=== PATIENT | female | born 1980 | race Caucasian/White ===

== ENCOUNTER 2016-04-11 23:57 | Emergency (ER) | payer OTHER ==
[~2016-04-11] VITALS: Ht 157.5 cm; Wt 85.0 kg
[~2016-04-11 23:57] MED LIST: ASPI325T39 PO; GABA1CAP5 PO; INDO-24 PO; NAPR1TAB9 PO; NRT25 PO; SERT-234 PO
[2016-04-11 23:58] VITALS: TEMP 36.9; Ht 157.5 cm; Wt 85.0 kg
[2016-04-12] MEDS ORDERED: HYDROmorphone INJ 1 MG/ML SYR IM STA (00:09)
[2016-04-12] MEDS ORDERED: PROMETHAZINE HCL INJ 25 MG/ML 1 ML VIAL IM STA (00:09)
[2016-04-12] MEDS ORDERED: KETOROLAC TROMETHAMINE 60 MG/2 ML VIAL IM STA (00:09)
--- NOTE | 2016-04-12 00:35 | EMERGENCY ROOM VISIT NOTE ---
History Report prepared by Junior: Yoshi Olivas Under the Supervision of: Dr. Thomas Resendiz M.D. First contact with patient: 00:04 Chief Complaint: HEADACHE Stated Complaint: MIGRAINE History of Present Illness The patient is a 36 year old female who presents to the Emergency Room with complaints of a worsening headache since this evening. The pain is mostly felt on the right side of her head behind the eye, and is consistent with past migraines. The onset was very sudden. The patient also complains of nausea and four episodes of vomiting. She denies any fevers, neck stiffness, one-sided weakness in the extremities, or rashes. The patient took her regular migraine medications around 2200. She was recently in the ED for GI symptoms, which resolved in two days. Source of History: patient Onset: this evening Position: head Quality: other (migraine) Timing: worsening Associated Symptoms: + nausea, + vomiting, No fevers, No headache, No neck pain, No numbness, No rash, No weakness Review of Systems See HPI for pertinent positives & negatives. A total of 10 systems reviewed and were otherwise negative. Past Medical & Surgical Medical Problems: (1) Closed head injury (2) Diabetes mellitus type 2 (3) Migraine Surgical Problems: (1) S/P appendectomy (2) S/P appendectomy (3) S/P cholecystectomy (4) Status post breast reduction (5) Status post tonsillectomy (6) Status post tubal ligation Family History Heart disease Social History Smoking Status: Current Every Day Smoker Alcohol Use: none Drug Use: none Marital Status: Housing Status: lives with family Occupation Status: disabled Current/Historical Medications Scheduled Aspirin (Aspirin Ec), 325 MG PO BID Gabapentin (Neurontin), 400 MG PO TID Indomethacin (Indocin), 50 MG PO BID Nortriptyline HCl (Nortriptyline HCl), 25 MG PO HS Propranolol HCl (Propranolol HCl ER), 60 MG PO DAILY Sertraline (Zoloft), 100 MG PO DAILY Scheduled PRN Lorazepam (Ativan), 0.5 MG PO DAILY PRN for Anxiety Naproxen (Aleve), 220-440 MG PO UD PRN for Pain Promethazine Hcl (Phenergan), 25 MG PO Q6H PRN for Nausea Allergies Coded Allergies: BEE STING (Verified Allergy, Severe, SHORTNESS OF BREATH, 04/12/16) Shellfish Allergy (Verified Allergy, Severe, SWELLING/RED SKIN, 04/12/16) Ondansetron (Verified Allergy, Intermediate, HIVES - RASH, 04/12/16) Oily Fish (Verified Allergy, Unknown, SEAFOOD, 04/12/16) Morphine (Verified Adverse Reaction, Intermediate, vomiting, 04/12/16) Uncoded Allergies: EXOTIC FRUITS (Allergy, Mild, HIVES RASH SWELLING, 08/18/15) Physical Exam Vital Signs Date Time Temp Pulse Resp B/P Pulse Ox O2 Delivery O2 Flow Rate FiO2 04/12/16 00:57 81 20 115/71 98 04/11/16 23:58 36.9 84 20 104/69 97 Room Air Physical Exam GENERAL: Patient is well appearing and in mild distress. HEAD: No acute trauma, normocephalic atraumatic ENT: Mucous membranes moist, no nasal congestion. EYES: Equal/Reactive Bilaterally, No scleral icterus, Normal ROM NECK: No nuchal rigidity, no meningismus, trachea is midline, full ROM LUNGS: No dyspnea. Clear to auscultation and equal bilaterally. No wheeze, no rhonchi. HEART: Regular rate and rhythm. No murmurs, rubs, gallops appreciated. ABDOMEN: Soft, nontender, bowel sounds positive, no masses appreciated, no peritonitis. BACK: No midline tenderness, no CVA tenderness EXTREMITIES: Normal motion all extremities, no cyanosis, no edema. NEUROLOGIC: Awake, Alert, Oriented, no acute motor or sensory deficits, no focal weakness, cranial nerves grossly intact. SKIN: No rash, no jaundice, no diaphoresis. Medical Decision & Procedures Medications Administered Medications (Trade) Dose Ordered Sig/Heather Route Start Time Stop Time Status Last Admin Dose Admin Hydromorphone HCl (Dilaudid Inj) 1 mg NOW STAT IM 04/12/16 00:09 04/12/16 00:11 DC 04/12/16 00:18 1 MG Ketorolac Tromethamine (Toradol Inj) 60 mg NOW STAT IM 04/12/16 00:09 04/12/16 00:11 DC 04/12/16 00:18 60 MG Promethazine HCl (Phenergan Inj) 25 mg NOW STAT IM 04/12/16 00:09 04/12/16 00:11 DC 04/12/16 00:19 25 MG ED Course 0005: The patient was evaluated in room A4b. A complete history and physical exam was performed. 0009: Phenergan 25 mg IM, Toradol 60 mg IM, Dilaudid 1 mg IM. 0045: Reevaluated the patient. Discussed results and discharge instructions: She verbalized understanding and agreement. The patient is ready for discharge. Medical Decision Differential: Headache, Migraine, Cluster Headache, Seizure, Meningitis, Sinusitis, CO exposure, ICH/SAH, Infectious, Tumor, Sinus Thrombosis, Arterial Dissection, amongst other pathologies entertained. 36 yr old female well known to me and rest of department for frequent visits due to chronic migraines. Arrives stating she is having he typical migraine, this time brought on by watching YouTube videos of knee replacements over the last few days. She does not have meningitis, no evidence of infections, and looks well. She is feeling better and wants to go home. Impression Primary Impression: Headache Scribe Attestation The scribe's documentation has been prepared under my direction and personally reviewed by me in its entirety. I confirm that the note above accurately reflects all work, treatment, procedures, and medical decision making performed by me. Departure Information Dispostion Home / Self-Care Referrals Na Mathis P.A. (PCP) Forms HOME CARE DOCUMENTATION FORM, IMPORTANT VISIT INFORMATION Patient Instructions A Signature Page, ED Headache Migraine, My [facility]
[2016-04-12 00:57] VITALS: BP 115/71; PULSE 81; O2SAT 98
[2016-07-12] MEDS ORDERED: PROP60CA PO (00:46)
[2016-07-12] MEDS ORDERED: PROM25TA9 PO (00:48)
[2016-07-12] MEDS ORDERED: CYCL10TA6 PO (01:08)
[2016-07-12] MEDS ORDERED: NORT10CA2 PO (01:11)
[2016-07-12] MEDS ORDERED: ACET-1256 PO (14:49)
[2016-07-12] MEDS ORDERED: LORA-741 PO (21:34)
[2016-07-19] MEDS ORDERED: NRN600 PO (13:17)
[2016-12-22] MEDS ORDERED: IPRASOL4 INH (14:50)
[2016-12-22] MEDS ORDERED: PRED10TA PO (14:50)
[2016-12-22] MEDS ORDERED: DOXY100C76 PO (14:50)
[2016-12-22] MEDS ORDERED: VAREPAK PO (14:52)
== END 2016-04-12 01:03 | disposition home or self-care (01) ==
LOC: C.EDB 23:58 → C.EDA 04-12 01:03
DX: R51 Headache (principal); E11.9 Type 2 diabetes mellitus without complications; F17.200 Nicotine dependence, unspecified, uncomplicated; Z98.51 Tubal ligation status; Z90.49 Acquired absence of other specified parts of digestive tract; Z98.890 Other specified postprocedural states; Z79.82 Long term (current) use of aspirin; Z79.899 Other long term (current) drug therapy; Z88.5 Allergy status to narcotic agent; Z88.8 Allergy status to other drugs, medicaments and biological substances; Z91.018 Allergy to other foods; Z91.030 Bee allergy status

== ENCOUNTER → 2016-04-18 | Day surgery (SDC) | payer OTHER ==
[2016-04-13 09:18] VITALS: Ht 157.5 cm; Wt 84.1 kg
[~2016-04-18] VITALS: Ht 157.5 cm; Wt 84.1 kg
[~2016-04-18] MED LIST changes: +ACET-1256 PO; +ALBUTEROL HFA INHALER 8.5 GM INH ONE; +ATROPINE SULFATE 0.1 MG/ML 5ML SYR IV PRN; +ATV/1 PO; +AZIT500T26 PO; +BUPIVACAINE/EPINEPHRINE 0.5% MPF 1:200,000 30 ML VIAL ONE; +CEFAZOLIN 2000 MG/60 ML D5W IV SCH; +CYCL10TA6 PO; +DEXAMETHASONE SOD INJ 4 MG/ML VIAL ONE; +DOXY100C76 PO; +EpHEDrine SULFATE INJ 50 MG/ML AMP IV PRN; +EpINEphrine INJ 1MG/ML AMP 1 MG/ML AMP ONE; +FENTANYL CITRATE INJ 50 MCG/1 ML 2 ML VIAL ONE; +GABA-112 PO; +HYDROCODONE/ACETAMOPHEN 5/325MG TAB PO PRN; +IPRA1AER2 INH; +IPRASOL4 INH; +KETOROLAC TROMETHAMINE 30 MG/ML VIAL ONE; +LIDOCAINE HCL 1% 20 ML VIAL ONE; +LIDOCAINE HCL 2% 2 ML VIAL (20MG/ML) ONE; +LORA-741 PO; +MIDAZOLAM HCL 1 MG/ML 2ML VIAL ONE; +MoRPHine SULFATE 4 MG/ML 1 ML CARP\\VIAL IV PRN; +NORT10CA2 PO; +NRN400 PO; +NRN600 PO; +NURSING VERBAL MED ORDER ONE; +PENI-82 PO; +PRED10TA PO; +PRED20TA PO; +PRED50TA PO; +PROM25TA9 PO; +PROP60CA PO; +PROPOFOL IV EMULSION 10 MG/ML 20 ML VIAL IV ONE; +SCOPOLAMINE 1.5 MG TDSY TD ONE; +SODIUM CHLORIDE 0.9% 1000ML 1,000 ML IV SCH; +SPRIN/30 INH; +SYMIN160 INH; +VAREPAK PO; +VNTHFA/IN INH
--- NOTE | 2016-04-18 06:46 | History & Physical Bridge - SC ---
H&P Re-Evaluation Bridge Note: I have examined the patient, reviewed the History & Physical and in the interval since the performance of the History & Physical I have noted the following changes of clinical significance: No changes noted
[2016-04-18] MEDS: LACTATED RINGER'S 1000ML 1,000 ML IV SCH ×2 (06:47→07:02)
--- NOTE | 2016-04-18 07:05 | Discharge Instructions-SurgCtr ---
Discharge Instructions Visit Reason for Visit: Left Knee Arthrofibrosis Discharge Discharge Diagnosis / Problem: Status post left knee arthrscopy lysis of Adhesions, MAN Discharge Goals Goal(s): Decrease discomfort, Improve function, Increase independence Activity Recommendations Activity Limitations: resume your previous activity Exercise/Sports Limitations: gradually increase as tolerated May Resume Sexual Activity: when tolerated Shower/Bathe: may shower/bathe in 3 days Driving or Machine Use: Not while on narcotics Weightbearing Status: Left toe touch (until after PT and return into brace) Anesthesia . Post Anesthesia Instructions: If you have had General Anesthesia or IV Sedation: * Do not drive today. * Resume driving when surgeon permits. * Do not make important decisions or sign legal documents today. * Call surgeon for: 1. Temperature elevations greater than 101 degrees F. 2. Uncontrollable pain. 3. Excessive bleeding. 4. Persistent nausea and vomiting. 5. Medication intolerance (nausea, vomiting or rash). * For nausea and vomiting use only clear liquids such as: tea, soda, bouillon until nausea subsides, then gradually increase diet as tolerated. * If you have any concerns or questions, call your surgeon's office. If physician is unavailable and it is an emergency, call 911 or go to the nearest emergency room. . Instructions / Follow-Up Instructions / Follow-Up PT tomorrow. Dr. Middleton in 10-15 days. Diet Recommendations Home Diet: resume previous diet Pending Studies Studies pending at discharge: no Medical Emergencies . Who to Call and When: Medical Emergencies: If at any time you feel your situation is an emergency, please call 911 immediately. . Non-Emergent Contact Non-Emergency issues call your: Surgeon Call Non-Emergent contact if: temperature is above 101.5, your pain is not controlled, wound has increased drainage, wound has increased redness . . "Provider Documentation" section prepared by Bala Middleton.
--- NOTE | 2016-04-18 08:24 | [facility] Post Operative Brief Note ---
Immediate Operative Summary Operative Date Apr 18, 2016. Pre-Operative Diagnosis Left Knee Arthrofibrosis Post-Operative Diagnosis Same Procedure(s) Performed Left Knee Arthroscopy, Lysis Of Adhesions, Chondroplasty MFC, Manipulation Under Anesthesia Surgeon Dr Middleton Shop Tailor Surgeon(s) Dr Jyoti Trinidad Estimated Blood Loss 4 Findings same Specimens None Drains none Anesthesia general Complication(s) None Disposition Recovery Room / PACU
--- NOTE | 2016-04-18 08:30 | [facility] Operative Report ---
Operative Report Operative Date Apr 18, 2016. Pre-Operative Diagnosis Left Knee Arthrofibrosis Post-Operative Diagnosis Same + [place] [facility] [place](s) Performed 1) Left Knee Arthroscopy, Lysis Of Adhesions. 2) Chondroplasty [facility] [place]. 3) Manipulation Under Anesthesia. Surgeon Dr Middleton General Farm Manager Surgeon(s) Dr Jyoti Trinidad Estimated Blood Loss 4 Findings The left knee was examined under anesthesia. Range of motion was 0-90. Ligamentous examination exhibited: stable Tonya, posterior drawer, varus and valgus stress at 0 & 30 degrees. Range of motion after manipulation under anesthesia at the end of the case, she had 5 of hyperextension and 130 of flexion. ARTHROSCOPIC FINDINGS: There was significant adhesions in the suprapatellar pouch. 1) PATELLOFEMORAL JOINT: The articular cartilage of the Patella and Trochlea were intact. 2) GUTTERS: No loose bodies. There was significant adhesions in both gutters. 3) MEDIAL COMPARTMENT: The articular cartilage of the femur had some type II changes at 20 of flexion and Tibia was intact. The medial meniscus was intact . 4) ACL/PCL: The PCL had a few fibers that were frayed most medially. There was some adhesions within the intercondylar notch. The PCL & ACL were both visualized and probed to be intact. 5) LATERAL COMPARTMENT: The lateral compartment was then entered in a figure-of- four position. The femoral and tibial articular cartilage was normal. The lateral meniscus was normal. Fluids (cc crystalloids) 800 Specimens None Drains n/a Anesthesia LMA Complication(s) None Disposition Recovery Room / PACU (Stable) Implants n/a Indications This is a 36-year-old female who underwent PCL reconstruction 3 months ago and has been unable to fully regain flexion despite physical therapy. I recommended that a left knee arthroscopy be performed with lysis of adhesions, meniscus repair vs debridement, possible chondroplasty versus microfracture, and manipulation under anesthesia. The patient understands the risks of surgery , which include but not limited to: Knee stiffness, bleeding, infection, re- operation, damage to nerves and arteries, continued knee pain, progression of OA , DVT, and a 2-5% risk of becoming worse after surgery. The patient understands all of these instructions and explanations, all of his questions have been satisfactorily addressed and the patient has elected to proceed. Informed consent was signed. Description of Procedure The patient was taken to the Operating Room and placed in the supine position after general anesthetic was administered. My initials and a multidisciplinary time-out were used to identify the left leg as the correct operative limb. Prior to the incision, 2 grams of intravenous Ancef was given. The left knee was then injected with 20cc of a 50:50 mix of 1% Lidocaine plain and 0.5% Bupivacaine with epinephrine in a sterile fashion using the superolateral portal. The left leg was then prepped and draped in a standard sterile fashion. The anterolateral, anteromedial, and superolateral portals were injected with the 50:50 mixture noted above, for a total of 10cc, in the standard fashion. An anterolateral arthroscopic portal was established with an 11-blade. Next, the arthroscope was introduced into the knee. A diagnostic arthroscopy commenced and both the superolateral and anteromedial portals were established under direct visualization using a spinal needle followed by an 11 blade in the standard fashion. The above findings were observed during the diagnostic arthroscopy. The adhesions in the suprapatellar pouch as well as both gutters were debrided as they were encounter with mechanical shaver and [place]. The adhesions within the intercondylar notch were removed to expose the PCL graft and ACL, the few frayed fibers of the PCL graft were removed with mechanical shaver. The articular cartilage damage was debrided back to stable margins as they were encountered with mechanical shaver. The knee was copiously irrigated. The arthroscopic instruments were then removed. A manipulation under anesthesia was performed gently flexing the knee, several bands were palpable as they were released and 130 of flexion was achieved. The knee easily hyperextended by 5 . Tonya testing and posterior drawer testing were her stable following the manipulation under anesthesia. The portals were closed with 3-0 Prolene in a standard fashion. The wound was dressed with Xeroform gauze, sterile gauze, ABDs, sterile Webril, and a foot to thigh Marco Antonio bandage. The patient was then transferred to the Recovery Room in stable condition. The sponge and needle counts were correct. Post-op Instructions: The patient will be toe-touch weightbearing for one day and after physical therapy tomorrow and placement back in her PCL brace, she may be weightbearing as tolerated. The patient may remove the operative dressing on Post-Op Day #1 and apply Band-Aids to the wounds. The patient may shower in 72 hours and is to wear the FRANTZ for 2 weeks on the operative limb. The patient is to use the pain medicine as needed and take the ASA for 2 weeks. The patient was also given a handout for home quad strengthening and seated self-assisted ROM exercises, which they may begin later today. The patient was given a prescription for PT and is scheduled for an appointment tomorrow. The patient is to follow up with me in 10-15 days. I attest to the content of the Intraoperative Record and any orders documented therein. Any exceptions are noted below.
[2016-04-18] MEDS: FENTANYL CITRATE INJ 50 MCG/1 ML 2 ML VIAL IV PRN ×3 (08:52→09:18)
--- NOTE | 2016-04-18 10:16 | Anesthesia Progress Nt - [facility] ---
Anesthesia Post Op Note Date & Time Apr 18, 2016 at 10:15 Vital Signs Pain Intensity: 4 Vital Signs Past 12 Hours Date Time Temp Pulse Resp B/P Pulse Ox O2 Delivery O2 Flow Rate FiO2 04/18/16 09:41 36.3 95 18 141/98 97 Room Air 04/18/16 09:33 108/74 04/18/16 09:31 87 17 04/18/16 09:31 86 17 91 04/18/16 09:30 83 16 93 04/18/16 09:30 36.6 84 16 04/18/16 09:28 114/74 04/18/16 09:25 85 15 95 04/18/16 09:25 86 15 04/18/16 09:24 108/75 04/18/16 09:20 90 16 94 04/18/16 09:20 90 16 04/18/16 09:19 36.6 113 16 108/75 96 Room Air 04/18/16 09:18 109/75 04/18/16 09:15 95 17 94 04/18/16 09:15 94 17 04/18/16 09:14 101 21 04/18/16 09:14 99 21 129/93 91 04/18/16 09:09 90 17 95 04/18/16 09:09 91 17 04/18/16 09:08 98/72 04/18/16 09:04 99 15 118/72 98 04/18/16 09:04 94 15 04/18/16 08:59 120 17 04/18/16 08:59 119 17 99 04/18/16 08:58 131/111 04/18/16 08:54 113 24 95 04/18/16 08:54 116 24 04/18/16 08:53 138/89 04/18/16 08:49 105 25 04/18/16 08:49 105 25 121/84 95 04/18/16 08:44 106 6 97 04/18/16 08:44 106 6 04/18/16 08:43 127/85 04/18/16 08:39 111 21 98 04/18/16 08:39 111 21 04/18/16 08:38 137/84 04/18/16 08:36 36.2 113 24 132/86 98 Mask 04/18/16 08:36 112 29 04/18/16 08:36 113 29 98 04/18/16 06:23 36.8 96 20 112/73 95 Room Air Notes Mental Status: alert / awake / arousable, participated in evaluation Pt Amnestic to Procedure: Yes Nausea / Vomiting: adequately controlled Pain: adequately controlled Airway Patency, RR, SpO2: stable & adequate BP & HR: stable & adequate Hydration State: stable & adequate Anesthetic Complications: no major complications apparent
[2016-04-18 10:35] VITALS: BP 124/85; PULSE 81; O2SAT 98
== END | disposition home or self-care (01) ==
LOC: X.SURG 06:07
PROVIDERS: ATTEND Orthopaedic Surgery Sports Medicine
DX: M24.662 Ankylosis, left knee (principal); E11.9 Type 2 diabetes mellitus without complications; E66.9 Obesity, unspecified; F41.9 Anxiety disorder, unspecified; Z98.51 Tubal ligation status; Z90.49 Acquired absence of other specified parts of digestive tract; Z88.5 Allergy status to narcotic agent; Z91.013 Allergy to seafood; Z90.89 Acquired absence of other organs; Z98.890 Other specified postprocedural states; F17.200 Nicotine dependence, unspecified, uncomplicated; Z68.34 Body mass index [BMI] 34.0-34.9, adult

== ENCOUNTER 2016-04-25 23:16 | Emergency (ER) | payer OTHER ==
[~2016-04-25] VITALS: Ht 157.5 cm; Wt 84.0 kg
[~2016-04-25 23:16] MED LIST changes: -ACET-1256 PO; -ALBUTEROL HFA INHALER 8.5 GM INH ONE; -ATROPINE SULFATE 0.1 MG/ML 5ML SYR IV PRN; -ATV/1 PO; -AZIT500T26 PO; -BUPIVACAINE/EPINEPHRINE 0.5% MPF 1:200,000 30 ML VIAL ONE; -CEFAZOLIN 2000 MG/60 ML D5W IV SCH; -CYCL10TA6 PO; -DEXAMETHASONE SOD INJ 4 MG/ML VIAL ONE; -DOXY100C76 PO; -EpHEDrine SULFATE INJ 50 MG/ML AMP IV PRN; -EpINEphrine INJ 1MG/ML AMP 1 MG/ML AMP ONE; -FENTANYL CITRATE INJ 50 MCG/1 ML 2 ML VIAL ONE; -GABA-112 PO; -HYDROCODONE/ACETAMOPHEN 5/325MG TAB PO PRN; -IPRA1AER2 INH; -IPRASOL4 INH; -KETOROLAC TROMETHAMINE 30 MG/ML VIAL ONE; -LIDOCAINE HCL 1% 20 ML VIAL ONE; -LIDOCAINE HCL 2% 2 ML VIAL (20MG/ML) ONE; -LORA-741 PO; -MIDAZOLAM HCL 1 MG/ML 2ML VIAL ONE; -MoRPHine SULFATE 4 MG/ML 1 ML CARP\\VIAL IV PRN; -NORT10CA2 PO; -NRN400 PO; -NRN600 PO; -NURSING VERBAL MED ORDER ONE; -PENI-82 PO; -PRED10TA PO; -PRED20TA PO; -PRED50TA PO; -PROM25TA9 PO; -PROP60CA PO; -PROPOFOL IV EMULSION 10 MG/ML 20 ML VIAL IV ONE; -SCOPOLAMINE 1.5 MG TDSY TD ONE; -SODIUM CHLORIDE 0.9% 1000ML 1,000 ML IV SCH; -SPRIN/30 INH; -SYMIN160 INH; -VAREPAK PO; -VNTHFA/IN INH
[2016-04-25 23:19] VITALS: TEMP 36.8; Ht 157.5 cm; Wt 84.0 kg
[2016-04-25] MEDS ORDERED: HYDROmorphone INJ 0.5 MG/0.5 ML SYR IV STA (23:45)
[2016-04-25] MEDS ORDERED: PROMETHAZINE HCL INJ 12.5 MG in SODIUM CHLORIDE 0.9% 50ML 50 ML IV STA (23:45)
[2016-04-25] MEDS ORDERED: SODIUM CHLORIDE 0.9% 1000ML 1,000 ML IV STA (23:46)
[2016-04-26 00:13] LABS: BASO % 0.1 %; BASO ABS # 0.01 K/uL (0-0.2); COMPLETE YES; EOS % 7.5 %; HEMATOCRIT 34.1 % (37-47); IG% 0.2 %; LYMPH % 17.2 %; LYMPH ABS # 1.52 K/uL (1.2-3.4); MEAN CELL VOLUME 79.9 fL (80-100); MEAN CORPUSCULAR HGB CONC 32.6 g/dl (32-36); MEAN PLATELET VOLUME 8.1 fL (7.4-10.4); MONO % 7.6 %; NEUT % 67.4 %; PLATELET COUNT 373 K/uL (130-400); RED BLOOD COUNT 4.27 M/uL (4.2-5.4); WHITE BLOOD COUNT 8.82 K/uL (4.8-10.8)
[2016-04-26 00:35] LABS: BUN/CREATININE RATIO 22.1 (10-20); CALCIUM 8.4 mg/dl (8.5-10.1); CREATININE 0.63 mg/dl (0.60-1.20); POTASSIUM 3.8 mmol/L (3.5-5.1)
[2016-04-26 00:38] LABS: ALB/GLOB RATIO 0.8 (0.9-2)
[2016-04-26] MEDS ORDERED: HYDROmorphone INJ 0.5 MG/0.5 ML SYR IV STA (00:50)
--- NOTE | 2016-04-26 01:49 | EMERGENCY ROOM VISIT NOTE ---
History First contact with patient: 23:22 Chief Complaint: HEADACHE Stated Complaint: MIGRAINE History of Present Illness The patient is a 36 year old female who presents to the Emergency Room via private vehicle accompanied by significant other with complaints of "migraine". The patient states that around 0600 today she began with body aches and a generalized stiffness in her shoulder regions up through her neck as well as throat pain and ear pain. She states that she napped on and off throughout the day and then woke up today around 8 PM and the migraine started. She has tried [facility] but vomited this. She states she took her temperature and it was greater than 102F. She is also taking Aleve and tres mike with minimal relief. She states she has a headache behind her right eye which she rates as an 8/10. This is not the worse headache of her life. The neck stiffness is typical with her other symptoms. She does have a slight burning in the throat/ chest region but no true chest pain. There is mild abdominal pain from the vomiting episodes of which she has had 5 total today. She has no dysuria, vaginal discharge. She sees Dr. Glass for her headaches. Review of Systems A complete 10-point Review of Systems was discussed with the patient, with pertinent positives and negatives listed in the History of Present Illness. All remaining Review of Systems questions can be considered negative unless otherwise specified. Past Medical/Surgical History Medical Problems: (1) Closed head injury (2) Diabetes mellitus type 2 (3) Migraine Surgical Problems: (1) S/P appendectomy (2) S/P appendectomy (3) S/P cholecystectomy (4) Status post breast reduction (5) Status post tonsillectomy (6) Status post tubal ligation Family History Heart disease Social History Smoking Status: Current Every Day Smoker Alcohol Use: none Drug Use: none Marital Status: Housing Status: lives with family Occupation Status: disabled Current/Historical Medications Scheduled Aspirin (Aspirin Ec), 325 MG PO BID Gabapentin (Neurontin), 400 MG PO TID Indomethacin (Indocin), 50 MG PO BID Nortriptyline HCl (Nortriptyline HCl), 25 MG PO HS Propranolol HCl (Propranolol HCl ER), 60 MG PO QAM Sertraline (Zoloft), 100 MG PO HS Scheduled PRN Lorazepam (Ativan), 0.5 MG PO DAILY PRN for Anxiety Naproxen (Aleve), 220-440 MG PO UD PRN for Pain Promethazine Hcl (Phenergan), 25 MG PO Q6H PRN for Nausea Allergies Coded Allergies: BEE STING (Verified Allergy, Severe, SHORTNESS OF BREATH, 04/26/16) Shellfish Allergy (Verified Allergy, Severe, SWELLING/RED SKIN, 04/26/16) Ondansetron (Verified Allergy, Intermediate, HIVES - RASH, 04/26/16) Oily Fish (Verified Allergy, Unknown, SEAFOOD, 04/26/16) Morphine (Verified Adverse Reaction, Intermediate, vomiting, 04/26/16) Uncoded Allergies: EXOTIC FRUITS (Allergy, Mild, HIVES RASH SWELLING, 08/18/15) Physical Exam Vital Signs Date Time Temp Pulse Resp B/P Pulse Ox O2 Delivery O2 Flow Rate FiO2 04/26/16 01:56 59 18 102/69 100 04/26/16 01:01 69 18 98/45 97 Room Air 04/25/16 23:19 36.8 100 20 103/70 98 Room Air Physical Exam VITAL SIGNS - Vital signs and nursing notes were reviewed. Patient is afebrile , with a blood pressure 103/70, borderline tachycardic and is saturating well on room air 98%. GENERAL -36-year-old female appearing her stated age who is in no acute distress. The patient is hesitant to open her eyes secondary to light sensitivity. Communicates well with provider and answers questions appropriately. SKIN - Without rashes. HEAD - NC/AT. EYES - PERRL with EOMI bilaterally. Sclera anicteric. Palpebral conjunctiva pink and moist with no injection noted. EARS - No deformities of external structures noted on gross examination bilaterally. NOSE - Midline and without cyanosis. No epistaxis or purulent drainage noted. Septum midline without deviation or septal hematoma noted. MOUTH/OROPHARYNX - Without perioral cyanosis. Buccal mucosa pink and moist and without leukoplakia. Tongue midline with equal elevation of palate bilaterally. No tonsillar hypertrophy, erythema, or exudates noted. Fair dentition noted. NECK - Neck with FROM. Supple to palpation. No lymphadenopathy noted. No nuchal rigidity. Negative Kernig. Negative Brudzinski. LUNGS - Chest wall symmetric without accessory muscle use, intercostals retractions, or central cyanosis. Normal vesicular breath sounds CTA B/L. No wheezes, rales, or rhonchi appreciated. CARDIAC - RRR with S1/S2. No murmur, rubs, or gallops appreciated. ABDOMEN - Abdominal contour without pulsations or visible masses. BS normoactive all four quadrants. No tenderness, palpable masses, hepatosplenomegaly, or ascites noted. EXTREMITIES - No clubbing or peripheral cyanosis. No pretibial edema present. +5 /5 strength noted in UE/LE bilaterally. NEUROLOGIC - Cranial nerves II through XII grossly intact. Sensory intact to light touch throughout. PSYCH - A&Ox3 and cooperates fully with examiner. Pt is very pleasant and interacts well with examiner. Medical Decision & Procedures Laboratory Results 04/25/16 23:56 Red Blood Count 4.27, Mean Corpuscular Volume 79.9, Mean Corpuscular Hemoglobin 26.0, Mean Corpuscular Hemoglobin Concent 32.6, Mean Platelet Volume 8.1, Neutrophils (%) (Auto) 67.4, Lymphocytes (%) (Auto) 17.2, Monocytes (%) (Auto) 7.6, Eosinophils (%) (Auto) 7.5, Basophils (%) (Auto) 0.1, Neutrophils # (Auto) 5.94, Lymphocytes # (Auto) 1.52, Monocytes # (Auto) 0.67, Eosinophils # (Auto) 0.66, Basophils # (Auto) 0.01 04/25/16 23:56 Test 04/25/16 23:56 White Blood Count 8.82 K/uL (4.8-10.8) Red Blood Count 4.27 M/uL (4.2-5.4) Hemoglobin 11.1 g/dL (12.0-16.0) Hematocrit 34.1 % (37-47) Mean Corpuscular Volume 79.9 fL (80-100) Mean Corpuscular Hemoglobin 26.0 pg (25-34) Mean Corpuscular Hemoglobin Concent 32.6 g/dl (32-36) Platelet Count 373 K/uL (130-400) Mean Platelet Volume 8.1 fL (7.4-10.4) Neutrophils (%) (Auto) 67.4 % Lymphocytes (%) (Auto) 17.2 % Monocytes (%) (Auto) 7.6 % Eosinophils (%) (Auto) 7.5 % Basophils (%) (Auto) 0.1 % Neutrophils # (Auto) 5.94 K/uL (1.4-6.5) Lymphocytes # (Auto) 1.52 K/uL (1.2-3.4) Monocytes # (Auto) 0.67 K/uL (0.11-0.59) Eosinophils # (Auto) 0.66 K/uL (0-0.5) Basophils # (Auto) 0.01 K/uL (0-0.2) RDW Standard Deviation 46.4 fL (36.4-46.3) RDW Coefficient of Variation 16.0 % (11.5-14.5) Immature Granulocyte % (Auto) 0.2 % Immature Granulocyte # (Auto) 0.02 K/uL (0.00-0.02) Anion Gap 11.0 mmol/L (3-11) Est Creatinine Clear Calc Drug Dose 124.1 ml/min Estimated GFR () 133.7 Estimated GFR (Non- 115.4 BUN/Creatinine Ratio 22.1 (10-20) Calcium Level 8.4 mg/dl (8.5-10.1) Total Bilirubin 0.1 mg/dl (0.2-1) Aspartate Amino Transf (AST/SGOT) 11 U/L (15-37) Alanine Aminotransferase (ALT/SGPT) 25 U/L (12-78) Alkaline Phosphatase 97 U/L (45-117) Total Protein 7.0 gm/dl (6.4-8.2) Albumin 3.2 gm/dl (3.4-5.0) Globulin 3.8 gm/dl (2.5-4.0) Albumin/Globulin Ratio 0.8 (0.9-2) Influenza Type A Antigen Neg for Influ A (NEG) Influenza Type B Antigen Neg for Influ B (NEG) Medications Administered Medications (Trade) Dose Ordered Sig/Heather Route Start Time Stop Time Status Last Admin Dose Admin Hydromorphone HCl 0.5 mg 0.5 mg NOW STAT IV 04/25/16 23:45 04/25/16 23:47 DC 04/26/16 00:07 0.5 MG Promethazine HCl 12.5 mg/Sodium Chloride 50.5 ml @ 204 mls/hr NOW STAT IV 04/25/16 23:45 04/25/16 23:59 DC 04/26/16 00:10 204 MLS/HR Sodium Chloride (Nss 1000ml) 1,000 ml @ 999 mls/hr Q1H1M STAT IV 04/25/16 23:46 04/26/16 00:46 DC 04/26/16 00:07 999 MLS/HR Hydromorphone HCl (Dilaudid Inj) 0.5 mg NOW STAT IV 04/26/16 00:50 04/26/16 00:51 DC 04/26/16 00:59 0.5 MG Medical Decision Patient was seen and evaluated as above. After obtaining a thorough history and physical examination it was noted the patient does have a treatment plan here in the emergency department for her migraine headaches. She is to receive 2 shots per month. Because she had additional symptoms in addition to her typical migraine that were flulike I did pursue additional studies. IV access was established and a CBC, CMP, flu swab, rapid strep, 0.5 mg of Dilaudid, and 12.5 mg of Phenergan were provided intravenously. These were secondary to subjective and objective examination findings. She was not given Toradol because she had taken NSAIDs already today and I feared the risks and on the way the benefits of providing this. CBC revealed no leukocytosis but slight anemia, CMP reveals slight elevation in chloride but no concerning change with electrolytes. The BUN/creatinine ratio, random glucose, calcium, total bilirubin and AST are both abnormal but only slightly. These were discussed with the patient and she was instructed to follow-up with her family doctor regarding this. Flu was negative. Upon reassessment the patient noted that she was feeling much better other than the headache which was persistent. Another 0.5 mg of Dilaudid was ordered. She was reassessed and noted to be feeling much better. There were no neurologic deficits on exam nor do I feel there is any emergent or surgical nature to her pain at this time. I do not suspect sepsis, meningitis or encephalitis. Patient was discharged home with male friend driving in good condition. She is to follow-up with her family doctor and neurologist from today's visit. In regard to the illness I feel she likely has a viral flulike illness. I do not suspect any emergent or surgical nature to this. In the evaluation and treatment of this patient, the following differential diagnoses were considered: Migraine Headache, Intracranial Hemorrhage, Subdural Hematoma, Subarachnoid Hemorrhage, Cerebral Aneurysm, Temporal/Giant Cell Arteritis, Tension Headache, Meningitis, Encephalitis, or Hydrocephalus. [place] Drug Monitoring Program Search Results: patient reviewed within database, no issues identified Impression Primary Impression: Headache Additional Impressions: Anemia Influenza-like illness Departure Information Dispostion Home / Self-Care Condition GOOD Referrals No Doctor, Assigned (PCP) Patient Instructions My [facility] Additional Instructions You have been treated in the Emergency Department for a Headache. You have received pain medicine in the emergency department which impairs your ability to operate a vehicle. It is illegal for you to drive after receiving these medicines. As we discussed there are slight abnormalities in your basic CBC and CMP. Please follow-up with your family doctor to have these repeated. For pain control, you can use the following iywn-byw-[id number] medicines (if >12 yo): - Regular strength (325mg/tab) Tylenol (acetaminophen) 2 tabs every 4-6 hours as needed. Do not exceed 12 tablets in a 24 hour period. Avoid taking more than 4 grams (4000 mg) of Tylenol per day. This includes any other sources of acetaminophen you may take on a regular basis. - Regular strength (200 mg/tab) Advil (ibuprofen) 1-2 tabs every 4-6 hours as needed. Do not exceed a dose of 3200 mg per day. You should relax in a quiet, dark place for the rest of the day. Avoid any possible triggers including: cigarette smoke, caffeine, nicotine, chocolate, wine, beer, loud noises or music, or bright lights. You should schedule a follow-up appointment in 2-3 days with your Primary Care Provider or established Neurologist for further evaluation and treatment of your Headache. Return to the Emergency Department if your current symptoms worsen despite treatment course outlined above, or if you develop any of the following symptoms : intractable pain despite aforementioned treatment course, visual disturbances , loss of vision, unilateral weakness or facial drooping, slurring of speech, loss of coordination, or loss of consciousness. Please rest and drink plenty of clear fluids. Please return to the emergency department with any new/concerning symptoms. Problem Qualifiers Primary Impression: Headache Headache type: unspecified Headache chronicity pattern: acute headache Intractability: not intractable Qualified Codes: R51 - Headache Additional Impressions: Anemia Anemia type: unspecified type Qualified Codes: D64.9 - Anemia, unspecified
[2016-04-26 01:56] VITALS: BP 102/69; PULSE 59; O2SAT 100
--- NOTE | 2016-04-26 01:59 | EMERGENCY ROOM VISIT NOTE ---
ED Visit Note First contact with patient: 23:22 I have personally seen and evaluated the patient with the PA. I agree with the diagnosis and management decisions and have been personally involved in the case. Please see Augustin Arora PA-C's notes for further details of the history, physical and visit.
[2016-07-12] MEDS ORDERED: PROP60CA PO (00:46)
[2016-07-12] MEDS ORDERED: PROM25TA9 PO (00:48)
[2016-07-12] MEDS ORDERED: CYCL10TA6 PO (01:08)
[2016-07-12] MEDS ORDERED: NORT10CA2 PO (01:11)
[2016-07-12] MEDS ORDERED: ACET-1256 PO (14:49)
[2016-07-12] MEDS ORDERED: LORA-741 PO (21:34)
[2016-07-19] MEDS ORDERED: NRN600 PO (13:17)
[2016-12-22] MEDS ORDERED: PRED10TA PO (14:50)
[2016-12-22] MEDS ORDERED: IPRASOL4 INH (14:50)
[2016-12-22] MEDS ORDERED: DOXY100C76 PO (14:50)
[2016-12-22] MEDS ORDERED: VAREPAK PO (14:52)
== END 2016-04-26 01:58 | disposition home or self-care (01) ==
LOC: C.EDB 23:17
DX: G43.909 Migraine, unspecified, not intractable, without status migrainosus (principal); D64.9 Anemia, unspecified; E11.9 Type 2 diabetes mellitus without complications; Z98.51 Tubal ligation status; F17.210 Nicotine dependence, cigarettes, uncomplicated; Z79.82 Long term (current) use of aspirin; Z79.899 Other long term (current) drug therapy

== ENCOUNTER 2016-05-17 13:24 | Emergency (ER) | payer OTHER ==
[~2016-05-17] VITALS: Ht 157.5 cm; Wt 86.0 kg
[2016-05-17 13:28] VITALS: TEMP 36.9; Ht 157.5 cm; Wt 86.0 kg
[2016-05-17] MEDS ORDERED: HYDROmorphone INJ 1 MG/ML SYR IM STA (16:30)
[2016-05-17] MEDS ORDERED: PROMETHAZINE HCL INJ 25 MG/ML 1 ML VIAL IM STA (16:30)
[2016-05-17] MEDS ORDERED: KETOROLAC TROMETHAMINE 60 MG/2 ML VIAL IM STA (16:30)
--- NOTE | 2016-05-17 16:41 | EMERGENCY ROOM VISIT NOTE ---
ED Visit Note First contact with patient: 16:16 I have seen and examined this patient with Mica Bar and generally agree with the treatment plan as discussed. Problem List Medical Problems: (1) Closed head injury Status: Chronic (2) Diabetes mellitus type 2 Status: Chronic (3) Migraine Status: Chronic Surgical Problems: (1) S/P appendectomy Status: Resolved (2) S/P appendectomy Status: Chronic (3) S/P cholecystectomy Status: Chronic (4) Status post tonsillectomy Status: Chronic (5) Status post tubal ligation Status: Chronic Current/Historical Medications Scheduled Aspirin (Aspirin Ec), 325 MG PO BID Gabapentin (Neurontin), 400 MG PO TID Indomethacin (Indocin), 50 MG PO BID Nortriptyline HCl (Nortriptyline HCl), 25 MG PO HS Propranolol HCl (Propranolol HCl ER), 60 MG PO QAM Sertraline (Zoloft), 100 MG PO HS Scheduled PRN Lorazepam (Ativan), 0.5 MG PO DAILY PRN for Anxiety Naproxen (Aleve), 220-440 MG PO UD PRN for Pain Promethazine Hcl (Phenergan), 25 MG PO Q6H PRN for Nausea Allergies Coded Allergies: BEE STING (Verified Allergy, Severe, SHORTNESS OF BREATH, 04/26/16) Shellfish Allergy (Verified Allergy, Severe, SWELLING/RED SKIN, 04/26/16) Ondansetron (Verified Allergy, Intermediate, HIVES - RASH, 04/26/16) Oily Fish (Verified Allergy, Unknown, SEAFOOD, 04/26/16) Morphine (Verified Adverse Reaction, Intermediate, vomiting, 04/26/16) Uncoded Allergies: EXOTIC FRUITS (Allergy, Mild, HIVES RASH SWELLING, 08/18/15) Vital Signs Date Time Temp Pulse Resp B/P Pulse Ox O2 Delivery O2 Flow Rate FiO2 05/17/16 13:28 36.9 83 20 107/70 97 Departure Information Referrals Na Mathis P.A. (PCP) Patient Instructions My [facility]
[2016-05-17 16:45] VITALS: BP 92/53; PULSE 86; O2SAT 95
--- NOTE | 2016-05-17 16:56 | EMERGENCY ROOM VISIT NOTE ---
ED Visit Note First contact with patient: 16:16 CHIEF COMPLAINT: Migraine headache HISTORY OF PRESENT ILLNESS: This 36-year-old female patient presented to the emergency department ambulatory with a gradual onset of a severe generalized headache that started last night. The patient states the migraine is similar to their typical migraines. There has been associated photophobia, phonophobia, nausea and vomiting. The patient denies fever or chills recently, and there is no weakness or numbness of the extremities. There is no difficulty with speech or vision. No trauma to the head and no neck pain. The pain is severe, constant , and it is slowly increasing in severity. The patient rates the pain as throbbing and and 9/10. The patient has taken no medications at home. This is not the worst headache of the life and is similar to previous migraines. Previous imaging studies of the brain have been normal. Additionally, the patient reports that she has had 4-5 episodes of diarrhea today. She also reports low back pain which is chronic for her. REVIEW OF SYSTEMS: A review of systems was performed with positives and pertinent negatives listed in the history of present illness. All other systems were reviewed and are negative. ALLERGIES: See EMR MEDICATIONS: See med list PMH: Migraine headaches, chronic low back pain SOCIAL HISTORY: The patient lives locally with family. PHYSICAL EXAM: Vital Signs: Reviewed Nurse's notes, vital signs stable. GENERAL : This is a 36-year-old female, who appears in pain, but non toxic in appearance and in no acute distress. MENTAL STATUS: Alert, oriented, and coherent. HEENT: Normocephalic. PERRLA. EOMI. Nares patent without nuchal rigidity. Tympanic membranes pearly sanchez without erythema or effusion bilaterally. Mucous membranes moist. NECK: Supple, no nuchal rigidity, nontender, no lymphadenopathy. HEART: Regular rhythm and normal rate without murmurs, ectopy, gallops, or rubs. LUNGS: Clear to auscultation bilaterally without wheezes, rales or rhonchi. No dullness to percussion. No accessory muscle use. No retractions. SKIN: Normal. NEUROLOGICAL: Pupils are round, equal and react to light. The optic fundi are normal and the discs are flat. The patient moves all extremities well and the gait is normal. EMERGENCY DEPARTMENT COURSE: I examined the patient. The patient is on a 2 narcotic injection per month treatment plan for their migraines. The patient does also report low back pain, which is chronic for her and will not require additional workup today. She has also had diarrhea in addition to her usual vomiting. She has no abdominal pain or tenderness. The patient was informed that she likely has a viral GI bug. She was offered further workup for this and IV hydration, but declined and preferred to just receive her typical migraine medications. The patient was given 1 mg Dilaudid IM, 60 mg Toradol IM , and 25 mg Phenergan IM per their usual protocol. The differential diagnosis includes acute intracranial bleed, meningitis, encephalitis, mass or mass effect , sinusitis, infection, tumor, headache, temporal arteritis and carbon monoxide exposure, and migraine. The patient was independently evaluated by Dr. Miller , ED attending physician, who agreed with my assessment and treatment plan. The patient was discharged home in stable condition with her significant other driving. DIAGNOSIS: Migraine headache Problem List Medical Problems: (1) Closed head injury Status: Chronic (2) Diabetes mellitus type 2 Status: Chronic (3) Migraine Status: Chronic Surgical Problems: (1) S/P appendectomy Status: Resolved (2) S/P appendectomy Status: Chronic (3) S/P cholecystectomy Status: Chronic (4) Status post tonsillectomy Status: Chronic (5) Status post tubal ligation Status: Chronic Current/Historical Medications Scheduled Aspirin (Aspirin Ec), 325 MG PO BID Gabapentin (Neurontin), 400 MG PO TID Indomethacin (Indocin), 50 MG PO BID Nortriptyline HCl (Nortriptyline HCl), 25 MG PO HS Propranolol HCl (Propranolol HCl ER), 60 MG PO QAM Sertraline (Zoloft), 100 MG PO HS Scheduled PRN Lorazepam (Ativan), 0.5 MG PO DAILY PRN for Anxiety Naproxen (Aleve), 220-440 MG PO UD PRN for Pain Promethazine Hcl (Phenergan), 25 MG PO Q6H PRN for Nausea Allergies Coded Allergies: BEE STING (Verified Allergy, Severe, SHORTNESS OF BREATH, 04/26/16) Shellfish Allergy (Verified Allergy, Severe, SWELLING/RED SKIN, 04/26/16) Ondansetron (Verified Allergy, Intermediate, HIVES - RASH, 04/26/16) Oily Fish (Verified Allergy, Unknown, SEAFOOD, 04/26/16) Morphine (Verified Adverse Reaction, Intermediate, vomiting, 04/26/16) Uncoded Allergies: EXOTIC FRUITS (Allergy, Mild, HIVES RASH SWELLING, 08/18/15) Vital Signs Date Time Temp Pulse Resp B/P Pulse Ox O2 Delivery O2 Flow Rate FiO2 05/17/16 16:45 86 16 92/53 95 Room Air 05/17/16 13:28 36.9 83 20 107/70 97 Medications Administered Medications (Trade) Dose Ordered Sig/Heather Route Start Time Stop Time Status Last Admin Dose Admin Hydromorphone HCl (Dilaudid Inj) 1 mg NOW STAT IM 05/17/16 16:30 05/17/16 16:32 DC 05/17/16 16:42 1 MG Ketorolac Tromethamine (Toradol Inj) 60 mg NOW STAT IM 05/17/16 16:30 05/17/16 16:32 DC 05/17/16 16:42 60 MG Promethazine HCl (Phenergan Inj) 25 mg NOW STAT IM 05/17/16 16:30 05/17/16 16:32 DC 05/17/16 16:42 25 MG Departure Information Impression Primary Impression: Migraine Dispostion Home / Self-Care Condition GOOD Referrals Na Mathis P.A. (PCP) Patient Instructions My [facility] Additional Instructions You have been treated in the Emergency Department for a Headache. You have received pain medicine in the emergency department which impairs your ability to operate a vehicle. It is illegal for you to drive after receiving these medicines. For pain control, you can use the following exin-wts-tpsgkam medicines (if >12 yo): - Regular strength (325mg/tab) Tylenol (acetaminophen) 2 tabs every 4-6 hours as needed. Do not exceed 12 tablets in a 24 hour period. Avoid taking more than 4 grams (4000 mg) of Tylenol per day. This includes any other sources of acetaminophen you may take on a regular basis. - Regular strength (200 mg/tab) Advil (ibuprofen) 1-2 tabs every 4-6 hours as needed. Do not exceed a dose of 3200 mg per day. You should relax in a quiet, dark place for the rest of the day. Avoid any possible triggers including: cigarette smoke, caffeine, nicotine, chocolate, wine, beer, loud noises or music, or bright lights. You should schedule a follow-up appointment in 2-3 days with your Primary Care Provider or established Neurologist for further evaluation and treatment of your Headache. Return to the Emergency Department if your current symptoms worsen despite treatment course outlined above, or if you develop any of the following symptoms : intractable pain despite aforementioned treatment course, visual disturbances , loss of vision, unilateral weakness or facial drooping, slurring of speech, loss of coordination, or loss of consciousness. Problem Qualifiers Primary Impression: Migraine Migraine type: unspecified Status migrainosus presence: without status migrainosus Intractability: not intractable Qualified Codes: G43.909 - Migraine, unspecified, not intractable, without status migrainosus
[2016-07-12] MEDS ORDERED: PROP60CA PO (00:46)
[2016-07-12] MEDS ORDERED: PROM25TA9 PO (00:48)
[2016-07-12] MEDS ORDERED: CYCL10TA6 PO (01:08)
[2016-07-12] MEDS ORDERED: NORT10CA2 PO (01:11)
[2016-07-12] MEDS ORDERED: ACET-1256 PO (14:49)
[2016-07-12] MEDS ORDERED: LORA-741 PO (21:34)
[2016-07-19] MEDS ORDERED: NRN600 PO (13:17)
[2016-12-22] MEDS ORDERED: PRED10TA PO (14:50)
[2016-12-22] MEDS ORDERED: IPRASOL4 INH (14:50)
[2016-12-22] MEDS ORDERED: DOXY100C76 PO (14:50)
[2016-12-22] MEDS ORDERED: VAREPAK PO (14:52)
== END 2016-05-17 17:08 | disposition home or self-care (01) ==
LOC: C.EDB 13:31 → C.EDD 17:08
DX: G43.909 Migraine, unspecified, not intractable, without status migrainosus (principal); E11.9 Type 2 diabetes mellitus without complications; Z79.899 Other long term (current) drug therapy; Z79.82 Long term (current) use of aspirin

== ENCOUNTER 2016-06-01 01:36 | Emergency (ER) | payer OTHER ==
[~2016-06-01] VITALS: Ht 157.5 cm; Wt 85.0 kg
[2016-06-01 01:46] VITALS: TEMP 37.1; Ht 157.5 cm; Wt 85.0 kg
[2016-06-01] MEDS ORDERED: PROMETHAZINE HCL INJ 25 MG/ML 1 ML VIAL IM STA (01:51)
[2016-06-01] MEDS ORDERED: HYDROmorphone INJ 2 MG/ML SYR/VIAL IM STA (01:51)
[2016-06-01] MEDS ORDERED: KETOROLAC TROMETHAMINE 60 MG/2 ML VIAL IM STA (01:51)
[2016-06-01] MEDS ORDERED: HYDROmorphone INJ 1 MG/ML SYR ONE (01:59)
[2016-06-01 02:19] VITALS: BP 94/62; PULSE 73; O2SAT 98
--- NOTE | 2016-06-01 03:38 | EMERGENCY ROOM VISIT NOTE ---
History First contact with patient: 01:46 Chief Complaint: HEADACHE Stated Complaint: MIGRAINE History of Present Illness The patient is a 36 year old female who presents to the Emergency Room with complaints of gradual onset of a severe generalized headache that started last night. The patient states the migraine is similar to their typical migraines. There has been associated photophobia, phonophobia, nausea and vomiting. The patient denies fever or chills recently, and there is no weakness or numbness of the extremities. There is no difficulty with speech or vision. No trauma to the head and no neck pain. The pain is severe, constant, and it is slowly increasing in severity. The patient rates the pain as throbbing and and 9/10. The patient has taken Tylenol medications at home. This is not the worst headache of the life and is similar to previous migraines. Previous imaging studies of the brain have been normal. Patient follows at Dr. Glass. Past Medical/Surgical History Medical Problems: (1) Closed head injury (2) Diabetes mellitus type 2 (3) Migraine Surgical Problems: (1) S/P appendectomy (2) S/P appendectomy (3) S/P cholecystectomy (4) Status post breast reduction (5) Status post tonsillectomy (6) Status post tubal ligation Family History Heart disease Social History Smoking Status: Current Every Day Smoker Alcohol Use: none Drug Use: none Marital Status: Housing Status: lives with family Occupation Status: disabled Current/Historical Medications Scheduled Aspirin (Aspirin Ec), 325 MG PO BID Gabapentin (Neurontin), 400 MG PO TID Indomethacin (Indocin), 50 MG PO BID Nortriptyline HCl (Nortriptyline HCl), 25 MG PO HS Propranolol HCl (Propranolol HCl ER), 60 MG PO QAM Sertraline (Zoloft), 100 MG PO HS Scheduled PRN Lorazepam (Ativan), 0.5 MG PO DAILY PRN for Anxiety Naproxen (Aleve), 220-440 MG PO UD PRN for Pain Promethazine Hcl (Phenergan), 25 MG PO Q6H PRN for Nausea Allergies Coded Allergies: BEE STING (Verified Allergy, Severe, SHORTNESS OF BREATH, 06/01/16) Shellfish Allergy (Verified Allergy, Severe, SWELLING/RED SKIN, 06/01/16) Ondansetron (Verified Allergy, Intermediate, HIVES - RASH, 06/01/16) Oily Fish (Verified Allergy, Unknown, SEAFOOD, 06/01/16) Morphine (Verified Adverse Reaction, Intermediate, vomiting, 06/01/16) Uncoded Allergies: EXOTIC FRUITS (Allergy, Mild, HIVES RASH SWELLING, 08/18/15) Physical Exam Vital Signs Date Time Temp Pulse Resp B/P Pulse Ox O2 Delivery O2 Flow Rate FiO2 06/01/16 02:19 73 20 94/62 98 06/01/16 01:46 37.1 92 18 99/68 98 Room Air Pain Rating (0-10): 7.0 Physical Exam VITALS: Vitals are noted on the nurse's note and reviewed by myself. Vital signs stable. GENERAL: Pleasant female, in no acute distress, nondiaphoretic, well-developed well-nourished. SKIN: The skin was without rashes, erythema, edema, or bruising. There is no tenting of the skin. Capillary reflex less than 2 seconds. HEAD: Normocephalic atraumatic. EARS: External auditory canals clear, tympanic membranes pearly sanchez without erythema or effusion bilaterally. EYES: Pupils equal round and reactive to light and accommodation. Conjunctivae without injection, sclerae without icterus. Extraocular movements intact. NOSE: Patent, turbinates without inflammation or discharge. No sinus tenderness. MOUTH: Mucous membranes moist. Pharynx without erythema or exudate. Uvula midline. Airway patent. Tongue does not deviate. NECK: Supple without nuchal rigidity. No lymphadenopathy. No thyromegaly. Cervical spine is nontender. No JVD. HEART: Regular rate and rhythm without murmurs gallops or rubs. LUNGS: Clear to auscultation bilaterally without wheezes, rales or rhonchi. No dullness to percussion. No retractions or accessory muscle use. ABDOMEN: Positive bowel sounds x 4. Normal tympanic percussion. Soft, nontender, without masses or organomegaly. Mendes sign negative. No guarding or rebound tenderness. MUSCULOSKELETAL: No muscle atrophy, erythema, or edema noted. NEURO: Patient was alert and oriented to person place and time. Normal sensation to light and sharp touch. No focal neurological deficits. Cranial nerves II-12 grossly intact. No pronator drift. Cerebellar exam intact Medical Decision & Procedures Medications Administered Medications (Trade) Dose Ordered Sig/Heather Route Start Time Stop Time Status Last Admin Dose Admin Ketorolac Tromethamine (Toradol Inj) 60 mg NOW STAT IM 06/01/16 01:51 06/01/16 01:53 DC 06/01/16 02:04 60 MG Promethazine HCl (Phenergan Inj) 25 mg NOW STAT IM 06/01/16 01:51 06/01/16 01:53 DC 06/01/16 02:05 25 MG Hydromorphone HCl (Dilaudid Inj) 1 mg STK-MED ONCE .ROUTE 06/01/16 01:59 06/01/16 02:01 DC 06/01/16 02:05 1 MG ED Course Prior records/ancillary studies reviewed. Additional history obtained from family. Triage Nursing notes reviewed. The patient's history was concerning for headache. Differential diagnosis: Etiologies such as migraine headache, meningitis, sinusitis, CO exposure, ICH, SAH, infection, tumor, headache, sinus thrombosis, arterial dissection, as well as others were entertained. Physical examination findings: As above. Non-focal. ER treatment provided: Dilaudid, Toradol and Phenergan per her standard protocol On reassessment the patient felt better. Diagnostics interpreted by me: Deferred This appears to be consistent with migraine. Patient is well-known to this ER for frequent migraine visits. Symptoms are similar. Patient was neurovascularly and neurologically intact. She was well-appearing. No signs of meningitis. She is advised to follow-up with her neurologist in a few days or here in the ER sooner for severe pain, headache, fevers, confusion, worsening signs or symptoms or as needed. By the evaluation outlined above emergent etiologies such as meningitis, sinusitis, CO exposure, ICH, SAH, infection, temporal arteritis, tumor, sinus thrombosis, arterial dissection, as well as others were deemed relatively unlikely. The pt informed about the findings as listed above. All questions were answered and pleased with the treatment. Return instructions were outlined and the patient was discharged in stable condition. Referral: The patient was referred back to their primary care physician and/or neurologist for follow-up in 2 to 3 days for a recheck of the current condition. Medical Decision As above Impression Primary Impression: Migraine Departure Information Dispostion Home / Self-Care Condition GOOD Referrals Na Mathis,P.A. (PCP) Forms HOME CARE DOCUMENTATION FORM, IMPORTANT VISIT INFORMATION Patient Instructions My [facility] Additional Instructions DO NOT drive, drink alcohol, operate machinery, or perform dangerous activities today. You were given medications in the ER that can affect your ability to safely function or operate a vehicle. Rest today in a quiet, peaceful, dark environment and get a full 8-10 hrs of sleep tonight. Avoid loud noises, smoke/smoking, alcohol, bright lights, stress, or physical exertion today to minimize the chance the headache may return. Continue current medications. Ibuprofen(Motrin, Advil) may be used for fever or pain. Use 600mg every six hours as needed. Take with food. Avoid using more than 2400mg in a 24 hour period. Do not use 2400mg per day for more than three consecutive days without physician direction. Prolonged inappropriate use can lead to stomach upset or ulcers. (AND/OR) Acetaminophen(Tylenol) may be used for fever or pain. Use 1000mg every six hours as needed. Avoid using more than 3000mg in a 24 hour period. Return to the ER for passing out, worsening headache, vision problems, neck stiffness/pain, fevers, vomiting, worsening of your condition, or as needed. Follow up with your primary physician and/or a neurologist in 2-3 days for a recheck of your current condition. Problem Qualifiers Primary Impression: Migraine Migraine type: without aura Status migrainosus presence: without status migrainosus Intractability: not intractable Qualified Codes: G43.009 - Migraine without aura, not intractable, without status migrainosus
[2016-07-12] MEDS ORDERED: PROP60CA PO (00:46)
[2016-07-12] MEDS ORDERED: PROM25TA9 PO (00:48)
[2016-07-12] MEDS ORDERED: CYCL10TA6 PO (01:08)
[2016-07-12] MEDS ORDERED: NORT10CA2 PO (01:11)
[2016-07-12] MEDS ORDERED: ACET-1256 PO (14:49)
[2016-07-12] MEDS ORDERED: LORA-741 PO (21:34)
[2016-07-19] MEDS ORDERED: NRN600 PO (13:17)
[2016-12-22] MEDS ORDERED: IPRASOL4 INH (14:50)
[2016-12-22] MEDS ORDERED: DOXY100C76 PO (14:50)
[2016-12-22] MEDS ORDERED: PRED10TA PO (14:50)
[2016-12-22] MEDS ORDERED: VAREPAK PO (14:52)
== END 2016-06-01 02:21 | disposition home or self-care (01) ==
LOC: C.EDB 01:37
DX: G43.009 Migraine without aura, not intractable, without status migrainosus (principal); E11.9 Type 2 diabetes mellitus without complications; F17.200 Nicotine dependence, unspecified, uncomplicated; Z98.51 Tubal ligation status; Z90.49 Acquired absence of other specified parts of digestive tract; Z90.89 Acquired absence of other organs; Z98.890 Other specified postprocedural states; Z79.82 Long term (current) use of aspirin

== ENCOUNTER 2016-06-20 23:22 | Emergency (ER) | payer OTHER ==
[~2016-06-20] VITALS: Ht 157.5 cm; Wt 85.0 kg
[2016-06-20 23:26] VITALS: TEMP 37; Ht 157.5 cm; Wt 85.0 kg
[2016-06-20] MEDS ORDERED: HYDROmorphone INJ 1 MG/ML SYR IM STA (23:41)
[2016-06-20] MEDS ORDERED: PROMETHAZINE HCL INJ 25 MG/ML 1 ML VIAL IM STA (23:41)
[2016-06-20] MEDS ORDERED: KETOROLAC TROMETHAMINE 60 MG/2 ML VIAL IM STA (23:41)
[2016-06-21] MEDS ORDERED: ACETAMINOPHEN 500 MG TAB PO ONE (00:11)
[2016-06-21] MEDS ORDERED: NURSING VERBAL MED ORDER ONE (00:15)
[2016-06-21 00:21] VITALS: BP 116/77; PULSE 82; O2SAT 99
--- NOTE | 2016-06-21 02:03 | EMERGENCY ROOM VISIT NOTE ---
ED Visit Note First contact with patient: 23:35 CHIEF COMPLAINT: Migraine headache HISTORY OF PRESENT ILLNESS: This 36 year old female patient presented to the emergency department with a gradual onset of a severe generalized headache that started 3 days ago. The patient states the migraine is similar to their typical migraines. There has been associated photophobia, phonophobia, nausea and vomiting. The patient denies fever or chills recently, and there is no weakness or numbness of the extremities. There is no difficulty with speech or vision. No trauma to the head and no neck pain. The pain is severe, constant, and it is slowly increasing in severity. The patient rates the pain as dull and 9/10. The patient has taken her normal medication without relief. This is not the worst headache of the life and is similar to previous migraines. Previous imaging studies of the brain have been normal. REVIEW OF SYSTEMS: A review of systems was performed with positives and pertinent negatives listed in the history of present illness. All other systems were reviewed and are negative. ALLERGIES: See EMR MEDICATIONS: See EMR PMH: History of chronic migraines SOCIAL HISTORY: Lives with family PHYSICAL EXAM: Vital Signs: Reviewed Nurse's notes, vital signs stable. GENERAL: White female, who appears in pain, but non toxic in appearance and in no acute distress. MENTAL STATUS: Alert, oriented, and coherent. HEENT: Normocephalic. PERRLA. EOMI. Nares patent without nuchal rigidity. Tympanic membranes pearly sanchez without erythema or effusion bilaterally. Mucous membranes moist. NECK: Supple, no nuchal rigidity, nontender, no lymphadenopathy. HEART: Regular rhythm and normal rate without murmurs, ectopy, gallops, or rubs. LUNGS: Clear to auscultation bilaterally without wheezes, rales or rhonchi. No dullness to percussion. No accessory muscle use. No retractions. SKIN: Normal. NEUROLOGICAL: Pupils are round, equal and react to light. The optic fundi are normal and the discs are flat. The patient moves all extremities well and the gait is normal. EMERGENCY DEPARTMENT COURSE: I examined the patient. The patient is on a 2 narcotic injection per month treatment plan for their migraines. Today is her first visit of the month for treatment under her treatment plan. The patient was given 1 mg IM Dilaudid, 60 mg IM Toradol, 25 mg IM Phenergan per their usual protocol. The patient did have significant improvement of her pain after this, but still requested additional medication. She was given 1 g oral Tylenol. The differential diagnosis includes acute intracranial bleed, meningitis, encephalitis, mass or mass effect, sinusitis, infection, tumor, headache, temporal arteritis and carbon monoxide exposure, and migraine. The patient was discharged home in stable condition with a male revenue collector driving. Problem List Medical Problems: (1) Closed head injury Status: Chronic (2) Diabetes mellitus type 2 Status: Chronic (3) Migraine Status: Chronic Surgical Problems: (1) S/P appendectomy Status: Resolved (2) S/P appendectomy Status: Chronic (3) S/P cholecystectomy Status: Chronic (4) Status post tonsillectomy Status: Chronic (5) Status post tubal ligation Status: Chronic Current/Historical Medications Scheduled Aspirin (Aspirin Ec), 325 MG PO BID Gabapentin (Neurontin), 400 MG PO TID Indomethacin (Indocin), 50 MG PO BID Nortriptyline HCl (Nortriptyline HCl), 25 MG PO HS Propranolol HCl (Propranolol HCl ER), 60 MG PO QAM Sertraline (Zoloft), 100 MG PO HS Scheduled PRN Lorazepam (Ativan), 0.5 MG PO DAILY PRN for Anxiety Naproxen (Aleve), 220-440 MG PO UD PRN for Pain Promethazine Hcl (Phenergan), 25 MG PO Q6H PRN for Nausea Allergies Coded Allergies: BEE STING (Verified Allergy, Severe, SHORTNESS OF BREATH, 06/20/16) Shellfish Allergy (Verified Allergy, Severe, SWELLING/RED SKIN, 06/20/16) Ondansetron (Verified Allergy, Intermediate, HIVES - RASH, 06/20/16) Oily Fish (Verified Allergy, Unknown, SEAFOOD, 06/20/16) Morphine (Verified Adverse Reaction, Intermediate, vomiting, 06/20/16) Uncoded Allergies: EXOTIC FRUITS (Allergy, Mild, HIVES RASH SWELLING, 08/18/15) Vital Signs Date Time Temp Pulse Resp B/P Pulse Ox O2 Delivery O2 Flow Rate FiO2 06/21/16 00:21 82 18 116/77 99 06/20/16 23:26 37.0 87 18 101/67 97 Room Air Medications Administered Medications (Trade) Dose Ordered Sig/Heather Route Start Time Stop Time Status Last Admin Dose Admin Hydromorphone HCl (Dilaudid Inj) 1 mg NOW STAT IM 06/20/16 23:41 06/20/16 23:42 DC 06/20/16 23:52 1 MG Promethazine HCl (Phenergan Inj) 25 mg NOW STAT IM 06/20/16 23:41 06/20/16 23:42 DC 06/20/16 23:41 25 MG Ketorolac Tromethamine (Toradol Inj) 60 mg NOW STAT IM 06/20/16 23:41 06/20/16 23:42 DC 06/20/16 23:51 60 MG Acetaminophen (Tylenol Tab) 1,000 mg STK-MED ONCE PO 06/21/16 00:11 06/21/16 00:15 DC 06/21/16 00:16 1,000 MG Departure Information Impression Primary Impression: Headache Dispostion Home / Self-Care Condition GOOD Referrals No Doctor, Assigned Forms HOME CARE DOCUMENTATION FORM, IMPORTANT VISIT INFORMATION Patient Instructions My [facility] Additional Instructions You were seen and evaluated today on an emergency basis only. This is not a substitute for, or an effort to provide, complete comprehensive medical care. It is not possible to recognize and treat all injuries or illnesses in a single emergency department visit. For this reason it is recommended that you followup with your primary care physician or neurologist this week for ongoing care and evaluation. DO NOT drive, drink alcohol, operate machinery, or perform dangerous activities today. You were given medications in the ER that can affect your ability to safely function or operate a vehicle. Rest today in a quiet, peaceful, dark environment and get a full 8-10 hrs of sleep tonight. Avoid loud noises, smoke/smoking, alcohol, bright lights, stress, or physical exertion today to minimize the chance the headache may return. Continue current medications. Ibuprofen(Motrin, Advil) may be used for fever or pain. Use 600mg every six hours as needed. Take with food. Avoid using more than 2400mg in a 24 hour period. Do not use 2400mg per day for more than three consecutive days without physician direction. Prolonged inappropriate use can lead to stomach upset or ulcers. (AND/OR) Acetaminophen(Tylenol) may be used for fever or pain. Use 1000mg every six hours as needed. Avoid using more than 4000mg in a 24 hour period. Return to the ER for passing out, worsening headache, vision problems, neck stiffness/pain, fevers, vomiting, worsening of your condition, or as needed.
[2016-07-12] MEDS ORDERED: PROP60CA PO (00:46)
[2016-07-12] MEDS ORDERED: PROM25TA9 PO (00:48)
[2016-07-12] MEDS ORDERED: CYCL10TA6 PO (01:08)
[2016-07-12] MEDS ORDERED: NORT10CA2 PO (01:11)
[2016-07-12] MEDS ORDERED: ACET-1256 PO (14:49)
[2016-07-12] MEDS ORDERED: LORA-741 PO (21:34)
[2016-07-19] MEDS ORDERED: NRN600 PO (13:17)
[2016-12-22] MEDS ORDERED: DOXY100C76 PO (14:50)
[2016-12-22] MEDS ORDERED: PRED10TA PO (14:50)
[2016-12-22] MEDS ORDERED: IPRASOL4 INH (14:50)
[2016-12-22] MEDS ORDERED: VAREPAK PO (14:52)
== END 2016-06-21 00:22 | disposition home or self-care (01) ==
LOC: C.EDB 23:22 → C.EDA 06-21 00:22
DX: R51 Headache (principal); E11.9 Type 2 diabetes mellitus without complications; G43.909 Migraine, unspecified, not intractable, without status migrainosus; Z79.899 Other long term (current) drug therapy; Z79.82 Long term (current) use of aspirin

== ENCOUNTER 2016-06-27 00:23 | Emergency (ER) | payer OTHER ==
[~2016-06-27] VITALS: Ht 157.5 cm; Wt 84.1 kg
[2016-06-27 00:33] VITALS: TEMP 36.9; Ht 157.5 cm; Wt 84.1 kg
[2016-06-27] MEDS ORDERED: PROMETHAZINE HCL INJ 25 MG/ML 1 ML VIAL IM STA (00:50)
[2016-06-27] MEDS ORDERED: HYDROmorphone INJ 2 MG/ML SYR/VIAL IM STA (00:50)
[2016-06-27] MEDS ORDERED: HYDROmorphone INJ 1 MG/ML SYR ONE (00:50)
[2016-06-27] MEDS ORDERED: KETOROLAC TROMETHAMINE 60 MG/2 ML VIAL IM STA (00:50)
[2016-06-27] MEDS ORDERED: PRED10TA PO (01:10)
[2016-06-27 01:23] VITALS: BP 93/63; PULSE 80; O2SAT 98
--- NOTE | 2016-06-27 05:01 | EMERGENCY ROOM VISIT NOTE ---
History First contact with patient: 00:38 Chief Complaint: HEADACHE Stated Complaint: BACK PAIN AND MIGRAINE History of Present Illness The patient is a 36 year old female who presents to the Emergency Room with complaints of migraine and back pain. She describes the headache as throbbing, ranging in severity 8 out of 10 throughout the temporal region similar to prior. Patient has a long-standing history of migraines and symptoms feel similar. Patient tried her normal medications with no relief of symptoms. Headache was slow in onset. Patient denies fever, chills, chest pain, dyspnea, neck stiffness, cold symptoms, loss of bowel or bladder control, saddle anesthesia, drug use, leg weakness, abdominal pain, numbness, tingling, weakness or any other medical complaints. Past Medical/Surgical History Medical Problems: (1) Closed head injury (2) Diabetes mellitus type 2 (3) Migraine Surgical Problems: (1) S/P appendectomy (2) S/P appendectomy (3) S/P cholecystectomy (4) Status post breast reduction (5) Status post tonsillectomy (6) Status post tubal ligation Family History Heart disease Social History Smoking Status: Current Every Day Smoker Alcohol Use: none Drug Use: none Marital Status: Housing Status: lives with family Occupation Status: disabled Current/Historical Medications Scheduled Aspirin (Aspirin Ec), 325 MG PO BID Cyclobenzaprine Hcl (Flexeril), 10 MG PO DIRECTED Gabapentin (Neurontin), 400 MG PO TID Indomethacin (Indocin), 50 MG PO BID Nortriptyline (Pamelor), 20 MG PO HS Prednisone Tab (Prednisone), 10 MG PO DIRECTED Propranolol HCl (Propranolol HCl ER), 60 MG PO QAM Sertraline (Zoloft), 100 MG PO HS Scheduled PRN Lorazepam (Ativan), 0.5 MG PO DAILY PRN for Anxiety Naproxen (Aleve), 220-440 MG PO UD PRN for Pain Promethazine Hcl (Phenergan), 25 MG PO Q6H PRN for Nausea Allergies Coded Allergies: BEE STING (Verified Allergy, Severe, SHORTNESS OF BREATH, 06/27/16) Shellfish Allergy (Verified Allergy, Severe, SWELLING/RED SKIN, 06/27/16) Ondansetron (Verified Allergy, Intermediate, HIVES - RASH, 06/27/16) Oily Fish (Verified Allergy, Unknown, SEAFOOD, 06/27/16) Morphine (Verified Adverse Reaction, Intermediate, vomiting, 06/27/16) Uncoded Allergies: EXOTIC FRUITS (Allergy, Mild, HIVES RASH SWELLING, 08/18/15) Physical Exam Vital Signs Date Time Temp Pulse Resp B/P Pulse Ox O2 Delivery O2 Flow Rate FiO2 06/27/16 01:23 80 16 93/63 98 Room Air 06/27/16 00:33 36.9 93 18 100/65 97 Room Air Pain Rating (0-10): 5.0 Physical Exam VITALS: Vitals are noted on the nurse's note and reviewed by myself. Vital signs stable GENERAL: Pleasant female, in no acute distress, nondiaphoretic, well-developed well-nourished. SKIN: The skin was without rashes, erythema, edema, or bruising. There is no tenting of the skin. Capillary reflex less than 2 seconds. HEAD: Normocephalic atraumatic. EARS: External auditory canals clear, tympanic membranes pearly sanchez without erythema or effusion bilaterally. EYES: Pupils equal round and reactive to light and accommodation. Conjunctivae without injection, sclerae without icterus. Extraocular movements intact. NOSE: Patent, turbinates without inflammation or discharge. No sinus tenderness. MOUTH: Mucous membranes moist. Pharynx without erythema or exudate. Uvula midline. Airway patent. Tongue does not deviate. NECK: Supple without nuchal rigidity. No lymphadenopathy. No thyromegaly. Cervical spine is nontender. No JVD. HEART: Regular rate and rhythm without murmurs gallops or rubs. LUNGS: Clear to auscultation bilaterally without wheezes, rales or rhonchi. No dullness to percussion. No retractions or accessory muscle use. ABDOMEN: Positive bowel sounds x 4. Normal tympanic percussion. Soft, nontender, without masses or organomegaly. Mendes sign negative. No guarding or rebound tenderness. MUSCULOSKELETAL: No muscle atrophy, erythema, or edema noted. Patient can ambulate without difficulties. No lumbar or thoracic tenderness on exam. Negative straight leg raise NEURO: Patient was alert and oriented to person place and time. Normal sensation to light and sharp touch. No focal neurological deficits. Cranial nerves II through XII grossly intact. No prior drift. Cerebellar exam intact Medical Decision & Procedures Medications Administered Medications (Trade) Dose Ordered Sig/Heather Route Start Time Stop Time Status Last Admin Dose Admin Ketorolac Tromethamine (Toradol Inj) 60 mg NOW STAT IM 06/27/16 00:50 06/27/16 00:51 DC 06/27/16 00:58 60 MG Promethazine HCl (Phenergan Inj) 25 mg NOW STAT IM 06/27/16 00:50 06/27/16 00:51 DC 06/27/16 00:59 25 MG Hydromorphone HCl (Dilaudid Inj) 1 mg STK-MED ONCE .ROUTE 06/27/16 00:50 06/27/16 00:54 DC 06/27/16 00:59 1 MG ED Course Prior records/ancillary studies reviewed. Additional history obtained from family Triage Nursing notes reviewed. The patient's history was concerning for headache. Differential diagnosis: Etiologies such as migraine headache, meningitis, sinusitis, CO exposure, ICH, SAH, infection, tumor, headache, sinus thrombosis, arterial dissection, as well as others were entertained. Physical examination findings: As above. Non-focal. ER treatment provided: Dilaudid, Toradol and Phenergan per her standard protocol On reassessment the patient felt better. Diagnostics interpreted by me: Deferred This appears to be consistent with migraine with her chronic back pain that she follows with Dr. Reed for. Patient is well-known to this ER for frequent migraine visits. Patient has a history of migraines and symptoms feel similar. Patient was neurovascularly and neurologically intact. No deficits on exam. She is advised to follow-up family care in a few days or here in the ER sooner for headache, fevers, chest pain, numbness, tingling, worsening signs or symptoms or as needed. By the evaluation outlined above emergent etiologies such as meningitis, sinusitis, CO exposure, ICH, SAH, infection, temporal arteritis, tumor, sinus thrombosis, arterial dissection, as well as others were deemed relatively unlikely. The pt informed about the findings as listed above. All questions were answered and \ pleased with the treatment. Return instructions were outlined and the patient was discharged in stable condition. Referral: The patient was referred back to their primary care physician and spine DrJohn for follow-up in 2 to 3 days for a recheck of the current condition. Medical Decision As above Impression Primary Impression: Migraine Departure Information Dispostion Home / Self-Care Condition GOOD Referrals Na Mathis P.A. (PCP) Forms HOME CARE DOCUMENTATION FORM, IMPORTANT VISIT INFORMATION Patient Instructions Headaches Migraine and Tension, My [facility] Additional Instructions DO NOT drive, drink alcohol, operate machinery, or perform dangerous activities today. You were given medications in the ER that can affect your ability to safely function or operate a vehicle. Rest today in a quiet, peaceful, dark environment and get a full 8-10 hrs of sleep tonight. Avoid loud noises, smoke/smoking, alcohol, bright lights, stress, or physical exertion today to minimize the chance the headache may return. Continue current medications. Ibuprofen(Motrin, Advil) may be used for fever or pain. Use 600mg every six hours as needed. Take with food. Avoid using more than 2400mg in a 24 hour period. Do not use 2400mg per day for more than three consecutive days without physician direction. Prolonged inappropriate use can lead to stomach upset or ulcers. (AND/OR) Acetaminophen(Tylenol) may be used for fever or pain. Use 1000mg every six hours as needed. Avoid using more than 3000mg in a 24 hour period. Return to the ER for passing out, worsening headache, vision problems, neck stiffness/pain, fevers, vomiting, worsening of your condition, or as needed. Follow up with your primary physician and/or a neurologist in 2-3 days for a recheck of your current condition. Problem Qualifiers Primary Impression: Migraine Migraine type: without aura Status migrainosus presence: without status migrainosus Intractability: not intractable Qualified Codes: G43.009 - Migraine without aura, not intractable, without status migrainosus
[2016-07-12] MEDS ORDERED: PROP60CA PO (00:46)
[2016-07-12] MEDS ORDERED: PROM25TA9 PO (00:48)
[2016-07-12] MEDS ORDERED: CYCL10TA6 PO (01:08)
[2016-07-12] MEDS ORDERED: NORT10CA2 PO (01:11)
[2016-07-12] MEDS ORDERED: ACET-1256 PO (14:49)
[2016-07-12] MEDS ORDERED: LORA-741 PO (21:34)
[2016-07-19] MEDS ORDERED: NRN600 PO (13:17)
[2016-12-22] MEDS ORDERED: DOXY100C76 PO (14:50)
[2016-12-22] MEDS ORDERED: IPRASOL4 INH (14:50)
[2016-12-22] MEDS ORDERED: PRED10TA PO (14:50)
[2016-12-22] MEDS ORDERED: VAREPAK PO (14:52)
== END 2016-06-27 01:35 | disposition home or self-care (01) ==
LOC: C.EDB 00:24
DX: G43.909 Migraine, unspecified, not intractable, without status migrainosus (principal); E11.9 Type 2 diabetes mellitus without complications; Z90.49 Acquired absence of other specified parts of digestive tract; Z98.890 Other specified postprocedural states; Z98.51 Tubal ligation status; F17.200 Nicotine dependence, unspecified, uncomplicated; Z79.82 Long term (current) use of aspirin; Z79.899 Other long term (current) drug therapy; Z82.49 Family history of ischemic heart disease and other diseases of the circulatory system; Z88.5 Allergy status to narcotic agent; Z88.8 Allergy status to other drugs, medicaments and biological substances; Z91.018 Allergy to other foods; Z91.030 Bee allergy status

== ENCOUNTER 2016-06-30 13:27 | Emergency (ER) | payer OTHER ==
[~2016-06-30] VITALS: Ht 157.5 cm; Wt 85.0 kg
[~2016-06-30 13:27] MED LIST changes: -NRT25 PO; +PRED10TA PO
[2016-06-30 13:35] VITALS: TEMP 37.2; Ht 157.5 cm; Wt 85.0 kg
[2016-06-30] MEDS ORDERED: DEXAMETHASONE SOD INJ 4 MG/ML VIAL IM ONE (14:15)
[2016-06-30] MEDS ORDERED: GABA-112 PO (14:48)
--- NOTE | 2016-06-30 15:29 | DIAGNOSTIC IMAGING REPORT ---
MRI LUMBAR SPINE W/O CONTRAST CLINICAL HISTORY: Low back pain and urinary incontinence TECHNIQUE: Sagittal and axial T1, T2 and STIR images were obtained. COMPARISON STUDY: 12/18/2014 OBSERVATIONS: The vertebral bodies and posterior elements appear intact. There is no abnormal bony signal present to suggest a marrow replacement process. L1-2: No disc protrusions or extrusions. No evidence of spinal canal or neural foraminal compromise. L2-3: No disc protrusions or extrusions. No evidence of spinal canal or neural foraminal compromise. L3-4: No disc protrusions or extrusions. No evidence of spinal canal or neural foraminal compromise. L4-5: No disc protrusions or extrusions. No evidence of spinal canal or neural foraminal compromise. L5-S1: There is disc desiccation. There is a tiny right posterior lateral disc protrusion. There is no significant spinal or foraminal stenosis. The conus medullaris and cauda equina appear normal. IMPRESSION: Tiny right posterior lateral disc protrusion at the L5-S1 level, similar to the prior 2014 study. The remaining disc levels are within normal limits. Electronically signed by: Jah Montes M.D. 06/30/2016 3:28 PM Dictated Date/Time: 06/30/2016 3:24 PM
[2016-06-30 15:53] VITALS: BP 78/46; PULSE 93; O2SAT 94
--- NOTE | 2016-06-30 16:18 | EMERGENCY ROOM VISIT NOTE ---
ED Visit Note First contact with patient: 14:02 CHIEF COMPLAINT: Low back pain HISTORY OF PRESENT ILLNESS: This 36-year-old female patient presents to the emergency department ambulatory complaining of pain in the low back which began approximately one week ago. The patient does state that she has chronic back pain. She reports that one week ago, she leaned forward and had a sudden increase in pain. The pain has become progressively worse over the past one week. The patient notes the pain as sharp and an 8/10. She reports the pain does radiate into her right leg, just past the knee. The patient has taken her usual medications without relief of the pain. She does note that she had one episode of urinary incontinence. There has been no leg numbness or weakness, and no change in sensation. No nausea or vomiting or abdominal pain. No chest pain or shortness of breath. No dysuria or increased urinary frequency. The patient states that she saw her pain management provider, who changed a few of her medications and scheduled her for an epidural injection next month. REVIEW OF SYSTEMS: A review of systems was performed with positives and pertinent negatives listed in the history of present illness. All other systems were reviewed and are negative. ALLERGIES: See EMR MEDICATIONS: See med list PMH: Chronic back pain SOCIAL HISTORY: The patient lives locally with family. PHYSICAL EXAM: VITALS: Vitals are noted on the nurse's note and reviewed by myself. Vital signs stable. GENERAL: This is a 36-year-old female, in no acute distress, nondiaphoretic, well-developed well-nourished. SKIN: The skin was without rashes, erythema, edema, or bruising. Capillary refill less than 2 seconds. NECK: Supple without nuchal rigidity. No cervical spine tenderness. No paraspinous muscle tenderness. HEART: Regular rate and rhythm without murmurs gallops or rubs. LUNGS: Clear to auscultation bilaterally without wheezes, rales or rhonchi. ABDOMEN: Positive bowel sounds x 4. Normal tympanic percussion. Soft, nontender, without masses or organomegaly. Mendes sign negative. MUSCULOSKELETAL: No muscle atrophy, erythema, or edema noted of the back. There is no tenderness over the lumbar spinous processes. There is tenderness over the paraspinous muscles bilaterally. There is no tenderness over the thoracic spine or paraspinous muscles. There are no muscle spasms present. The patient is slow to move around with maximum tenderness with flexion. Positive straight leg raise test. NEURO: Patient was alert and oriented to person place and time. Normal sensation to light and sharp touch. Deep tendon reflexes 2+ in the lower extremities. Dorsalis pedis pulse 2+ bilaterally. Strength 5/5 and equal in the bilateral lower extremities. EMERGENCY DEPARTMENT COURSE: The patient was evaluated as above. As she did report an episode of urinary incontinence, I chose to perform an MRI. MRI was read by radiology with only minimal disc bulging. The patient was treated with 10 mg Decadron IM. She did report that she recently finished a course of steroids and I do not feel that she would benefit from further steroids. The patient is on a no narcotic treatment plan. She was instructed to follow-up with her primary care provider and pain management provider for further evaluation of her back pain. She should return here for any worsening of her current condition or new/concerning symptoms. The patient was independently evaluated by Dr. Garcia, ED attending physician, who agreed with my assessment and treatment plan. She verbalized understanding of my assessment and treatment plan and was discharged home in good condition. DIAGNOSIS: Acute exacerbation of chronic low back pain Problem List Medical Problems: (1) Closed head injury Status: Chronic (2) Diabetes mellitus type 2 Status: Chronic (3) Migraine Status: Chronic Surgical Problems: (1) S/P appendectomy Status: Resolved (2) S/P appendectomy Status: Chronic (3) S/P cholecystectomy Status: Chronic (4) Status post tonsillectomy Status: Chronic (5) Status post tubal ligation Status: Chronic Current/Historical Medications Scheduled Cyclobenzaprine Hcl (Flexeril), 10 MG PO DIRECTED Gabapentin (Neurontin), 500 MG PO TID Nortriptyline (Pamelor), 20 MG PO HS Propranolol HCl (Propranolol HCl ER), 60 MG PO QAM Scheduled PRN Acetaminophen (Tylenol), 1,500 MG PO Q4H PRN for Pain Lorazepam (Ativan), 0.5 MG PO DAILY PRN for Anxiety Promethazine Hcl (Phenergan), 25 MG PO Q6H PRN for Nausea Allergies Coded Allergies: BEE STING (Verified Allergy, Severe, SHORTNESS OF BREATH, 06/30/16) Shellfish Allergy (Verified Allergy, Severe, SWELLING/RED SKIN, 06/30/16) Ondansetron (Verified Allergy, Intermediate, HIVES - RASH, 06/30/16) Oily Fish (Verified Allergy, Unknown, SEAFOOD, 06/30/16) Morphine (Verified Adverse Reaction, Intermediate, vomiting, 06/30/16) Uncoded Allergies: EXOTIC FRUITS (Allergy, Mild, HIVES RASH SWELLING, 08/18/15) Vital Signs Date Time Temp Pulse Resp B/P Pulse Ox O2 Delivery O2 Flow Rate FiO2 06/30/16 15:53 93 20 78/46 94 Room Air 06/30/16 13:35 37.2 128 18 106/78 98 Room Air Medications Administered Medications (Trade) Dose Ordered Sig/Heather Route Start Time Stop Time Status Last Admin Dose Admin Dexamethasone Sodium Phosphate (Decadron Inj) 10 mg NOW ONCE IM 06/30/16 14:15 06/30/16 14:16 DC 06/30/16 14:23 10 MG Departure Information Impression Primary Impression: Acute exacerbation of chronic low back pain Dispostion Home / Self-Care Condition GOOD Referrals Na Mathis,P.A. (PCP) Patient Instructions My [facility] Additional Instructions You have been treated in the Emergency Department for Back Pain. For pain control, you can use the following [id number] medicines (if >12 yo): - Regular strength (325mg/tab) Tylenol (acetaminophen) 2 tabs every 4-6 hours as needed. Do not exceed 12 tablets in a 24 hour period. Avoid taking more than 4 grams (4000 mg) of Tylenol per day. This includes any other sources of acetaminophen you may take on a regular basis. - Regular strength (200 mg/tab) Advil (ibuprofen) 1-2 tabs every 4-6 hours as needed. Do not exceed a dose of 3200 mg per day. If this is an acute injury, ice can be applied to the area of pain for the first 3 days to help decrease pain and inflammation. After the first 3 days, a heating pad can be used over the area for continued soothing relief. You should schedule a follow-up appointment in 2-3 days with your Primary Care Provider for further evaluation and treatment of your back pain. Call Dr. Reed tomorrow to schedule follow-up. Return to the Emergency Department if your current symptoms worsen despite treatment course outlined above, or if you develop any of the following symptoms : intractable pain despite aforementioned treatment course, increasing loss of control of your bowel or bladder, numbness or tingling in your groin, or development of a fever.
[2016-07-12] MEDS ORDERED: PROP60CA PO (00:46)
[2016-07-12] MEDS ORDERED: PROM25TA9 PO (00:48)
[2016-07-12] MEDS ORDERED: CYCL10TA6 PO (01:08)
[2016-07-12] MEDS ORDERED: NORT10CA2 PO (01:11)
[2016-07-12] MEDS ORDERED: ACET-1256 PO (14:49)
[2016-07-12] MEDS ORDERED: LORA-741 PO (21:34)
[2016-07-19] MEDS ORDERED: NRN600 PO (13:17)
[2016-12-22] MEDS ORDERED: IPRASOL4 INH (14:50)
[2016-12-22] MEDS ORDERED: PRED10TA PO (14:50)
[2016-12-22] MEDS ORDERED: DOXY100C76 PO (14:50)
[2016-12-22] MEDS ORDERED: VAREPAK PO (14:52)
== END 2016-06-30 16:28 | disposition home or self-care (01) ==
LOC: C.EDB 13:29 → C.EDD 16:28
DX: M54.5 Low back pain (principal); G89.29 Other chronic pain; E11.9 Type 2 diabetes mellitus without complications; Z87.820 Personal history of traumatic brain injury; Z90.49 Acquired absence of other specified parts of digestive tract; Z98.51 Tubal ligation status; Z98.890 Other specified postprocedural states; Z79.899 Other long term (current) drug therapy; Z88.5 Allergy status to narcotic agent; Z88.8 Allergy status to other drugs, medicaments and biological substances; Z91.018 Allergy to other foods; Z91.030 Bee allergy status

== ENCOUNTER 2016-07-12 21:40 | Emergency (ER) | payer OTHER ==
[~2016-07-12] VITALS: Ht 157.5 cm; Wt 82.0 kg
[~2016-07-12 21:40] MED LIST changes: +ACET-1256 PO; -ASPI325T39 PO; +CYCL10TA6 PO; +GABA-112 PO; -GABA1CAP5 PO; -INDO-24 PO; +LORA-741 PO; -NAPR1TAB9 PO; +NORT10CA2 PO; -PRED10TA PO; +PROM25TA9 PO; +PROP60CA PO; -SERT-234 PO
[2016-07-12 21:54] VITALS: TEMP 37; Ht 157.5 cm; Wt 82.0 kg
[2016-07-12] MEDS ORDERED: KETOROLAC TROMETHAMINE 60 MG/2 ML VIAL IM STA (22:38)
[2016-07-12] MEDS ORDERED: HYDROmorphone INJ 1 MG/ML SYR IM STA (22:38)
[2016-07-12] MEDS ORDERED: PROMETHAZINE HCL INJ 25 MG/ML 1 ML VIAL IM STA (22:38)
[2016-07-12] MEDS ORDERED: NRN400 PO (22:54)
--- NOTE | 2016-07-12 23:01 | EMERGENCY ROOM VISIT NOTE ---
ED Visit Note First contact with patient: 22:10 CHIEF COMPLAINT: Migraine headache, dental pain HISTORY OF PRESENT ILLNESS: This 36-year-old female patient presented to the emergency department ambulatory with a gradual onset of a severe generalized headache that started yesterday. The patient states the migraine is similar to their typical migraines. There has been associated photophobia, phonophobia, nausea and vomiting. The patient denies fever or chills recently, and there is no weakness or numbness of the extremities. There is no difficulty with speech or vision. No trauma to the head and no neck pain. The pain is severe, constant , and it is slowly increasing in severity. The patient rates the pain as sharp and 8/10. The patient has taken her typical medications without relief. This is not the worst headache of the life and is similar to previous migraines. Previous imaging studies of the brain have been normal. The patient also reports that she has had pain in her left upper molar for the past 3-4 days. She believes it may be coming from her wisdom tooth. She denies any fevers, facial swelling or discharge. REVIEW OF SYSTEMS: A review of systems was performed with positives and pertinent negatives listed in the history of present illness. All other systems were reviewed and are negative. ALLERGIES: See EMR MEDICATIONS: See med list PMH: Migraine headaches SOCIAL HISTORY: The patient lives locally with family. PHYSICAL EXAM: Vital Signs: Reviewed Nurse's notes, vital signs stable. GENERAL : This is a 36-year-old female, who appears in pain, but non toxic in appearance and in no acute distress. MENTAL STATUS: Alert, oriented, and coherent. HEENT: Normocephalic. PERRLA. EOMI. Nares patent. Tympanic membranes pearly sanchez without erythema or effusion bilaterally. Mucous membranes moist. No significant facial swelling. No swelling of the gums. Oropharynx is clear. NECK: Supple, no nuchal rigidity, nontender, no lymphadenopathy. HEART: Regular rhythm and normal rate without murmurs, ectopy, gallops, or rubs. LUNGS: Clear to auscultation bilaterally without wheezes, rales or rhonchi. No dullness to percussion. No accessory muscle use. No retractions. SKIN: Normal. NEUROLOGICAL: Pupils are round, equal and react to light. The optic fundi are normal and the discs are flat. The patient moves all extremities well and the gait is normal. EMERGENCY DEPARTMENT COURSE: I examined the patient. The patient is on a 2 narcotic injection per month treatment plan for their migraines. The patient was given 1 mg Dilaudid, 60 mg Toradol and 25 mg Phenergan per their usual protocol. The differential diagnosis includes acute intracranial bleed, meningitis, encephalitis, mass or mass effect, sinusitis, infection, tumor, headache, temporal arteritis and carbon monoxide exposure, and migraine. The patient will be placed on penicillin for her dental pain. She was instructed to follow-up with her dentist for further evaluation. The patient was discharged home in stable condition with a friend driving. DIAGNOSIS: Migraine headache DISCHARGE INSTRUCTIONS & TREATMENT: No driving or alcohol. Rest at home in a quiet dark place. Continue medications as prescribed. Follow up with family doctor if symptoms persist. Problem List Medical Problems: (1) Closed head injury Status: Chronic (2) Diabetes mellitus type 2 Status: Chronic (3) Migraine Status: Chronic Surgical Problems: (1) S/P appendectomy Status: Resolved (2) S/P appendectomy Status: Chronic (3) S/P cholecystectomy Status: Chronic (4) Status post tonsillectomy Status: Chronic (5) Status post tubal ligation Status: Chronic Current/Historical Medications Scheduled Cyclobenzaprine Hcl (Flexeril), 10 MG PO DIRECTED Gabapentin (Gabapentin), 400 MG PO TID Nortriptyline (Pamelor), 20 MG PO HS Penicillin V Potassium (Veetids), 500 MG PO QID Propranolol HCl (Propranolol HCl ER), 60 MG PO QAM Scheduled PRN Acetaminophen (Tylenol), 1,500 MG PO Q4H PRN for Pain Lorazepam (Ativan), 0.5 MG PO DAILY PRN for Anxiety Promethazine Hcl (Phenergan), 25 MG PO Q6H PRN for Nausea Allergies Coded Allergies: BEE STING (Verified Allergy, Severe, SHORTNESS OF BREATH, 06/30/16) Shellfish Allergy (Verified Allergy, Severe, SWELLING/RED SKIN, 06/30/16) Ondansetron (Verified Allergy, Intermediate, HIVES - RASH, 06/30/16) Oily Fish (Verified Allergy, Unknown, SEAFOOD, 06/30/16) Morphine (Verified Adverse Reaction, Intermediate, vomiting, 06/30/16) Uncoded Allergies: EXOTIC FRUITS (Allergy, Mild, HIVES RASH SWELLING, 08/18/15) Vital Signs Date Time Temp Pulse Resp B/P Pulse Ox O2 Delivery O2 Flow Rate FiO2 07/12/16 23:25 70 16 101/53 97 07/12/16 21:54 37.0 90 18 111/75 97 Room Air Medications Administered Medications (Trade) Dose Ordered Sig/Heather Route Start Time Stop Time Status Last Admin Dose Admin Hydromorphone HCl (Dilaudid Inj) 1 mg NOW STAT IM 07/12/16 22:38 07/12/16 22:39 DC 07/12/16 22:47 1 MG Promethazine HCl (Phenergan Inj) 25 mg NOW STAT IM 07/12/16 22:38 07/12/16 22:39 DC 07/12/16 22:47 25 MG Ketorolac Tromethamine (Toradol Inj) 60 mg NOW STAT IM 07/12/16 22:38 07/12/16 22:39 DC 07/12/16 22:47 60 MG Penicillin V Potassium (Pen-Vk 250MG Home Pack) 1 homepack UD ONCE PO 07/12/16 23:30 07/12/16 23:31 07/12/16 23:25 1 HOMEPACK Departure Information Impression Primary Impression: Migraine Dispostion Home / Self-Care Condition GOOD Prescriptions Penicillin V Potassium (Veetids) 500 Mg Tab 500 MG PO QID, #40 TAB Prov: Mica Bar PA-C 07/12/16 Referrals Na Mathis P.A. (PCP) Patient Instructions My [facility] Additional Instructions You have been treated in the Emergency Department for a Headache. You have received pain medicine in the emergency department which impairs your ability to operate a vehicle. It is illegal for you to drive after receiving these medicines. Follow up with Dr. Cornelius [phone] [address], [address] Follow-up with your regular provider for further evaluation of your headaches. Resume your home medications. Return to the Emergency Department if your current symptoms worsen despite treatment course outlined above, or if you develop any of the following symptoms : intractable pain despite aforementioned treatment course, visual disturbances , loss of vision, unilateral weakness or facial drooping, slurring of speech, loss of coordination, or loss of consciousness. Problem Qualifiers Primary Impression: Migraine Migraine type: unspecified Status migrainosus presence: without status migrainosus Intractability: not intractable Qualified Codes: G43.909 - Migraine, unspecified, not intractable, without status migrainosus
[2016-07-12] MEDS ORDERED: PENI-82 PO (23:20)
[2016-07-12 23:25] VITALS: BP 101/53; PULSE 70; O2SAT 97
[2016-07-12] MEDS ORDERED: PENICILLIN HOME PACK 250MG (4)BTL PO ONE (23:30)
[2016-07-19] MEDS ORDERED: NRN600 PO (13:17)
[2016-12-22] MEDS ORDERED: IPRASOL4 INH (14:50)
[2016-12-22] MEDS ORDERED: DOXY100C76 PO (14:50)
[2016-12-22] MEDS ORDERED: PRED10TA PO (14:50)
[2016-12-22] MEDS ORDERED: VAREPAK PO (14:52)
== END 2016-07-12 23:26 | disposition home or self-care (01) ==
LOC: C.EDB 21:42 → C.EDC 23:26
DX: G43.909 Migraine, unspecified, not intractable, without status migrainosus (principal); E11.9 Type 2 diabetes mellitus without complications; Z98.51 Tubal ligation status; Z90.49 Acquired absence of other specified parts of digestive tract; Z90.89 Acquired absence of other organs

== ENCOUNTER → 2016-07-20 | Day surgery (SDC) | payer OTHER ==
[2016-07-19 14:15] VITALS: Ht 157.5 cm; Wt 84.1 kg
[~2016-07-20] VITALS: Ht 157.5 cm; Wt 84.1 kg
[~2016-07-20] MED LIST changes: +ATV/1 PO; +AZIT500T26 PO; +CYCL5TAB PO; +DOXY100C76 PO; -GABA-112 PO; +IOPAMIDOL INJ 61% 15 ML VIAL ONE; +IPRA1AER2 INH; +IPRASOL4 INH; +LIDOCAINE HCL 1% MPF 5 ML VIAL ONE; +NRN600 PO; +OXYC20TA32 PO; +PRED10TA PO; +PRED20TA PO; +PRED50TA PO; +SODIUM CHLORIDE 0.9% INJ 10 ML VIAL ONE; +SPRIN/30 INH; +SYMIN160 INH; +VAREPAK PO; +VNTHFA/IN INH
[2016-07-20 14:58] VITALS: TEMP 36.8
--- NOTE | 2016-07-20 15:02 | Discharge Instructions ---
Discharge Instructions Date of Service Jul 20, 2016. Visit Reason for Visit: Lumbar Radiculopathy Discharge Discharge Diagnosis / Problem: Right leg pain Discharge Goals Goal(s): Decrease discomfort, Improve function Activity Recommendations Activity Limitations: resume your previous activity Anesthesia . Post Anesthesia Instructions: If you have had General Anesthesia or IV Sedation: * Do not drive today. * Resume driving when surgeon permits. * Do not make important decisions or sign legal documents today. * Call surgeon for: 1. Temperature elevations greater than 101 degrees F. 2. Uncontrollable pain. 3. Excessive bleeding. 4. Persistent nausea and vomiting. 5. Medication intolerance (nausea, vomiting or rash). * For nausea and vomiting use only clear liquids such as: tea, soda, bouillon until nausea subsides, then gradually increase diet as tolerated. * If you have any concerns or questions, call your surgeon's office. If physician is unavailable and it is an emergency, call 911 or go to the nearest emergency room. . Diet Recommendations Recommended Home Diet: resume previous diet Procedures Procedures Performed: Lumbar Epidural Steroid Injection Pending Studies Studies pending at discharge: no Medical Emergencies . Who to Call and When: Medical Emergencies: If at any time you feel your situation is an emergency, please call 911 immediately. . Non-Emergent Contact Non-Emergency issues call your: Specialist . . "Provider Documentation" section prepared by Shad Reed.
[2016-07-20 15:07] VITALS: BP 117/82; PULSE 84; O2SAT 97
--- NOTE | 2016-07-20 18:55 | OPERATIVE REPORT ---
DATE OF OPERATION: 07/20/2016 PREOPERATIVE DIAGNOSIS: L5-S1 disc protrusion with right lower extremity radiculopathy. POSTOPERATIVE DIAGNOSIS: Same. PROCEDURE: Right paramedian L5-S1 interlaminar epidural steroid injection under fluoroscopic guidance. INDICATIONS: The patient is a 36-year-old white female who presents today with intractable low back and right leg pain that originated after she had bent down to do something under the bed and felt a pop in her back. The pain has been excruciating at times and she has visited the ER on occasions. MRI reveals disc desiccation and annular bulge and tear on the right foraminal side at L5-SI. She presents today for an epidural steroid injection to provide her with relief. PHYSICAL EXAMINATION: Pleasant female who has limitations with sitting. She is presenting with intact sensations and intact dorsiflexor strength 5/5 bilaterally. CONSENT: Verbal and written consent was obtained from the patient. Risks and benefits were reviewed. Risks include but are not limited to abscess, allergic reaction, dural puncture. The patient wishes to proceed. DESCRIPTION OF PROCEDURE: The patient was taken back to the special procedures room of [facility]. She was maintained in a prone position. Backside was cleansed with Betadine x3 and a dry sterile dressing was applied. Fluoroscope was used to identify the L5-S1 interlaminar space. Overlying skin on the right side was anesthetized with 4 mL of lidocaine 1% with a 25 gauge 1.5-inch needle. A 22-gauge 3-1/2 inch Tuohy needle was then directed down towards the interlaminar space. It was advanced under fluoroscopic guidance with loss of resistance of just over 8 cm. Isovue-300 contrast 1 mL was injected in which demonstrated epidural uptake pattern. This was confirmed with both AP and lateral views. She then underwent injection after negative aspiration of 40 mg of Depo-Medrol and 4 mL of preservative-free sodium chloride. Injection was well tolerated. DISPOSITION: 1. The patient is taken out into the discharge recovery area where she will be discharged home once discharge criteria have been met. 2. Follow up in the [facility] Medicine office in 2-4 weeks. I attest to the content of the Intraoperative Record and any orders documented therein. Any exceptio ns are noted below.
== END | disposition home or self-care (01) ==
LOC: X.SURG 13:54
PROVIDERS: ATTEND Physical Medicine & Rehabilitation
DX: M51.26 Other intervertebral disc displacement, lumbar region (principal)

== ENCOUNTER 2016-08-02 23:30 | Emergency (ER) | payer OTHER ==
[~2016-08-02 23:30] MED LIST changes: -ATV/1 PO; -AZIT500T26 PO; -CYCL5TAB PO; -DOXY100C76 PO; -IOPAMIDOL INJ 61% 15 ML VIAL ONE; -IPRA1AER2 INH; -IPRASOL4 INH; -LIDOCAINE HCL 1% MPF 5 ML VIAL ONE; -OXYC20TA32 PO; -PRED10TA PO; -PRED20TA PO; -PRED50TA PO; -SODIUM CHLORIDE 0.9% INJ 10 ML VIAL ONE; -SPRIN/30 INH; -SYMIN160 INH; -VAREPAK PO; -VNTHFA/IN INH
[2016-08-02 23:36] VITALS: TEMP 37.2; Ht 160 cm
[2016-08-03] MEDS ORDERED: PROMETHAZINE HCL INJ 25 MG/ML 1 ML VIAL IM STA (00:12)
[2016-08-03] MEDS ORDERED: HYDROmorphone INJ 1 MG/ML SYR IM STA (00:12)
[2016-08-03] MEDS ORDERED: KETOROLAC TROMETHAMINE 60 MG/2 ML VIAL IM STA (00:12)
[2016-08-03 00:55] LABS: URINE APPEARANCE CLEAR (CLEAR); URINE BILIRUBIN NEG (NEG); URINE COLOR YELLOW; URINE EPITHELIAL CELL AUTO >30 /lpf (0-5); URINE NITRITE NEG (NEG); URINE SPECIFIC GRAVITY 1.012 (1.000-1.030); UROBILINOGEN NEG (NEG); ZZUR CULT IF INDIC CLEAN CATCH YES
[2016-08-03 00:56] LABS: MANUAL MICROSCOPIC REQUIRED? NO; REVIEW REQ? NO
[2016-08-03 01:12] VITALS: BP 127/76; PULSE 76; O2SAT 98
--- NOTE | 2016-08-04 04:33 | EMERGENCY ROOM VISIT NOTE ---
History First contact with patient: 23:58 Chief Complaint: HEADACHE Stated Complaint: MIGRAINE History of Present Illness The patient is a 36 year old female who presents to the Emergency Room with complaints of a migraine headache that began earlier today. The patient has a history of chronic migraines. She is well-known to this facility and is on a 2 narcotic treatment plan for her headaches. This is her second visit of the month. The patient states that she has had this long-standing right flank pain and believes that she may have a urinary tract infection or kidney stone. She has these symptoms for several weeks and they do not appear to be significantly improving or worsening. She has not had fever or chills. This is not the worst headache of her life and feels like her normal migraines. She did take Tylenol at home without relief. The patient rates her discomfort a 7/10. Review of Systems More than 10 systems were reviewed and otherwise negative with the exception of history of present illness. Past Medical/Surgical History Medical Problems: (1) Closed head injury (2) Diabetes mellitus type 2 (3) Migraine Surgical Problems: (1) S/P appendectomy (2) S/P appendectomy (3) S/P cholecystectomy (4) Status post breast reduction (5) Status post tonsillectomy (6) Status post tubal ligation Family History Heart disease Social History Smoking Status: Current Every Day Smoker Alcohol Use: none Drug Use: none Marital Status: Housing Status: lives with family Occupation Status: disabled Current/Historical Medications Scheduled Cyclobenzaprine Hcl (Flexeril), 10 MG PO DIRECTED Gabapentin (Gabapentin), 600 MG PO TID Nortriptyline (Pamelor), 20 MG PO HS Propranolol HCl (Propranolol HCl ER), 60 MG PO QAM Scheduled PRN Acetaminophen (Tylenol), 1,500 MG PO Q4H PRN for Pain Lorazepam (Ativan), 0.5 MG PO DAILY PRN for Anxiety Promethazine Hcl (Phenergan), 25 MG PO Q6H PRN for Nausea Allergies Coded Allergies: BEE STING (Verified Allergy, Severe, SHORTNESS OF BREATH, 08/02/16) Shellfish Allergy (Verified Allergy, Severe, SWELLING/RED SKIN, 08/02/16) Ondansetron (Verified Allergy, Intermediate, HIVES - RASH, 08/02/16) Oily Fish (Verified Allergy, Unknown, SEAFOOD, 08/02/16) Morphine (Verified Adverse Reaction, Intermediate, vomiting, 08/02/16) Uncoded Allergies: EXOTIC FRUITS (Allergy, Mild, HIVES RASH SWELLING, 08/18/15) Physical Exam Vital Signs Date Time Temp Pulse Resp B/P Pulse Ox O2 Delivery O2 Flow Rate FiO2 08/03/16 01:12 76 16 127/76 98 08/02/16 23:36 37.2 98 18 111/76 95 Room Air Pain Rating (0-10): 4.0 Physical Exam VITALS: Vitals are noted on the nurse's note and reviewed by myself. Vital signs stable. GENERAL: Well-developed, well-nourished, white female, who is in no acute distress and resting comfortably. Patient is cooperative with the examination. HEAD: Normocephalic atraumatic. EARS: External ear normal. External auditory canals clear, tympanic membranes pearly sanchez without erythema or effusion bilaterally. EYES: Pupils equal round and reactive to light and accommodation. Conjunctivae without injection, sclerae without icterus. Extraocular movements intact. NOSE: Patent, turbinates without inflammation or discharge. MOUTH: Mucous membranes moist. Tonsils are not enlarged. Pharynx without erythema, blood, or exudate. Uvula midline. Airway patent. NECK: Supple without nuchal rigidity. No lymphadenopathy. No thyromegaly. Cervical spine is nontender. HEART: Regular rate and rhythm without murmurs gallops or rubs. LUNGS: Clear to auscultation bilaterally without wheezes, rales or rhonchi. No retractions or accessory muscle use. ABDOMEN: Positive normal bowel sounds x 4. Soft, nontender, without masses or organomegaly. No guarding or rebound tenderness. MUSCULOSKELETAL: No muscle atrophy, erythema, or edema noted. Full range of motion without joint tenderness in all extremities. No tenderness to palpation. Normal gait. Strength 5/5 throughout. NEURO: Patient was alert and oriented to person place and time. CN II through XII grossly intact. Deep tendon reflexes 2+ throughout. No focal neurological deficits SKIN: The skin was without rashes, erythema, edema, or bruising. Capillary reflex less than 2 seconds. Medical Decision & Procedures Laboratory Results Test 08/03/16 00:35 Urine Color YELLOW Urine Appearance CLEAR (CLEAR) Urine pH 6.0 (4.5-7.5) Urine Specific [place] 1.012 (1.000-1.030) Urine Protein NEG (NEG) Urine Glucose (UA) NEG (NEG) Urine Ketones NEG (NEG) Urine Occult Blood NEG (NEG) Urine Nitrite NEG (NEG) Urine Bilirubin NEG (NEG) Urine Urobilinogen NEG (NEG) Urine Leukocyte Esterase TRACE (NEG) Urine WBC (Auto) 5-10 /hpf (0-5) Urine RBC (Auto) 0-4 /hpf (0-4) Urine Hyaline Casts (Auto) 1-5 /lpf (0-5) Urine Epithelial Cells (Auto) >30 /lpf (0-5) Urine Bacteria (Auto) 1+ (NEG) Medications Administered Medications (Trade) Dose Ordered Sig/Heather Route Start Time Stop Time Status Last Admin Dose Admin Hydromorphone HCl (Dilaudid Inj) 1 mg NOW STAT IM 08/03/16 00:12 08/03/16 00:15 DC 08/03/16 00:20 1 MG Promethazine HCl (Phenergan Inj) 25 mg NOW STAT IM 08/03/16 00:12 08/03/16 00:15 DC 08/03/16 00:19 25 MG Ketorolac Tromethamine (Toradol Inj) 60 mg NOW STAT IM 08/03/16 00:12 08/03/16 00:15 DC 08/03/16 00:20 60 MG ED Course Physical exam and history were performed. Nursing notes and EMR were reviewed. Patient appears to have a migraine headache and concern for a UTI or possible kidney stone. The patient was medicated with 1 mg IM Dilaudid, 60 mg IM Toradol , and 25 mg IM Phenergan per her treatment plan. I did collect a urine sample which was contaminated. Her urine does not show gross infection or significant symptoms of stone. She does have a urologist for a past history of stones, and she will be referred back to their care for further management. The patient was otherwise invited to the ER with any new, worsening, or concerning symptoms. The chart was completed utilizing [employer] Voice Recognition Software. Grammatical errors, random word insertions, pronoun errors, and incomplete sentences are an occasional consequence of this system due to software limitations, ambient noise, and hardware issues. Any formal questions or concerns about the content, text, or information contained within the body of this dictation should be directly addressed to the provider for clarification. . Medical Decision The differential diagnosis includes, but is not limited to: acute intracranial bleed, meningitis, encephalitis, mass or mass effect, sinusitis, infection, tumor, headache, temporal arteritis and carbon monoxide exposure, and migraine. Impression Primary Impression: Headache Departure Information Dispostion Home / Self-Care Condition GOOD Referrals Na Mathis P.A. (PCP) Forms HOME CARE DOCUMENTATION FORM, IMPORTANT VISIT INFORMATION Patient Instructions My [facility] Additional Instructions You were seen and evaluated today on an emergency basis only. This is not a substitute for, or an effort to provide, complete comprehensive medical care. It is not possible to recognize and treat all injuries or illnesses in a single emergency department visit. For this reason it is recommended that you followup with your primary care physician or neurologist this week for ongoing care and evaluation. DO NOT drive, drink alcohol, operate machinery, or perform dangerous activities today. You were given medications in the ER that can affect your ability to safely function or operate a vehicle. Rest today in a quiet, peaceful, dark environment and get a full 8-10 hrs of sleep tonight. Avoid loud noises, smoke/smoking, alcohol, bright lights, stress, or physical exertion today to minimize the chance the headache may return. Continue current medications. Ibuprofen(Motrin, Advil) may be used for fever or pain. Use 600mg every six hours as needed. Take with food. Avoid using more than 2400mg in a 24 hour period. Do not use 2400mg per day for more than three consecutive days without physician direction. Prolonged inappropriate use can lead to stomach upset or ulcers. (AND/OR) Acetaminophen(Tylenol) may be used for fever or pain. Use 1000mg every six hours as needed. Avoid using more than 4000mg in a 24 hour period. Return to the ER for passing out, worsening headache, vision problems, neck stiffness/pain, fevers, vomiting, worsening of your condition, or as needed.
[2016-12-22] MEDS ORDERED: IPRASOL4 INH (14:50)
[2016-12-22] MEDS ORDERED: PRED10TA PO (14:50)
[2016-12-22] MEDS ORDERED: DOXY100C76 PO (14:50)
[2016-12-22] MEDS ORDERED: VAREPAK PO (14:52)
== END 2016-08-03 01:13 | disposition home or self-care (01) ==
LOC: C.EDB 23:31
DX: R51 Headache (principal); E11.9 Type 2 diabetes mellitus without complications; Z82.49 Family history of ischemic heart disease and other diseases of the circulatory system; F17.210 Nicotine dependence, cigarettes, uncomplicated; Z79.899 Other long term (current) drug therapy

== ENCOUNTER 2016-08-30 12:48 | Emergency (ER) | payer OTHER ==
[~2016-08-30] VITALS: Ht 157.5 cm; Wt 86.0 kg
[2016-08-30 12:50] VITALS: TEMP 36.8; Ht 157.5 cm; Wt 86.0 kg
[2016-08-30] MEDS ORDERED: KETOROLAC TROMETHAMINE 60 MG/2 ML VIAL IM STA (13:07)
[2016-08-30] MEDS ORDERED: HYDROmorphone INJ 1 MG/ML SYR IM STA (13:07)
[2016-08-30] MEDS ORDERED: PROMETHAZINE HCL INJ 25 MG/ML 1 ML VIAL IM STA (13:07)
--- NOTE | 2016-08-30 13:40 | EMERGENCY ROOM VISIT NOTE ---
ED Visit Note First contact with patient: 12:54 CHIEF COMPLAINT: Migraine headache HISTORY OF PRESENT ILLNESS: This 36-year-old female patient presented to the emergency department ambulatory with a gradual onset of a severe generalized headache that started early this morning. The patient states the migraine is similar to their typical migraines. There has been associated photophobia, phonophobia, nausea and vomiting. The patient denies fever or chills recently, and there is no weakness or numbness of the extremities. There is no difficulty with speech or vision. No trauma to the head and no neck pain. The pain is severe, constant, and it is slowly increasing in severity. The patient rates the pain as throbbing and 8/10. The patient tried to take Phenergan but could not due to vomiting. This is not the worst headache of the life and is similar to previous migraines. Previous imaging studies of the brain have been normal. The patient states that she was previously seen Dr. Glass, but was dismissed from his practice due to missing appointments. She has an appointment scheduled with her primary care provider to discuss referral to a new primary care provider. REVIEW OF SYSTEMS: A review of systems was performed with positives and pertinent negatives listed in the history of present illness. All other systems were reviewed and are negative. ALLERGIES: See EMR MEDICATIONS: See med list, reviewed with patient PMH: Migraine headaches SOCIAL HISTORY: The patient lives locally with family. She is a smoker. PHYSICAL EXAM: Vital Signs: Reviewed Nurse's notes, vital signs stable. GENERAL : This is a 36-year-old female, who appears in pain, but non toxic in appearance and in no acute distress. MENTAL STATUS: Alert, oriented, and coherent. HEENT: Normocephalic. PERRLA. EOMI. Nares patent without nuchal rigidity. Tympanic membranes pearly sanchez without erythema or effusion bilaterally. Mucous membranes moist. NECK: Supple, no nuchal rigidity, nontender, no lymphadenopathy. HEART: Regular rhythm and normal rate without murmurs, ectopy, gallops, or rubs. LUNGS: Clear to auscultation bilaterally without wheezes, rales or rhonchi. No dullness to percussion. No accessory muscle use. No retractions. SKIN: Normal. NEUROLOGICAL: Pupils are round, equal and react to light. The optic fundi are normal and the discs are flat. The patient moves all extremities well and the gait is normal. EMERGENCY DEPARTMENT COURSE: I examined the patient. There is nothing to suggest subarachnoid hemorrhage or other life-threatening cause of the patient' s headache. The patient is on a 2 narcotic injection per month treatment plan for their migraines. The patient was given 1 mg Dilaudid IM, 25 mg Phenergan IM and 60 mg Toradol IM per their usual protocol. The differential diagnosis includes acute intracranial bleed, meningitis, encephalitis, mass or mass effect , sinusitis, infection, tumor, headache, temporal arteritis and carbon monoxide exposure, and migraine. The patient was discharged home in stable condition with her significant other driving. DIAGNOSIS: Migraine headache Problem List Medical Problems: (1) Closed head injury Status: Chronic (2) Diabetes mellitus type 2 Status: Chronic (3) Migraine Status: Chronic Surgical Problems: (1) S/P appendectomy Status: Resolved (2) S/P appendectomy Status: Chronic (3) S/P cholecystectomy Status: Chronic (4) Status post tonsillectomy Status: Chronic (5) Status post tubal ligation Status: Chronic Current/Historical Medications Scheduled Cyclobenzaprine Hcl (Flexeril), 10 MG PO DIRECTED Gabapentin (Gabapentin), 600 MG PO TID Nortriptyline (Pamelor), 20 MG PO HS Propranolol HCl (Propranolol HCl ER), 60 MG PO QAM Scheduled PRN Acetaminophen (Tylenol), 1,500 MG PO Q4H PRN for Pain Lorazepam (Ativan), 0.5 MG PO DAILY PRN for Anxiety Promethazine Hcl (Phenergan), 25 MG PO Q6H PRN for Nausea Allergies Coded Allergies: BEE STING (Verified Allergy, Severe, SHORTNESS OF BREATH, 08/30/16) Shellfish Allergy (Verified Allergy, Severe, SWELLING/RED SKIN, 08/30/16) Ondansetron (Verified Allergy, Intermediate, HIVES - RASH, 08/30/16) Oily Fish (Verified Allergy, Unknown, SEAFOOD, 08/30/16) Morphine (Verified Adverse Reaction, Intermediate, vomiting, 08/30/16) Uncoded Allergies: EXOTIC FRUITS (Allergy, Mild, HIVES RASH SWELLING, 08/18/15) Vital Signs Date Time Temp Pulse Resp B/P Pulse Ox O2 Delivery O2 Flow Rate FiO2 08/30/16 13:47 74 16 100/72 99 08/30/16 12:50 36.8 86 18 98/68 94 Room Air Medications Administered Medications (Trade) Dose Ordered Sig/Heather Route Start Time Stop Time Status Last Admin Dose Admin Hydromorphone HCl (Dilaudid Inj) 1 mg NOW STAT IM 08/30/16 13:07 08/30/16 13:08 DC 08/30/16 13:25 1 MG Ketorolac Tromethamine (Toradol Inj) 60 mg NOW STAT IM 08/30/16 13:07 08/30/16 13:08 DC 08/30/16 13:24 60 MG Promethazine HCl (Phenergan Inj) 25 mg NOW STAT IM 08/30/16 13:07 08/30/16 13:08 DC 08/30/16 13:25 25 MG Departure Information Impression Primary Impression: Headache Referrals Na Mathis P.A. (PCP) Patient Instructions My [facility] Additional Instructions You have been treated in the Emergency Department for a Headache. You have received pain medicine in the emergency department which impairs your ability to operate a vehicle. It is illegal for you to drive after receiving these medicines. For pain control, you can use the following [id number] medicines (if >12 yo): - Regular strength (325mg/tab) Tylenol (acetaminophen) 2 tabs every 4-6 hours as needed. Do not exceed 12 tablets in a 24 hour period. Avoid taking more than 4 grams (4000 mg) of Tylenol per day. This includes any other sources of acetaminophen you may take on a regular basis. - Regular strength (200 mg/tab) Advil (ibuprofen) 1-2 tabs every 4-6 hours as needed. Do not exceed a dose of 3200 mg per day. You should relax in a quiet, dark place for the rest of the day. Avoid any possible triggers including: cigarette smoke, caffeine, nicotine, chocolate, wine, beer, loud noises or music, or bright lights. You should schedule a follow-up appointment in 2-3 days with your Primary Care Provider or established Neurologist for further evaluation and treatment of your Headache. Return to the Emergency Department if your current symptoms worsen despite treatment course outlined above, or if you develop any of the following symptoms : intractable pain despite aforementioned treatment course, visual disturbances , loss of vision, unilateral weakness or facial drooping, slurring of speech, loss of coordination, or loss of consciousness.
[2016-08-30 13:47] VITALS: BP 100/72; PULSE 74; O2SAT 99
[2016-12-22] MEDS ORDERED: PRED10TA PO (14:50)
[2016-12-22] MEDS ORDERED: DOXY100C76 PO (14:50)
[2016-12-22] MEDS ORDERED: IPRASOL4 INH (14:50)
[2016-12-22] MEDS ORDERED: VAREPAK PO (14:52)
== END 2016-08-30 13:48 | disposition home or self-care (01) ==
LOC: C.EDB 12:50 → C.EDD 13:48
DX: R51 Headache (principal); E11.9 Type 2 diabetes mellitus without complications; F17.200 Nicotine dependence, unspecified, uncomplicated; Z98.51 Tubal ligation status; Z90.49 Acquired absence of other specified parts of digestive tract; Z98.890 Other specified postprocedural states; Z87.820 Personal history of traumatic brain injury; Z79.899 Other long term (current) drug therapy; Z88.5 Allergy status to narcotic agent; Z88.8 Allergy status to other drugs, medicaments and biological substances; Z91.018 Allergy to other foods; Z91.030 Bee allergy status

== ENCOUNTER 2016-09-18 03:01 | Emergency (ER) | payer OTHER ==
[~2016-09-18] VITALS: Ht 157.5 cm; Wt 87.4 kg
[~2016-09-18 03:01] MED LIST changes: -CYCL10TA6 PO
[2016-09-18 03:05] VITALS: TEMP 36.8; Ht 157.5 cm; Wt 87.4 kg
[2016-09-18] MEDS ORDERED: ALBUT/IPRATROP 3MG/0.5MG NEB 3 ML VIAL INH STA (03:17)
--- NOTE | 2016-09-18 03:21 | EMERGENCY ROOM VISIT NOTE ---
History Report prepared by Junior: Ray Coreas Under the Supervision of: Dr. Yusef Giraldo D.O. First contact with patient: 03:11 Chief Complaint: RESPIRATORY PROBLEMS Stated Complaint: COUGH,SOB,CHEST BURNING SINCE MONDAY AM Nursing Triage Summary: c/o head cold, cough, SOB, fever. symptoms started on monday. History of Present Illness The patient is a 36 year old female who presents to the Emergency Room with complaints of respiratory problems that began two days ago. Her symptoms started with a head cold, but they progressed into worse respiratory issues. She is having trouble breathing and feels like there is a weight on her chest. She is coughing up abnormally colored sputum, however she states that there is no blood. Her symptoms worsen when she lies down. She also notes a fever. She denies any other abnormal symptoms. She does currently smoke. Source of History: patient Onset: two days ago Position: other (Respiratory System) Symptom Intensity: moderate Quality: other (Shortness of breath) Timing: worsening Modifying Factors (Worsening): rest Associated Symptoms: + fevers, + cough, + chest pain (pressure) Note: She denies any other abnormal symptoms. Review of Systems See HPI for pertinent positives and negatives. A total of ten systems were reviewed and were otherwise negative. Past Medical & Surgical Medical Problems: (1) Closed head injury (2) Diabetes mellitus type 2 (3) Migraine Surgical Problems: (1) S/P appendectomy (2) S/P appendectomy (3) S/P cholecystectomy (4) Status post breast reduction (5) Status post tonsillectomy (6) Status post tubal ligation Family History Heart disease Social History Smoking Status: Current Every Day Smoker Alcohol Use: none Drug Use: none Marital Status: Housing Status: lives with family Occupation Status: disabled Current/Historical Medications Scheduled Gabapentin (Gabapentin), 600 MG PO TID Nortriptyline (Pamelor), 20 MG PO HS Propranolol HCl (Propranolol HCl ER), 60 MG PO QAM Scheduled PRN Acetaminophen (Tylenol), 1,500 MG PO Q4H PRN for Pain Lorazepam (Ativan), 0.5 MG PO DAILY PRN for Anxiety Promethazine Hcl (Phenergan), 25 MG PO Q6H PRN for Nausea Allergies Coded Allergies: BEE STING (Verified Allergy, Severe, SHORTNESS OF BREATH, 09/18/16) Shellfish Allergy (Verified Allergy, Severe, SWELLING/RED SKIN, 09/18/16) Ondansetron (Verified Allergy, Intermediate, HIVES - RASH, 09/18/16) Oily Fish (Verified Allergy, Unknown, SEAFOOD, 09/18/16) Morphine (Verified Adverse Reaction, Intermediate, vomiting, 09/18/16) Uncoded Allergies: EXOTIC FRUITS (Allergy, Mild, HIVES RASH SWELLING, 08/18/15) Physical Exam Vital Signs Date Time Temp Pulse Resp B/P (MAP) Pulse Ox O2 Delivery O2 Flow Rate FiO2 09/18/16 03:41 101 20 122/94 95 Room Air 09/18/16 03:12 95 Room Air 09/18/16 03:05 36.8 107 20 117/78 95 Room Air Physical Exam GENERAL: Awake, alert, well-appearing, in no distress HENT: Normocephalic, atraumatic. Oropharynx unremarkable. EYES: Normal conjunctiva. Sclera non-icteric. NECK: Supple. No nuchal rigidity. FROM. No JVD. RESPIRATORY: Rhonchi and wheezing diffusely. CARDIAC: Regular rate, normal rhythm. Extremities warm and well perfused. Pulses equal. ABDOMEN: Soft, non-distended. No tenderness to palpation. No rebound or guarding. No masses. RECTAL: Deferred. MUSCULOSKELETAL: Chest examination reveals no tenderness. The back is symmetrical on inspection without obvious abnormality. There is no CVA tenderness to palpation. No joint edema. LOWER EXTREMITIES: Calves are equal size bilaterally and non-tender. No edema. No discoloration. NEURO: Normal sensorium. No sensory or motor deficits noted. SKIN: No rash or jaundice noted. Medical Decision & Procedures ER Provider Diagnostic Interpretation: X ray results as stated below per my interpretation and radiologist interpretation. Other radiology results as stated below per my review and radiologist interpretation CHEST X-RAY 1 VIEW: Negative for infiltrate. Per me. Medications Administered Medications (Trade) Dose Ordered Sig/Heather Route Start Time Stop Time Status Last Admin Dose Admin Albuterol/ Ipratropium (Duoneb) 3 ml NOW STAT INH 09/18/16 03:17 09/18/16 03:19 DC 09/18/16 03:25 3 ML ED Course 0311: The patient was evaluated in room B9. A complete history and physical exam was performed. 0317: Ordered DuoNeb 3 ml INH 0423: I reevaluated the patient. Discussed results and discharge instructions: She verbalized understanding and agreement. The patient is ready for discharge. Medical Decision Differential diagnoses include but are not limited to; bronchitis, pneumonia, asthma, and upper respiratory tract infection. Medication Reconciliation: I attest that I have personally reviewed the patient' s current medication list. Blood pressure screening: Patient was found to have normal blood pressure on screening and does not require follow-up. Patient resting in no distress on repeat examination patient's chest x-ray is negative for bronchitis Impression Primary Impression: Bronchitis Scribe Attestation The scribe's documentation has been prepared under my direction and personally reviewed by me in its entirety. I confirm that the note above accurately reflects all work, treatment, procedures, and medical decision making performed by me. Departure Information Dispostion Home / Self-Care Prescriptions Azithromycin (Zithromax) 500 Mg Tab 500 MG PO DAILY, #6 TAB Prov: Yusef Giraldo, DO 09/18/16 Referrals Na Mathis P.AJohn (PCP) Forms HOME CARE DOCUMENTATION FORM, IMPORTANT VISIT INFORMATION, WORK / SCHOOL INSTRUCTIONS Patient Instructions Bronchitis Acute, My [facility]
[2016-09-18 03:41] VITALS: O2SAT 95
[2016-09-18] MEDS ORDERED: AZIT500T26 PO (04:35)
[2016-09-18] MEDS ORDERED: KETOROLAC TROMETHAMINE 60 MG/2 ML VIAL IM STA (04:38)
[2016-09-18 04:46] VITALS: BP 107/70; PULSE 93
[2016-09-18] MEDS ORDERED: ALBUT/IPRATROP 3MG/0.5MG NEB 3 ML VIAL INH SCH (08:00)
--- NOTE | 2016-09-18 08:07 | DIAGNOSTIC IMAGING REPORT ---
CHEST ONE VIEW PORTABLE CLINICAL HISTORY: sob PERSISTENT COUGH COMPARISON STUDY: 12/22/2014 FINDINGS: The cardiac and mediastinal contours are normal. There is no evidence of focal pulmonary consolidation. There is no evidence of failure. No pleural effusions are visualized.[ There is a 9 mm left apical pulmonary nodule, a finding which appears to have been present on prior studies. This is likely postinflammatory. IMPRESSION: 9 mm left apical nodule, likely postinflammatory. No evidence of acute parenchymal consolidation Electronically signed by: Jah Montes M.D. 09/18/2016 8:05 AM Dictated Date/Time: 09/18/2016 8:03 AM
[2016-12-22] MEDS ORDERED: DOXY100C76 PO (14:50)
[2016-12-22] MEDS ORDERED: PRED10TA PO (14:50)
[2016-12-22] MEDS ORDERED: IPRASOL4 INH (14:50)
[2016-12-22] MEDS ORDERED: VAREPAK PO (14:52)
== END 2016-09-18 04:57 | disposition home or self-care (01) ==
LOC: C.EDB 03:02
DX: J40 Bronchitis, not specified as acute or chronic (principal); E11.9 Type 2 diabetes mellitus without complications; G43.909 Migraine, unspecified, not intractable, without status migrainosus; F17.210 Nicotine dependence, cigarettes, uncomplicated; Z79.899 Other long term (current) drug therapy

== ENCOUNTER 2016-09-21 04:01 | Emergency (ER) | payer OTHER ==
[~2016-09-21] VITALS: Ht 157.5 cm; Wt 87.0 kg
[~2016-09-21 04:01] MED LIST changes: +AZIT500T26 PO
[2016-09-21 04:04] VITALS: TEMP 36.8; Ht 157.5 cm; Wt 87.0 kg
[2016-09-21] MEDS ORDERED: ALBUT/IPRATROP 3MG/0.5MG NEB 3 ML VIAL INH STA (04:23)
[2016-09-21] MEDS ORDERED: DEXAMETHASONE SOD INJ 10 MG/ML VIAL IM ONE (04:30)
--- NOTE | 2016-09-21 04:46 | EMERGENCY ROOM VISIT NOTE ---
History Report prepared by Junior: Charleen Acosta Under the Supervision of: Dr. Maria Ines Monique D.O. First contact with patient: 04:14 Chief Complaint: RESPIRATORY PROBLEMS Stated Complaint: WORSENING BRONCHITIS-WHEEZING,CHEST PAIN,COUGHING Nursing Triage Summary: c/o a cough. seen in ed monday for the same unable to see her pcp for a "home nebulizer." History of Present Illness The patient is a 36 year old female who presents to the Emergency Room with complaints of worsening shortness of breath starting 5 days ago. She reports coughing and wheezing. She has worsening symptoms with lying down flat. She was evaluated in the Emergency Room 3 days ago and had relief with the treatment she had received. She was prescribed Z-pack on discharge without relief. She used her 's inhaler without relief. She has been taking Sandy-Tropic without relief. The patient has a history of bronchitis occurring about a year ago. She denies any history of asthma. The patient denies nausea, vomiting, abdominal pain, or any other complaints. Source of History: patient Onset: 5 days ago Position: other (global) Quality: other (shortness of breath) Timing: worsening Modifying Factors (Worsening): other (lying down flat) Modifying Factors (Relieving): other (Z-Pack, inhaler, Sandy-Tropic without relief) Associated Symptoms: + cough, No nausea, No vomiting, No abdominal pain Review of Systems See HPI for pertinent positives & negatives. A total of 10 systems reviewed and were otherwise negative. Past Medical & Surgical Medical Problems: (1) Closed head injury (2) Diabetes mellitus type 2 (3) Migraine Surgical Problems: (1) S/P appendectomy (2) S/P appendectomy (3) S/P cholecystectomy (4) Status post breast reduction (5) Status post tonsillectomy (6) Status post tubal ligation Family History Heart disease Social History Smoking Status: Current Every Day Smoker Alcohol Use: none Drug Use: none Marital Status: Housing Status: lives with family Occupation Status: disabled Current/Historical Medications Scheduled Azithromycin (Zithromax), 500 MG PO DAILY Gabapentin (Gabapentin), 600 MG PO TID Ipratropium-Albuterol (Combivent Respimat), 1 PUFFS INH QID Nortriptyline (Pamelor), 20 MG PO HS Prednisone (Prednisone), 50 MG PO DAILY Propranolol HCl (Propranolol HCl ER), 60 MG PO QAM Scheduled PRN Acetaminophen (Tylenol), 1,500 MG PO Q4H PRN for Pain Lorazepam (Ativan), 0.5 MG PO DAILY PRN for Anxiety Promethazine Hcl (Phenergan), 25 MG PO Q6H PRN for Nausea Allergies Coded Allergies: BEE STING (Verified Allergy, Severe, SHORTNESS OF BREATH, 09/21/16) Shellfish Allergy (Verified Allergy, Severe, SWELLING/RED SKIN, 09/21/16) Ondansetron (Verified Allergy, Intermediate, HIVES - RASH, 09/21/16) Oily Fish (Verified Allergy, Unknown, SEAFOOD, 09/21/16) Morphine (Verified Adverse Reaction, Intermediate, vomiting, 09/21/16) Uncoded Allergies: EXOTIC FRUITS (Allergy, Mild, HIVES RASH SWELLING, 08/18/15) Physical Exam Vital Signs Date Time Temp Pulse Resp B/P (MAP) Pulse Ox O2 Delivery O2 Flow Rate FiO2 09/21/16 05:12 112 22 105/73 94 09/21/16 04:04 36.8 115 24 119/82 93 Room Air Physical Exam HEENT: Head - normocephalic and atraumatic Pupils are equal, round, and reactive to light. Extraocular eye muscles are intact, and sclera are anicteric. Nose - moist nasal mucosa without discharge. Mouth - moist buccal mucosa. Oropharynx is nonerythematous and there is no tonsillar exudate or edema noted. Neck: Supple; no JVD, nuchal rigidity, cervical lymphadenopathy. Heart: Regular rate and rhythm. There is a normal S1 and S2 with no murmurs, clicks, or gallops appreciated. Lungs: Inspiratory and expiratory wheezing in all lung ramirez. Abdomen: Soft, completely nontender, nondistended, with good bowel sounds. There are no palpable pulsatile masses or hepatosplenomegaly. There is no guarding, rigidity, or rebound noted. Extremities: No evidence of cyanosis, clubbing, or edema. There are easily palpable peripheral pulses. Skin: warm and dry with good turgor and no rashes. Medical Decision & Procedures Medications Administered Medications (Trade) Dose Ordered Sig/Heather Route Start Time Stop Time Status Last Admin Dose Admin Dexamethasone Sodium Phosphate (Decadron Inj) 10 mg NOW ONCE IM 09/21/16 04:30 09/21/16 04:31 DC 09/21/16 04:28 10 MG Albuterol/ Ipratropium (Duoneb) 3 ml NOW STAT INH 09/21/16 04:23 09/21/16 04:25 DC 09/21/16 04:28 3 ML Hydrocodone Bit/ Homatropine Methylb (Hycodan Syrup) 10 ml NOW STAT PO 09/21/16 04:59 09/21/16 05:00 DC 09/21/16 05:07 10 ML Procedure DuoNeb 3 ml INH, Decadron Inj 10 mg IM, Hycodan Syrup 10 ml PO ED Course 0414: Past medical records reviewed. The patient was evaluated in room A10. A complete history and physical exam was performed. Vital signs were stable. 0423: DuoNeb 3 ml INH 0430: Decadron Inj 10 mg IM 0458: Upon reevaluation, the patient is feeling slightly better but she is still coughing. I discussed findings and results with her. She verbalized agreement of the treatment plan. She will be discharged home. 0459: Hycodan Syrup 10 ml PO Medical Decision The patient presents to the Emergency Room with complaints of shortness of breath. Differential diagnosis includes but is not limited to bronchitis, pneumonia, reactive airway disease. I attest that I have personally reviewed the patient's current medication list. Blood Pressure Screening: Patient was found to have a slightly elevated blood pressure due to circumstances. I do not believe that the patient requires hypertension monitoring. Patient has a history of recurrent bronchitis with some wheezing at times. The patient has been taking Zithromax for the past 3 days for bronchitis. She was instructed to follow-up with her PCP to obtain a nebulizer machine and albuterol. The patient was unable to secure a follow-up appointment. She became concerned tonight as her breathing became tight and she was wheezing again. The patient was given IM Decadron and a DuoNeb treatment with moderate relief of her symptoms. however, she did continue to cough and was given Hycodan cough syrup. I have asked the patient to keep her follow-up appointment with her PCP.. Impression Primary Impression: Bronchitis Additional Impression: Reactive airway disease Scribe Attestation The scribe's documentation has been prepared under my direction and personally reviewed by me in its entirety. I confirm that the note above accurately reflects all work, treatment, procedures, and medical decision making performed by me. Departure Information Dispostion Home / Self-Care Prescriptions Ipratropium-Albuterol (COMBIVENT RESPIMAT) 1 Aer Aer 1 PUFFS INH QID, #1 INH Prov: Maria Ines Monique D.O. 09/21/16 Prednisone (PREDNISONE) 50 Mg Tab 50 MG PO DAILY, #4 TAB Prov: Maria Ines Monique D.O. 09/21/16 Referrals Na Mathis P.A. (PCP) Forms HOME CARE DOCUMENTATION FORM, IMPORTANT VISIT INFORMATION, WORK / SCHOOL INSTRUCTIONS Patient Instructions Bronchitis Acute, ED Wheezing, My [facility] Additional Instructions Finish course of zithromax Rest. Take prednisone daily for next 4 days Use combivent inhaler - 1 puff every 6 hours for next 2-3 days Follow up with PCP if symptoms persist Problem Qualifiers
[2016-09-21] MEDS ORDERED: HYDROCODONE/HOMATROPINE SYRUP 5MG/1.5MG 5ML UDP PO STA (04:59)
[2016-09-21] MEDS ORDERED: PRED50TA PO (05:02)
[2016-09-21] MEDS ORDERED: IPRA1AER2 INH (05:02)
[2016-09-21 05:12] VITALS: BP 105/73; PULSE 112; O2SAT 94
[2016-12-22] MEDS ORDERED: PRED10TA PO (14:50)
[2016-12-22] MEDS ORDERED: IPRASOL4 INH (14:50)
[2016-12-22] MEDS ORDERED: DOXY100C76 PO (14:50)
[2016-12-22] MEDS ORDERED: VAREPAK PO (14:52)
== END 2016-09-21 05:14 | disposition home or self-care (01) ==
LOC: C.EDB 04:02 → C.EDA 05:14
DX: J45.909 Unspecified asthma, uncomplicated (principal); E11.9 Type 2 diabetes mellitus without complications; F17.200 Nicotine dependence, unspecified, uncomplicated; Z90.49 Acquired absence of other specified parts of digestive tract; Z98.51 Tubal ligation status; Z90.89 Acquired absence of other organs; Z98.890 Other specified postprocedural states; Z79.52 Long term (current) use of systemic steroids

== ENCOUNTER 2016-09-26 02:30 | Emergency (ER) | payer OTHER ==
[~2016-09-26] VITALS: Ht 157.5 cm; Wt 87.0 kg
[~2016-09-26 02:30] MED LIST changes: +IPRA1AER2 INH; +PRED50TA PO
[2016-09-26 02:35] VITALS: TEMP 36.7; Ht 157.5 cm; Wt 87.0 kg
[2016-09-26] MEDS ORDERED: KETOROLAC TROMETHAMINE 60 MG/2 ML VIAL IM STA (02:48)
[2016-09-26] MEDS ORDERED: PROMETHAZINE HCL INJ 25 MG/ML 1 ML VIAL IM STA (02:48)
[2016-09-26] MEDS ORDERED: ALBUT/IPRATROP 3MG/0.5MG NEB 3 ML VIAL INH STA (02:48)
[2016-09-26] MEDS ORDERED: HYDROmorphone INJ 1 MG/ML SYR IM STA (02:48)
--- NOTE | 2016-09-26 03:03 | EMERGENCY ROOM VISIT NOTE ---
History Report prepared by Junior: Jameson Odonnell Under the Supervision of: Dr. Thomas Resendiz M.D. First contact with patient: 02:41 Chief Complaint: HEADACHE Stated Complaint: MIGRAINE,CAN'T BREATHE History of Present Illness The patient is a 36 year old female who presents to the Emergency Room with complaints of a constant headache located on the right side and behind her eye for the past few days. The patient states that she is currently being treated for coughing and bronchitis. The patient states that she is short of breath when she bends over, and she denies any fevers. She states that she has been taking a Z-pack, breathing treatments, steroids, and Combivent. The patient states that she has been having a productive cough which is better than last week. She states that she is going to see her doctor tomorrow. Source of History: patient Onset: a few days ago Position: head Quality: ache Timing: constant Associated Symptoms: + cough, + SOB, No fevers Review of Systems See HPI for pertinent positives & negatives. A total of 10 systems reviewed and were otherwise negative. Past Medical & Surgical Medical Problems: (1) Closed head injury (2) Diabetes mellitus type 2 (3) Migraine Surgical Problems: (1) S/P appendectomy (2) S/P appendectomy (3) S/P cholecystectomy (4) Status post breast reduction (5) Status post tonsillectomy (6) Status post tubal ligation Family History Heart disease Social History Smoking Status: Current Every Day Smoker Alcohol Use: none Drug Use: none Marital Status: Housing Status: lives with family Occupation Status: disabled Current/Historical Medications Scheduled Gabapentin (Gabapentin), 600 MG PO TID Ipratropium-Albuterol (Combivent Respimat), 1 PUFFS INH QID Nortriptyline (Pamelor), 20 MG PO HS Propranolol HCl (Propranolol HCl ER), 60 MG PO QAM Scheduled PRN Acetaminophen (Tylenol), 1,500 MG PO Q4H PRN for Pain Lorazepam (Ativan), 0.5 MG PO DAILY PRN for Anxiety Promethazine Hcl (Phenergan), 25 MG PO Q6H PRN for Nausea Allergies Coded Allergies: BEE STING (Verified Allergy, Severe, SHORTNESS OF BREATH, 09/26/16) Shellfish Allergy (Verified Allergy, Severe, SWELLING/RED SKIN, 09/26/16) Ondansetron (Verified Allergy, Intermediate, HIVES - RASH, 09/26/16) Oily Fish (Verified Allergy, Unknown, SEAFOOD, 09/26/16) Morphine (Verified Adverse Reaction, Intermediate, vomiting, 09/26/16) Uncoded Allergies: EXOTIC FRUITS (Allergy, Mild, HIVES RASH SWELLING, 08/18/15) Physical Exam Vital Signs Date Time Temp Pulse Resp B/P (MAP) Pulse Ox O2 Delivery O2 Flow Rate FiO2 09/26/16 04:12 81 20 92/73 95 09/26/16 03:27 94 Room Air 09/26/16 03:26 99 20 112/83 94 Room Air 09/26/16 02:35 36.7 96 19 103/68 92 Room Air Physical Exam GENERAL: Patient is well appearing and in mild distress. Smells heavily of tobacco smoke. HEAD: No acute trauma, normocephalic atraumatic ENT: Mucous membranes moist, no nasal congestion. EYES: Equal/Reactive Bilaterally, No scleral icterus, Normal ROM NECK: No nuchal rigidity, no meningismus, trachea is midline, full ROM LUNGS: Diffuse mild wheezing in bilateral lungs with periodic cough. No dyspnea. HEART: Regular rate and rhythm. No murmurs, rubs, gallops appreciated. ABDOMEN: Soft, nontender, bowel sounds positive, no masses appreciated, no peritonitis. BACK: No midline tenderness, no CVA tenderness EXTREMITIES: Normal motion all extremities, no cyanosis, no edema. NEUROLOGIC: Awake, Alert, Oriented, no acute motor or sensory deficits, no focal weakness, cranial nerves grossly intact. SKIN: No rash, no jaundice, no diaphoresis. Medical Decision & Procedures ER Provider Diagnostic Interpretation: X ray results are stated below per my interpretation: Chest: 1 view: No infiltrate, no effusion, normal cardiac border. Nodule in left upper chest similar to previous. Medications Administered Medications (Trade) Dose Ordered Sig/Heather Route Start Time Stop Time Status Last Admin Dose Admin Hydromorphone HCl (Dilaudid Inj) 1 mg NOW STAT IM 09/26/16 02:48 09/26/16 02:50 DC 09/26/16 02:55 1 MG Promethazine HCl (Phenergan Inj) 25 mg NOW STAT IM 09/26/16 02:48 09/26/16 02:50 DC 09/26/16 02:55 25 MG Ketorolac Tromethamine (Toradol Inj) 60 mg NOW STAT IM 09/26/16 02:48 09/26/16 02:50 DC 09/26/16 02:56 60 MG Albuterol/ Ipratropium (Duoneb) 6 ml NOW STAT INH 09/26/16 02:48 09/26/16 02:50 DC 09/26/16 02:54 6 ML Acetaminophen (Tylenol Tab) 1,000 mg NOW STAT PO 09/26/16 04:02 09/26/16 04:03 DC 09/26/16 04:09 1,000 MG ED Course 0243: The patient was evaluated in room A3. A complete history and physical exam was performed. 0248: DuoNeb 2ml INH, Toradol Inj 60mg IM, Phenergan Inj 25mg IM, Dilaudid Inj 1mg IM 0401: Reevaluated the patient, and she is feeling much better at 98% oxygenation. She will follow up with her doctor today, and she is requesting Tylenol for mild continual eye pain which is chronic. 0402: Tylenol Tab 1000mg PO Medical Decision Differential: Headache, Migraine, Cluster Headache, Seizure, Meningitis, Sinusitis, CO exposure, ICH/SAH, Infectious, Tumor, Sinus Thrombosis, Arterial Dissection, amongst other pathologies entertained. 36 yr old female arrives with her typical migraine. Notes persistent cough as well. Initial O2 in triage 92% though on my evaluations all in upper 90s on RA. Did have some mild diffuse wheezing and given duoneb with some improvement. CXR clear. Given typical cocktail of medications followed by some tylenol for mild persistent right posterior eye pain (this is typical pain for her). She will follow up with her PCP to discuss having further pulm work- up. She is stable, looks well and in no distress. She does not have evidence of pulmonary embolism, nor dissection. She is aware RTED if worsening or other concerns. Impression Primary Impression: Headache Additional Impression: Cough, persistent Scribe Attestation The scribe's documentation has been prepared under my direction and personally reviewed by me in its entirety. I confirm that the note above accurately reflects all work, treatment, procedures, and medical decision making performed by me. Departure Information Dispostion Home / Self-Care Referrals Na Mathis P.A. (PCP) Forms HOME CARE DOCUMENTATION FORM, IMPORTANT VISIT INFORMATION Patient Instructions My [facility] Additional Instructions It is very important you follow up with your primary care provider later today. Return if worsening shortness of breath, fevers, passing out, chest pain or other concerns. Rest and avoid exertion over the next day. Keep well hydrated. If headache worsens or seems different than your typical migraine return for further evaluation. We are always here to help. You have received a narcotic pain medication in the ER today. These medications may cause drowsiness and should not be used with other sedative medications. Do not drive, drink alcohol, perform dangerous activities, nor make important decisions after taking these medications. group home use or inappropriate use may lead to addiction. Problem Qualifiers
[2016-09-26 03:27] VITALS: O2SAT 94
[2016-09-26] MEDS ORDERED: ACETAMINOPHEN 500 MG TAB PO STA (04:02)
[2016-09-26 04:12] VITALS: BP 92/73; PULSE 81; O2SAT 95
--- NOTE | 2016-09-26 06:31 | DIAGNOSTIC IMAGING REPORT ---
CHEST ONE VIEW PORTABLE CLINICAL HISTORY: persistent bronchitis dyspnea COMPARISON STUDY: 09/18/2016 FINDINGS: Unchanging nodular density left upper lung. No focal infiltrate. Diaphragms are smooth. IMPRESSION: No acute process. Unchanging nodular density left upper lung. Electronically signed by: Issac Whitely M.D. 09/26/2016 6:30 AM Dictated Date/Time: 09/26/2016 6:29 AM
[2016-12-22] MEDS ORDERED: IPRASOL4 INH (14:50)
[2016-12-22] MEDS ORDERED: DOXY100C76 PO (14:50)
[2016-12-22] MEDS ORDERED: PRED10TA PO (14:50)
[2016-12-22] MEDS ORDERED: VAREPAK PO (14:52)
== END 2016-09-26 04:12 | disposition home or self-care (01) ==
LOC: C.EDB 02:31 → C.EDA 04:12
DX: R51 Headache (principal); R05 Cough; E11.9 Type 2 diabetes mellitus without complications; F17.200 Nicotine dependence, unspecified, uncomplicated; Z98.51 Tubal ligation status

== ENCOUNTER 2016-10-26 12:23 | Emergency (ER) | payer OTHER ==
[~2016-10-26] VITALS: Ht 157.5 cm; Wt 86.0 kg
[~2016-10-26 12:23] MED LIST changes: -AZIT500T26 PO; -PRED50TA PO
[2016-10-26 12:26] VITALS: Ht 157.5 cm; Wt 86.0 kg
[2016-10-26] MEDS ORDERED: SPRIN/30 INH (12:41)
[2016-10-26] MEDS ORDERED: HYDROmorphone INJ 1 MG/ML SYR IV STA (12:46)
[2016-10-26] MEDS ORDERED: PROMETHAZINE HCL INJ 25 MG in SODIUM CHLORIDE 0.9% 50ML 50 ML IV STA (12:46)
[2016-10-26] MEDS ORDERED: KETOROLAC TROMETHAMINE 30 MG/ML VIAL IV STA (12:46)
[2016-10-26] MEDS ORDERED: SODIUM CHLORIDE 0.9% 1000ML 1,000 ML IV STA (12:46)
[2016-10-26 13:51] VITALS: BP 76/52; PULSE 70; TEMP 36.9; O2SAT 90
--- NOTE | 2016-10-27 16:33 | EMERGENCY ROOM VISIT NOTE ---
ED Visit Note First contact with patient: 12:30 CHIEF COMPLAINT: Migraine headache. HISTORY OF PRESENT ILLNESS: Ms. Woodward is a 36 year-old white female who ambulates into the ED accompanied by her complaining of a migraine headache. She reports a gradual onset of a severe migraine headache that started approximately 48 hours ago. The pain is constant and it is slowly increasing in severity. She reports this is not the worst migraine of her life but is similar to previous migraines. Currently she describes the headache as a throbbing sensation/pain behind both right eye and a "stabbing" discomfort to the eye "with a hot poker". She rates the pain a 8/10. Her pain is nonradiating. Bright lights and loud noises increases her discomfort. She has not identified any alleviating factors related to the pain. She reports she is taken her Inderal, gabapentin, nortriptyline and Phenergan without relief of her discomfort; she does reports she's been having significant nausea/vomiting and feels like she has vomited most of these medications. There has been her similar dizziness, light sensitivity, sound sensitivity and nausea/vomiting. Additionally she reports she's been having some cramping in her legs and she feels this is related to the multiple episodes of vomiting; she questions whether she is mildly dehydrated. She denies fever, sweats, skin eruptions, skin color changes, lightheadedness, recent head trauma, sinus infection, sore throat, dental trauma/work, difficulty speaking, difficulty swallowing, visual changes, hearing changes, weakness/numbness of the extremities, chest pain, abdominal pain. REVIEW OF SYSTEMS: As noted above in History of Present Illness. All body systems were reviewed with this patient and found to be negative unless noted above otherwise. PAST MEDICAL HISTORY: Diabetes, gallbladder disease, multiple facial surgery status post trauma. CURRENT MEDICATIONS: Medications Dose Route/Sig Max Daily Dose Days Date Category Spiriva Handihaler (Tiotropium Dum[place]) 30 Puff/540 Mcg Aerp 1 Cap INH DAILY 10/26/16 Reported Gabapentin 600 Mg Tab 600 Mg PO TID 07/19/16 Reported Pamelor (Nortriptyline HCl) 10 Mg Cap 20 Mg PO HS 06/27/16 Reported Ativan (Lorazepam) 0.5 Mg Tab 0.5 Mg PO DAILY PRN 12/11/15 Reported Propranolol HCl ER (Propranolol HCl) 60 Mg Capcr 60 Mg PO QAM 10/20/15 Reported Phenergan (Promethazine HCl) 25 Mg Tab 25 Mg PO Q6H PRN 04/30/15 Reported ALLERGIES TO MEDICATION: Morphine, Zofran. SOCIAL HISTORY: Patient is not employed; she lives with her and feels safe in her home environment; she admits to tobacco use but does not specify an amount; she denies alcohol use. PHYSICAL EXAM: Vital Signs: Date Time Temp Pulse Resp B/P (MAP) Pulse Ox O2 Delivery O2 Flow Rate FiO2 10/26/16 13:51 36.9 70 20 76/52 90 10/26/16 13:27 61 106/60 94 10/26/16 12:26 36.9 85 20 93/64 96 GENERAL: 36 year-old white female in moderate distress due to pain, afebrile and hemodynamically stable. Found lying in a darkened room with a pillow over her head. NEUROLOGIC: Awake, alert and oriented to person place and time. Answering questions appropriately and following commands. Cranial nerves II-XII grossly intact. No focal neurologic deficits noted. SKIN: Warm, dry and pink. No rashes, lesions or soft tissue trauma noted. HEENT: Normocephalic, atraumatic. Pupils equal, round and reactive. Extraocular movements intact and there is no nystagmus. Sclera anicteric. Ears , nose and oropharynx clear. Patient is photophobic precluding funduscopic exam. NECK: Soft and supple. No tenderness through the central cervical region or cervical musculature. Full range of motion of the cervical spine. No lymphadenopathy, jugular venous distention, or bruits noted. THORAX: Lungs clear to auscultation and equal bilaterally with no wheezing, crackles, rhonchi or stridor and equal chest wall movements. HEART: Regular rate and rhythm with no murmurs, rubs or gallops. ABDOMEN: Soft and nontender with bowel sounds present in all quadrants; no rigidity, rebound tenderness, organomegaly or guarding. MUSCULOSKELETAL: Full range of motion of all joints without any significant discomfort and the gait is normal. ED COURSE: Patient is assessed with history and physical examination. Patient's medication list was reviewed. Patient was was hydrated with normal saline and she received a total of 1 mg of Dilaudid IV for pain, 30 mg of Toradol IV and 25 mg of Phenergan IV for nausea/ vomiting. Patient was educated about her condition and instructed on her treatment plan; she verbalized understanding and agreement with this plan. CLINICAL IMPRESSION: Acute migraine headache. DECISION MAKIN-year-old female who presents for evaluation of headache. She is afebrile, well appearing, and hemodynamically stable. She has no signs of a sinus, dental , or ear infection and no evidence of meningismus. She is neurologically intact. I do not suspect a headache to be secondary to a subarachnoid hemorrhage, meningitis, encephalitis, or intracranial mass lesion. DISPOSITION: Patient was discharged to home in stable condition accompanied by her ; prior to departure she was reassessed and subjectively reported she was feeling much better and rated her discomfort 4/10. DISCHARGE INSTRUCTIONS: Rest at home, in a quiet darkened room and allow the medication to work for the pain. Continue to follow up current treatment plan prescribed by your physician for your migraine headaches. See your own doctor in follow-up this week for continued care and treatment. Return to the emergency department as needed for worsening/uncontrolled pain, fevers, abnormal neurological symptoms, in accordance with her pain management plan, or any new/concerning symptoms.
[2016-12-22] MEDS ORDERED: PRED10TA PO (14:50)
[2016-12-22] MEDS ORDERED: IPRASOL4 INH (14:50)
[2016-12-22] MEDS ORDERED: DOXY100C76 PO (14:50)
[2016-12-22] MEDS ORDERED: VAREPAK PO (14:52)
== END 2016-10-26 13:52 | disposition home or self-care (01) ==
LOC: C.EDB 12:24 → C.EDD 13:52
DX: G43.909 Migraine, unspecified, not intractable, without status migrainosus (principal); Z83.3 Family history of diabetes mellitus; Z79.899 Other long term (current) drug therapy; Z72.0 Tobacco use

== ENCOUNTER 2016-11-07 22:46 | Emergency (ER) | payer OTHER ==
[~2016-11-07] VITALS: Ht 157.5 cm; Wt 86.5 kg
[~2016-11-07 22:46] MED LIST changes: -ACET-1256 PO; -IPRA1AER2 INH; +SPRIN/30 INH
[2016-11-07 22:50] VITALS: TEMP 36.9; Ht 157.5 cm; Wt 86.5 kg
[2016-11-07] MEDS ORDERED: ATV/1 PO (23:15)
[2016-11-07] MEDS ORDERED: SYMIN160 INH (23:15)
[2016-11-07] MEDS ORDERED: HYDROmorphone INJ 1 MG/ML SYR IM STA (23:17)
[2016-11-07] MEDS ORDERED: ALBUT/IPRATROP 3MG/0.5MG NEB 3 ML VIAL INH STA (23:17)
[2016-11-07] MEDS ORDERED: KETOROLAC TROMETHAMINE 60 MG/2 ML VIAL IM STA (23:17)
[2016-11-07] MEDS ORDERED: PROMETHAZINE HCL INJ 25 MG/ML 1 ML VIAL IM STA (23:17)
[2016-11-07] MEDS ORDERED: DEXAMETHASONE SOD INJ 10 MG/ML VIAL IM STA (23:20)
--- NOTE | 2016-11-07 23:29 | EMERGENCY ROOM VISIT NOTE ---
History Report prepared by Junior: Colleen Walton Under the Supervision of: Dr. Jolene Garcia M.D. First contact with patient: 22:56 Chief Complaint: SHORTNESS OF BREATH Stated Complaint: SOB - COUGH/GURGLING - LOW BACK AND R LEG PAIN Nursing Triage Summary: Cough for over a month, now short of breath. 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 Also having lower back pain, is to have surgery for herniated disk. Also had a fall today and hit head due to weakness in legs. History of Present Illness The patient is a 36 year old female who presents to the Emergency Room with complaints of constant shortness of breath beginning 3 days ago. The patient states that she has been having shortness of breath, coughing, and gurgling since September. She reports that her symptoms resolved throughout this month and recently returned 3 days ago. She notes that she has an appointment with pulmonology in 2 days to be tested for asthma and COPD. The patient notes that she is also having a flare up of her back pain and had an episode of nerve pain and leg numbness today that is not unusual but made her fall and hit her head on her kitchen counter. She complains of worsening back and leg pain. The patient states that she was not able to get a hold of her doctors today. She reports that she last took Aleve for her pain 10 hours ago. Source of History: patient Onset: 3 hours ago Position: other (global ) Quality: other (SOB) Timing: constant Associated Symptoms: + cough Note: The patient complains of gurgling. Review of Systems See HPI for pertinent positives & negatives. A total of 10 systems reviewed and were otherwise negative. Past Medical & Surgical Medical Problems: (1) Closed head injury (2) Diabetes mellitus type 2 (3) Migraine Surgical Problems: (1) S/P appendectomy (2) S/P appendectomy (3) S/P cholecystectomy (4) Status post breast reduction (5) Status post tonsillectomy (6) Status post tubal ligation Family History Heart disease Social History Smoking Status: Current Every Day Smoker Alcohol Use: none Drug Use: none Marital Status: Housing Status: lives with family Occupation Status: disabled Current/Historical Medications Scheduled Budesonide/Formoterol Fumarate (Symbicort 160/4.5 Inhaler), 2 PUFFS INH BID Gabapentin (Gabapentin), 600 MG PO TID Nortriptyline (Pamelor), 20 MG PO HS Prednisone (Prednisone), 40 MG PO DAILY Propranolol HCl (Propranolol HCl ER), 60 MG PO QAM Scheduled PRN Lorazepam (Ativan), 1 MG PO DAILY PRN for Anxiety/Agitation Promethazine Hcl (Phenergan), 25 MG PO Q6H PRN for Nausea Allergies Coded Allergies: BEE STING (Verified Allergy, Severe, SHORTNESS OF BREATH, 11/07/16) Shellfish Allergy (Verified Allergy, Severe, SWELLING/RED SKIN, 11/07/16) Ondansetron (Verified Allergy, Intermediate, HIVES - RASH, 11/07/16) Oily Fish (Verified Allergy, Unknown, SEAFOOD, 11/07/16) Morphine (Verified Adverse Reaction, Intermediate, vomiting, 11/07/16) Uncoded Allergies: EXOTIC FRUITS (Allergy, Mild, HIVES RASH SWELLING, 08/18/15) Physical Exam Vital Signs Date Time Temp Pulse Resp B/P (MAP) Pulse Ox O2 Delivery O2 Flow Rate FiO2 11/08/16 00:02 95 19 101/72 96 11/07/16 23:09 90 11/07/16 22:50 36.9 106 20 113/72 96 Room Air Physical Exam Vital signs reviewed. General: Well-appearing female, in no significant distress. HEENT: No scleral icterus, PERRLA, neck supple. Atraumatic. Cardiovascular: Regular rate and rhythm, no extra sounds. Pulmonary: Wheezing, dry cough, normal work of breathing. Abdomen: Soft, nontender, nondistended, positive bowel sounds. Musculoskeletal: Atraumatic, no peripheral edema. Lumbar paraspinous muscle tenderness. Neurologic: Patient awake alert and oriented x 3 Skin: Warm, dry, no rash Medical Decision & Procedures ER Provider Diagnostic Interpretation: X-ray results as stated below per interpretation by me: Chest X-Ray: Poor inspiratory effort, no consolidation, no failure. Medications Administered Medications (Trade) Dose Ordered Sig/Heather Route Start Time Stop Time Status Last Admin Dose Admin Albuterol/ Ipratropium (Duoneb) 3 ml NOW STAT INH 11/07/16 23:17 11/07/16 23:19 DC 11/07/16 23:31 3 ML Hydromorphone HCl (Dilaudid Inj) 1 mg NOW STAT IM 11/07/16 23:17 11/07/16 23:19 DC 11/07/16 23:41 1 MG Promethazine HCl (Phenergan Inj) 25 mg NOW STAT IM 11/07/16 23:17 11/07/16 23:19 DC 11/07/16 23:41 25 MG Dexamethasone Sodium Phosphate (Decadron Inj) 10 mg NOW STAT IM 11/07/16 23:20 11/07/16 23:21 DC 11/07/16 23:41 10 MG ED Course 2256: Past medical records reviewed. The patient was evaluated in room B3. A complete history and physical examination was performed. 2317: Phenergan Inj 25mg IM, Toradol Ing 60mg IM, Dilaudid Inj 1mg IM, Duoneb 3ml INH. 2320: Decadron Inj 10mg IM. 2354: I reevaluated and updated the patient. 9: Upon reevaluation, the patient appeared to have improvement of her symptoms. I discussed findings with the patient. She verbalized agreement of the treatment plan. The patient was discharged home. Medical Decision Differential diagnosis: Musculoskeletal pain, disc herniation, radiculopathy, pneumonia, congestive heart failure, pulmonary embolus This patient was evaluated and appeared to be in no significant distress. Lung sounds are coarse bilaterally. Patient was given a DuoNeb treatment, IM Dilaudid, IM Phenergan and IM Solu-Medrol. Patient was feeling much improved. Chest x-ray was obtained and is negative for acute finding to my interpretation. There is no focal lung consolidation or failure. The patient was advised of the findings. She was encouraged to continue her inhalers and was given a prescription for prednisone 4 day course. She will follow-up with her physician this week and return to the ER for worsening of symptoms or any medical concerns. Medication Reconcilliation Current Medication List: was personally reviewed by me Blood Pressure Screening Patient's blood pressure: Normal blood pressure Blood pressure disposition: Did not require urgent referral Impression Primary Impression: Asthma exacerbation Additional Impression: Chronic low back pain Scribe Attestation The scribe's documentation has been prepared under my direction and personally reviewed by me in its entirety. I confirm that the note above accurately reflects all work, treatment, procedures, and medical decision making performed by me. Departure Information Dispostion Home / Self-Care Prescriptions Prednisone (Prednisone) 20 Mg Tab 40 MG PO DAILY, #8 TAB Prov: Jolene Garcia M.D. 11/07/16 Referrals Monserrat Murray M.D. (PCP) Forms HOME CARE DOCUMENTATION FORM, IMPORTANT VISIT INFORMATION Patient Instructions My [facility] Additional Instructions Diagnosis: Asthma exacerbation, low back pain Continue your medications as prescribed. Prednisone 40 mg daily for 4 more days. Start tomorrow. Continue your inhalers as previously prescribed. Follow-up with your physician this week for reevaluation. Return to the ER for worsening of symptoms or any medical concerns. Problem Qualifiers
[2016-11-07] MEDS ORDERED: PRED20TA PO (23:53)
[2016-11-08 00:02] VITALS: BP 101/72; PULSE 95; O2SAT 96
--- NOTE | 2016-11-08 05:44 | DIAGNOSTIC IMAGING REPORT ---
CHEST ONE VIEW PORTABLE CLINICAL HISTORY: cough, SOB dyspnea COMPARISON STUDY: 09/26/2016 FINDINGS: The bones soft tissues and hemidiaphragms are normal. The cardiomediastinal silhouette is normal. The lungs are clear. The pulmonary vasculature is normal. IMPRESSION: Negative chest. Unchanging nodular density left upper lung The above report was generated using voice recognition software. It may contain grammatical, syntax or spelling errors. Electronically signed by: Issac Whitley M.D. 11/08/2016 5:43 AM Dictated Date/Time: 11/08/2016 5:42 AM
[2016-12-22] MEDS ORDERED: IPRASOL4 INH (14:50)
[2016-12-22] MEDS ORDERED: DOXY100C76 PO (14:50)
[2016-12-22] MEDS ORDERED: PRED10TA PO (14:50)
[2016-12-22] MEDS ORDERED: VAREPAK PO (14:52)
== END 2016-11-08 00:03 | disposition home or self-care (01) ==
LOC: C.EDB 22:48
DX: J45.901 Unspecified asthma with (acute) exacerbation (principal); M54.5 Low back pain; G89.29 Other chronic pain; E11.9 Type 2 diabetes mellitus without complications; G43.909 Migraine, unspecified, not intractable, without status migrainosus; Z82.49 Family history of ischemic heart disease and other diseases of the circulatory system; F17.210 Nicotine dependence, cigarettes, uncomplicated; Z79.899 Other long term (current) drug therapy

== ENCOUNTER → 2016-11-15 | Outpatient (CLI) | payer OTHER ==
[~2016-11-15] MED LIST changes: +ATV/1 PO; +DOXY100C76 PO; +IPRASOL4 INH; -LORA-741 PO; +PRED10TA PO; +PRED20TA PO; -SPRIN/30 INH; +SYMIN160 INH; +VAREPAK PO; +VNTHFA/IN INH
[2016-11-15 17:55] LABS: BASO % 0.1 %; BASO ABS # 0.01 K/uL (0-0.2); COMPLETE YES; EOS % 5.8 %; HEMATOCRIT 38.2 % (37-47); IG% 0.3 %; LYMPH % 20.5 %; LYMPH ABS # 2.06 K/uL (1.2-3.4); MEAN CELL VOLUME 81.6 fL (80-100); MEAN CORPUSCULAR HEMOGLOBIN 25.2 pg (25-34); MEAN CORPUSCULAR HGB CONC 30.9 g/dl (32-36); MEAN PLATELET VOLUME 8.7 fL (7.4-10.4); MONO % 5.1 %; NEUT % 68.2 %; PLATELET COUNT 450 K/uL (130-400); RED BLOOD COUNT 4.68 M/uL (4.2-5.4); WHITE BLOOD COUNT 10.05 K/uL (4.8-10.8)
[2016-11-15 18:17] LABS: ALT/SGPT 23 U/L (12-78); BLOOD UREA NITROGEN 20 mg/dl (7-18); BUN/CREATININE RATIO 21.1 (10-20); CALCIUM 9.3 mg/dl (8.5-10.1); CARBON DIOXIDE 23 mmol/L (21-32); CHLORIDE 107 mmol/L (98-107); CREATININE 0.93 mg/dl (0.60-1.20); GLUCOSE 146 mg/dl (70-99); POTASSIUM 3.5 mmol/L (3.5-5.1); SODIUM 139 mmol/L (136-145)
[2016-11-15 18:29] LABS: ALB/GLOB RATIO 0.9 (0.9-2); ALKALINE PHOSPHATASE 91 U/L (45-117); AST/SGOT 11 U/L (15-37); RHEUMATOID FACTOR < 10.0 U/mL (0-15)
[2016-11-15 19:17] LABS: LYME DISEASE AB IGM NEG (NEG)
[2016-11-15 19:20] LABS: LYME DISEASE AB IGG NEG (NEG)
[2016-11-16 07:46] LABS: ESTIMATED AVERAGE GLUCOSE 126 mg/dl; HA1C FLAG Normal (Normal)
--- NOTE | 2016-11-22 08:21 | CODING QUERY MEDICAL NECESSITY ---
CQSUPPORTING DIAGNOSIS NEEDED A supporting diagnosis is required for the test/procedure performed on this patient in order for us to be reimbursed by the patient's insurance. Please provide a supporting diagnosis for the following test/procedure listed below next to the test name along with your signature. *If there is no additional diagnosis for this patient that would support the following test/procedure please document that below next to the test/procedure. Test(s)/Procedure(s) that require a supporting diagnosis: MATEO 11/15/16 VITAMIN D TEST Provider Signature: Date: Thank you Gail Kimball Health Information Management Once completed, please kindly fax back to [phone] For questions please call [phone]
== END | disposition home or self-care (01) ==
LOC: C.LABBFT 12:21
PROVIDERS: ATTEND Internal Medicine
DX: F41.9 Anxiety disorder, unspecified (principal); G43.909 Migraine, unspecified, not intractable, without status migrainosus; E11.9 Type 2 diabetes mellitus without complications; N92.0 Excessive and frequent menstruation with regular cycle; M25.50 Pain in unspecified joint; E55.9 Vitamin D deficiency, unspecified

== ENCOUNTER → 2016-11-17 | Outpatient (CLI) | payer OTHER | END | disposition home or self-care (01) | LOC: C.PAPS 08:04 | PROVIDERS: ATTEND Physician Assistant | DX: Z12.4 Encounter for screening for malignant neoplasm of cervix (principal) ==

== ENCOUNTER 2016-11-21 00:44 | Emergency (ER) | payer OTHER ==
[~2016-11-21] VITALS: Ht 157.5 cm; Wt 85.9 kg
[~2016-11-21 00:44] MED LIST changes: -DOXY100C76 PO; -IPRASOL4 INH; -PRED10TA PO; -VAREPAK PO; -VNTHFA/IN INH
[2016-11-21 00:47] VITALS: TEMP 36.7; Ht 157.5 cm; Wt 85.9 kg
[2016-11-21] MEDS ORDERED: METOCLOPRAMIDE HCL INJ 5 MG/ML 2 ML VIAL IV STA (00:57)
[2016-11-21] MEDS ORDERED: SODIUM CHLORIDE 0.9% 1000ML 1,000 ML IV STA (00:57)
[2016-11-21] MEDS ORDERED: DiphenhydrAMINE HCL 50 MG/ML VIAL IV STA (00:57)
--- NOTE | 2016-11-21 01:12 | EMERGENCY ROOM VISIT NOTE ---
History Report prepared by Junior: Marimar Johnson Under the Supervision of: Dr. Edu Gomez M.D. First contact with patient: 00:51 Chief Complaint: HEADACHE Stated Complaint: MIGRAINE History of Present Illness The patient is a 36 year old female who presents to the Emergency Room with complaints of an episode of a migraine starting 3 hours ago. The patient notes that the migraine came on suddenly and feels similar to her previous migraines. She state that the only difference is that this migraine feels like one of her top 3 worst migraines ever. She states her normal migraines are a 7-8/10 in severity, but today is a 9/10 in severity. The patient states that they are doing medicine adjustments for her migraines currently. She reports that her speaking and light make it worse. She complains of nausea, vomiting, dizziness, shakiness, cough, and shortness of breath. She states that she has vomited 3-4 times since it started. She notes that she is being treated for her cough and shortness of breath by her PCP and a central supply worker. The patient notes that they are looking to treat her migraines with Botox. The patient denies fever, diarrhea, and urinary symptoms. Source of History: patient Onset: 3 hours ago Position: head Symptom Intensity: 9/10 Timing: other (episode) Modifying Factors (Worsening): other (speaking and light) Associated Symptoms: + cough, + SOB, + nausea, + vomiting, No fevers, No diarrhea, No urinary symptoms Note: The patient complains of dizziness and shakiness. Review of Systems See HPI for pertinent positives and negatives. A total of ten systems were reviewed and were otherwise negative. Past Medical & Surgical Medical Problems: (1) Closed head injury (2) Diabetes mellitus type 2 (3) Migraine Surgical Problems: (1) S/P appendectomy (2) S/P appendectomy (3) S/P cholecystectomy (4) Status post breast reduction (5) Status post tonsillectomy (6) Status post tubal ligation Family History Heart disease Social History Smoking Status: Current Every Day Smoker Alcohol Use: none Drug Use: none Marital Status: Housing Status: lives with family Occupation Status: disabled Current/Historical Medications Scheduled Budesonide/Formoterol Fumarate (Symbicort 160/4.5 Inhaler), 2 PUFFS INH BID Gabapentin (Gabapentin), 600 MG PO TID Nortriptyline (Pamelor), 10 MG PO HS Propranolol HCl (Propranolol HCl ER), 60 MG PO QAM Scheduled PRN Albuterol Hfa (Ventolin Hfa), 2 PUFFS INH Q6H PRN for SOB/Wheezing Lorazepam (Ativan), 1 MG PO DAILY PRN for Anxiety/Agitation Promethazine Hcl (Phenergan), 25 MG PO Q6H PRN for Nausea Allergies Coded Allergies: BEE STING (Verified Allergy, Severe, SHORTNESS OF BREATH, 11/21/16) Shellfish Allergy (Verified Allergy, Severe, SWELLING/RED SKIN, 11/21/16) Ondansetron (Verified Allergy, Intermediate, HIVES - RASH, 11/21/16) Oily Fish (Verified Allergy, Unknown, SEAFOOD, 11/21/16) Morphine (Verified Adverse Reaction, Intermediate, vomiting, 11/21/16) Uncoded Allergies: EXOTIC FRUITS (Allergy, Mild, HIVES RASH SWELLING, 08/18/15) Physical Exam Vital Signs Date Time Temp Pulse Resp B/P (MAP) Pulse Ox O2 Delivery O2 Flow Rate FiO2 11/21/16 03:10 110/71 11/21/16 03:03 82 18 91/66 95 Room Air 11/21/16 00:47 36.7 94 20 99/66 96 Room Air Physical Exam GENERAL: Awake, alert, uncomfortable-appearing, in no distress HENT: Normocephalic, atraumatic. Dry mucus membranes. EYES: Normal conjunctiva. Sclera non-icteric. NECK: Supple. No nuchal rigidity. FROM. No JVD. RESPIRATORY: Clear to auscultation. CARDIAC: Regular rate, normal rhythm. Extremities warm and well perfused. Pulses equal. ABDOMEN: Soft, non-distended. No tenderness to palpation. No rebound or guarding. No masses. RECTAL: Deferred. MUSCULOSKELETAL: Chest examination reveals no tenderness. The back is symmetrical on inspection without obvious abnormality. There is no CVA tenderness to palpation. No joint edema. LOWER EXTREMITIES: Calves are equal size bilaterally and non-tender. No edema. No discoloration. NEURO: Normal sensorium. No sensory or motor deficits noted. SKIN: No rash or jaundice noted. Medical Decision & Procedures Medications Administered Medications (Trade) Dose Ordered Sig/Heather Route Start Time Stop Time Status Last Admin Dose Admin Sodium Chloride 1,000 ml @ 999 mls/hr Q1H1M STAT IV 11/21/16 00:57 11/21/16 01:57 DC 11/21/16 01:23 999 MLS/HR Metoclopramide HCl (Reglan Inj) 10 mg NOW STAT IV 11/21/16 00:57 11/21/16 01:00 DC 11/21/16 01:21 10 MG Diphenhydramine HCl (Benadryl Inj) 25 mg NOW STAT IV 11/21/16 00:57 11/21/16 01:00 DC 11/21/16 01:21 25 MG Ketorolac Tromethamine (Toradol Inj) 30 mg NOW STAT IV 11/21/16 02:08 11/21/16 02:09 DC 11/21/16 02:23 30 MG ED Course 0055: The patient was evaluated in room C7. A complete history and physical exam was performed. 0057: Ordered Benadryl Inj 25 mg IV, Reglan Inj 10 mg IV, NSS 1000 ml @ 999 mls/ hr IV. 0208: Ordered Toradol Inj 30 mg IV. 0301: I reevaluated the patient. Discussed results and discharge instructions: She verbalized understanding and agreement. The patient is ready for discharge. Medical Decision I reviewed the patient's past medical history, medications, and the nursing notes as described above. Differential diagnoses include migraine, tension headache, meningitis. Patient is a 36-year-old woman with a past medical history of chronic migraines who presents emergency Department with acute onset migraine History of present illness. On arrival the patient appears uncomfortable with photophobia. Afebrile with stable vital signs. The patient has a supple neck with full range of motion making meningitis unlikely in this afebrile patient. While patient initially described his headache to be among the 3 worst she's ever had on re-evaluation she later then adds that she has had many headaches of this severity and so she refused the CT scan. Considering the patient acknowledges that she's had similar headaches in the past with negative head imaging I do not feel that CT is indicated. Patient given migraine cocktail with IV fluids and Reglan and Benadryl and Toradol with significant improvement. Of note, patient is s/p tubal ligation and denies changes of . Patient feels okay to go home and follow up with her primary care doctor. Findings and plan for follow-up d/w patient. Patient agreeable and d/c'd per discharge instructions. Medication Reconcilliation Current Medication List: was personally reviewed by me Blood Pressure Screening Patient's blood pressure: Low blood pressure Tyler to be situational. Impression Primary Impression: Migraine Scribe Attestation The scribe's documentation has been prepared under my direction and personally reviewed by me in its entirety. I confirm that the note above accurately reflects all work, treatment, procedures, and medical decision making performed by me. Departure Information Dispostion Home / Self-Care Referrals Monserrat Murray M.D. (PCP) Forms HOME CARE DOCUMENTATION FORM, IMPORTANT VISIT INFORMATION Patient Instructions ED Headache Migraine, My [facility] Additional Instructions Please follow up with your primary care physician in the next 1-3 days. Your exam did not show signs of an emergent condition at this time. Continue your medications as prescribed. Return to the emergency department for worsening symptoms as described in the accompanying instructions.
[2016-11-21] MEDS ORDERED: VNTHFA/IN INH (01:31)
[2016-11-21] MEDS ORDERED: KETOROLAC TROMETHAMINE 30 MG/ML VIAL IV STA (02:08)
[2016-11-21 03:03] VITALS: PULSE 82; O2SAT 95
[2016-11-21 03:10] VITALS: BP 110/71
[2016-12-22] MEDS ORDERED: DOXY100C76 PO (14:50)
[2016-12-22] MEDS ORDERED: IPRASOL4 INH (14:50)
[2016-12-22] MEDS ORDERED: PRED10TA PO (14:50)
[2016-12-22] MEDS ORDERED: VAREPAK PO (14:52)
== END 2016-11-21 03:11 | disposition home or self-care (01) ==
LOC: C.EDB 00:45 → C.EDC 03:11
DX: G43.909 Migraine, unspecified, not intractable, without status migrainosus (principal); R05 Cough; R06.02 Shortness of breath; E11.9 Type 2 diabetes mellitus without complications; Z79.899 Other long term (current) drug therapy; Z87.828 Personal history of other (healed) physical injury and trauma; Z82.49 Family history of ischemic heart disease and other diseases of the circulatory system; F17.200 Nicotine dependence, unspecified, uncomplicated

== ENCOUNTER 2016-12-06 16:28 | Emergency (ER) | payer OTHER ==
[~2016-12-06] VITALS: Ht 157.5 cm; Wt 85.0 kg
[~2016-12-06 16:28] MED LIST changes: -DOXY100C76 PO; -IPRASOL4 INH; -PRED10TA PO; -VAREPAK PO
[2016-12-06 16:36] VITALS: TEMP 36.9; Ht 157.5 cm; Wt 85.0 kg
[2016-12-06] MEDS ORDERED: METHYLPREDNISOLONE 125 MG VIAL IV STA (17:13)
[2016-12-06] MEDS ORDERED: MAGNESIUM SULFATE 1GM / D5W 1 GM in PREMIXED IN D5W 100 ML IV STA (17:13)
[2016-12-06] MEDS ORDERED: DiphenhydrAMINE HCL 50 MG/ML VIAL IV STA (17:13)
[2016-12-06] MEDS ORDERED: KETOROLAC TROMETHAMINE 30 MG/ML VIAL IV STA (17:13)
[2016-12-06] MEDS ORDERED: ALBUT/IPRATROP 3MG/0.5MG NEB 3 ML VIAL INH ONE (17:15)
--- NOTE | 2016-12-06 17:26 | EMERGENCY ROOM VISIT NOTE ---
History Report prepared by Junior: Scout Suarez Under the Supervision of: Dr. Lex Miller M.D. First contact with patient: 17:06 Chief Complaint: HEADACHE Stated Complaint: MIGRAINE History of Present Illness The patient is a 36 year old female who presents to the Emergency Room with complaints of intermittent difficulty swallowing beginning this morning. The patient states that her WBC is still elevated from a URI that she is recovering from. She reports that she finished her 10 days of Augmentin two nights ago, and she still has a non-productive cough. The patient notes that she was seen by a actuarial intern and was told that she failed her breathing test. She states that she had a chest CT this morning that was negative for blood clots and pneumonia. The patient reports that her throat feels like there is a golf ball stuck in it, and her tongue is swelling. She notes that she is on Proventil and uses it once a day. The patient states that she also has a migraine, but it feels like her typical migraine. She reports that she has a history of smoking, but she is on Chantix and is trying to quit. The patient notes that she is able to touch her neck to her chest, and she denies neck pain. She states that she is supposed to have spinal surgery, and she finished steroids 1.5 weeks ago for pain in her back. The patient reports that she has a history of a tonsillectomy. Source of History: patient Onset: this moring Position: throat Quality: other (trouble swallowing) Timing: intermittent Associated Symptoms: + headache, No neck pain Note: Associated symptoms: tongue and throat edema Review of Systems See HPI for pertinent positives & negatives. A total of 10 systems reviewed and were otherwise negative. Past Medical & Surgical Medical Problems: (1) Closed head injury (2) Diabetes mellitus type 2 (3) Migraine Surgical Problems: (1) S/P appendectomy (2) S/P appendectomy (3) S/P cholecystectomy (4) Status post breast reduction (5) Status post tonsillectomy (6) Status post tubal ligation Family History Heart disease Social History Smoking Status: Current Every Day Smoker Alcohol Use: none Drug Use: none Marital Status: Housing Status: lives with family Occupation Status: disabled Current/Historical Medications Scheduled Gabapentin (Gabapentin), 600 MG PO TID Nortriptyline (Pamelor), 10 MG PO HS Propranolol HCl (Propranolol HCl ER), 60 MG PO QAM Scheduled PRN Albuterol Hfa (Ventolin Hfa), 2 PUFFS INH Q6H PRN for SOB/Wheezing Lorazepam (Ativan), 1 MG PO DAILY PRN for Anxiety/Agitation Promethazine Hcl (Phenergan), 25 MG PO Q6H PRN for Nausea Allergies Coded Allergies: BEE STING (Verified Allergy, Severe, SHORTNESS OF BREATH, 12/06/16) Shellfish Allergy (Verified Allergy, Severe, SWELLING/RED SKIN, 12/06/16) Ondansetron (Verified Allergy, Intermediate, HIVES - RASH, 12/06/16) Oily Fish (Verified Allergy, Unknown, SEAFOOD, 12/06/16) Morphine (Verified Adverse Reaction, Intermediate, vomiting, 12/06/16) Uncoded Allergies: EXOTIC FRUITS (Allergy, Mild, HIVES RASH SWELLING, 08/18/15) Physical Exam Vital Signs Date Time Temp Pulse Resp B/P (MAP) Pulse Ox O2 Delivery O2 Flow Rate FiO2 12/06/16 21:33 86 22 78/58 98 12/06/16 18:22 84 12/06/16 18:05 81 16 95 Room Air 12/06/16 17:48 73 18 109/67 96 Room Air 12/06/16 17:46 97 Room Air 12/06/16 17:46 97 Room Air 12/06/16 16:36 36.9 89 16 82/58 97 Room Air Physical Exam GENERAL: Patient is a healthy-appearing well-nourished 36 year old female HEAD: Normocephalic atraumatic EYES: Ocular movements intact pupils equal and react to light OROPHARYNX mucous membranes are moist no exudates present no erythema or edema present NECK: Supple no nuchal rigidity CHEST: Good equal expansion LUNGS: Wheezing bilaterally CARDIAC: Normal S1 and S2 ABDOMEN: Soft nontender no guarding BACK: No CVA tenderness EXTREMITIES: No pain upon palpation normal muscle strength in all groups no clubbing cyanosis or edema NEURO: Patient is following commands and answering questions appropriately. Alert and oriented x3 Cranial Nerves 2-12 grossly intact Medical Decision & Procedures ER Provider Diagnostic Interpretation: X-ray results as stated below per interpretation by me and the radiologist: CHEST ONE VIEW PORTABLE CLINICAL HISTORY: Shortness of breath COMPARISON STUDY: 11/07/2016 FINDINGS: The cardiac and mediastinal contours are normal. There is no evidence of focal pulmonary consolidation. There is no evidence of failure. No pleural effusions are visualized.[ Slightly prominent basilar markings are likely on a hypoventilatory basis. There is a stable subcentimeter left upper lung zone nodule. IMPRESSION: No active disease in the chest. Electronically signed by: Jah Montes M.D. 12/06/2016 5:54 PM Dictated Date/Time: 12/06/2016 5:53 PM Laboratory Results 12/06/16 18:15 Red Blood Count 4.44, Mean Corpuscular Volume 78.8, Mean Corpuscular Hemoglobin 25.7, Mean Corpuscular Hemoglobin Concent 32.6, Mean Platelet Volume 8.0, Neutrophils (%) (Auto) 69.2, Lymphocytes (%) (Auto) 20.3, Monocytes (%) (Auto) 6.3, Eosinophils (%) (Auto) 3.7, Basophils (%) (Auto) 0.2, Neutrophils # (Auto) 7.04, Lymphocytes # (Auto) 2.07, Monocytes # (Auto) 0.64, Eosinophils # (Auto) 0.38, Basophils # (Auto) 0.02 12/06/16 18:15 Test 12/06/16 18:15 White Blood Count 10.18 K/uL (4.8-10.8) Red Blood Count 4.44 M/uL (4.2-5.4) Hemoglobin 11.4 g/dL (12.0-16.0) Hematocrit 35.0 % (37-47) Mean Corpuscular Volume 78.8 fL (80-100) Mean Corpuscular Hemoglobin 25.7 pg (25-34) Mean Corpuscular Hemoglobin Concent 32.6 g/dl (32-36) Platelet Count 407 K/uL (130-400) Mean Platelet Volume 8.0 fL (7.4-10.4) Neutrophils (%) (Auto) 69.2 % Lymphocytes (%) (Auto) 20.3 % Monocytes (%) (Auto) 6.3 % Eosinophils (%) (Auto) 3.7 % Basophils (%) (Auto) 0.2 % Neutrophils # (Auto) 7.04 K/uL (1.4-6.5) Lymphocytes # (Auto) 2.07 K/uL (1.2-3.4) Monocytes # (Auto) 0.64 K/uL (0.11-0.59) Eosinophils # (Auto) 0.38 K/uL (0-0.5) Basophils # (Auto) 0.02 K/uL (0-0.2) RDW Standard Deviation 46.2 fL (36.4-46.3) RDW Coefficient of Variation 16.0 % (11.5-14.5) Immature Granulocyte % (Auto) 0.3 % Immature Granulocyte # (Auto) 0.03 K/uL (0.00-0.02) Anion Gap 6.0 mmol/L (3-11) Est Creatinine Clear Calc Drug Dose 133.3 ml/min Estimated GFR () 136.7 Estimated GFR (Non- 117.9 BUN/Creatinine Ratio 25.7 (10-20) Calcium Level 8.6 mg/dl (8.5-10.1) Total Bilirubin 0.2 mg/dl (0.2-1) Aspartate Amino Transf (AST/SGOT) 10 U/L (15-37) Alanine Aminotransferase (ALT/SGPT) 17 U/L (12-78) Alkaline Phosphatase 82 U/L (45-117) Total Protein 7.0 gm/dl (6.4-8.2) Albumin 3.1 gm/dl (3.4-5.0) Globulin 3.9 gm/dl (2.5-4.0) Albumin/Globulin Ratio 0.8 (0.9-2) Labs reviewed by ED physician. Medications Administered Medications (Trade) Dose Ordered Sig/Heather Route Start Time Stop Time Status Last Admin Dose Admin Albuterol/ Ipratropium (Duoneb) 12 ml ONE ONCE INH 12/06/16 17:15 12/06/16 17:16 DC 12/06/16 18:05 12 ML Methylprednisolone Sodium Succinate (Solu-Medrol IV) 125 mg NOW STAT IV 12/06/16 17:13 12/06/16 17:16 DC 12/06/16 17:47 125 MG Ketorolac Tromethamine (Toradol Inj) 30 mg NOW STAT IV 12/06/16 17:13 12/06/16 17:16 DC 12/06/16 17:48 30 MG Diphenhydramine HCl (Benadryl Inj) 50 mg NOW STAT IV 12/06/16 17:13 12/06/16 17:16 DC 12/06/16 17:47 50 MG Magnesium Sulfate 1 gm/Prmx 100 ml @ 100 mls/hr NOW STAT IV 12/06/16 17:13 12/06/16 18:12 DC 12/06/16 17:47 100 MLS/HR Dexamethasone Sodium Phosphate (Decadron Inj) 10 mg NOW ONCE IV 12/06/16 19:45 12/06/16 19:47 DC 12/06/16 19:54 10 MG Valproate Sodium 500 mg/Dextrose 55 ml @ 55 mls/hr NOW STAT IV 12/06/16 19:36 12/06/16 20:35 DC 12/06/16 19:54 55 MLS/HR Sodium Chloride 1,000 ml @ 999 mls/hr Q1H1M STAT IV 12/06/16 19:36 12/06/16 20:36 DC 12/06/16 19:54 999 MLS/HR Sumatriptan Succinate (Imitrex Sq Inj) 6 mg NOW STAT SQ 12/06/16 20:33 12/06/16 20:35 DC 12/06/16 20:58 6 MG Prochlorperazine Edisylate (Compazine Inj) 10 mg NOW STAT IV 12/06/16 20:33 12/06/16 20:35 DC 12/06/16 20:59 10 MG Albuterol (Ventolin Hfa Inhaler) 2 puffs NOW STAT INH 12/06/16 20:36 12/06/16 20:37 DC 12/06/16 20:58 2 PUFFS ECG Indication: SOB/dyspnea Rate (beats per minute): 82 Rhythm: normal sinus Findings: no acute ischemic change, prolonged QT, no ectopy ED Course 1710: Past medical records reviewed. The patient was evaluated in room C06. A complete history and physical examination was performed. 1713: Ordered Magnesium Sulfate 1 gm/Prmx 100ml @ 100mls/hr IV, Benadryl Inj 50mg IV, Toradol Inj 30mg IV, Solu-Medrol 125mg IV 1715: Ordered Duoneb 12ml INH 1936: Ordered Sodium Chloride 1000 ml @ 999 mls/hr IV, Valproate Sodium 500mg/ Dextrose 55ml @ 55mls/hr IV 1945: Ordered Decadron Inj 10mg IV 2032: Ordered Compazine Inj 10mg IV, Imitrex Sq Inj 6mg SQ 2035: Ordered Albuterol 2 puffs INH 2036: Upon reexamination the patient is feeling better. I discussed results and treatment plan with the patient. She verbalizes agreement and understanding. The patient is ready for discharge. Medical Decision Differential diagnosis: Etiologies such as migraine headache, meningitis, sinusitis, CO exposure, ICH, SAH, infection, tumor, headache, sinus thrombosis, arterial dissection, as well as others were entertained. This is a 36-year-old female that presents emergency department with multiple complaints. The patient is extremely wheezy on examination. He was given an hour-long breathing treatment. She was also given the migraine protocol medications which includes Toradol, Compazine, Benadryl and magnesium. The patient was then given Decadron as well as valproate sodium. Repeat examination revealed much improvement patient's symptoms however the patient is not requesting an additional dose of medicine. For this reason she was given sumatriptan. Her x-ray does not show any evidence of pneumonia. I believe that the patient can be safely discharged home for follow-up with her primary care physician. Patient was in agreement with the treatment plan. Medication Reconcilliation Current Medication List: was personally reviewed by me Blood Pressure Screening Patient's blood pressure: Normal blood pressure Blood pressure disposition: Did not require urgent referral Impression Primary Impression: Headache Additional Impression: Bronchitis Scribe Attestation The scribe's documentation has been prepared under my direction and personally reviewed by me in its entirety. I confirm that the note above accurately reflects all work, treatment, procedures, and medical decision making performed by me. Departure Information Dispostion Home / Self-Care Referrals Monserrat Murray M.D. (PCP) Forms HOME CARE DOCUMENTATION FORM, IMPORTANT VISIT INFORMATION, School Instructions, Work Instructions Patient Instructions Bronchitis Acute, ED Headache Migraine, My [facility] Additional Instructions Use inhaler twice every 6 hours You have been examined and treated today on an emergency basis only. This is not a substitute for, or an effort to provide, complete comprehensive medical care. It is impossible to recognize and treat all injuries or illnesses in a single emergency department visit. It is therefore important that you follow up closely with Dr Murray. Call as soon as possible for an appointment. Thank you for your time and consideration. I look forward to speaking with you again soon. Please don't hesitate to call us if you have any questions. Problem Qualifiers Primary Impression: Headache Headache type: unspecified Headache chronicity pattern: unspecified pattern Intractability: not intractable Qualified Codes: R51 - Headache
[2016-12-06 17:46] VITALS: O2SAT 97
--- NOTE | 2016-12-06 17:55 | DIAGNOSTIC IMAGING REPORT ---
CHEST ONE VIEW PORTABLE CLINICAL HISTORY: Shortness of breath COMPARISON STUDY: 11/07/2016 FINDINGS: The cardiac and mediastinal contours are normal. There is no evidence of focal pulmonary consolidation. There is no evidence of failure. No pleural effusions are visualized.[ Slightly prominent basilar markings are likely on a hypoventilatory basis. There is a stable subcentimeter left upper lung zone nodule. IMPRESSION: No active disease in the chest. Electronically signed by: Jah Montes M.D. 12/06/2016 5:54 PM Dictated Date/Time: 12/06/2016 5:53 PM
[2016-12-06 18:05] VITALS: PULSE 81; O2SAT 95
[2016-12-06 18:32] LABS: BASO % 0.2 %; BASO ABS # 0.02 K/uL (0-0.2); COMPLETE YES; EOS % 3.7 %; IG% 0.3 %; LYMPH % 20.3 %; LYMPH ABS # 2.07 K/uL (1.2-3.4); MEAN CELL VOLUME 78.8 fL (80-100); MEAN CORPUSCULAR HEMOGLOBIN 25.7 pg (25-34); MEAN CORPUSCULAR HGB CONC 32.6 g/dl (32-36); MONO % 6.3 %; NEUT % 69.2 %; PLATELET COUNT 407 K/uL (130-400); RED BLOOD COUNT 4.44 M/uL (4.2-5.4); WHITE BLOOD COUNT 10.18 K/uL (4.8-10.8)
[2016-12-06 18:49] LABS: BUN/CREATININE RATIO 25.7 (10-20); CALCIUM 8.6 mg/dl (8.5-10.1); CREATININE 0.59 mg/dl (0.60-1.20); POTASSIUM 3.5 mmol/L (3.5-5.1)
[2016-12-06 18:51] LABS: ALB/GLOB RATIO 0.8 (0.9-2)
[2016-12-06] MEDS ORDERED: VALPROATE SOD IV 500 MG in DEXTROSE 5% 50ML 50 ML IV STA (19:36)
[2016-12-06] MEDS ORDERED: SODIUM CHLORIDE 0.9% 1000ML 1,000 ML IV STA (19:36)
[2016-12-06] MEDS ORDERED: DEXAMETHASONE SOD INJ 10 MG/ML VIAL IV ONE (19:45)
[2016-12-06] MEDS ORDERED: SUMATRIPTAN SUCCINATE 6 MG/0.5 ML VIAL SQ STA (20:33)
[2016-12-06] MEDS ORDERED: PROCHLORPERAZINE 5 MG/ML 2 ML VIAL IV STA (20:33)
[2016-12-06] MEDS ORDERED: ALBUTEROL HFA 8 GM INHALER INH STA (20:36)
[2016-12-06 21:33] VITALS: BP 78/58; PULSE 86; O2SAT 98
[2016-12-22] MEDS ORDERED: IPRASOL4 INH (14:50)
[2016-12-22] MEDS ORDERED: PRED10TA PO (14:50)
[2016-12-22] MEDS ORDERED: DOXY100C76 PO (14:50)
[2016-12-22] MEDS ORDERED: VAREPAK PO (14:52)
== END 2016-12-06 21:35 | disposition home or self-care (01) ==
LOC: C.EDB 16:29 → C.EDC 21:35
DX: R51 Headache (principal); J40 Bronchitis, not specified as acute or chronic; E11.9 Type 2 diabetes mellitus without complications; F17.200 Nicotine dependence, unspecified, uncomplicated; Z98.51 Tubal ligation status; Z90.49 Acquired absence of other specified parts of digestive tract; Z90.89 Acquired absence of other organs; Z98.890 Other specified postprocedural states; J42 Unspecified chronic bronchitis; J98.4 Other disorders of lung; R91.8 Other nonspecific abnormal finding of lung field; R59.0 Localized enlarged lymph nodes

== ENCOUNTER → 2016-12-06 | Outpatient (CLI) | payer OTHER ==
[~2016-12-06] MED LIST changes: +DOXY100C76 PO; +IPRASOL4 INH; +PRED10TA PO; -PRED20TA PO; +VAREPAK PO; +VNTHFA/IN INH
--- NOTE | 2016-12-06 11:35 | DIAGNOSTIC IMAGING REPORT ---
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 Follow-up study. TECHNIQUE: Multiaxial CT images of the chest were performed without contrast. A dose lowering technique was utilized adhering to the principles of ALARA. COMPARISON: Chest radiograph 11/07/2016, CTA of the chest 04/28/2016. FINDINGS: No dominant thyroid nodule identified. Mild nonspecific bilateral axillary adenopathy is seen with nodes measuring up to 10 x 11 mm on the left. Calcified left hilar lymph nodes suggest prior granulomatous disease. Heart is normal in size without large pericardial effusion. Thoracic aorta appears normal in caliber and course. Calcified granulomas with mild adjacent scarring noted within the left upper lobe. There is minimal mosaic attenuation within the mid and lower lung zones suggesting air trapping. Linear pleural-based opacities in a subsegmental distribution within the lung bases, left greater than right suggest atelectasis. Noncalcified 5 mm pulmonary nodule of the left upper lobe adjacent to the calcified granulomas seen abutting the pleural margin compatible with perifissural lymph node, nicely seen on the sagittal images. There is no pneumothorax, pleural effusion or lobar airspace consolidation. No bronchiectasis or honeycombing to suggest interstitial lung disease. Central airways are patent with minimal mucosal secretions of the trachea and mainstem bronchi. There is no significant bronchial wall thickening. Prior cholecystectomy. Left-sided nephrolithiasis redemonstrated with stones measuring up to 3 mm. Microcalcifications are noted within the upper and lower medial quadrant of the left breast. Appear intact. IMPRESSION: 1. Mosaic attenuation within the mid and lower lung zones bilaterally suggests air trapping without lobar airspace consolidation or evidence of interstitial lung disease. No significant bronchial wall thickening or bronchiectasis. 2. Evidence of prior granulomatous disease with calcified granulomas noted within the left upper lobe. 3. Microcalcifications of the upper and lower medial quadrants of the left breast should be correlated with mammography. 4. Nonspecific mild bilateral axillary adenopathy. Electronically signed by: Bentley Mendez M.D. 12/06/2016 11:34 AM Dictated Date/Time: 12/06/2016 11:27 AM
== END | disposition home or self-care (01) ==
LOC: C.CTS 11:09
PROVIDERS: ATTEND Internal Medicine
DX: J42 Unspecified chronic bronchitis (principal); J98.4 Other disorders of lung; R91.8 Other nonspecific abnormal finding of lung field; R59.0 Localized enlarged lymph nodes

== ENCOUNTER 2016-12-13 12:08 | Emergency (ER) | payer OTHER ==
[~2016-12-13] VITALS: Ht 157.5 cm; Wt 87.0 kg
[~2016-12-13 12:08] MED LIST changes: -SYMIN160 INH
[2016-12-13 12:26] VITALS: TEMP 36.8; Ht 157.5 cm; Wt 87.0 kg
[2016-12-13 13:56] VITALS: O2SAT 95
[2016-12-13] MEDS ORDERED: ALBUT/IPRATROP 3MG/0.5MG NEB 3 ML VIAL INH ONE (14:15)
[2016-12-13] MEDS ORDERED: DEXAMETHASONE SOD INJ 10 MG/ML VIAL IM ONE (14:15)
--- NOTE | 2016-12-13 14:34 | DIAGNOSTIC IMAGING REPORT ---
CHEST 2 VIEWS ROUTINE CLINICAL HISTORY: Cough. COMPARISON STUDY: Chest radiograph and chest CT December 06, 2016. FINDINGS: A calcified left upper lobe nodule is incidentally noted. Lung volumes are normal. No pneumothorax or pleural effusion is present. There is no evidence of pulmonary edema. Cardiomediastinal silhouette is normal. There are cholecystectomy clips. IMPRESSION: No acute cardiopulmonary findings. Electronically signed by: Anand uMrray M.D. 12/13/2016 2:33 PM Dictated Date/Time: 12/13/2016 2:32 PM
[2016-12-13 15:01] VITALS: BP 97/65
[2016-12-13 15:08] VITALS: PULSE 77; O2SAT 91
--- NOTE | 2016-12-13 16:01 | EMERGENCY ROOM VISIT NOTE ---
History First contact with patient: 14:01 Chief Complaint: SHORTNESS OF BREATH Stated Complaint: RT SIDE HEARING LOSS W/EARACHE/RIBEIRO, SOB, COUGH Nursing Triage Summary: pt to the ED with c/o sent over from PMD with cough and SOB and right ear pain and hearing loss nonproductive cough History of Present Illness The patient is a 36 year old female who presents to the Emergency Room with complaints of persistent cough as well as right ear pain worsening over the past 3-4 days. The patient is in the process of being evaluated for possible reactive airway disease versus COPD. She did have a CAT scan performed less than a week ago without acute findings. She has evidently undergone pulmonary function testing and has her first appointment with pulmonology in about one week. The patient states the ear pain is new and worsening in severity. She called her primary care physician office today who referred her to the ER. The patient evidently was prescribed a nebulizer, however insurance would not cover the cost of her medication for this. The patient has not had fever or chills. No distinct chest pain or fever. She completed antibiotics last week. She rates her current discomfort a 7/10. Her symptoms appear to improve or worsen with exertion. She does not have recent travel history. She does not identify aggravating or alleviating factors. Review of Systems More than 10 systems were reviewed and otherwise negative with the exception of history of present illness. Past Medical/Surgical History Medical Problems: (1) Closed head injury (2) Diabetes mellitus type 2 (3) Migraine Surgical Problems: (1) S/P appendectomy (2) S/P appendectomy (3) S/P cholecystectomy (4) Status post breast reduction (5) Status post tonsillectomy (6) Status post tubal ligation Family History Heart disease Social History Smoking Status: Current Every Day Smoker Alcohol Use: none Drug Use: none Marital Status: Housing Status: lives with family Occupation Status: disabled Current/Historical Medications Scheduled Gabapentin (Gabapentin), 600 MG PO TID Nortriptyline (Pamelor), 10 MG PO HS Propranolol HCl (Propranolol HCl ER), 60 MG PO QAM Scheduled PRN Albuterol Hfa (Ventolin Hfa), 2 PUFFS INH Q6H PRN for SOB/Wheezing Lorazepam (Ativan), 1 MG PO DAILY PRN for Anxiety/Agitation Promethazine Hcl (Phenergan), 25 MG PO Q6H PRN for Nausea Physical Exam Vital Signs Date Time Temp Pulse Resp B/P (MAP) Pulse Ox O2 Delivery O2 Flow Rate FiO2 12/13/16 15:08 77 27 91 12/13/16 15:01 97/65 12/13/16 14:53 82 28 91 12/13/16 14:38 66 17 99 12/13/16 14:31 86/60 12/13/16 14:08 80 33 96 12/13/16 14:01 92/66 12/13/16 13:58 96/71 12/13/16 13:57 78 12/13/16 13:57 73 18 98/63 94 Room Air 12/13/16 13:56 95 Room Air 12/13/16 13:55 98/63 12/13/16 12:26 36.8 91 18 103/75 98 Physical Exam VITALS: Vitals are noted on the nurse's note and reviewed by myself. Vital signs stable. GENERAL: Well-developed, well-nourished, white female, who is in no acute distress and resting comfortably. Patient is cooperative with the examination. EARS: External ear normal. External auditory canals clear, tympanic membranes pearly sanchez without erythema or effusion bilaterally. EYES: Pupils equal round and reactive to light and accommodation. Conjunctivae without injection, sclerae without icterus. Extraocular movements intact. NOSE: Patent, turbinates without inflammation or discharge. MOUTH: Mucous membranes moist. Tonsils are not enlarged. Pharynx without erythema, blood, or exudate. Uvula midline. Airway patent. NECK: Supple without nuchal rigidity. No lymphadenopathy. No thyromegaly. Cervical spine is nontender. HEART: Regular rate and rhythm without murmurs gallops or rubs. LUNGS: Coarse breath sounds throughout without distinct wheezing, rhonchi, or rales. Medical Decision & Procedures ER Provider Diagnostic Interpretation: CHEST 2 VIEWS ROUTINE CLINICAL HISTORY: Cough. COMPARISON STUDY: Chest radiograph and chest CT December 06, 2016. FINDINGS: A calcified left upper lobe nodule is incidentally noted. Lung volumes are normal. No pneumothorax or pleural effusion is present. There is no evidence of pulmonary edema. Cardiomediastinal silhouette is normal. There are cholecystectomy clips. IMPRESSION: No acute cardiopulmonary findings. Medications Administered Medications (Trade) Dose Ordered Sig/Heather Route Start Time Stop Time Status Last Admin Dose Admin Dexamethasone Sodium Phosphate (Decadron Inj) 10 mg NOW ONCE IM 12/13/16 14:15 12/13/16 14:16 DC 12/13/16 14:27 10 MG Albuterol/ Ipratropium (Duoneb) 3 ml NOW ONCE INH 12/13/16 14:15 12/13/16 14:16 DC 12/13/16 14:26 3 ML ED Course Physical exam and history were performed. Nursing notes, EMR, and Medication List were personally reviewed. Patient appears to have persistent nonproductive cough as well as right ear pain over the past several days. She is undergoing pulmonology evaluation and currently is without medication at home. On examination her ears appear without significant findings, however she does have coarse sounds throughout the lung ramirez. She does not appear toxic, and she is well-known to myself from previous visits to the emergency department. The patient was given 10 mg IM Decadron and a DuoNeb treatment. X-ray was performed. The patient was reevaluated multiple times with course of her stay. She felt much better after the DuoNeb treatment and he Decadron. The x-ray does not show acute findings. The patient feels well for discharge home, this appears reasonable. She evidently does have a Ventolin inhaler which she may continue. We discussed the pros and cons of steroids, and elected to defer steroids as she has had multiple doses over the past few months. The patient was certainly invited back to the ER with any new, worsening, or concerning symptoms. She rated her discomfort a 2/10 at the time of departure. The chart was completed utilizing [employer] Speech Voice Recognition Software. Grammatical errors, random word insertions, pronoun errors, and incomplete sentences are an occasional consequence of this system due to software limitations, ambient noise, and hardware issues. Any formal questions or concerns about the content, text, or information contained within the body of this dictation should be directly addressed to the provider for clarification. . Medical Decision Differential diagnosis: Etiologies such as infections, reactive airway disease, pneumonia, pneumothorax , COPD, CHF, cardiac ischemia, pulmonary embolism, musculoskeletal, gastrointestinal, as well as others were entertained. Medication Reconcilliation Current Medication List: was personally reviewed by me Blood Pressure Screening Patient's blood pressure: Normal blood pressure Impression Primary Impression: Cough, persistent Additional Impression: Ear pain, right Departure Information Referrals Monserrat Murray M.D. (PCP) Patient Instructions My [facility] Problem Qualifiers
[2016-12-22] MEDS ORDERED: DOXY100C76 PO (14:50)
[2016-12-22] MEDS ORDERED: PRED10TA PO (14:50)
[2016-12-22] MEDS ORDERED: IPRASOL4 INH (14:50)
[2016-12-22] MEDS ORDERED: VAREPAK PO (14:52)
== END 2016-12-13 15:18 | disposition home or self-care (01) ==
LOC: C.EDB 12:10 → C.EDC 15:18
DX: R05 Cough (principal); H92.01 Otalgia, right ear; E11.9 Type 2 diabetes mellitus without complications; Z90.49 Acquired absence of other specified parts of digestive tract; Z98.51 Tubal ligation status; F17.210 Nicotine dependence, cigarettes, uncomplicated; Z79.899 Other long term (current) drug therapy

== ENCOUNTER → 2016-12-15 | Outpatient (CLI) | payer OTHER ==
[~2016-12-15] MED LIST changes: +DOXY100C76 PO; +IPRASOL4 INH; +PRED10TA PO; +VAREPAK PO
--- NOTE | 2016-12-15 15:39 | MAMMOGRAPHY REPORT ---
BILATERAL DIGITAL DIAGNOSTIC MAMMOGRAM TOMOSYNTHESIS WITH CAD AND TARGETED RIGHT ULTRASOUND: 12/15/2016 CLINICAL HISTORY: 36-year-old woman with a history of bilateral reduction mammoplasty recent noted to have incidental left breast calcifications on a chest CT. Family history of breast cancer = aunt, alfie toledo. TECHNIQUE: Bilateral breast tomosynthesis in addition to standard 2D mammography was performed. Spot magnification left CC and ML views were also obtained. Current study was also evaluated with a Comp uter Aided Detection (CAD) system. COMPARISON: No prior exams were available for comparison. BREAST COMPOSITION: There are scattered areas of fibroglandular density in both breasts. FINDINGS: There are benign rim, coarse and reticular calcifications in both breasts, compatible with dystrophic calcifications likely secondary to prior reduction mammoplasty. These correlate with the calcifications identified on CT in retrospect a few lucent centers are seen within the calcifications on that exam. There is also a lobulated low density 11 x 8mm mass in the lateral anterior right lianna ast, only seen on the CC view, for which further characterization with ultrasound was performed. No suspicious spiculated or irregular mass, focal area of architectural distortion or suspicious calcifi cations are identified. Targeted ultrasound was performed in the lateral right breast. In the 7:00 axis, 8 cm from the nippl e, there is a predominantly anechoic parallel lobulated mass with multiple thin internal nonvascular septations, measuring 9.1 x 2.5 x 5.1 mm. In the 9:00 right breast, 2 cm from the nipple, there is a nother parallel mixed anechoic and hypoechoic cystic-appearing mass measuring 8.3 x 2.5 x 10.3 mm. T his may possibly correlate with the mammographic mass. Both of these masses most likely represent co mplicated cysts, but given that they do not meet the sonographic criteria for simple cyst, a short in terval follow-up is recommended to document stability in 6 months. IMPRESSION: ACR-BI-RADS CATEGORY 3: PROBABLY BENIGN, TARGETED ULTRASOUND ACR-BI-RADS CATEGORY 3: PRO BABLY BENIGN 1. The breast calcifications seen on recent chest CT correlate with benign calcifications mammograph ically, compatible with dystrophic calcifications and/or fat necrosis, from previous reduction mammop lasty. 2. Incidentally identified a lobulated 11 mm mass in the lateral right breast mammographically may c orrelate with possible complicated cysts identified in the right lateral breast on ultrasound. Altho ugh these masses most likely represent complicated cysts, a short interval follow-up right diagnostic mammogram and repeat targeted ultrasound in the 7:00 and 9:00 axes is recommended to ensure stabilit y in 6 months. These results and recommendations were discussed with the patient at the time of the exam. Approximately 10% of breast cancers are not detected with mammography. A negative mammographic report should not delay biopsy if a clinically suggestive mass is present. Renae Davis M.D. ay/:12/15/2016 13:17:23 Health Safety Coordinator: Xuan JIANG(Juanjo)([place]), [facility] [address] letter sent: Follow Up Recommended 3 BI-RADS Code: ACR-BI-RADS Category 3: Probably Benign Ultrasound BI-RADS: ACR-BI-RADS Category 3: Pr obably Benign
== END | disposition home or self-care (01) ==
LOC: C.MAMM 12:25
PROVIDERS: ATTEND Internal Medicine
DX: R92.1 Mammographic calcification found on diagnostic imaging of breast (principal); N63 Unspecified lump in breast

== ENCOUNTER 2016-12-28 01:03 | Emergency (ER) | payer OTHER ==
[~2016-12-28] VITALS: Ht 157.5 cm; Wt 84.0 kg
[2016-12-28 01:09] VITALS: TEMP 36.7; Ht 157.5 cm; Wt 84.0 kg
[2016-12-28] MEDS ORDERED: DiphenhydrAMINE HCL 50 MG/ML VIAL IM STA (01:19)
[2016-12-28] MEDS ORDERED: PROMETHAZINE HCL INJ 25 MG/ML 1 ML VIAL IM STA (01:19)
[2016-12-28] MEDS ORDERED: KETOROLAC TROMETHAMINE 60 MG/2 ML VIAL IM STA (01:19)
--- NOTE | 2016-12-28 01:23 | EMERGENCY ROOM VISIT NOTE ---
History First contact with patient: :12 Chief Complaint: HEADACHE Stated Complaint: MIGRAINE History of Present Illness The patient is a 36 year old female who presents to the Emergency Room with complaints of a typical migraine. It started earlier today. It is on the right side. It is somewhat of prior migraines. It is associated sound and light Sensitivity. She Has Not Had Any recent illness or trauma. There is some associated nausea. She states that her doctors going to attempt Botox in the future. Her headache is on the right side. Review of Systems As above otherwise negative for 10 systems Past Medical/Surgical History Medical Problems: (1) Closed head injury (2) Diabetes mellitus type 2 (3) Migraine Surgical Problems: (1) S/P appendectomy (2) S/P appendectomy (3) S/P cholecystectomy (4) Status post breast reduction (5) Status post tonsillectomy (6) Status post tubal ligation Family History Heart disease Social History Smoking Status: Current Every Day Smoker Alcohol Use: none Drug Use: none Marital Status: Housing Status: lives with family Occupation Status: disabled Current/Historical Medications Scheduled Doxycycline Monohydrate (Monodox), 100 MG PO Q12 Gabapentin (Gabapentin), 600 MG PO TID Nortriptyline (Pamelor), 10 MG PO HS Prednisone (Prednisone), 0 PO UD Propranolol HCl (Propranolol HCl ER), 60 MG PO QAM Varenicline Tartrate (Chantix), 1 DOSE PO UD Scheduled PRN Albuterol Hfa (Ventolin Hfa), 2 PUFFS INH Q6H PRN for SOB/Wheezing Ipratropium-Albuterol (Duoneb), 1 TREATMENT INH Q4H PRN for Shortness of Breath Lorazepam (Ativan), 1 MG PO DAILY PRN for Anxiety/Agitation Promethazine Hcl (Phenergan), 25 MG PO Q6H PRN for Nausea Physical Exam Vital Signs Date Time Temp Pulse Resp B/P (MAP) Pulse Ox O2 Delivery O2 Flow Rate FiO2 12/28/16 01:09 36.7 97 20 95/70 96 Room Air Physical Exam CONSTITUTIONAL/VITAL SIGNS: Reviewed / noted above. GENERAL: Non-toxic in appearance. INTEGUMENTARY: Warm, dry, and [place]. HEAD: Normocephalic. EYES: without scleral icterus or trauma. ENT/OROPHARYNX: clear and moist. LYMPHADENOPATHY/NECK: Is supple without lymphadenopathy or meningismus. RESPIRATORY: Lungs clear and equal. CARDIOVASCULAR: Regular rate and rhythm. GI/ABDOMEN: Soft and nontender. No organomegaly or pulsatile mass. No rebound or guarding. Normal bowel sounds. EXTREMITIES: Warm and well perfused. BACK: No CVA tenderness. NEUROLOGICAL: Intact without focal deficits. PSYCHIATRIC: normal affect. MUSCULOSKELETAL: Normally developed with good muscle tone. TRIAGE NURSING DOCUMENTATION REVIEWED. Medical Decision & Procedures ED Course The patient was treated with IM Toradol, IM Phenergan and IM Benadryl. Medical Decision Patient presents with a typical migraine. Treated with IM Toradol, Phenergan and Benadryl. She is felt to be stable for discharge. Impression Primary Impression: Migraine Additional Impression: Headache Departure Information Referrals Monserrat Murray M.D. (PCP) Patient Instructions My [facility] Additional Instructions Follow-up with your doctor for further care and evaluation in 1-2 days. Return to the emergency department for worsening or new symptoms or any concerns. You have been examined and treated today on an emergency basis only. This is not a substitute for, or an effort to provide, complete comprehensive medical care. It is impossible to recognize and treat all injuries or illnesses in a single emergency department visit. It is therefore important that you follow up closely with your doctor. Call as soon as possible for an appointment. Problem Qualifiers
[2016-12-28 01:56] VITALS: BP 104/72; PULSE 81; O2SAT 97
== END 2016-12-28 02:00 | disposition home or self-care (01) ==
LOC: C.EDB 01:04
DX: G43.909 Migraine, unspecified, not intractable, without status migrainosus (principal); E11.9 Type 2 diabetes mellitus without complications; F17.200 Nicotine dependence, unspecified, uncomplicated; Z98.51 Tubal ligation status; Z90.49 Acquired absence of other specified parts of digestive tract; Z98.890 Other specified postprocedural states; Z79.899 Other long term (current) drug therapy; Z82.49 Family history of ischemic heart disease and other diseases of the circulatory system

== ENCOUNTER → 2017-01-04 | Day surgery (SDC) | payer OTHER ==
[2016-12-22 14:52] VITALS: Ht 157.5 cm; Wt 84.1 kg
[~2017-01-04] VITALS: Ht 157.5 cm; Wt 84.1 kg
[~2017-01-04] MED LIST changes: +IOPAMIDOL INJ 61% 15 ML VIAL ONE; +LIDOCAINE HCL 1% MPF 5 ML VIAL ONE; +SODIUM CHLORIDE 0.9% INJ 10 ML VIAL ONE
--- NOTE | 2017-01-04 14:38 | Discharge Instructions ---
Discharge Instructions Date of Service Jan 04, 2017. Visit Reason for Visit: Lumbar Radiculopathy Discharge Discharge Diagnosis / Problem: Right leg pain Discharge Goals Goal(s): Decrease discomfort, Improve function Activity Recommendations Activity Limitations: resume your previous activity Anesthesia . Post Anesthesia Instructions: If you have had General Anesthesia or IV Sedation: * Do not drive today. * Resume driving when surgeon permits. * Do not make important decisions or sign legal documents today. * Call surgeon for: 1. Temperature elevations greater than 101 degrees F. 2. Uncontrollable pain. 3. Excessive bleeding. 4. Persistent nausea and vomiting. 5. Medication intolerance (nausea, vomiting or rash). * For nausea and vomiting use only clear liquids such as: tea, soda, bouillon until nausea subsides, then gradually increase diet as tolerated. * If you have any concerns or questions, call your surgeon's office. If physician is unavailable and it is an emergency, call 911 or go to the nearest emergency room. . Diet Recommendations Recommended Home Diet: resume previous diet Procedures Procedures Performed: Lumbar Epidural Steroid Injection Pending Studies Studies pending at discharge: no Medical Emergencies . Who to Call and When: Medical Emergencies: If at any time you feel your situation is an emergency, please call 911 immediately. . Non-Emergent Contact Non-Emergency issues call your: Specialist . . "Provider Documentation" section prepared by Shad Reed. .
[2017-01-04 14:47] VITALS: BP 113/76; PULSE 72; TEMP 36.6; O2SAT 97
--- NOTE | 2017-01-04 15:21 | OPERATIVE REPORT ---
DATE OF OPERATION: 01/04/2017 PREOPERATIVE DIAGNOSIS: Lumbar intervertebral disc disease L5-S1 with a right S1 radiculopathy. POSTOPERATIVE DIAGNOSIS: Same. PROCEDURE: Right paramedian L5-S1 intralaminar epidural steroid injection under fluoroscopic guidance. INDICATIONS: The patient is a 36-year-old white female with a 4-year history of low back pain with radicular complaints. She has responded favorably to 2 epidural steroid injections in the past, although the relief duration was limited upwards of a week to 2 weeks. She is potentially scheduled to have surgery on this side, but her and her surgeon wanted to try 1 last epidural before proceeding with surgery. She presents today for this injection. PHYSICAL EXAMINATION: Pleasant female seated comfortably. She has some tenderness to palpation in the right sciatic notch. She has no focal weakness. She has pain with both flexion and extension of the waist and she is neurovascularly intact distally in the L5-S1 dermatomes. CONSENT: Verbal and written consent was obtained from the patient. Risks and benefits were reviewed. Risks include but are not limited to epidural abscess, epidural hematoma, allergic reaction, dural puncture. The patient wishes to proceed. PROCEDURE: The patient was taken back to the special procedures room of the [facility]. She was maintained in a prone position. Backside was cleansed with Betadine x3 and a dry sterile dressing was applied. Fluoroscope was used to identify the L5-S1 intralaminar space. Overlying skin on the right side was anesthetized with 4 mL of lidocaine 1% with a 25 gauge 1.5-inch needle. A 22-gauge 3-1/2 inch Tuohy needle was then directed down towards the intralaminar space. It was advanced under lateral fluoroscopic guidance and loss of resistance was noted at a depth of just under 9 cm. Isovue 300 contrast 0.5 mL was injected in which demonstrated epidural uptake pattern which was confirmed with in lateral view. She then underwent injection after negative aspiration of 40 mg of Depo-Medrol and 4 mL of preservative free sodium chloride. Injection reproduced a familiar transient radicular sensation down the right leg. DISPOSITION: 1. The patient is taken out into the discharge recovery area where she will be discharged home once discharge criteria have been met. 2. Follow up in the [facility] office in 2-4 weeks. I attest to the content of the Intraoperative Record and any orders documented therein. Any exception s are noted below.
== END | disposition home or self-care (01) ==
LOC: X.SURG 13:33
PROVIDERS: ATTEND Physical Medicine & Rehabilitation
DX: M54.16 Radiculopathy, lumbar region (principal); M54.5 Low back pain; G89.29 Other chronic pain; Z98.51 Tubal ligation status; Z90.49 Acquired absence of other specified parts of digestive tract; Z90.89 Acquired absence of other organs; Z87.442 Personal history of urinary calculi; Z87.81 Personal history of (healed) traumatic fracture; E11.9 Type 2 diabetes mellitus without complications; E66.9 Obesity, unspecified; Z80.41 Family history of malignant neoplasm of ovary; F17.200 Nicotine dependence, unspecified, uncomplicated

== ENCOUNTER → 2017-01-19 | Outpatient (CLI) | payer OTHER ==
[~2017-01-19] MED LIST changes: -IOPAMIDOL INJ 61% 15 ML VIAL ONE; -LIDOCAINE HCL 1% MPF 5 ML VIAL ONE; -SODIUM CHLORIDE 0.9% INJ 10 ML VIAL ONE
--- NOTE | 2017-01-19 12:25 | DIAGNOSTIC IMAGING REPORT ---
FLUOROSCOPIC SNIFF TEST CLINICAL HISTORY: Restrictive lung disease. Dyspnea. COMPARISON STUDY: Chest x-ray dated 12/13/[address] dated 12/06/2016. Fluoroscopy time: 0.3 minutes. FINDINGS: Diaphragmatic excursion is viewed under real-time using fluoroscopy in performing a sniff test. Diaphragmatic excursion is normal and symmetric. The diaphragms move in synchrony. There is no evidence of diaphragmatic paralysis. IMPRESSION: Normal sniff test. Electronically signed by: Umair Marte M.D. 01/19/2017 12:24 PM Dictated Date/Time: 01/19/2017 12:23 PM
[2017-01-19 12:31] LABS: BASO % 0.1 %; BASO ABS # 0.01 K/uL (0-0.2); COMPLETE YES; EOS % 4.9 %; HEMATOCRIT 37.8 % (37-47); IG% 0.1 %; LYMPH % 18.2 %; LYMPH ABS # 1.46 K/uL (1.2-3.4); MEAN CELL VOLUME 78.6 fL (80-100); MEAN CORPUSCULAR HEMOGLOBIN 24.7 pg (25-34); MEAN CORPUSCULAR HGB CONC 31.5 g/dl (32-36); MEAN PLATELET VOLUME 8.4 fL (7.4-10.4); MONO % 8.2 %; NEUT % 68.5 %; PLATELET COUNT 386 K/uL (130-400); RED BLOOD COUNT 4.81 M/uL (4.2-5.4); WHITE BLOOD COUNT 8.02 K/uL (4.8-10.8)
[2017-01-19 12:42] LABS: INR 0.9 (0.9-1.1); PARTIAL THROMBOPLASTIN RATIO 1.1; PROTHROMBIN TIME (PATIENT) 9.9 SECONDS (9.0-12.0)
[2017-01-19 12:58] LABS: BLOOD UREA NITROGEN 11 mg/dl (7-18); BUN/CREATININE RATIO 17.1 (10-20); CALCIUM 9.3 mg/dl (8.5-10.1); CARBON DIOXIDE 25 mmol/L (21-32); CHLORIDE 105 mmol/L (98-107); CREATININE 0.62 mg/dl (0.60-1.20); GLUCOSE 93 mg/dl (70-99); POTASSIUM 3.8 mmol/L (3.5-5.1); SODIUM 137 mmol/L (136-145)
[2017-01-19 13:01] LABS: ALB/GLOB RATIO 0.9 (0.9-2); ALKALINE PHOSPHATASE 80 U/L (45-117); ALT/SGPT 16 U/L (12-78); AST/SGOT 12 U/L (15-37)
== END | disposition home or self-care (01) ==
LOC: C.RAD 11:54
PROVIDERS: ATTEND Physician Assistant
DX: R06.02 Shortness of breath (principal); J98.4 Other disorders of lung

== ENCOUNTER → 2017-01-27 | Day surgery (SDC) | payer OTHER ==
[2017-01-27] VITALS (13 sets, daily range): BP systolic 87–125; BP diastolic 56–99; PULSE 71–105; TEMP 36.6–37; O2SAT 93–100; Ht 157.5 cm; Wt 85.8 kg
[~2017-01-27] VITALS: Ht 157.5 cm; Wt 85.8 kg
[~2017-01-27] MED LIST changes: +FENTANYL CITRATE INJ 50 MCG/1 ML 2 ML VIAL IV ONE; +IPRATROPIUM BROMIDE NEB SOLN 0.02% 2.5 ML VIAL INH ONE; +LEVALBUTEROL 1.25MG/3ML NEB INH ONE; +LIDOCAINE 4% W/AFRIN NASAL SOLN 4ML ONE; +LIDOCAINE HCL 2% LOCAL 50ML VIAL INFIL ONE; +MIDAZOLAM HCL 5 MG/ML 1 ML VIAL IV ONE; +NURSING VERBAL MED ORDER ONE
--- NOTE | 2017-01-27 08:18 | Procedure Note ---
Pre-Mod Sedation Assessment General Date of Moderate Sedation: Jan 27, 2017. Pre-Sedation Airway Assessment Hx of Sleep Apnea: No Smoking Status: Current Every Day Smoker Mallampati Classification: Class II ASA Classification: Class II Procedure Planning Contraindications-for Mod Sed: None Yes Notes The planned sedation has been discussed with the patient and consent obtained. I have identified the patient, determined the appropriateness of sedation and have assessed the patient immediately prior to the procedure. All medicine(s) and interventions are by my order.
--- NOTE | 2017-01-27 11:39 | OPERATIVE REPORT ---
DATE OF OPERATION: 01/27/2017 DATE OF PROCEDURE: 01/27/2017 at 0900. PROCEDURE: Fiberoptic bronchoscopy with bronchoalveolar lavage. SURGEON: Dr. Littlejohn. INDICATIONS: Chronic cough/dyspnea and stable pulmonary nodulosis. ANESTHESIA PREOPERATIVELY: None. ANESTHESIA DURING PROCEDURE: 8 mg IV Versed, 100 mcg IV fentanyl, 20 mL 2% Xylocaine spray above and below the cords, 4% viscous Xylocaine intranasally. PROCEDURE: Fiberoptic bronchoscope was inserted into the right naris with minimal difficulty and passed to the level of the true vocal cords. The cords appeared to approximate normally with phonation without evidence for lesions or paralysis. The area was anesthetized with 2% Xylocaine spray and the scope was then introduced in the trachea and right and left tracheobronchial tree. The trachea showed thick mucus adherent to the left lateral wall that was lavaged until clear. The scope was advanced to the ivis, which appeared sharp. Left main stem bronchus was found to be free of endobronchial lesions. Left upper lobe, the apical-posterior and anterior segments, lingular subdivision with the superior and inferior segments and all basilar segments left lower lobe were found to be free of endobronchial lesions down to the subsegmental bronchi. Small amount of mucopurulent secretion was lavaged from left lower lobe until clear. Mucus pitting with bronchial crypts and clefts were seen throughout the left tracheobronchial tree. The scope was withdrawn to the ivis and entered the right mainstem bronchus. What was apparent was during a forced expiration and following paroxysms of coughing there was evidence for EDAC with tracheomalacia involving the right main stem bronchus with approximately 80% collapse of the right mainstem bronchus with these paroxysms of coughing. The scope was entered into the right mainstem bronchus. The right upper lobe, the apical posterior, anterior segments, bronchus intermedius, right middle lobe and the medial and lateral segments and all basilar segments right lower lobe were found to be free of endobronchial lesions with the same degree of mucous pitting throughout the right tracheobronchial tree and global inflammatory mucosal change most notably situated at the takeoff of the right lower lobe bronchus. This area was lavaged with normosol and a moderate amount of mucopurulent secretion lavaged until clear. No brushings or biopsies were deemed necessary. Fluoroscopy was not utilized. The procedure was terminated. The patient was given a nebulizer treatment with Xopenex 1.25 mg and transferred to the medical treatment unit hemodynamically stable with no further signs of respiratory compromise. Will await microbiological and cytologic examination of the bronchial washings. I attest to the content of the Intraoperative Record and any orders documented therein. Any exception s are noted below.
--- NOTE | 2017-01-27 12:01 | Discharge Instructions ---
Discharge Instructions Date of Service Jan 27, 2017. Admission Reason for Admission: Chronic Bronchitis Discharge Discharge Diagnosis / Problem: Chronic Mucopurulent Bronchitis Discharge Goals Goal(s): Learn about illness, Diagnostic testing, Therapeutic intervention Activity Recommendations Activity Limitations: resume your previous activity Lifting Limitations: none Exercise/Sports Limitations: none May Resume Sexual Activity: when tolerated Shower/Bathe: no limitations Driving or Machine Use: resume 1 day after discharge None . Current Hospital Diet Patient's current hospital diet: Discharge Diet Recommended Diet: Regular Diet Fluid Restriction: None Pending Studies Studies pending at discharge: no Laboratory Results Hemoglobin A1c Test 11/15/16 12:29 Range/Units Estimated Average Glucose 126 mg/dl Hemoglobin A1c 6.0 H 4.5-5.6 % Medical Emergencies . Who to Call and When: Medical Emergencies: If at any time you feel your situation is an emergency, please call 911 immediately. . Non-Emergent Contact Non-Emergency issues call your: Engineering Intern Call Non-Emergent contact if: temperature is above 101 ACTIVITY RECOMMENDATIONS: * Rest today, resume normal activity tomorrow. * Do not drive today. SPECIAL CARE INSTRUCTIONS: * Call your physician if you experience any chest or shoulder pain, fever, coughing, spitting up blood (more than 2 teaspoons) or excessive shortness of breath. * Remove dressing from IV site (where needle was placed into the vein) after 2 hours. Apply a warm, moist compress to site if irritation occurs. Call physician if site becomes red or painful to touch. FOLLOW UP VISIT: * Keep any scheduled doctor appointments. . . "Provider Documentation" section prepared by Alex Littlejohn. . VTE Core Measure Inpt VTE Proph given/why not?: Treatment not indicated
[2017-01-31 14:16] LABS: HERPES SIMPLEX CULT SOURCE RESPIRATORY-R&L BRON; HERPES SIMPLEX VIRUS CULT NOT ISOLATED (NOT ISOLATED)
== END | disposition home or self-care (01) ==
LOC: C.ACU 07:26
PROVIDERS: ATTEND Internal Medicine Critical Care Medicine
DX: R05 Cough (principal); R06.02 Shortness of breath; R91.1 Solitary pulmonary nodule; F17.200 Nicotine dependence, unspecified, uncomplicated; J98.4 Other disorders of lung; J42 Unspecified chronic bronchitis; E11.9 Type 2 diabetes mellitus without complications; F32.9 Major depressive disorder, single episode, unspecified; F41.9 Anxiety disorder, unspecified; Z79.899 Other long term (current) drug therapy; Z90.89 Acquired absence of other organs; Z90.49 Acquired absence of other specified parts of digestive tract; Z98.51 Tubal ligation status; Z98.890 Other specified postprocedural states; Z88.5 Allergy status to narcotic agent; Z81.8 Family history of other mental and behavioral disorders; Z83.3 Family history of diabetes mellitus; Z82.41 Family history of sudden cardiac death; Z82.49 Family history of ischemic heart disease and other diseases of the circulatory system; Z82.0 Family history of epilepsy and other diseases of the nervous system; Z80.3 Family history of malignant neoplasm of breast; Z80.49 Family history of malignant neoplasm of other genital organs; Z80.41 Family history of malignant neoplasm of ovary

== ENCOUNTER 2017-02-02 00:38 | Emergency (ER) | payer OTHER ==
[~2017-02-02 00:38] MED LIST changes: -DOXY100C76 PO; -FENTANYL CITRATE INJ 50 MCG/1 ML 2 ML VIAL IV ONE; -IPRASOL4 INH; -IPRATROPIUM BROMIDE NEB SOLN 0.02% 2.5 ML VIAL INH ONE; -LEVALBUTEROL 1.25MG/3ML NEB INH ONE; -LIDOCAINE 4% W/AFRIN NASAL SOLN 4ML ONE; -LIDOCAINE HCL 2% LOCAL 50ML VIAL INFIL ONE; -MIDAZOLAM HCL 5 MG/ML 1 ML VIAL IV ONE; -NURSING VERBAL MED ORDER ONE; -PRED10TA PO
[2017-02-02 00:40] VITALS: BP 103/69; PULSE 83; TEMP 36.9; O2SAT 96; Ht 157.5 cm
[2017-02-02] MEDS ORDERED: KETOROLAC TROMETHAMINE 60 MG/2 ML VIAL IM STA (00:50)
[2017-02-02] MEDS ORDERED: PROMETHAZINE HCL INJ 25 MG/ML 1 ML VIAL IM STA (00:50)
[2017-02-02] MEDS ORDERED: DiphenhydrAMINE HCL 50 MG/ML VIAL IM STA (00:50)
--- NOTE | 2017-02-02 02:00 | EMERGENCY ROOM VISIT NOTE ---
History First contact with patient: 00:46 Chief Complaint: HEADACHE Stated Complaint: MIGRAINE History of Present Illness The patient is a 36 year old female who presents to the Emergency Room with complaints of migraine for the past day described as throbbing, ranging in severity 7 out of 10 throughout the temporal region similar to prior. Patient follows with Dr. Serra. Patient denies sudden onset headache, chest pain, dyspnea, numbness, tingling, vision problems, cold symptoms, neck stiffness, fever, chills or any other medical complaints. Patient is well-known to this ER for frequent migraine visits. Review of Systems See HPI for pertinent positives & negatives. A total of 10 systems reviewed and were otherwise negative. Past Medical/Surgical History Medical Problems: (1) Closed head injury (2) Diabetes mellitus type 2 (3) Migraine Surgical Problems: (1) S/P appendectomy (2) S/P appendectomy (3) S/P cholecystectomy (4) Status post breast reduction (5) Status post tonsillectomy (6) Status post tubal ligation Family History Heart disease Social History Smoking Status: Current Every Day Smoker Alcohol Use: none Drug Use: none Marital Status: Housing Status: lives with family Occupation Status: disabled Current/Historical Medications Scheduled Gabapentin (Gabapentin), 600 MG PO TID Nortriptyline (Pamelor), 10 MG PO HS Propranolol HCl (Propranolol HCl ER), 60 MG PO QAM Varenicline Tartrate (Chantix), 1 DOSE PO UD Scheduled PRN Albuterol Hfa (Ventolin Hfa), 2 PUFFS INH Q6H PRN for SOB/Wheezing Lorazepam (Ativan), 1 MG PO DAILY PRN for Anxiety/Agitation Promethazine Hcl (Phenergan), 25 MG PO Q6H PRN for Nausea Physical Exam Vital Signs Date Time Temp Pulse Resp B/P (MAP) Pulse Ox O2 Delivery O2 Flow Rate FiO2 02/02/17 00:40 36.9 83 18 103/69 96 Room Air Physical Exam VITALS: Vitals are noted on the nurse's note and reviewed by myself. Vital signs stable. GENERAL: Pleasant female, in no acute distress, nondiaphoretic, well-developed well-nourished. SKIN: The skin was without rashes, erythema, edema, or bruising. There is no tenting of the skin. Capillary reflex less than 2 seconds. HEAD: Normocephalic atraumatic. EARS: External auditory canals clear, tympanic membranes pearly sanchez without erythema or effusion bilaterally. EYES: Pupils equal round and reactive to light and accommodation. Conjunctivae without injection, sclerae without icterus. Extraocular movements intact. NOSE: Patent, turbinates without inflammation or discharge. No sinus tenderness. MOUTH: Mucous membranes moist. Pharynx without erythema or exudate. Uvula midline. Airway patent. Tongue does not deviate. NECK: Supple without nuchal rigidity. No lymphadenopathy. No thyromegaly. Cervical spine is nontender. No JVD. HEART: Regular rate and rhythm without murmurs gallops or rubs. LUNGS: Clear to auscultation bilaterally without wheezes, rales or rhonchi. No dullness to percussion. No retractions or accessory muscle use. ABDOMEN: Positive bowel sounds x 4. Normal tympanic percussion. Soft, nontender, without masses or organomegaly. Mendes sign negative. No guarding or rebound tenderness. MUSCULOSKELETAL: No muscle atrophy, erythema, or edema noted. NEURO: Patient was alert and oriented to person place and time. Normal sensation to light and sharp touch. No focal neurological deficits. Medical Decision & Procedures Medications Administered Medications (Trade) Dose Ordered Sig/Heather Route Start Time Stop Time Status Last Admin Dose Admin Ketorolac Tromethamine (Toradol Inj) 60 mg NOW STAT IM 02/02/17 00:50 02/02/17 00:52 DC 02/02/17 01:02 60 MG Diphenhydramine HCl (Benadryl Inj) 25 mg NOW STAT IM 02/02/17 00:50 02/02/17 00:52 DC 02/02/17 01:01 25 MG Promethazine HCl (Phenergan Inj) 50 mg NOW STAT IM 02/02/17 00:50 02/02/17 00:52 DC 02/02/17 01:02 50 MG ED Course Prior records/ancillary studies reviewed. Additional history obtained from family. Triage Nursing notes reviewed. The patient's history was concerning for headache. Differential diagnosis: Etiologies such as migraine headache, meningitis, sinusitis, CO exposure, ICH, SAH, infection, tumor, headache, sinus thrombosis, arterial dissection, as well as others were entertained. Physical examination findings: As above. Non-focal. ER treatment provided: Toradol, Benadryl, Phenergan On reassessment the patient felt better. Diagnostics interpreted by me: Deferred This appears to be consistent with migraine. Patient was neurovascularly and neurologically intact. She has a long-standing history of migraines and symptoms of similar. She is advised follow-up as scheduled with her Neurologist or here in the ER sooner for headache, fevers, neck stiffness, worsening signs or symptoms or as needed. Patient had no signs of meningitis. She is well-appearing. By the evaluation outlined above emergent etiologies such as meningitis, sinusitis, CO exposure, ICH, SAH, infection, temporal arteritis, tumor, sinus thrombosis, arterial dissection, as well as others were deemed relatively unlikely. The pt informed about the findings as listed above. All questions were answered and pleased with the treatment. Return instructions were outlined and the patient was discharged in stable condition. Referral: The patient was referred back to their primary care physician for follow-up in 2 to 3 days for a recheck of the current condition. Medical Decision As above Medication Reconcilliation Current Medication List: was personally reviewed by me Blood Pressure Screening Patient's blood pressure: Normal blood pressure Impression Primary Impression: Migraine Departure Information Dispostion Home / Self-Care Condition GOOD Referrals Monserrat Murray M.D. (PCP) Forms HOME CARE DOCUMENTATION FORM, IMPORTANT VISIT INFORMATION Patient Instructions My [facility] Additional Instructions DO NOT drive, drink alcohol, operate machinery, or perform dangerous activities today. You were given medications in the ER that can affect your ability to safely function or operate a vehicle. Rest today in a quiet, peaceful, dark environment and get a full 8-10 hrs of sleep tonight. Avoid loud noises, smoke/smoking, alcohol, bright lights, stress, or physical exertion today to minimize the chance the headache may return. Continue current medications. Ibuprofen(Motrin, Advil) may be used for fever or pain. Use 600mg every six hours as needed. Take with food. Avoid using more than 2400mg in a 24 hour period. Do not use 2400mg per day for more than three consecutive days without physician direction. Prolonged inappropriate use can lead to stomach upset or ulcers. (AND/OR) Acetaminophen(Tylenol) may be used for fever or pain. Use 1000mg every six hours as needed. Avoid using more than 3000mg in a 24 hour period. Return to the ER for passing out, worsening headache, vision problems, neck stiffness/pain, fevers, vomiting, worsening of your condition, or as needed. Follow up with your primary physician and/or a neurologist in 2-3 days for a recheck of your current condition. Problem Qualifiers Primary Impression: Migraine Migraine type: unspecified Status migrainosus presence: without status migrainosus Intractability: not intractable Qualified Codes: G43.909 - Migraine, unspecified, not intractable, without status migrainosus
== END 2017-02-02 01:12 | disposition home or self-care (01) ==
LOC: C.EDB 00:39 → C.EDA 01:12
DX: G43.909 Migraine, unspecified, not intractable, without status migrainosus (principal); E11.9 Type 2 diabetes mellitus without complications; F17.210 Nicotine dependence, cigarettes, uncomplicated

== ENCOUNTER 2017-03-01 00:46 | Emergency (ER) | payer OTHER ==
[~2017-03-01] VITALS: Ht 157.5 cm; Wt 84.0 kg
[2017-03-01 00:50] VITALS: TEMP 37; Ht 157.5 cm; Wt 84.0 kg
[2017-03-01] MEDS ORDERED: PROMETHAZINE HCL INJ 25 MG/ML 1 ML VIAL IM STA (00:58)
[2017-03-01] MEDS ORDERED: ACETAMINOPHEN 500 MG TAB PO STA (00:58)
[2017-03-01] MEDS ORDERED: DiphenhydrAMINE HCL 50 MG/ML VIAL IM STA (00:58)
[2017-03-01 01:23] VITALS: BP 98/67; PULSE 78; O2SAT 98
--- NOTE | 2017-03-01 03:16 | EMERGENCY ROOM VISIT NOTE ---
History First contact with patient: 00:52 Chief Complaint: HEADACHE Stated Complaint: MIGRAINE History of Present Illness The patient is a 36 year old female who presents to the Emergency Room with complaints of migraine for the past day described as throbbing, ranging in severity 7 out of 10 throughout the temporal region similar to prior. Patient follows with Dr. Serra. Patient denies sudden onset headache, chest pain, dyspnea, numbness, tingling, vision problems, cold symptoms, neck stiffness, fever, chills or any other medical complaints. Patient is well-known to this ER for frequent migraine visits. Patient states she's been under more stress lately as she is a upcoming surgery next week. She cannot take antiplatelet medication. Review of Systems See HPI for pertinent positives & negatives. A total of 10 systems reviewed and were otherwise negative. Past Medical/Surgical History Medical Problems: (1) Closed head injury (2) Diabetes mellitus type 2 (3) Migraine Surgical Problems: (1) S/P appendectomy (2) S/P appendectomy (3) S/P cholecystectomy (4) Status post breast reduction (5) Status post tonsillectomy (6) Status post tubal ligation Family History Heart disease Social History Smoking Status: Former Smoker Alcohol Use: none Drug Use: none Marital Status: Housing Status: lives with family Occupation Status: disabled Current/Historical Medications Scheduled Gabapentin (Gabapentin), 600 MG PO TID Nortriptyline (Pamelor), 10 MG PO HS Propranolol HCl (Propranolol HCl ER), 60 MG PO QAM Varenicline Tartrate (Chantix), 1 DOSE PO UD Scheduled PRN Albuterol Hfa (Ventolin Hfa), 2 PUFFS INH Q6H PRN for SOB/Wheezing Lorazepam (Ativan), 1 MG PO DAILY PRN for Anxiety/Agitation Promethazine Hcl (Phenergan), 25 MG PO Q6H PRN for Nausea Physical Exam Vital Signs Date Time Temp Pulse Resp B/P (MAP) Pulse Ox O2 Delivery O2 Flow Rate FiO2 03/01/17 01:23 78 20 98/67 98 03/01/17 00:50 37.0 86 20 109/69 97 Room Air Physical Exam VITALS: Vitals are noted on the nurse's note and reviewed by myself. Vital signs stable. GENERAL: Pleasant female, in no acute distress, nondiaphoretic, well-developed well-nourished. SKIN: The skin was without rashes, erythema, edema, or bruising. There is no tenting of the skin. Capillary reflex less than 2 seconds. HEAD: Normocephalic atraumatic. EARS: External auditory canals clear, tympanic membranes pearly sanchez without erythema or effusion bilaterally. EYES: Pupils equal round and reactive to light and accommodation. Conjunctivae without injection, sclerae without icterus. Extraocular movements intact. NOSE: Patent, turbinates without inflammation or discharge. No sinus tenderness. MOUTH: Mucous membranes moist. Pharynx without erythema or exudate. Uvula midline. Airway patent. Tongue does not deviate. NECK: Supple without nuchal rigidity. No lymphadenopathy. No thyromegaly. Cervical spine is nontender. No JVD. HEART: Regular rate and rhythm without murmurs gallops or rubs. LUNGS: Clear to auscultation bilaterally without wheezes, rales or rhonchi. No dullness to percussion. No retractions or accessory muscle use. ABDOMEN: Positive bowel sounds x 4. Normal tympanic percussion. Soft, nontender, without masses or organomegaly. Mendes sign negative. No guarding or rebound tenderness. MUSCULOSKELETAL: No muscle atrophy, erythema, or edema noted. NEURO: Patient was alert and oriented to person place and time. Normal sensation to light and sharp touch. No focal neurological deficits. Medical Decision & Procedures Medications Administered Medications (Trade) Dose Ordered Sig/Heather Route Start Time Stop Time Status Last Admin Dose Admin Promethazine HCl (Phenergan Inj) 50 mg NOW STAT IM 03/01/17 00:58 03/01/17 01:00 DC 03/01/17 01:08 50 MG Acetaminophen (Tylenol Tab) 1,000 mg NOW STAT PO 03/01/17 00:58 03/01/17 01:00 DC 03/01/17 01:07 1,000 MG Diphenhydramine HCl (Benadryl Inj) 50 mg NOW STAT IM 03/01/17 00:58 03/01/17 01:00 DC 03/01/17 01:07 50 MG ED Course Prior records/ancillary studies reviewed. Additional history obtained from family. Triage Nursing notes reviewed. The patient's history was concerning for headache. Differential diagnosis: Etiologies such as migraine headache, meningitis, sinusitis, CO exposure, ICH, SAH, infection, tumor, headache, sinus thrombosis, arterial dissection, as well as others were entertained. Physical examination findings: As above. Non-focal. ER treatment provided: Tylenol, Benadryl, Phenergan IM On reassessment the patient felt better. Diagnostics interpreted by me: Deferred This appears to be consistent with migraine. Patient was neurovascularly and neurologically intact. She has a long-standing history of migraines and symptoms of similar. She is advised follow-up as scheduled with her Neurologist or here in the ER sooner for headache, fevers, neck stiffness, worsening signs or symptoms or as needed. Patient had no signs of meningitis. She is well-appearing. By the evaluation outlined above emergent etiologies such as meningitis, sinusitis, CO exposure, ICH, SAH, infection, temporal arteritis, tumor, sinus thrombosis, arterial dissection, as well as others were deemed relatively unlikely. The pt informed about the findings as listed above. All questions were answered and pleased with the treatment. Return instructions were outlined and the patient was discharged in stable condition. Referral: The patient was referred back to their primary care physician for follow-up in 2 to 3 days for a recheck of the current condition. Medical Decision As above Medication Reconcilliation Current Medication List: was personally reviewed by me Blood Pressure Screening Patient's blood pressure: Normal blood pressure Impression Primary Impression: Migraine Departure Information Dispostion Home / Self-Care Condition GOOD Referrals Monserrat Murray M.D. (PCP) Forms HOME CARE DOCUMENTATION FORM, IMPORTANT VISIT INFORMATION Patient Instructions Headaches Migraine and Tension, [facility] Additional Instructions DO NOT drive, drink alcohol, operate machinery, or perform dangerous activities today. You were given medications in the ER that can affect your ability to safely function or operate a vehicle. Rest today in a quiet, peaceful, dark environment and get a full 8-10 hrs of sleep tonight. Avoid loud noises, smoke/smoking, alcohol, bright lights, stress, or physical exertion today to minimize the chance the headache may return. Continue current medications. Acetaminophen(Tylenol) may be used for fever or pain. Use 1000mg every six hours as needed. Avoid using more than 3000mg in a 24 hour period. Return to the ER for passing out, worsening headache, vision problems, neck stiffness/pain, fevers, vomiting, worsening of your condition, or as needed. Follow up with your primary physician and/or a neurologist in 2-3 days for a recheck of your current condition. Problem Qualifiers Primary Impression: Migraine Migraine type: without aura Status migrainosus presence: without status migrainosus Intractability: not intractable Qualified Codes: G43.009 - Migraine without aura, not intractable, without status migrainosus
== END 2017-03-01 01:24 | disposition home or self-care (01) ==
LOC: C.EDB 00:47 → C.EDA 01:24
DX: G43.009 Migraine without aura, not intractable, without status migrainosus (principal); E11.9 Type 2 diabetes mellitus without complications; Z90.49 Acquired absence of other specified parts of digestive tract; Z98.51 Tubal ligation status; Z87.891 Personal history of nicotine dependence; Z79.899 Other long term (current) drug therapy

== ENCOUNTER 2017-03-13 00:47 | Emergency (ER) | payer OTHER ==
[~2017-03-13] VITALS: Ht 165.1 cm; Wt 95.2 kg
[2017-03-13 00:54] VITALS: Ht 165.1 cm; Wt 95.2 kg
--- NOTE | 2017-03-13 01:15 | EMERGENCY ROOM VISIT NOTE ---
History Report prepared by Trayibirish: Enrique Clayton Under the Supervision of: Dr. Yusef Giraldo D.O. First contact with patient: 00:48 Chief Complaint: FALL Stated Complaint: FALL History of Present Illness The patient is a 36 year old female who presents to the Emergency Room with severe lower back pain following a falling episode that occurred just prior to arrival. The patient states that she is currently using a walker and may have caught it on something before her fall. The patient had a Spinal Fusion procedure last Monday, 6 days prior to arrival and was discharged from the hospital four days ago. She rates her current pain as an 8/10 in severity per EMS. EMS administered 100 mg of Fentanyl prior to arrival. She denies any associated abdominal pain. Source of History: patient, EMS Onset: Just prior to arrival Position: back (lower) Symptom Intensity: 8/10 Associated Symptoms: No abdominal pain Review of Systems See HPI for pertinent positives and negatives. A total of ten systems were reviewed and were otherwise negative. Past Medical & Surgical Medical Problems: (1) Closed head injury (2) Diabetes mellitus type 2 (3) Migraine Surgical Problems: (1) S/P appendectomy (2) S/P appendectomy (3) S/P cholecystectomy (4) Status post breast reduction (5) Status post tonsillectomy (6) Status post tubal ligation Family History Heart disease Social History Smoking Status: Former Smoker Alcohol Use: none Drug Use: none Marital Status: Housing Status: lives with family Occupation Status: disabled Current/Historical Medications Scheduled Gabapentin (Gabapentin), 600 MG PO TID Nortriptyline (Pamelor), 20 MG PO HS Scheduled PRN Cyclobenzaprine Hcl (Flexeril), 5 MG PO TID PRN for Muscle Spasms Lorazepam (Ativan), 1 MG PO DAILY PRN for Anxiety/Agitation Oxycodone Hcl (Oxycodone Hcl), 20 MG PO Q6 PRN for Pain Promethazine Hcl (Phenergan), 25 MG PO Q6H PRN for Nausea Allergies Coded Allergies: BEE STING (Verified Allergy, Severe, SHORTNESS OF BREATH, 03/13/17) Shellfish Allergy (Verified Allergy, Severe, SWELLING/RED SKIN, 03/13/17) Ondansetron (Verified Allergy, Intermediate, HIVES - RASH, 03/13/17) Oily Fish (Verified Allergy, Unknown, SEAFOOD, 03/13/17) Morphine (Verified Adverse Reaction, Intermediate, vomiting, 03/13/17) Uncoded Allergies: EXOTIC FRUITS (Allergy, Mild, HIVES RASH SWELLING, 08/18/15) Physical Exam Vital Signs Date Time Temp Pulse Resp B/P (MAP) Pulse Ox O2 Delivery O2 Flow Rate FiO2 03/13/17 01:23 94 18 117/98 93 Room Air 03/13/17 00:55 91 03/13/17 00:54 36.4 90 18 84/53 93 Room Air Physical Exam GENERAL: Awake, alert, well-appearing, in no distress HENT: Normocephalic, atraumatic. Oropharynx unremarkable. EYES: Normal conjunctiva. Sclera non-icteric. NECK: Supple. No nuchal rigidity. FROM. No JVD. RESPIRATORY: Clear to auscultation. CARDIAC: Regular rate, normal rhythm. Extremities warm and well perfused. Pulses equal. ABDOMEN: Soft, non-distended. No tenderness to palpation. No rebound or guarding. No masses. BACK: Surgical Site is clean dry and intact in the thoraco lumbar region. Mild tenderness paraspinally on the right,. No obvious deformities. MUSCULOSKELETAL: Chest examination reveals no tenderness. The back is symmetrical on inspection without obvious abnormality. There is no CVA tenderness to palpation. No joint edema. LOWER EXTREMITIES: Calves are equal size bilaterally and non-tender. No edema. No discoloration. NEURO: Normal sensorium. No sensory or motor deficits noted. SKIN: No rash or jaundice noted. Medical Decision & Procedures ER Provider Diagnostic Interpretation: X ray results as stated below per my interpretation and radiologist interpretation. Other radiology results as stated below per my review and radiologist interpretation CT L SPINE: No acute or healing fracture or malalignment. No critical central canal stenosis. L5-S1 posterior osteometallic fusion with interbody spacer. No hardware complications or failure. No significant soft tissue hematoma. Small and punctate non obstructing calyceal calculi involving the right and left kidney. Radiologist: Arnaldo Méndez M.D. ED Course 0051: The patient was evaluated in room B11B. A complete history and physical exam was performed. 0211: I reevaluated the patient. Discussed results and discharge instructions: she verbalized understanding and agreement. The patient is ready for discharge. Medical Decision Differential Diagnosis includes; Sprain, strain, contusion fracture, post operative pain. Repeat examination patient's nonfocal. I discussed evaluation with the patient at bedside a CAT scan was negative for any fracture or any postoperative changes there were significant. Patient I do not suspect of cauda equina syndrome. Patient is moving her legs without any difficulty. I discussed this evaluation with the patient patient's significant other at bedside at 2:20 AM. Blood Pressure Screening Patient's blood pressure: Low blood pressure Noted and improved. Impression Primary Impression: Lumbar contusion Scribe Attestation The scribe's documentation has been prepared under my direction and personally reviewed by me in its entirety. I confirm that the note above accurately reflects all work, treatment, procedures, and medical decision making performed by me. Departure Information Dispostion Home / Self-Care Referrals Monserrat Murray M.D. (PCP) Patient Instructions ED Sprain Strain Lumbar, My [facility] Additional Instructions Follow-up with primary care physician. Continue your pain medicine. Return for worsening symptoms
[2017-03-13] MEDS ORDERED: NORT10CA2 PO (02:05)
[2017-03-13] MEDS ORDERED: OXYC20TA32 PO (02:08)
[2017-03-13] MEDS ORDERED: CYCL5TAB PO (02:08)
[2017-03-13 02:36] VITALS: BP 110/88; PULSE 90; TEMP 36.6; O2SAT 91
--- NOTE | 2017-03-13 07:01 | DIAGNOSTIC IMAGING REPORT ---
LUMBAR SPINE CT CLINICAL HISTORY: Pain following fall status post lumbar spine surgery. COMPARISON STUDY: Lumbar spine radiographs March 07, 2013 and lumbar spine MRI June 30, 2016. FINDINGS: The patient is status post L5-S1 discectomy with interbody spacer placement with a right hemilaminectomy at L5-S1 with placement of L5 and S1 bilateral pedicle screws. The hardware is intact. Central canal and neural foramen are suboptimally assessed given CT technique. However, no large intracanalicular fluid collection is identified by CT. There is no evidence for severe central canal stenosis. A right iliac bone harvest site is noted with soft tissue gas. Lateral bone graft material is noted. There is fluid and a small amount of subcutaneous gas within the operative bed. Minimal prevertebral infiltration is likely postsurgical. Sacroiliac joints are intact. There are no unexpected radiopaque foreign bodies. Bilateral renal calculi are noted. There is no hydronephrosis. IMPRESSION: 1. Status post right L5-S1 hemilaminectomy, discectomy with interbody spacer placement and bilateral pedicle screw fusion. Hardware intact. Fluid and gas within the operative bed is expected in the early postoperative setting. Central canal and neural foramen suboptimally assessed given CT but no large intracanalicular fluid collection identified. 2. No acute lumbar spine fracture. 3. Bilateral nephrolithiasis. Electronically signed by: Anand Murray M.D. 03/13/2017 7:00 AM Dictated Date/Time: 03/13/2017 6:48 AM
== END 2017-03-13 02:43 | disposition home or self-care (01) ==
LOC: EDBD 00:47 → C.EDB 00:48
DX: S30.0XXA Contusion of lower back and pelvis, initial encounter (principal); W19.XXXA Unspecified fall, initial encounter; Z98.1 Arthrodesis status; E11.9 Type 2 diabetes mellitus without complications; G43.909 Migraine, unspecified, not intractable, without status migrainosus; Z90.89 Acquired absence of other organs; Z90.49 Acquired absence of other specified parts of digestive tract; Z87.891 Personal history of nicotine dependence; Z82.49 Family history of ischemic heart disease and other diseases of the circulatory system

== ENCOUNTER 2017-03-27 13:07 | Emergency (ER) | payer OTHER ==
[~2017-03-27] VITALS: Ht 157.5 cm; Wt 86.5 kg
[~2017-03-27 13:07] MED LIST changes: +CYCL5TAB PO; +OXYC20TA32 PO; -PROP60CA PO; -VAREPAK PO; -VNTHFA/IN INH
[2017-03-27 13:10] VITALS: TEMP 36.5; Ht 157.5 cm; Wt 86.5 kg
[2017-03-27] MEDS ORDERED: CYCLOBENZAPRINE HCL 10 MG TAB PO STA (13:35)
[2017-03-27] MEDS ORDERED: OXYCODONE HCL IR 5 MG TAB (IMMEDIATE RELEASE) PO STA (13:35)
[2017-03-27] MEDS ORDERED: OXYC1CAP5 PO (13:46)
--- NOTE | 2017-03-27 14:47 | DIAGNOSTIC IMAGING REPORT ---
ULTRASOUND R VENOUS DOPP LOWER EXT UNILAT CLINICAL HISTORY: RIGHT, LEG PAIN AND NUMBNESS, RECENT SURGERY COMPARISON STUDY: No previous studies for comparison. FINDINGS: Real-time and color flow Doppler imaging were performed. Flow was seen within the femoral, popliteal and calf veins with no intraluminal thrombus demonstrated. The saphenous vein is patent. IMPRESSION: No evidence of right lower extremity DVT. Electronically signed by: Jah Montes M.D. 03/27/2017 2:46 PM Dictated Date/Time: 03/27/2017 2:45 PM
[2017-03-27] MEDS ORDERED: OXYC1TAB3 PO (15:04)
[2017-03-27] MEDS ORDERED: CYCL10TA6 PO (15:04)
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
[2017-03-27 15:41] VITALS: BP 113/81; PULSE 80; O2SAT 94
== END 2017-03-27 15:42 | disposition home or self-care (01) ==
LOC: C.EDB 13:09 → C.EDA 15:42
DX: R20.2 Paresthesia of skin (principal); M79.604 Pain in right leg; Z98.1 Arthrodesis status; I10 Essential (primary) hypertension; E11.9 Type 2 diabetes mellitus without complications; M54.16 Radiculopathy, lumbar region; G89.29 Other chronic pain; Z87.820 Personal history of traumatic brain injury; Z87.828 Personal history of other (healed) physical injury and trauma; Z87.440 Personal history of urinary (tract) infections; Z87.442 Personal history of urinary calculi; Z98.51 Tubal ligation status; Z90.49 Acquired absence of other specified parts of digestive tract; Z98.890 Other specified postprocedural states; Z87.891 Personal history of nicotine dependence; Z79.899 Other long term (current) drug therapy; Z88.5 Allergy status to narcotic agent; Z91.018 Allergy to other foods; Z91.030 Bee allergy status

== ENCOUNTER 2017-04-24 23:54 | Emergency (ER) | payer OTHER ==
[~2017-04-24 23:54] MED LIST changes: +HYDR-5688 PO; +OXYC1CAP5 PO; +OXYC1TAB3 PO; -OXYC20TA32 PO
[2017-04-24 23:56] VITALS: Ht 157.5 cm
[2017-04-25] MEDS ORDERED: PROCHLORPERAZINE 5 MG/ML 2 ML VIAL IV STA (00:09)
[2017-04-25] MEDS ORDERED: DiphenhydrAMINE HCL 50 MG/ML VIAL IV STA (00:09)
[2017-04-25] MEDS ORDERED: KETOROLAC TROMETHAMINE 30 MG/ML VIAL IV STA (00:09)
[2017-04-25] MEDS ORDERED: SODIUM CHLORIDE 0.9% 1000ML 1,000 ML IV ONE (00:15)
[2017-04-25 01:00] LABS: BASO % 0.3 %; BASO ABS # 0.02 K/uL (0-0.2); EOS % 5.7 %; HEMATOCRIT 33.6 % (37-47); HEMOGLOBIN 10.5 g/dL (12.0-16.0); IG# 0.02 K/uL (0.00-0.02); LYMPH % 35.1 %; LYMPH ABS # 2.46 K/uL (1.2-3.4); MEAN CELL VOLUME 76.5 fL (80-100); MEAN CORPUSCULAR HEMOGLOBIN 23.9 pg (25-34); MEAN CORPUSCULAR HGB CONC 31.3 g/dl (32-36); MEAN PLATELET VOLUME 8.1 fL (7.4-10.4); MONO % 6.4 %; MONO ABS # 0.45 K/uL (0.11-0.59); NEUT % 52.2 %; NEUT ABS # 3.66 K/uL (1.4-6.5); PLATELET COUNT 455 K/uL (130-400); RED CELL DISTRIBUTION WIDTH CV 15.6 % (11.5-14.5); WHITE BLOOD COUNT 7.01 K/uL (4.8-10.8)
[2017-04-25 01:24] LABS: ALBUMIN 3.5 gm/dl (3.4-5.0); ALT/SGPT 32 U/L (12-78); AST/SGOT 17 U/L (15-37); BLOOD UREA NITROGEN 18 mg/dl (7-18); CALCIUM 9.4 mg/dl (8.5-10.1); CARBON DIOXIDE 28 mmol/L (21-32); CREATININE 0.71 mg/dl (0.60-1.20); GLUCOSE 88 mg/dl (70-99); LIPASE 290 U/L (73-393); POTASSIUM 3.6 mmol/L (3.5-5.1); SODIUM 138 mmol/L (136-145)
[2017-04-25 01:26] LABS: ALKALINE PHOSPHATASE 93 U/L (45-117); TOTAL PROTEIN 7.5 gm/dl (6.4-8.2)
[2017-04-25 01:29] VITALS: TEMP 37
[2017-04-25 01:40] VITALS: BP 124/62; PULSE 85; O2SAT 96
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
== END 2017-04-25 01:45 | disposition home or self-care (01) ==
LOC: C.EDB 23:55 → C.EDA 04-25 01:45
DX: G43.909 Migraine, unspecified, not intractable, without status migrainosus (principal); R11.2 Nausea with vomiting, unspecified; R19.7 Diarrhea, unspecified; I10 Essential (primary) hypertension; E11.9 Type 2 diabetes mellitus without complications; J45.909 Unspecified asthma, uncomplicated; D64.9 Anemia, unspecified; F17.200 Nicotine dependence, unspecified, uncomplicated; Z87.440 Personal history of urinary (tract) infections; Z87.820 Personal history of traumatic brain injury; Z87.828 Personal history of other (healed) physical injury and trauma; Z98.51 Tubal ligation status; Z90.49 Acquired absence of other specified parts of digestive tract; Z98.890 Other specified postprocedural states; Z79.899 Other long term (current) drug therapy

== ENCOUNTER 2017-05-15 00:31 | Emergency (ER) | payer OTHER ==
[~2017-05-15] VITALS: Ht 157.5 cm; Wt 86.0 kg
[~2017-05-15 00:31] MED LIST changes: -OXYC1CAP5 PO; -OXYC1TAB3 PO
[2017-05-15 00:34] VITALS: TEMP 37; Ht 157.5 cm; Wt 86.0 kg
[2017-05-15] MEDS ORDERED: KETOROLAC TROMETHAMINE 60 MG/2 ML VIAL IM STA (00:45)
[2017-05-15] MEDS ORDERED: HYDROCODONE/ACETAMIN 5/325MG TAB PO ONE (00:45)
[2017-05-15] MEDS ORDERED: PROCHLORPERAZINE 5 MG/ML 2 ML VIAL IM STA (00:45)
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
[2017-05-15 01:26] VITALS: BP 109/75; PULSE 77; O2SAT 99
== END 2017-05-15 01:26 | disposition home or self-care (01) ==
LOC: C.EDB 00:32 → C.EDA 01:26
DX: G43.909 Migraine, unspecified, not intractable, without status migrainosus (principal); Z98.890 Other specified postprocedural states; G89.29 Other chronic pain; M54.5 Low back pain; Z87.442 Personal history of urinary calculi; J45.909 Unspecified asthma, uncomplicated; I10 Essential (primary) hypertension; Z87.440 Personal history of urinary (tract) infections; Z98.51 Tubal ligation status; F17.210 Nicotine dependence, cigarettes, uncomplicated

== ENCOUNTER 2017-06-10 00:04 | Emergency (ER) | payer OTHER ==
[~2017-06-10] VITALS: Ht 157.5 cm; Wt 88.6 kg
[2017-06-10 00:09] VITALS: TEMP 36.7; Ht 157.5 cm; Wt 88.6 kg
[2017-06-10] MEDS ORDERED: HYDROmorphone INJ 1 MG/ML SYR IV STA (00:27)
[2017-06-10] MEDS ORDERED: DiphenhydrAMINE HCL 50 MG/ML VIAL IV STA (00:27)
[2017-06-10] MEDS ORDERED: METOCLOPRAMIDE HCL INJ 5 MG/ML 2 ML VIAL IV STA (00:27)
[2017-06-10] MEDS ORDERED: SODIUM CHLORIDE 0.9% 1000ML 1,000 ML IV STA (00:27)
[2017-06-10] MEDS ORDERED: KETOROLAC TROMETHAMINE 30 MG/ML VIAL IV STA (00:27)
[2017-06-10 00:46] LABS: BASO % 0.2 %; BASO ABS # 0.02 K/uL (0-0.2); EOS % 3.7 %; HEMATOCRIT 37.5 % (37-47); HEMOGLOBIN 11.6 g/dL (12.0-16.0); IG# 0.04 K/uL (0.00-0.02); LYMPH ABS # 2.82 K/uL (1.2-3.4); MEAN CELL VOLUME 75.2 fL (80-100); MEAN CORPUSCULAR HEMOGLOBIN 23.2 pg (25-34); MEAN CORPUSCULAR HGB CONC 30.9 g/dl (32-36); MEAN PLATELET VOLUME 8.2 fL (7.4-10.4); MONO % 4.6 %; NEUT % 65.1 %; NEUT ABS # 7.06 K/uL (1.4-6.5); PLATELET COUNT 472 K/uL (130-400); RED CELL DISTRIBUTION WIDTH CV 16.8 % (11.5-14.5); WHITE BLOOD COUNT 10.84 K/uL (4.8-10.8)
[2017-06-10 01:15] LABS: ALBUMIN 4.2 gm/dl (3.4-5.0); ALT/SGPT 23 U/L (12-78); BLOOD UREA NITROGEN 16 mg/dl (7-18); CALCIUM 9.7 mg/dl (8.5-10.1); CARBON DIOXIDE 24 mmol/L (21-32); CREATININE 0.85 mg/dl (0.60-1.20); GLUCOSE 82 mg/dl (70-99); POTASSIUM 3.7 mmol/L (3.5-5.1); SODIUM 137 mmol/L (136-145)
[2017-06-10 01:18] LABS: ALKALINE PHOSPHATASE 93 U/L (45-117); AST/SGOT 15 U/L (15-37); TOTAL PROTEIN 9.1 gm/dl (6.4-8.2)
[2017-06-10] MEDS ORDERED: PROP10TA7 PO (01:39)
[2017-06-10 01:45] VITALS: O2SAT 98
[2017-06-10] MEDS ORDERED: PHENERGAN 25MG HOMEPACK PO ONE (02:45)
[2017-06-10] MEDS ORDERED: OXYCODONE IR HOME PACK PO ONE (02:45)
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
[2017-06-10] MEDS ORDERED: PROM1SUP17 PO (03:24)
[2017-06-10] MEDS ORDERED: OXYC1TAB3 PO (03:24)
[2017-06-10 03:39] VITALS: BP 91/66; PULSE 74; O2SAT 99
--- NOTE | 2017-06-10 06:10 | EMERGENCY ROOM VISIT NOTE ---
ED Visit Note First contact with patient: 00:15 I have personally evaluated and examined this patient. I agree with assessment and plan of Kylee Woodward PA-C. Left flank pain with mild hydro on US and blood in UA likely ureteral stone related given her history as well. Not septic and abdominal exam is benign.
--- NOTE | 2017-06-10 06:18 | DIAGNOSTIC IMAGING REPORT ---
(RENAL)RETROPERITON COMP CLINICAL HISTORY: 37 years-old Female presenting with left flank pain, ? stone. TECHNIQUE: Real-time grayscale and limited color Doppler ultrasound imaging of the kidneys and bladder was performed. COMPARISON: CT from 09/14/2015 and ultrasound from 12/24/2014. FINDINGS: Right kidney: Normal echogenicity of renal parenchyma. Right kidney measures 9.7 cm. No hydronephrosis. No convincing evidence of calculus or mass. Normal perfusion. Left kidney: Normal echogenicity of renal parenchyma. Left kidney measures 11.7 cm. Mild pelviectasis. Hyperechogenic 5 mm focus in the interpolar region of the left kidney with twinkling artifact suggestive calculus. Normal perfusion. Bladder: No bladder wall thickening. Bilateral ureteral jets not visualized. Other: Hyperechogenicity of the liver parenchyma suggests hepatic steatosis. Heterogeneous, hypoechoic masslike subendometrial or endometrial focus along the anterior uterine wall. Nabothian cysts noted. IMPRESSION: 1. 5 mm hyperechogenic focus in the left kidney suggest calculus. Numerous left renal calculi noted on prior CT from 2016. Mild left pelviectasis without overt evidence of hydronephrosis. If there is clinical need, noncontrast CT would better depict these findings. 2. Heterogeneous, hypoechoic masslike subendometrial or endometrial focus along the anterior uterine wall. Menstruation would be unlikely to account for this appearance. Differential considerations include adenomyoma, endometrial neoplasm, or endometrial cavity blood products. Gynecologic consultation recommended. The report will be called/faxed according to standard departmental protocol. Electronically signed by: Luke Mathias M.D. 06/10/2017 6:17 AM Dictated Date/Time: 06/10/2017 6:10 AM
--- NOTE | 2017-06-10 07:53 | DIAGNOSTIC IMAGING REPORT ---
KUB CLINICAL HISTORY: 37 years-old Female presenting with left renal colic. TECHNIQUE: Single supine view of the abdomen was obtained. COMPARISON: 08/20/[address] from 09/14/2015. FINDINGS: Cholecystectomy clips noted. Moderate stool burden in the right colon. Nonobstructive bowel gas pattern. No gross pneumoperitoneum. Allowing for bowel gas and stool, punctate calcification projects over the lower pole of the left kidney. Possible additional punctate calcification at the upper pole the left kidney. Evaluation of the right kidney highly limited. Extensive stool. There is also a new calcification that projects over the distal left ureter. Otherwise, pelvic phleboliths unchanged in appearance. Posterior lumbar fusion hardware noted at L5-S1. Lung bases clear. IMPRESSION: 1. Findings suspicious for distal left ureteral calculus. 2. Left nephrolithiasis. The report will be called/faxed according to standard departmental protocol. Electronically signed by: Luke Mathias M.D. 06/10/2017 7:52 AM Dictated Date/Time: 06/10/2017 7:49 AM
== END 2017-06-10 03:39 | disposition home or self-care (01) ==
LOC: C.EDB 00:05 → C.EDA 03:39
DX: N23 Unspecified renal colic (principal); J45.909 Unspecified asthma, uncomplicated; E11.9 Type 2 diabetes mellitus without complications; I10 Essential (primary) hypertension; F17.200 Nicotine dependence, unspecified, uncomplicated; Z90.49 Acquired absence of other specified parts of digestive tract; Z98.890 Other specified postprocedural states; Z82.49 Family history of ischemic heart disease and other diseases of the circulatory system; Z87.442 Personal history of urinary calculi

== ENCOUNTER 2017-06-12 23:10 | Emergency (ER) | payer OTHER ==
[~2017-06-12] VITALS: Ht 157.5 cm; Wt 88.7 kg
[~2017-06-12 23:10] MED LIST changes: -ATV/1 PO; +OXYC1TAB3 PO; +PROM1SUP17 PO; +PROP10TA7 PO
[2017-06-12 23:24] VITALS: TEMP 36.7; Ht 157.5 cm; Wt 88.7 kg
[2017-06-12] MEDS ORDERED: SODIUM CHLORIDE 0.9% 1000ML 1,000 ML IV STA (23:33)
[2017-06-12] MEDS ORDERED: ONDANSETRON INJ 2 MG/ML 2 ML VIAL IV STA (23:33)
[2017-06-12] MEDS ORDERED: KETOROLAC TROMETHAMINE 30 MG/ML VIAL IV STA (23:33)
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
[2017-06-13 00:37] LABS: ISTAT CREATININE 0.7 mg/dl (0.6-1.3); ISTAT IONIZED CALCIUM 1.2 mmol/l (1.12-1.32); ISTAT POTASSIUM 3.8 mEq/L (3.3-5.0)
[2017-06-13] MEDS ORDERED: METOCLOPRAMIDE HCL INJ 5 MG/ML 2 ML VIAL IV STA (00:37)
[2017-06-13] MEDS ORDERED: DiphenhydrAMINE HCL 50 MG/ML VIAL IV STA (00:37)
[2017-06-13 01:31] VITALS: BP 99/61; PULSE 80; O2SAT 98
--- NOTE | 2017-06-13 06:41 | DIAGNOSTIC IMAGING REPORT ---
CT SCAN OF THE ABDOMEN AND PELVIS WITHOUT CONTRAST CLINICAL HISTORY: Flank pain COMPARISON STUDY: 09/14/2015 TECHNIQUE: CT scan of the abdomen and pelvis was performed from the lung bases to the proximal femurs. Images are reviewed in the axial, sagittal, and coronal planes. IV contrast was not administered for this examination. A dose lowering technique was utilized adhering to the principles of ALARA. CT DOSE: 1515.83 mGy.cm FINDINGS: Lower chest: There is mild mosaic attenuation. There are no significant pleural effusions. Liver: The unenhanced liver is normal in size, contour, and attenuation. There is no intrahepatic biliary ductal dilatation. Gallbladder: Surgically absent Spleen: Normal in size and attenuation. Pancreas: Unremarkable. Adrenal glands: Unremarkable. Kidneys: There are multiple nonobstructing bilateral renal calculi measuring up to 3 mm in diameter. There is no hydronephrosis. No ureteral or bladder calculi are visualized. Bowel: There are no transition zones indicate bowel obstruction. There is no acute diverticulitis. By history the appendix is surgically absent. Peritoneum: There is no intraperitoneal free air or abdominal ascites. Vasculature: The abdominal aorta is normal in course and caliber. Adenopathy: None. Pelvic viscera: The bladder, and pelvic viscera are unremarkable. Skeletal structures: Postsurgical changes are present within the lumbar spine. IMPRESSION: 1. No evidence of bowel obstruction. No evidence of free air 2. Bilateral nonobstructing renal calculi. No ureteral or bladder calculi identified. No evidence of hydronephrosis. 3. No evidence of acute diverticulitis. 4. Groundglass mosaic attenuation at the lung bases, likely secondary to atelectasis and/or air trapping Electronically signed by: Jah Montes M.D. 06/13/2017 6:39 AM Dictated Date/Time: 06/13/2017 6:36 AM
== END 2017-06-13 01:56 | disposition home or self-care (01) ==
LOC: C.EDB 23:11 → C.EDA 06-13 01:56
DX: N20.0 Calculus of kidney (principal); J45.909 Unspecified asthma, uncomplicated; E11.9 Type 2 diabetes mellitus without complications; I10 Essential (primary) hypertension; G43.909 Migraine, unspecified, not intractable, without status migrainosus; Z87.440 Personal history of urinary (tract) infections; Z79.899 Other long term (current) drug therapy; Z82.49 Family history of ischemic heart disease and other diseases of the circulatory system; Z91.030 Bee allergy status; Z91.013 Allergy to seafood; Z88.5 Allergy status to narcotic agent; Z88.8 Allergy status to other drugs, medicaments and biological substances; Z91.018 Allergy to other foods

== ENCOUNTER 2017-06-20 00:18 | Emergency (ER) | payer OTHER ==
[~2017-06-20] VITALS: Ht 157.5 cm; Wt 88.5 kg
[2017-06-20 00:29] VITALS: TEMP 37; Ht 157.5 cm; Wt 88.5 kg
[2017-06-20] MEDS ORDERED: SODIUM CHLORIDE 0.9% 1000ML 1,000 ML IV STA (00:40)
[2017-06-20] MEDS ORDERED: PROCHLORPERAZINE 5 MG/ML 2 ML VIAL IV STA (00:40)
[2017-06-20] MEDS ORDERED: ONDANSETRON INJ 2 MG/ML 2 ML VIAL IV STA (00:40)
[2017-06-20] MEDS ORDERED: KETOROLAC TROMETHAMINE 30 MG/ML VIAL IV STA (00:40)
[2017-06-20] MEDS ORDERED: DiphenhydrAMINE HCL 50 MG/ML VIAL IV STA (00:40)
[2017-06-20 01:05] LABS: BASO % 0.1 %; BASO ABS # 0.01 K/uL (0-0.2); EOS % 3.8 %; EOS ABS # 0.31 K/uL (0-0.5); HEMATOCRIT 32.6 % (37-47); HEMOGLOBIN 10.3 g/dL (12.0-16.0); IG# 0.02 K/uL (0.00-0.02); LYMPH % 25.7 %; MEAN CELL VOLUME 73.8 fL (80-100); MEAN CORPUSCULAR HEMOGLOBIN 23.3 pg (25-34); MEAN CORPUSCULAR HGB CONC 31.6 g/dl (32-36); MEAN PLATELET VOLUME 7.9 fL (7.4-10.4); MONO % 8.6 %; NEUT % 61.6 %; NEUT ABS # 5.02 K/uL (1.4-6.5); PLATELET COUNT 423 K/uL (130-400); RED CELL DISTRIBUTION WIDTH SD 45.9 fL (36.4-46.3); WHITE BLOOD COUNT 8.16 K/uL (4.8-10.8)
[2017-06-20 01:27] LABS: ALBUMIN 3.5 gm/dl (3.4-5.0); ALT/SGPT 20 U/L (12-78); AST/SGOT 9 U/L (15-37); BLOOD UREA NITROGEN 17 mg/dl (7-18); CALCIUM 8.9 mg/dl (8.5-10.1); CARBON DIOXIDE 26 mmol/L (21-32); GLUCOSE 117 mg/dl (70-99); POTASSIUM 3.7 mmol/L (3.5-5.1); SODIUM 141 mmol/L (136-145)
[2017-06-20 01:30] LABS: ALKALINE PHOSPHATASE 79 U/L (45-117); TOTAL PROTEIN 7.5 gm/dl (6.4-8.2)
[2017-06-20 01:38] LABS: INR 0.9 (0.9-1.1); PTT PATIENT 25.2 SECONDS (21.0-31.0)
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
[2017-06-20 01:49] VITALS: BP 98/72; PULSE 90; O2SAT 98
== END 2017-06-20 01:52 | disposition home or self-care (01) ==
LOC: C.EDB 00:19
DX: R10.9 Unspecified abdominal pain (principal); I10 Essential (primary) hypertension; J45.909 Unspecified asthma, uncomplicated; G89.29 Other chronic pain; E11.9 Type 2 diabetes mellitus without complications; F17.200 Nicotine dependence, unspecified, uncomplicated; Z98.51 Tubal ligation status; Z90.49 Acquired absence of other specified parts of digestive tract; Z98.890 Other specified postprocedural states; Z87.442 Personal history of urinary calculi; Z86.19 Personal history of other infectious and parasitic diseases; Z87.828 Personal history of other (healed) physical injury and trauma; Z87.440 Personal history of urinary (tract) infections; Z82.49 Family history of ischemic heart disease and other diseases of the circulatory system; Z91.030 Bee allergy status; Z91.013 Allergy to seafood; Z88.8 Allergy status to other drugs, medicaments and biological substances; Z88.6 Allergy status to analgesic agent

== ENCOUNTER → 2017-06-30 | Outpatient (CLI) | payer OTHER ==
[~2017-06-30] MED LIST changes: -OXYC1TAB3 PO; -PROM1SUP17 PO
--- NOTE | 2017-06-30 14:44 | DIAGNOSTIC IMAGING REPORT ---
LUMBAR SPINE 2 OR 3 VIEWS CLINICAL HISTORY: S/P LUMBAR FUSION COMPARISON STUDY: 02/28/2012, CT scan dated 03/13/2017 FINDINGS: There is no pathologic bowel dilatation. There are surgical clips within the right upper quadrant consistent with a prior cholecystectomy. There are postsurgical changes of an L5-S1 discectomy and interbody fusion. There is posterior pedicle screw fixation. No acute fractures or subluxations are visualized. IMPRESSION: Postsurgical changes of an L5-S1 discectomy and spinal fusion Electronically signed by: Jah Montes M.D. 06/30/2017 2:42 PM Dictated Date/Time: 06/30/2017 2:41 PM
== END | disposition home or self-care (01) ==
LOC: C.RDSM 18:44
PROVIDERS: ATTEND Orthopaedic Surgery
DX: Z98.1 Arthrodesis status (principal)

== ENCOUNTER 2018-06-02 22:32 | Observation (INO) ==
[2018-06-02] MEDS ORDERED: HYDROmorphone INJ 1 MG/ML SYRINGE IV STA (23:16)
[2018-06-02] MEDS ORDERED: SODIUM CHLORIDE 0.9% 1000ML 1,000 ML IV SCH (23:30)
[2018-06-03 00:04] LABS: Basophils # (auto) 0.02 K/uL (0-0.2); Basophils % (auto) 0.2 %; Eosinophils # (auto) 0.46 K/uL (0-0.5); Eosinophils % (auto) 4.6 %; Hematocrit (blood only) 32.8 % (37-47); Hemoglobin 10.4 g/dL (12.0-16.0); Immature Granulocytes # (auto) 0.02 K/uL (0.00-0.02); Immature Granulocytes % (auto) 0.2 %; Lymphocytes # (auto) 2.97 K/uL (1.2-3.4); Lymphocytes % (auto) 29.8 %; Mean Corpuscular Hgb Conc 31.7 g/dL (32-36); Mean Corpuscular Volume 75.2 fL (80-100); Mean Platelet Volume 8.2 fL (7.4-10.4); Monocytes # (auto) 0.49 K/uL (0.11-0.59); Monocytes % (auto) 4.9 %; Neutrophils # (auto) 5.99 K/uL (1.4-6.5); Neutrophils % (auto) 60.3 %; Platelet Count 408 K/uL (130-400); RDW Coefficient of Variation 16.7 % (11.5-14.5); RDW Standard Deviation 45.8 fL (36.4-46.3); Red Blood Count 4.36 M/uL (4.2-5.4); White Blood Count 9.95 K/uL (4.8-10.8)
[2018-06-03 00:05] LABS: Appearance Urine Clear (Clear); Bacteria Urine Automated Negative (Negative); Bilirubin Urine Negative (Negative); Blood Urine 3+ (Negative); Color Urine Yellow; Epithelial Cell Urine Auto >30 /lpf (0-5); Glucose Urine UA Negative (Negative); Ketones Urine Negative (Negative); Leukocyte Esterase Urine Negative (Negative); Nitrite Urine Negative (Negative); Protein Urine Negative (Negative); Specific Gravity Urine 1.024 (1.000-1.030); Urobilinogen Urine Negative (Negative)
[2018-06-03 00:24] LABS: Albumin Level 3.3 gm/dl (3.4-5.0); BUN Creatinine Ratio 26.4 (10-20); Calcium 8.8 mg/dl (8.5-10.1); Est GFR (African American) 131.2; Est GFR (Non-African American) 113.2; Potassium 3.7 mmol/L (3.5-5.1)
[2018-06-03 00:27] LABS: Albumin Globulin Ratio 0.9 (0.9-2); Bilirubin,Total 0.2 mg/dl (0.2-1); Globulin 3.6 gm/dl (2.5-4.0); Total Protein 6.9 gm/dl (6.4-8.2)
[2018-06-03 00:35] LABS: RBC Urine Automated 0-4 /hpf (0-4)
[2018-06-03] MEDS ORDERED: KETOROLAC TROMETHAMINE 15 MG/ML VIAL IV STA (00:59)
[2018-06-03] MEDS ORDERED: PROMETHAZINE HCL 12.5 MG in SODIUM CHLORIDE 0.9% 50 ML IV STA (00:59)
[2018-06-03] MEDS ORDERED: PROMETHAZINE 12.5 MG/50.5 ML NSS IV ONE (01:19)
--- NOTE | 2018-06-03 03:29 | History & Physical Report ---
Date of Service June 03, 2018 Assessment & Plan (1) Left flank pain: Ms. Woodward is a 38-year-old female with a history of migraines and depression who presents to the emergency department due to intractable left- sided flank pain. Of note, she was last seen for the same on 05/30. Patient received 1 L of normal saline in the emergency department, as well as 1 mg of Dilaudid, 15 mg of ketorolac and 12.5 mg of promethazine. -Admit to med/surg -Renal ultrasound today showed small echogenic foci in the kidneys which may represent nonobstructive calculi. No hydronephrosis noted. -Patient's worsening left flank pain does not correlate with renal ultrasound - will repeat CT abdomen/pelvis to reassess for ureteral obstruction and hydronephrosis -Afebrile, normal white cell count, UA without evidence of infection. UA does show 3+ blood, however patient is currently on menstrual cycle -home norco (325/5) continued w/addition of 15mg toradol IV q6h prn pain Menorrhagia/Dysmenorrhea -concerning in setting of heterogeneous endometrium on U/S -transvaginal U/S ordered to further evaluate Anemia -hemoglobin of 10.4 -microcytic, likely iron deficiency anemia in setting of menorrhagia -start iron supplementation Hx of migraines -not on prophylactic medication Depression -continue home lexapro Code status: FULL DVT Prophylaxis: SCDs Disposition: admit to med/surg (2) Menorrhagia: (3) Dysmenorrhea: (4) Anemia: (5) Abnormal ultrasound of uterus: (6) Hx of migraines: (7) Depression: History of Present Illness Primary Care Provider: Monserrat Murray MD Ms. Woodward is a 38-year-old female with a history of migraines and depression who presents to the emergency department due to intractable left-sided flank pain. She was seen in the emergency department 3 days ago for the same and was diagnosed with left-sided renal colic. Her CT scan at that time showed a 4 mm nonobstructing stone within the distal left ureter, without associated hydronephrosis, as well as bilateral nephrolithiasis. The patient was discharged home with [place] to take as needed for pain, and follow-up appointments with her PCP. Patient states that her pain has worsened over the past 36 hours which prompted her to return to the emergency department. She denies fever or chills. She states that she has felt nauseous with decreased appetite. Of note, the patient's renal ultrasound on 05/31 showed an abnormally appearing thickened and heterogeneous endometrium, suggesting the possibility of an endometrial mass. The patient was instructed to follow-up with [facility] for this , and states that she has an appointment coming up on June 14. She does note that she has had increasingly painful periods over the past 2-3 years. She also states that they have been heavier, and that she has had to change sanitary pads/tampons almost every 45 minutes during the first 3-4 days of her menstrual cycle. She states that she has been 3 times in the past and has had 2 children, one delivered by emergency and one was an induction. She states that she does not want to discuss her other . Of note, Ms. Woodward is a smoker. She smokes approximately half to three quarters of a pack per day, and has been smoking since age of 13. She denies use of alcohol or recreational drugs. Allergies Allergy/AdvReac Type Severity Reaction Status Date / Time bee venom protein (honey bee) Allergy Severe SHORTNESS Verified 06/03/18 00:18 OF BREATH shellfish derived Allergy Severe SWELLING/RED Verified 06/03/18 00:18 SKIN ondansetron Allergy Intermediate HIVES - Verified 06/03/18 00:18 RASH Fish Containing Products Allergy Unknown SEAFOOD Verified 06/03/18 00:18 morphine AdvReac Intermediate vomiting Verified 06/03/18 00:18 EXOTIC FRUITS Allergy Mild HIVES RASH Uncoded 06/03/18 00:18 SWELLING Home Medications Home Medications Medication Instructions Recorded Confirmed Type hydrocodone-acetaminophen [[place]] 1 tab PO Q6H PRN 05/13/18 06/03/18 History albuterol sulfate [ProAir HFA] 2 puff INHALATION Q6H PRN 05/31/18 06/03/18 History Past Med/Surg History Medical History Migraine headache (Resolved) UTI (urinary tract infection) (Resolved) Fusion of lumbar spine Social History Current Living Situation: Spouse Current Living Situation Comment: children do not live with pt Feels Safe at Home: Yes Safety Concerns: Feels Safe At This Time Smoking Status: Current every day smoker Tobacco Type: cigarettes Do You Dip or Chew Tobacco: No Second Hand Exposure: No Tobacco Cessation Education Requested by Patient: No Hx Alcohol Use: No Hx Substance Use: No Beliefs That Will Affect Care: None Preferred Language: Turkish Communication Ability: Effective Physical Exam 2 Vital Signs (Past 24 Hours): Last Vital Signs Temp 36.8 C 06/02/18 22:34 Pulse 61 06/03/18 02:46 Resp 22 06/03/18 02:46 BP 126/91 06/03/18 01:17 Pulse Ox 95 06/03/18 02:46 Constitutional: WD/WN, vitals as above + obese Eyes: PERRL, conjunctivae normal, anicteric sclerae Respiratory: normal respiratory effort, lungs clear to auscultation Cardiovascular: RRR, no murmur, no edema Vessels: radial pulses present Extremities: no calf tenderness and no pedal edema Gastrointestinal (Abdomen): Percussion/Palpation: + abdomen tender (Tender over left side of abdomen as well as left flank) and abdomen soft; no guarding and abdomen not rigid Skin: no rashes, warm and dry Results & Data Laboratory Results Laboratory Results - last 24 hr 06/02/18 06/02/18 06/02/18 23:43 23:43 23:56 WBC 9.95 RBC 4.36 Hgb 10.4 L Hct 32.8 L MCV 75.2 L MCH 23.9 L MCHC 31.7 L RDW Std Deviation 45.8 RDW Coeff of Cecilio 16.7 H Plt Count 408 H MPV 8.2 Immature Gran % (Auto) 0.2 Neut % (Auto) 60.3 Lymph % (Auto) 29.8 [place] % (Auto) 4.9 Eos % (Auto) 4.6 Baso % (Auto) 0.2 Immature Gran # (Auto) 0.02 Neut # (Auto) 5.99 Lymph # (Auto) 2.97 [place] # (Auto) 0.49 Eos # (Auto) 0.46 Baso # (Auto) 0.02 Sodium Potassium Chloride Carbon Dioxide Anion Gap BUN Creatinine Est Cr Clr Drug Dosing Est GFR ( Amer) Est GFR (Non-Af Amer) BUN/Creatinine Ratio Glucose Calcium Total Bilirubin AST ALT Alkaline Phosphatase Total Protein Albumin Globulin Albumin/Globulin Ratio Urine Color Yellow Urine Appearance Clear Urine pH 5.0 Ur Specific [place] 1.024 Urine Protein Negative Urine Glucose (UA) Negative Urine Ketones Negative Urine Blood 3+ H Urine Nitrite Negative Urine Bilirubin Negative Urine Urobilinogen Negative Ur Leukocyte Esterase Negative Urine WBC (Auto) 1-5 Urine RBC (Auto) 0-4 U Hyaline Cast (Auto) 1-5 U Epithel Cells (Auto) >30 H Urine Bacteria (Auto) Negative POC Ur Test NEG 06/02/18 23:56 WBC RBC Hgb Hct MCV MCH MCHC RDW Std Deviation RDW Coeff of Cecilio Plt Count MPV Immature Gran % (Auto) Neut % (Auto) Lymph % (Auto) Sampson % (Auto) Eos % (Auto) Baso % (Auto) Immature Gran # (Auto) Neut # (Auto) Lymph # (Auto) Sam[place] # (Auto) Eos # (Auto) Baso # (Auto) Sodium 138 Potassium 3.7 Chloride 107 Carbon Dioxide 23 Anion Gap 8.0 BUN 17 Creatinine 0.64 Est Cr Clr Drug Dosing 123.0 Est GFR ( Amer) 131.2 Est GFR (Non-Af Amer) 113.2 BUN/Creatinine Ratio 26.4 H Glucose 95 Calcium 8.8 Total Bilirubin 0.2 AST 10 L ALT 13 Alkaline Phosphatase 67 Total Protein 6.9 Albumin 3.3 L Globulin 3.6 Albumin/Globulin Ratio 0.9 Urine Color Urine Appearance Urine pH Ur Specific [place] Urine Protein Urine Glucose (UA) Urine Ketones Urine Blood Urine Nitrite Urine Bilirubin Urine Urobilinogen Ur Leukocyte Esterase Urine WBC (Auto) Urine RBC (Auto) U Hyaline Cast (Auto) U Epithel Cells (Auto) Urine Bacteria (Auto) POC Ur Test Supervising Physician Co-Signing Physician Notes Attending addendum: I have physically seen this patient, have supervised the medical residents activities, and agree with the H&P unless as otherwise noted. Assessment and Plan: Left flank pain/recent left ureteral stone/abnormal endometrium on recent ultrasound-- Admit to medical floor. Repeat CT abdomen pelvis to confirm persistent presence of left ureteral stone. Order transvaginal ultrasound to further assess abnormal endometrium. Pain management with [place] 5/325 1 p.o. every 6 hours as needed. Toradol 15 mg IV every 6 hours as needed more severe pain. Hydrate aggressively with IV fluids. Follow serial laboratories. Pantoprazole 40 mg IV daily. Zofran 4 mg IV every 6 hours as needed Remainder of orders and notations as noted. Resident Activity Tracking Resident Involvement: Resident Care Provided Care Provided: Adult Hospital Medicine
[2018-06-03] MEDS ORDERED: ACETAMINOPHEN 325 MG TAB PO PRN (05:41)
--- NOTE | 2018-06-03 07:00 | Ultrasound Report ---
US renal/blad retro comp CLINICAL HISTORY: 38 years-old Female presenting with eval left ureteral stone. TECHNIQUE: Real-time grayscale and limited color Doppler ultrasound imaging of the kidneys and bladde r was performed. COMPARISON: CT from 05/31/2018 and ultrasound from 05/30/2018. FINDINGS: Right kidney: Normal echogenicity of renal parenchyma. Right kidney measures 10.1 cm. No hydronephros is. Multiple echogenic foci system with calculi. Left kidney: Normal echogenicity of renal parenchyma. Left kidney measures 10.5 cm. No hydronephrosis . Multiple echogenic foci consistent with calculi. Bladder: Incompletely distended though grossly normal. Bilateral ureteral jets not visualized. Other: Heterogeneous endometrium. Apparent hyperechogenic liver parenchyma though no steatosis eviden t on noncontrast CT. IMPRESSION: 1. Bilateral nonobstructing nephrolithiasis. No hydronephrosis. 2. Heterogeneous endometrium could be normal depending on the patient's phase of the menstrual cycle given the premenopausal status. If there is clinical concern, nonurgent outpatient pelvic ultrasound could be obtained. Electronically signed by: Luke Mathias M.D. 06/03/2018 6:59 AM
[2018-06-03 07:04] LABS: Basophils # (auto) 0.01 K/uL (0-0.2); Basophils % (auto) 0.1 %; Eosinophils # (auto) 0.34 K/uL (0-0.5); Eosinophils % (auto) 4.6 %; Hematocrit (blood only) 31.5 % (37-47); Hemoglobin 9.9 g/dL (12.0-16.0); Immature Granulocytes # (auto) 0.01 K/uL (0.00-0.02); Immature Granulocytes % (auto) 0.1 %; Lymphocytes # (auto) 2.51 K/uL (1.2-3.4); Lymphocytes % (auto) 33.6 %; Mean Corpuscular Hgb Conc 31.4 g/dL (32-36); Mean Corpuscular Volume 77.4 fL (80-100); Mean Platelet Volume 8.1 fL (7.4-10.4); Monocytes # (auto) 0.38 K/uL (0.11-0.59); Monocytes % (auto) 5.1 %; Neutrophils # (auto) 4.22 K/uL (1.4-6.5); Neutrophils % (auto) 56.5 %; Platelet Count 341 K/uL (130-400); RDW Coefficient of Variation 16.6 % (11.5-14.5); Red Blood Count 4.07 M/uL (4.2-5.4); White Blood Count 7.47 K/uL (4.8-10.8)
[2018-06-03 07:40] LABS: BUN Creatinine Ratio 26.7 (10-20); Calcium 8.3 mg/dl (8.5-10.1); Creatinine Clr Calc Pharmacy 115.6 ml/min; Est GFR (African American) 128.6; Potassium 3.5 mmol/L (3.5-5.1)
--- NOTE | 2018-06-03 08:15 | Emergency Department Note ---
History of Present Illness General Chief complaint: Flank Pain Stated complaint: LEFT SIDE PAIN, KIDNEY STONE Source: patient Mode of arrival: ambulatory Limitations: no limitations History of Present Illness Maximum Pain Intensity: 5 This patient is a 38-year-old female who presents to the emergency department complaining of left abdominal pain and a kidney stone. The patient reports that she was here a few days ago and was diagnosed with a kidney stone on the left side. She states that the pain is now more sharp and is lower down in her abdomen. She also reports they found something on her uterus and she has a follow-up scheduled on the seventh of next month. She states that her pain has been gradually worsening. She has been taking [place] at home without relief. She states that she has been unable to eat or sleep due to the pain. She does report she has seen [facility] urology in the past and has had stents and lithotripsy. She denies any fevers. She rates her discomfort an 8/10. Home Medications Home Medications Medication Instructions Recorded Confirmed Type hydrocodone-acetaminophen [[place]] 1 tab PO Q6H PRN 05/13/18 06/03/18 History albuterol sulfate [ProAir HFA] 2 puff INHALATION Q6H PRN 05/31/18 06/03/18 History Allergies Allergy/AdvReac Type Severity Reaction Status Date / Time bee venom protein (honey bee) Allergy Severe SHORTNESS Verified 06/03/18 00:18 OF BREATH shellfish derived Allergy Severe SWELLING/RED Verified 06/03/18 00:18 SKIN ondansetron Allergy Intermediate HIVES - Verified 06/03/18 00:18 RASH Fish Containing Products Allergy Unknown SEAFOOD Verified 06/03/18 00:18 morphine AdvReac Intermediate vomiting Verified 06/03/18 00:18 EXOTIC FRUITS Allergy Mild HIVES RASH Uncoded 06/03/18 00:18 SWELLING Past Med/Surg History Medical History Migraine headache (Resolved) UTI (urinary tract infection) (Resolved) Fusion of lumbar spine Social History Current Living Situation: Spouse Current Living Situation Comment: children do not live with pt Feels Safe at Home: Yes Safety Concerns: Feels Safe At This Time Smoking Status: Current every day smoker Tobacco Type: cigarettes Do You Dip or Chew Tobacco: No Second Hand Exposure: No Tobacco Cessation Education Requested by Patient: No Hx Alcohol Use: No Hx Substance Use: No Beliefs That Will Affect Care: None Preferred Language: Honduran Communication Ability: Effective Review of Systems A total of 10 systems reviewed and were otherwise negative Physical Exam Vital Signs Vital Signs - 24 hr 06/02/18 22:34 06/02/18 23:46 06/03/18 01:17 Temperature 36.8 C Temperature Source Oral Sepsis Recent Fever Within 48 Hours No Sepsis Action Taken by Nursing No Action Required Pulse Rate 86 Pulse Rate [Right Finger] 77 71 Pulse Rhythm [Right Finger] Pulse Strength [Right Finger] Respiratory Rate 20 12 18 Respiratory Effort / Characteristics Non-Labored Spontaneous Respiratory Depth Normal Blood Pressure 125/85 Blood Pressure [Left Arm] Blood Pressure [Right Arm] 126/91 126/91 Blood Pressure Mean 98 Blood Pressure Mean [Left Arm] Blood Pressure Mean [Right Arm] 102 102 Blood Pressure Position [Left Arm] Pulse Oximetry 98 99 93 Oxygen Delivery Method Room Air 06/03/18 02:46 06/03/18 04:04 06/03/18 05:43 Temperature 36.6 C Temperature Source Oral Sepsis Recent Fever Within 48 Hours Sepsis Action Taken by Nursing Pulse Rate 63 Pulse Rate [Right Finger] 61 66 Pulse Rhythm [Right Finger] Regular Pulse Strength [Right Finger] Normal Respiratory Rate 22 16 16 Respiratory Effort / Characteristics Non-Labored Respiratory Depth Normal Blood Pressure 88/58 L Blood Pressure [Left Arm] 107/72 Blood Pressure [Right Arm] Blood Pressure Mean Blood Pressure Mean [Left Arm] 83 Blood Pressure Mean [Right Arm] Blood Pressure Position [Left Arm] Lying Pulse Oximetry 95 94 95 Oxygen Delivery Method Room Air Room Air 06/03/18 07:04 Temperature 36.8 C Temperature Source Oral Sepsis Recent Fever Within 48 Hours Sepsis Action Taken by Nursing Pulse Rate Pulse Rate [Right Finger] 65 Pulse Rhythm [Right Finger] Pulse Strength [Right Finger] Respiratory Rate 18 Respiratory Effort / Characteristics Respiratory Depth Blood Pressure Blood Pressure [Left Arm] 91/59 L Blood Pressure [Right Arm] Blood Pressure Mean Blood Pressure Mean [Left Arm] 69 Blood Pressure Mean [Right Arm] Blood Pressure Position [Left Arm] Pulse Oximetry 96 Oxygen Delivery Method Room Air VITALS: Vitals are noted on the nurse's note and reviewed by myself. Vital signs stable. GENERAL: This is a 38-year-old female, in no acute distress, nondiaphoretic, well-developed well-nourished. SKIN: The skin was without rashes. EYES: Pupils equal round and reactive to light and accommodation. MOUTH: Mucous membranes moist. NECK: Supple without nuchal rigidity. HEART: Regular rate and rhythm without murmurs gallops or rubs. LUNGS: Clear to auscultation bilaterally without wheezes, rales or rhonchi. ABDOMEN: Positive bowel sounds x 4. Soft, tenderness to palpation in the left lower quadrant. No guarding or rebound tenderness. NEURO: Patient was alert and oriented to person place and time. Course Reevaluation(s) Reevaluation #1: Patient was reevaluated and needed an additional dose of pain medication. She was given Toradol and Phenergan. Reevaluation #2: The patient was again reevaluated and is still having pain. She will be admitted for pain control. Consultations Consultation #1: Dr. Antonio Araujo [facility] hospitalist Administered Medications Discontinued Medications Hydromorphone HCl (Dilaudid) 1 mg IV NOW STA Stop: 06/02/18 23:17 Last Admin: 06/02/18 23:47 Dose: 1 mg Sodium Chloride (Nss 1000ml) 1,000 mls @ 999 mls/hr IV .Q1H1M LAMINE Stop: 06/03/18 00:30 Last Infusion: 06/03/18 00:52 Dose: 0 mls/hr Admin: 06/02/18 23:47 Dose: 999 mls/hr Promethazine HCl 12.5 mg/ (Sodium Chloride) 50.5 mls @ 202 mls/hr IV NOW STA Stop: 06/03/18 01:13 Last Infusion: 06/03/18 01:56 Dose: 0 mls/hr Admin: 06/03/18 01:24 Dose: 202 mls/hr Ketorolac Tromethamine (Toradol) 15 mg IV NOW STA Stop: 06/03/18 01:00 Last Admin: 06/03/18 01:24 Dose: 15 mg Promethazine HCl (Phenergan) Confirm Administered Dose 12.5 mg IV .STK-MED ONE Stop: 06/03/18 01:20 Last Admin: 06/03/18 01:25 Dose: Not Given Medical Decision Making Differential Diagnosis Differential diagnosis includes kidney stone, UTI, pelvic mass, among others. Medical Records Attestation: I reviewed the patient's medical records. Home Medications Current Medication List: was personally reviewed by me Laboratory Data Attestation: I reviewed the patient's lab results. Result diagrams: 06/03/18 06:46 06/03/18 06:46 Lab Results 06/02/18 06/02/18 06/02/18 Range/Units 23:43 23:43 23:56 WBC 9.95 (4.8-10.8) K/uL RBC 4.36 (4.2-5.4) M/uL Hgb 10.4 L (12.0-16.0) g/dL Hct 32.8 L (37-47) % MCV 75.2 L (80-100) fL MCH 23.9 L (25-34) pg MCHC 31.7 L (32-36) g/dL RDW Std Deviation 45.8 (36.4-46.3) fL RDW Coeff of Cecilio 16.7 H (11.5-14.5) % Plt Count 408 H (130-400) K/uL MPV 8.2 (7.4-10.4) fL Immature Gran % (Auto) 0.2 % Neut % (Auto) 60.3 % Lymph % (Auto) 29.8 % [place] % (Auto) 4.9 % Eos % (Auto) 4.6 % Baso % (Auto) 0.2 % Immature Gran # (Auto) 0.02 (0.00-0.02) K/uL Neut # (Auto) 5.99 (1.4-6.5) K/uL Lymph # (Auto) 2.97 (1.2-3.4) K/uL [place] # (Auto) 0.49 (0.11-0.59) K/uL Eos # (Auto) 0.46 (0-0.5) K/uL Baso # (Auto) 0.02 (0-0.2) K/uL Sodium (136-145) mmol/L Potassium (3.5-5.1) mmol/L Chloride (98-107) mmol/L Carbon Dioxide (21-32) mmol/L Anion Gap (3-11) BUN (7-18) mg/dl Creatinine (0.6-1.2) mg/dl Est Cr Clr Drug Dosing ml/min Est GFR ( Amer) Est GFR (Non-Af Amer) BUN/Creatinine Ratio (10-20) Glucose (70-99) mg/dl Calcium (8.5-10.1) mg/dl Total Bilirubin (0.2-1) mg/dl AST (15-37) U/L ALT (12-78) U/L Alkaline Phosphatase (45-117) U/L Total Protein (6.4-8.2) gm/dl Albumin (3.4-5.0) gm/dl Globulin (2.5-4.0) gm/dl Albumin/Globulin Ratio (0.9-2) Urine Color Yellow Urine Appearance Clear (Clear) Urine pH 5.0 (4.5-7.5) Ur Specific [place] 1.024 (1.000-1.030) Urine Protein Negative (Negative) Urine Glucose (UA) Negative (Negative) Urine Ketones Negative (Negative) Urine Blood 3+ H (Negative) Urine Nitrite Negative (Negative) Urine Bilirubin Negative (Negative) Urine Urobilinogen Negative (Negative) Ur Leukocyte Esterase Negative (Negative) Urine WBC (Auto) 1-5 (0-5) /hpf Urine RBC (Auto) 0-4 (0-4) /hpf U Hyaline Cast (Auto) 1-5 (0-5) /lpf U Epithel Cells (Auto) >30 H (0-5) /lpf Urine Bacteria (Auto) Negative (Negative) POC Ur Test NEG (NEG) 06/02/18 06/03/18 06/03/18 Range/Units 23:56 06:46 06:46 WBC 7.47 (4.8-10.8) K/uL RBC 4.07 L (4.2-5.4) M/uL Hgb 9.9 L (12.0-16.0) g/dL Hct 31.5 L (37-47) % MCV 77.4 L (80-100) fL MCH 24.3 L (25-34) pg MCHC 31.4 L (32-36) g/dL RDW Std Deviation 47.0 H (36.4-46.3) fL RDW Coeff of Cecilio 16.6 H (11.5-14.5) % Plt Count 341 (130-400) K/uL MPV 8.1 (7.4-10.4) fL Immature Gran % (Auto) 0.1 % Neut % (Auto) 56.5 % Lymph % (Auto) 33.6 % [place] % (Auto) 5.1 % Eos % (Auto) 4.6 % Baso % (Auto) 0.1 % Immature Gran # (Auto) 0.01 (0.00-0.02) K/uL Neut # (Auto) 4.22 (1.4-6.5) K/uL Lymph # (Auto) 2.51 (1.2-3.4) K/uL [place] # (Auto) 0.38 (0.11-0.59) K/uL Eos # (Auto) 0.34 (0-0.5) K/uL Baso # (Auto) 0.01 (0-0.2) K/uL Sodium 138 140 (136-145) mmol/L Potassium 3.7 3.5 (3.5-5.1) mmol/L Chloride 107 109 H (98-107) mmol/L Carbon Dioxide 23 24 (21-32) mmol/L Anion Gap 8.0 7.0 (3-11) BUN 17 18 (7-18) mg/dl Creatinine 0.64 0.68 (0.6-1.2) mg/dl Est Cr Clr Drug Dosing 123.0 115.6 ml/min Est GFR ( Amer) 131.2 128.6 Est GFR (Non-Af Amer) 113.2 111.0 BUN/Creatinine Ratio 26.4 H 26.7 H (10-20) Glucose 95 87 (70-99) mg/dl Calcium 8.8 8.3 L (8.5-10.1) mg/dl Total Bilirubin 0.2 (0.2-1) mg/dl AST 10 L (15-37) U/L ALT 13 (12-78) U/L Alkaline Phosphatase 67 (45-117) U/L Total Protein 6.9 (6.4-8.2) gm/dl Albumin 3.3 L (3.4-5.0) gm/dl Globulin 3.6 (2.5-4.0) gm/dl Albumin/Globulin Ratio 0.9 (0.9-2) Urine Color Urine Appearance (Clear) Urine pH (4.5-7.5) Ur Specific [place] (1.000-1.030) Urine Protein (Negative) Urine Glucose (UA) (Negative) Urine Ketones (Negative) Urine Blood (Negative) Urine Nitrite (Negative) Urine Bilirubin (Negative) Urine Urobilinogen (Negative) Ur Leukocyte Esterase (Negative) Urine WBC (Auto) (0-5) /hpf Urine RBC (Auto) (0-4) /hpf U Hyaline Cast (Auto) (0-5) /lpf U Epithel Cells (Auto) (0-5) /lpf Urine Bacteria (Auto) (Negative) POC Ur Test (NEG) Imaging Data Attestation: I personally reviewed and interpreted this imaging study as follows : Radiologist's Impression: US RENAL: Comparison: US dated 05/30/2018. Small echogenic foci in the kidneys which may represent nonobstructive calculi. No hydronephrosis. Stable mildly prominent, heterogeneous endometrium. Correlate clinically and may obtain pelvic ultrasound to further assess as clinically warranted. Mildly echogenic liver suggestive of fatty infiltration. Radiologist: Ying Boyle MD Blood Pressure Blood Pressure Findings: Normal blood pressure Blood Pressure Disposition: did not require urgent referral MDM Narrative The patient is a 30-year-old female who presents today complaining of increased pain due to a kidney stone. Labs revealed no concerning leukocytosis, anemia or electrolyte abnormalities. Urinalysis was not suggestive of infection. A renal ultrasound was obtained and does not show any concerning hydronephrosis. The patient's pain has not been well controlled at home and she has continued pain despite several doses of pain medication here. It is possible that the patient's pelvic mass identified on previous exam could be contributing to her pain today. Either way, the patient will require admission for pain control. The case was discussed with the [facility] service and the patient was admitted for further evaluation and care. Impression & Plan Left ureteral calculus Discharge Plan Visit Data *Final* Discharge Date/Time: 06/03/18 04:04 Chief Complaint: Flank Pain Stated Complaint: LEFT SIDE PAIN, KIDNEY STONE Other Complaint: Kidney Stone ED Provider: Barbie Méndez ED Midlevel Provider: Mica Bar Discharge Problem: Left ureteral calculus Patient Disposition: Admitted As Inpatient Discharge Instructions Interventions: ED Discharge Assessment Last Done: 06/03/18 04:04
[2018-06-03] MEDS: SODIUM CHLORIDE 0.9% 1000ML 1,000 ML IV SCH ×3 (08:41→20:14)
[2018-06-03] MEDS: FERROUS SULFATE 325 MG TAB PO SCH (08:57)
[2018-06-03] MEDS: ESCITALOPRAM OXALATE 20 MG TAB PO SCH (08:57)
--- NOTE | 2018-06-03 09:29 | CT Scan Report ---
CT abd pelvis wo con CLINICAL HISTORY: 38 years-old Female presenting with worsening left flank pain, r/o obstructing ston e. TECHNIQUE: Multidetector CT of the abdomen and pelvis was performed without the use of intravenous co ntrast. IV contrast: None. One or more dose lowering techniques were used consistent with the princip les of ALARA (as low as reasonably achievable), including automatic exposure control, mA or kV adjust ment to individual patient size, and/or use of iterative reconstruction. COMPARISON: 05/31/2018. CT DOSE (mGy.cm): The estimated cumulative dose is 531.67 mGy.cm. FINDINGS: Insole Reinforcer topogram: Cholecystectomy clips and posterior lumbar fusion hardware. Lung bases: Normal heart size. No pericardial or pleural effusion. Mosaic attenuation may suggest sma ll airways disease. Liver: Normal morphology. Normal density. Biliary: Mild biliary ductal prominence likely a reservoir effect in the post cholecystectomy state. Gallbladder surgically absent. Pancreas: Normal noncontrast appearance. Spleen: Normal noncontrast appearance. Adrenal glands: Normal noncontrast appearance. Kidneys and ureters: Bilateral nephrolithiasis with a greater stone burden on the left. No hydronephr osis. Normal noncontrast appearance of the renal parenchyma. Ureters nondilated. The previously noted calculus along the course of the distal left ureter is unchanged (series 3 image 398). Bladder: Incompletely evaluated secondary to underdistention. No bladder calculus. Pelvic organs: Normal noncontrast appearance. A tampon is in place. Bowel: The appendix is absent. No bowel obstruction. Normal noncontrast appearance of the bowel. Peritoneal cavity: No free fluid or intraperitoneal gas. Lymph nodes: No gross lymphadenopathy allowing for noncontrast technique. Vasculature: Normal noncontrast appearance. Abdominal wall: Mild diastases of the rectus abdominis. Musculoskeletal: Postsurgical changes of posterior bilateral transpedicular screw and marlin fixation of L5-S1 with interbody spacer. Appendectomy defect also noted. Postsurgical or post traumatic change o f the right ilium near the operative bed. IMPRESSION: 1. Unchanged position of the nonobstructing 3 mm presumed distal left ureteral calculus. The primary differential consideration is a phlebolith. 2. No hydronephrosis. Bilateral nonobstructing nephrolithiasis. 3. Allowing for noncontrast technique, no acute intra-abdominal pathology. Electronically signed by: Luke Mathias M.D. 06/03/2018 9:27 AM
--- NOTE | 2018-06-03 09:59 | XRay Report ---
XR KUB CLINICAL HISTORY: 38 years-old Female presenting with 4mm left-sided distal ureteral stone, flank ishaan n L. TECHNIQUE: Single supine view of the abdomen was obtained. COMPARISON: CT performed earlier the same day.. FINDINGS: Cholecystectomy clips noted. Nonobstructive bowel gas pattern. No gross pneumoperitoneum. The distal left ureteral calculus evident on CT is noted. Numerous pelvic phleboliths degraded evalua tion. Bilateral nephrolithiasis better detected on recent CT. Posterior lumbar fusion at L5-S1. Lung bases clear. IMPRESSION: 1. Distal left ureteral calculus. 2. Bilateral nephrolithiasis. Electronically signed by: Luke Mathias M.D. 06/03/2018 9:58 AM
--- NOTE | 2018-06-03 10:24 | Ultrasound Report ---
US pelvic complete CLINICAL HISTORY: 38 years-old Female presenting with heterogeneous endometrium, heavy menses. TECHNIQUE: Real-time grayscale and color and spectral Doppler ultrasound imaging of the pelvis was pe rformed using a transabdominal probe. COMPARISON: CT from earlier the same day. FINDINGS: TRANSABDOMINAL: Transabdominal imaging was performed for a minimally invasive evaluation and to ensur e visualization of global pelvic findings. Bladder: Incompletely distended though grossly normal. Uterus: Grossly normal. Orientation: Anteverted. Size: 10.1 x 5.3 x 7.4 cm. Endometrial stripe thickn ess: 19 mm. Endometrium: Focal polypoid hypoechoic endometrial thickening with internal color Doppler flow arising from the anterior wall at the fundus. There is more hyperechogenic normal-appearing end ometrium that is displaced by this lesion, which measures 2.2 x 1.6 x 3.1 cm. Cervix: Not well visual ized. Right adnexa: Right ovary: Grossly normal. Grossly normal color Doppler flow and arterial and venous waveforms within the ovarian parenchyma. Right ovary size: 3.1 x 1.9 x 2.7 cm. Left adnexa: Left ovary: Grossly normal. Grossly normal color Doppler flow and arterial and venous wa veforms within the ovarian parenchyma. Left ovary size: 3.2 x 2.3 x 2.8 cm. Other: No large volume free fluid. IMPRESSION: 1. Submucosal 3.1 cm mass within the endometrial cavity. This may represent a submucosal fibroid or less likely an endometrial polyp. This would be better demonstrated with saline infusion sonohysterog shanta or contrast-enhanced pelvic MR. 2. Normal ovaries. Electronically signed by: Luke Mathias M.D. 06/03/2018 10:23 AM
[2018-06-03] MEDS: KETOROLAC TROMETHAMINE 15 MG/ML VIAL IV PRN ×2 (14:25→20:15)
[2018-06-03] MEDS: HYDROCODONE/ACETAMOPHEN 5/325MG TAB PO PRN (16:57)
[2018-06-03] MEDS ORDERED: HYDROmorphone INJ 0.5 MG/0.5 ML SYR IV PRN (20:17)
--- NOTE | 2018-06-03 20:17 | Hospitalist Progress Note ---
Date of Service June 03, 2018 Assessment & Plan (1) Left ureteral calculus: 4mm distal ureteral stone at the UVJ. No hydronephrosis on imaging. Creatinine stable. Repeat KUB today showed the stone is still present. Most recent urine cx negative and most recent u/a only with blood. Patient's pain is controlled. BP too low for flomax therapy. Plan - Cont copious IVF. Diet as tolerated today. Pain control. KUB x-ray in AM. Consult urology - I spoke with Dr. Sandoval and his team will see in am. NPO after MN in the event she needs an intervention tomorrow. Strain urine in meantime. Repeat urine culture. Present on Admission?: Yes (2) Abnormal ultrasound of uterus: 3cm uterine mass - fibroid vs polyp vs other (ie - cancer). Has strong family history of uterine cancer. Has scheduled follow-up with Dr. Jones in early June. Present on Admission?: Yes (3) Menorrhagia: With resulting iron deficiency anemia. 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 Urine test negative. (4) Iron deficiency anemia: Needs ferrous sulfate supplementation after d/c. CBC in am for stability. (5) Depression: Cont lexapro. (6) DVT prophylaxis: ambulation SCDs Subjective overall left sided abdominal discomfort is stable/improved/controlled no nausea/emesis able to eat/drink w/o difficulty ambulating reports strong family history of uterine ca (multiple first/second degree relatives) as well as ovarian ca Constitutional: no fever Respiratory: no cough, no dyspnea and no dyspnea on exertion Cardiovascular: no chest pain Gastrointestinal: no nausea and no vomiting Genitourinary (Female): no dysuria Physical Exam 2 Vital Signs (Past 24 Hours): Last Vital Signs Temp 37.2 C 06/03/18 16:03 Pulse 74 06/03/18 16:03 Resp 16 06/03/18 16:03 BP 97/59 L 06/03/18 16:03 Pulse Ox 97 06/03/18 16:03 Constitutional: WD/WN, vitals as above + obese; no acute distress and not ill appearing ENMT: external ear and nose normal, oropharynx normal Respiratory: normal respiratory effort, lungs clear to auscultation Cardiovascular: RRR, no murmur, no edema Heart Sounds: normal S1 and normal S2 Vessels: posterior tibial pulses present and dorsalis pedis pulses present; no JVD Gastrointestinal (Abdomen): Inspection/Auscultation: abdomen normal to inspection and normal bowel sounds; abdomen not distended Percussion/ Palpation: + abdomen tender (mild - LUQ/LLQ) and abdomen soft; no guarding, abdomen not rigid and no hepatosplenomegaly Musculoskeletal: no left flank pain to palpation Psychiatric: A+Ox3, euthymic affect Results & Data Laboratory Results Laboratory Results - last 24 hr 06/02/18 06/02/18 06/02/18 23:43 23:43 23:56 WBC 9.95 RBC 4.36 Hgb 10.4 L Hct 32.8 L MCV 75.2 L MCH 23.9 L MCHC 31.7 L RDW Std Deviation 45.8 RDW Coeff of Cecilio 16.7 H Plt Count 408 H MPV 8.2 Immature Gran % (Auto) 0.2 Neut % (Auto) 60.3 Lymph % (Auto) 29.8 [place] % (Auto) 4.9 Eos % (Auto) 4.6 Baso % (Auto) 0.2 Immature Gran # (Auto) 0.02 Neut # (Auto) 5.99 Lymph # (Auto) 2.97 [place] # (Auto) 0.49 Eos # (Auto) 0.46 Baso # (Auto) 0.02 Sodium Potassium Chloride Carbon Dioxide Anion Gap BUN Creatinine Est Cr Clr Drug Dosing Est GFR ( Amer) Est GFR (Non-Af Amer) BUN/Creatinine Ratio Glucose Calcium Total Bilirubin AST ALT Alkaline Phosphatase Total Protein Albumin Globulin Albumin/Globulin Ratio Urine Color Yellow Urine Appearance Clear Urine pH 5.0 Ur Specific [place] 1.024 Urine Protein Negative Urine Glucose (UA) Negative Urine Ketones Negative Urine Blood 3+ H Urine Nitrite Negative Urine Bilirubin Negative Urine Urobilinogen Negative Ur Leukocyte Esterase Negative Urine WBC (Auto) 1-5 Urine RBC (Auto) 0-4 U Hyaline Cast (Auto) 1-5 U Epithel Cells (Auto) >30 H Urine Bacteria (Auto) Negative POC Ur Test NEG 06/02/18 06/03/18 06/03/18 23:56 06:46 06:46 WBC 7.47 RBC 4.07 L Hgb 9.9 L Hct 31.5 L MCV 77.4 L MCH 24.3 L MCHC 31.4 L RDW Std Deviation 47.0 H RDW Coeff of [place]ilio 16.6 H Plt Count 341 MPV 8.1 Immature Gran % (Auto) 0.1 Neut % (Auto) 56.5 Lymph % (Auto) 33.6 [place] % (Auto) 5.1 Eos % (Auto) 4.6 Baso % (Auto) 0.1 Immature Gran # (Auto) 0.01 Neut # (Auto) 4.22 Lymph # (Auto) 2.51 [place] # (Auto) 0.38 Eos # (Auto) 0.34 Baso # (Auto) 0.01 Sodium 138 140 Potassium 3.7 3.5 Chloride 107 109 H Carbon Dioxide 23 24 Anion Gap 8.0 7.0 BUN 17 18 Creatinine 0.64 0.68 Est Cr Clr Drug Dosing 123.0 115.6 Est GFR ( Amer) 131.2 128.6 Est GFR (Non-Af Amer) 113.2 111.0 BUN/Creatinine Ratio 26.4 H 26.7 H Glucose 95 87 Calcium 8.8 8.3 L Total Bilirubin 0.2 AST 10 L ALT 13 Alkaline Phosphatase 67 Total Protein 6.9 Albumin 3.3 L Globulin 3.6 Albumin/Globulin Ratio 0.9 Urine Color Urine Appearance Urine pH Ur Specific [place] Urine Protein Urine Glucose (UA) Urine Ketones Urine Blood Urine Nitrite Urine Bilirubin Urine Urobilinogen Ur Leukocyte Esterase Urine WBC (Auto) Urine RBC (Auto) U Hyaline Cast (Auto) U Epithel Cells (Auto) Urine Bacteria (Auto) POC Ur Test _ (1) Menorrhagia Menorrahagia type: with irregular cycle Qualified Code(s): N92.1 - Excessive and frequent menstruation with irregular cycle (2) Iron deficiency anemia Iron deficiency anemia type: unspecified iron deficiency Qualified Code(s): D50.9 - Iron deficiency anemia, unspecified (3) Depression Depression Type: other depression Qualified Code(s): F32.89 - Other specified depressive episodes
[2018-06-04] MEDS: SODIUM CHLORIDE 0.9% 1000ML 1,000 ML IV SCH ×2 (03:05→09:29)
[2018-06-04] MEDS ORDERED: Nursing to Pharmacy Communication ONE (04:43)
[2018-06-04] MEDS: HYDROCODONE/ACETAMOPHEN 5/325MG TAB PO PRN (05:53)
[2018-06-04] MEDS ORDERED: CIPROFLOXACIN 400 MG/200 ML BAG IV SCH (06:00)
[2018-06-04 06:48] LABS: Basophils # (auto) 0.01 K/uL (0-0.2); Basophils % (auto) 0.2 %; Eosinophils % (auto) 6.2 %; Hematocrit (blood only) 30.4 % (37-47); Hemoglobin 9.4 g/dL (12.0-16.0); Immature Granulocytes # (auto) 0.01 K/uL (0.00-0.02); Immature Granulocytes % (auto) 0.2 %; Lymphocytes # (auto) 2.37 K/uL (1.2-3.4); Lymphocytes % (auto) 36.9 %; Mean Corpuscular Hgb Conc 30.9 g/dL (32-36); Mean Corpuscular Volume 76.8 fL (80-100); Monocytes # (auto) 0.41 K/uL (0.11-0.59); Monocytes % (auto) 6.4 %; Neutrophils # (auto) 3.23 K/uL (1.4-6.5); Neutrophils % (auto) 50.1 %; Platelet Count 285 K/uL (130-400); RDW Coefficient of Variation 16.7 % (11.5-14.5); Red Blood Count 3.96 M/uL (4.2-5.4); White Blood Count 6.43 K/uL (4.8-10.8)
[2018-06-04 07:27] LABS: BUN Creatinine Ratio 22.6 (10-20); Calcium 7.9 mg/dl (8.5-10.1); Creatinine Clr Calc Pharmacy 113.9 ml/min; Est GFR (Non-African American) 110.4; Potassium 4.2 mmol/L (3.5-5.1)
--- NOTE | 2018-06-04 07:37 | XRay Report ---
XR KUB CLINICAL HISTORY: left sided ureteral stone; eval for passage COMPARISON STUDY: 06/03/2017 FINDINGS: Probable stable distal left ureteral calculus. Several pelvic vascular calcifications uncha nged. Nonvisualization of the kidneys due to overlying bowel content. Nonobstructive bowel pattern. IMPRESSION: 1. Unchanging distal left ureteral calculus. 2. Nonvisualization of the kidneys due to overlying bowel content. The above report was generated using voice recognition software. It may contain grammatical, syntax or spelling errors. Electronically signed by: Issac Whitley M.D. 06/04/2018 7:35 AM
[2018-06-04] MEDS: FERROUS SULFATE 325 MG TAB PO SCH (08:26)
--- NOTE | 2018-06-04 08:27 | Urology Consultation ---
Date of Consultation June 04, 2018 Assessment & Plan (1) Left ureteral calculus: 38yo F with 3mm distal L ureteral stone, bilateral nephrolithiasis, no hydro. hemodynamically stable. pain controlled. UA not consistent with infection. Cr 0.69, wbc within normal limits. Patient insistent on taking care of stone today. We discussed the possibility of only having ureteral stent placed today vs ureteroscopy, this will be a clinical decision made by Dr Davis at time of procedure. Procedure today is reasonable given her uncontrolled pain x2 ED visits, hx of sepsis and readmission, as well as stone position has not changed in >4 days. Please keep NPO, continue to strain all urine. Plan for cystoscopy, RPG, L ureteral stent placement, possible ureteroscopy, LL , and stone basket retrieval this afternoon with Dr. Davis. Risks and benefits to be reviewed by Dr. Davis. Will cover with ciprofloxacin IV preoperatively. Please contact our service urgently if she develops a fever >38.2, pain becomes uncontrolled, or intractable vomiting. History of Present Illness Reason for Consultation: stone Requesting Physician: Dr. Godwin Attending Physician: Starr Godwin MD History of Present Illness 38yo F with PMHx LUIZA, depression, menorrhagia presented to ED on two occasions in the past week associated with distal 3mm R ureteral stone. Symptoms associated include R renal colic, radiating to RLQ. Stone position unchanged x4days. VSS, afebrile. Labs reviewed, stable. Pt appears comfortable, nontoxic. Denies n/v. Pain controlled with PO pain control. Some urgency/frequency. Denies gross hematuria, dysuria. Currently on her menstral cycle. Hx R ureteral stone treatment ~2015 resulting in two readmissions for sepsis, requiring IV abx x5days per patient report. She is understandably very anxious to have this stone treated. Unsure of stone composition. Allergies Allergy/AdvReac Type Severity Reaction Status Date / Time bee venom protein (honey bee) Allergy Severe SHORTNESS Verified 06/03/18 00:18 OF BREATH shellfish derived Allergy Severe SWELLING/RED Verified 06/03/18 00:18 SKIN ondansetron Allergy Intermediate HIVES - Verified 06/03/18 00:18 RASH Fish Containing Products Allergy Unknown SEAFOOD Verified 06/03/18 00:18 morphine AdvReac Intermediate vomiting Verified 06/03/18 00:18 EXOTIC FRUITS Allergy Mild HIVES RASH Uncoded 06/03/18 00:18 SWELLING Home Medications Home Medications Medication Instructions Recorded Confirmed Type hydrocodone-acetaminophen [[place]] 1 tab PO Q6H PRN 05/13/18 06/03/18 History albuterol sulfate [ProAir HFA] 2 puff INHALATION Q6H PRN 05/31/18 06/03/18 History Patient History Medical History Migraine headache (Resolved) UTI (urinary tract infection) (Resolved) Fusion of lumbar spine Surgical History H/O bone graft Family History Other Family history non-contributory Social History Current Living Situation: Spouse Current Living Situation Comment: children do not live with pt Feels Safe at Home: Yes Safety Concerns: Feels Safe At This Time Smoking Status: Current every day smoker Tobacco Type: cigarettes Do You Dip or Chew Tobacco: No Second Hand Exposure: No Tobacco Cessation Education Requested by Patient: No Hx Alcohol Use: No Hx Substance Use: No Beliefs That Will Affect Care: None Preferred Language: Afghan Communication Ability: Effective Review of Systems Constitutional: no fever, no chills and no body aches Eyes: no problem reported Ear, Nose, Mouth, Throat: no ear pain Respiratory: no cough Cardiovascular: no chest pain Gastrointestinal: no abdominal pain and no belching Genitourinary (Female): + flank pain and + pelvic pain; no dysuria, no urinary frequency, no urinary hesitancy, no urinary urgency and no hematuria currently on menses, unsure if having hematuria due to this Musculoskeletal: no myalgia Integumentary: no acne and no rash Neurologic: no numbness and no paresthesia Psychiatric: no behavioral changes Endocrine: no fatigue and no polydipsia Hematologic / Lymphatic: no easy bleeding Physical Exam 2 Vital Signs (Past 24 Hours): Last Vital Signs Temp 36.8 C 06/04/18 06:54 Pulse 63 06/04/18 06:54 Resp 18 06/04/18 06:54 BP 109/69 06/04/18 06:54 Pulse Ox 94 06/04/18 06:54 Constitutional: + intoxicated appearing; no acute distress, not ill appearing and not lethargic Eyes: no nystagmus ENMT: Ears: no hearing impairment Neck: trachea midline Respiratory: no respiratory distress, does not use accessory muscles and no cough Cardiovascular: Vessels: no JVD Gastrointestinal (Abdomen): Inspection/Auscultation: abdomen not distended and no abdominal edema Percussion/Palpation: abdomen soft; abdomen nontender Musculoskeletal: Head/Neck/Chest: + abnormal head shape Skin: no rashes, warm and dry Psychiatric: A+Ox3, euthymic affect Lymphatic: no lymphadenopathy Results & Data Laboratory Results Laboratory Results - last 48 hr 06/02/18 06/02/18 06/02/18 23:43 23:43 23:56 WBC 9.95 RBC 4.36 Hgb 10.4 L Hct 32.8 L MCV 75.2 L MCH 23.9 L MCHC 31.7 L RDW Std Deviation 45.8 RDW Coeff of Cecilio 16.7 H Plt Count 408 H MPV 8.2 Immature Gran % (Auto) 0.2 Neut % (Auto) 60.3 Lymph % (Auto) 29.8 [place] % (Auto) 4.9 Eos % (Auto) 4.6 Baso % (Auto) 0.2 Immature Gran # (Auto) 0.02 Neut # (Auto) 5.99 Lymph # (Auto) 2.97 [place] # (Auto) 0.49 Eos # (Auto) 0.46 Baso # (Auto) 0.02 Sodium Potassium Chloride Carbon Dioxide Anion Gap BUN Creatinine Est Cr Clr Drug Dosing Est GFR ( Amer) Est GFR (Non-Af Amer) BUN/Creatinine Ratio Glucose Calcium Total Bilirubin AST ALT Alkaline Phosphatase Total Protein Albumin Globulin Albumin/Globulin Ratio Urine Color Yellow Urine Appearance Clear Urine pH 5.0 Ur Specific [place] 1.024 Urine Protein Negative Urine Glucose (UA) Negative Urine Ketones Negative Urine Blood 3+ H Urine Nitrite Negative Urine Bilirubin Negative Urine Urobilinogen Negative Ur Leukocyte Esterase Negative Urine WBC (Auto) 1-5 Urine RBC (Auto) 0-4 U Hyaline Cast (Auto) 1-5 U Epithel Cells (Auto) >30 H Urine Bacteria (Auto) Negative POC Ur Test NEG 0206/03/18 06/03/18 23:56 06:46 06:46 WBC 7.47 RBC 4.07 L Hgb 9.9 L Hct 31.5 L MCV 77.4 L MCH 24.3 L MCHC 31.4 L RDW Std Deviation 47.0 H RDW Coeff of [place]ilio 16.6 H Plt Count 341 MPV 8.1 Immature Gran % (Auto) 0.1 Neut % (Auto) 56.5 Lymph % (Auto) 33.6 [place] % (Auto) 5.1 Eos % (Auto) 4.6 Baso % (Auto) 0.1 Immature Gran # (Auto) 0.01 Neut # (Auto) 4.22 Lymph # (Auto) 2.51 [place] # (Auto) 0.38 Eos # (Auto) 0.34 Baso # (Auto) 0.01 Sodium 138 140 Potassium 3.7 3.5 Chloride 107 109 H Carbon Dioxide 23 24 Anion Gap 8.0 7.0 BUN 17 18 Creatinine 0.64 0.68 Est Cr Clr Drug Dosing 123.0 115.6 Est GFR ( Amer) 131.2 128.6 Est GFR (Non-Af Amer) 113.2 111.0 BUN/Creatinine Ratio 26.4 H 26.7 H Glucose 95 87 Calcium 8.8 8.3 L Total Bilirubin 0.2 AST 10 L ALT 13 Alkaline Phosphatase 67 Total Protein 6.9 Albumin 3.3 L Globulin 3.6 Albumin/Globulin Ratio 0.9 Urine Color Urine Appearance Urine pH Ur Specific [place] Urine Protein Urine Glucose (UA) Urine Ketones Urine Blood Urine Nitrite Urine Bilirubin Urine Urobilinogen Ur Leukocyte Esterase Urine WBC (Auto) Urine RBC (Auto) U Hyaline Cast (Auto) U Epithel Cells (Auto) Urine Bacteria (Auto) POC Ur Test 06/04/18 06/04/18 06:27 06:27 WBC 6.43 RBC 3.96 L Hgb 9.4 L Hct 30.4 L MCV 76.8 L MCH 23.7 L MCHC 30.9 L RDW Std Deviation 47.0 H RDW Coeff of [place]ilio 16.7 H Plt Count 285 MPV 9.0 Immature Gran % (Auto) 0.2 Neut % (Auto) 50.1 Lymph % (Auto) 36.9 [place] % (Auto) 6.4 Eos % (Auto) 6.2 Baso % (Auto) 0.2 Immature Gran # (Auto) 0.01 Neut # (Auto) 3.23 Lymph # (Auto) 2.37 [place] # (Auto) 0.41 Eos # (Auto) 0.40 Baso # (Auto) 0.01 Sodium 140 Potassium 4.2 D Chloride 110 H Carbon Dioxide 24 Anion Gap 6.0 BUN 16 Creatinine 0.69 Est Cr Clr Drug Dosing 113.9 Est GFR ( Amer) 128.0 Est GFR (Non-Af Amer) 110.4 BUN/Creatinine Ratio 22.6 H Glucose 96 Calcium 7.9 L Total Bilirubin AST ALT Alkaline Phosphatase Total Protein Albumin Globulin Albumin/Globulin Ratio Urine Color Urine Appearance Urine pH Ur Specific [place] Urine Protein Urine Glucose (UA) Urine Ketones Urine Blood Urine Nitrite Urine Bilirubin Urine Urobilinogen Ur Leukocyte Esterase Urine WBC (Auto) Urine RBC (Auto) U Hyaline Cast (Auto) U Epithel Cells (Auto) Urine Bacteria (Auto) POC Ur Test
[2018-06-04] MEDS: ESCITALOPRAM OXALATE 20 MG TAB PO SCH (08:51)
--- NOTE | 2018-06-04 12:47 | Anesthesiology Consultation ---
Date of Service June 04, 2018 Assessment & Plan (1) Encounter for pre-operative examination: Chart Review Chart Review: Acceptable Risk for Surgery and Patient NOT seen in Pre Admission Testing Consults Requested none History Surgery Operation Date: 06/04/18 13:35 Proposed Procedures p Cystoscopy,, Retrograde Pyelogram, Left Ureteral Stent Placement, Possible Ureteroscopy, Possible Laser Lithotripsy, Possible Basket Stone Retrieval - Maximo Davis MD Height/Weight Height: 5 ft 2 in Weight: 88 kg Allergies Allergy/AdvReac Type Severity Reaction Status Date / Time bee venom protein (honey bee) Allergy Severe SHORTNESS Verified 06/03/18 00:18 OF BREATH shellfish derived Allergy Severe SWELLING/RED Verified 06/03/18 00:18 SKIN ondansetron Allergy Intermediate HIVES - Verified 06/03/18 00:18 RASH Fish Containing Products Allergy Unknown SEAFOOD Verified 06/03/18 00:18 morphine AdvReac Intermediate vomiting Verified 06/03/18 00:18 EXOTIC FRUITS Allergy Mild HIVES RASH Uncoded 06/03/18 00:18 SWELLING Medications Home Medications Medication Instructions Recorded Confirmed Last Taken hydrocodone-acetaminophen [[place]] 1 tab PO Q6H PRN 05/13/18 06/03/18 Unknown albuterol sulfate [ProAir HFA] 2 puff INHALATION Q6H PRN 05/31/18 06/03/18 Unknown Active Medications Generic Name Dose Route Start Last Admin Trade Name Freq PRN Reason Stop Dose Admin Hydrocodone Bitart/Acetaminophen 1 tab 06/03/18 05:41 06/04/18 05:53 [place] 5/325 PO 06/17/18 05:40 1 tab Q6H PRN Administration Pain Escitalopram Oxalate 20 mg 06/03/18 09:00 06/04/18 08:51 Lexapro PO 07/03/18 08:59 20 mg QAM LAMINE Administration Ferrous Sulfate 325 mg 06/03/18 09:00 06/04/18 08:26 Feosol PO 07/03/18 08:59 325 mg QAM LAMINE Administration Sodium Chloride 1,000 mls @ 150 mls/hr 06/03/18 08:30 06/04/18 09:29 Nss 1000ml IV 07/03/18 08:29 150 mls/hr .Q6H40M LAMINE Administration Past Medical History Medical History Anemia Depression Migraine headache (Resolved) UTI (urinary tract infection) (Resolved) Nephrolithiasis Fusion of lumbar spine Past Family History Family History Other Family history non-contributory Past Surgical History Surgical History H/O bone graft Social History Smoking Status: Current every day smoker tobacco type: cigarettes Do You Dip or Chew Tobacco: No Hx Alcohol Use: No Hx Substance Use: No substance use type: does not use Physical Exam Vital Signs Last Vital Signs Temp 36.8 C 06/04/18 06:54 Pulse 63 06/04/18 06:54 Resp 18 06/04/18 06:54 BP 109/69 06/04/18 06:54 Pulse Ox 94 06/04/18 06:54 Testing Electrocardiogram Findings: + NSR @ (74) Premature supraventricular complexes Laboratory Results 06/04/18 06:27 06/04/18 06:27 Urine Color Yellow 06/02/18 23:43 Urine Appearance Clear (Clear) 06/02/18 23:43 Urine pH 5.0 (4.5-7.5) 06/02/18 23:43 Ur Specific [place] 1.024 (1.000-1.030) 06/02/18 23:43 Urine Protein Negative (Negative) 06/02/18 23:43 Urine Glucose (UA) Negative (Negative) 06/02/18 23:43 Urine Ketones Negative (Negative) 06/02/18 23:43 Urine Nitrite Negative (Negative) 06/02/18 23:43 Ur Leukocyte Esterase Negative (Negative) 06/02/18 23:43 Urine WBC (Auto) 1-5 /hpf (0-5) 06/02/18 23:43 Urine RBC (Auto) 0-4 /hpf (0-4) 06/02/18 23:43 U Hyaline Cast (Auto) 1-5 /lpf (0-5) 06/02/18 23:43 U Epithel Cells (Auto) >30 /lpf (0-5) H 06/02/18 23:43 Urine Bacteria (Auto) Negative (Negative) 06/02/18 23:43 06/02/18 23:43 POC Ur Test NEG
[2018-06-04] MEDS ORDERED: ONDANSETRON INJ 2 MG/ML 2 ML VIAL ONE (13:30)
[2018-06-04] MEDS ORDERED: MIDAZOLAM HCL 1 MG/ML 2ML VIAL ONE (13:30)
[2018-06-04] MEDS ORDERED: DEXAMETHASONE SOD INJ 4 MG/ML VIAL ONE (13:30)
[2018-06-04] MEDS ORDERED: LIDOCAINE HCL 2% 2 ML VIAL/AMP(20MG/ML) INFIL ONE (13:30)
[2018-06-04] MEDS ORDERED: PROPOFOL IV EMULSION 10 MG/ML 20 ML VIAL IV ONE (13:30)
[2018-06-04] MEDS ORDERED: fentaNYL citrate 100 MCG/2 ML VIAL ONE ×2 (13:31→15:31)
[2018-06-04] MEDS ORDERED: ACETAMINOPHEN 325 MG TAB PO PRN (14:37)
[2018-06-04] MEDS ORDERED: HYDROCODONE/ACETAMOPHEN 5/325MG TAB PO PRN (14:37)
[2018-06-04] MEDS ORDERED: NALOXONE HCL 0.4 MG/1 ML VIAL/CARP IV PRN (14:43)
[2018-06-04] MEDS ORDERED: PROMETHAZINE HCL 12.5 MG in SODIUM CHLORIDE 0.9% 50 ML IV PRN (14:43)
[2018-06-04] MEDS ORDERED: fentaNYL citrate 100 MCG/2 ML VIAL IV PRN (14:43)
[2018-06-04] MEDS ORDERED: FLUMAZENIL 0.1 MG/1 ML 10 ML VIAL IV PRN (14:43)
[2018-06-04] MEDS ORDERED: ePHEDrine sulfate 50 MG/ML AMP IV PRN (14:43)
[2018-06-04] MEDS ORDERED: ATROPINE SULFATE 0.1 MG/ML 10ML SYR IV PRN (14:43)
[2018-06-04] MEDS ORDERED: SODIUM CHLORIDE 0.9% 1000ML 1,000 ML IV SCH (14:45)
[2018-06-04] MEDS ORDERED: IOTHALAMATE MEGLUMINE II 17.2% 250 ML VIAL ONE (14:54)
--- NOTE | 2018-06-04 16:00 | Operative Report ---
Post Operative Report Pre & Post Diagnosis Operation Date: 06/04/18 13:35 Pre-Op Diagnosis: Left nephrolithiasis Post-Op Diagnosis: Left nephrolithiasis Procedure Operation Date: 06/04/18 13:35 Actual Procedures p Cystoscopy, Left Retrograde Pyelogram, Left Ureteral Stent Placement, Ureteroscopy, Laser Lithotripsy(Left) - Maximo Davis MD Surgeon Sunday Davis MD Tree Chipper none Estimated Blood Loss 0 Findings Consistent with Post-Op Diagnosis Specimens stone Description of Procedure Patient was identified in the preoperative holding area, appropriate informed consents reviewed and completed and she was transferred to the operating suite. Upon arrival she received appropriate preoperative antibiotics in the form of ciprofloxacin. Adequate general anesthesia was achieved, she was placed in dorsal lithotomy position where she was sterilely prepped and draped in standard fashion. To begin the case I passed a 20 Zimbabwean cystoscope with 30 degree lens. Inspection revealed healthy appearing bladder. Right and left ureteral orifices were in orthotopic position. There were no stones within the bladder. I cannulated the left UO with a sensor wire and a 5 [place]an open-ended catheter. There is resistance in the extreme distal ureter. With gentle regulation I was able to advance the wire to the kidney. I then withdrew the 5 [place]an open-ended catheter and the cystoscope. I reentered alongside the wire with a semirigid ureteroscope. Approximately 3 cm above the UO I encountered a yellow appearing calculus semi-impacted into the wall. The past 270 �m laser fiber and fragmented the stone into 4 pieces. Gated out of the ureter without difficulty. After advancing the scope maximally, I saw no other retained stones within the ureter. I withdrew the scope and placed a 6 [place]an by 24 cm double-J ureteral stent seeing a good curl in the kidney. I did opacify the collecting system prior to placement of the stent. I then evacuated the stone debris from the kidney, the largest piece was passed off the table for chemical analysis. This piece was still quite small. He was extubated and taken to the PACU in stable condition. I attest to the content of the Intraoperative Record and any orders documented therein. Any exceptions are noted below.
--- NOTE | 2018-06-04 16:39 | Anesthesiology Progress Note ---
Date of Service June 04, 2018 Anesthesia Post Procedure Vital Signs Vital Signs: Temp Pulse Pulse Resp BP Pulse Ox 06/04/18 16:35 73 20 114/80 93 06/04/18 16:25 72 20 118/73 99 06/04/18 16:15 86 20 123/85 99 06/04/18 16:08 37.1 C 87 20 120/74 99 06/04/18 14:45 36.5 C 58 L 16 116/77 97 06/04/18 06:54 36.8 C 63 18 109/69 94 06/03/18 23:11 37.2 C 59 L 16 108/70 93 Pain Intensity Left Flank: Pain Intensity: 0 Notes Mental Status: alert / awake / arousable Patient Amnestic to Procedure: Yes Nausea / Vomiting: adequately controlled Pain: adequately controlled Airway Patency, RR, SpO2: stable & adequate BP & HR: stable & adequate Hydration State: stable & adequate Anesthetic Complications: no major complications apparent
--- NOTE | 2018-06-04 17:27 | Fluoroscopy Report ---
FL retrograde includes kub CLINICAL HISTORY: 38 years-old Female presenting with LT STONE/CYSTO/LASER/STENT. TECHNIQUE: 2 fluoroscopic image(s) recorded as part of an intraoperative procedure. COMPARISON: CT from 06/03/2018. FINDINGS/IMPRESSION: A catheter was inserted into the left ureter in the left renal collecting system was opacified. No hy dronephrosis. Please see surgical report for further details. Fluoroscopy dosage (mGy): 2.96. Fluoroscopy time: 9.9 seconds. Number or time of fluoroscopic spot images: 0. Electronically signed by: Luke Mathias M.D. 06/04/2018 5:25 PM
[2018-06-04] MEDS ORDERED: KETOROLAC TROMETHAMINE 15 MG/ML VIAL IV PRN (17:38)
--- NOTE | 2018-06-04 18:10 | Discharge Summary ---
Date of Service June 04, 2018 Admission HPI Per Admitting Provider Ms. Woodward is a 38-year-old female with a history of migraines and depression who presents to the emergency department due to intractable left-sided flank pain. She was seen in the emergency department 3 days ago for the same and was diagnosed with left-sided renal colic. Her CT scan at that time showed a 4 mm nonobstructing stone within the distal left ureter, without associated hydronephrosis, as well as bilateral nephrolithiasis. The patient was discharged home with [place] to take as needed for pain, and follow-up appointments with her PCP. Patient states that her pain has worsened over the past 36 hours which prompted her to return to the emergency department. She denies fever or chills. She states that she has felt nauseous with decreased appetite. Of note, the patient's renal ultrasound on 05/31 showed an abnormally appearing thickened and heterogeneous endometrium, suggesting the possibility of an endometrial mass. The patient was instructed to follow-up with ENERGY SPECIALIST for this , and states that she has an appointment coming up on June 14. She does note that she has had increasingly painful periods over the past 2-3 years. She also states that they have been heavier, and that she has had to change sanitary pads/tampons almost every 45 minutes during the first 3-4 days of her menstrual cycle. She states that she has been 3 times in the past and has had 2 children, one delivered by emergency and one was an induction. She states that she does not want to discuss her other . Of note, Ms. Woodward is a smoker. She smokes approximately half to three quarters of a pack per day, and has been smoking since age of 13. She denies use of alcohol or recreational drugs. Principal Diagnosis Left ureterolithiasis Discharge Exam Constitutional WD/WN, vitals as above Eyes PERRL, conjunctivae normal, anicteric sclerae ENMT external ear and nose normal, oropharynx normal Neck trachea midline, no thyromegaly Respiratory normal respiratory effort, lungs clear to auscultation Cardiovascular RRR, no murmur, no edema Gastrointestinal (Abdomen) Inspection/Auscultation: abdomen normal to inspection; abdomen not distended Percussion/Palpation: + abdomen tender (mild, in LLQ without guarding or rebound ) Musculoskeletal Extremities: extremities normal to inspection; no cyanosis and no clubbing Skin no rashes, warm and dry Neurologic moves all extremities and awake; no focal motor deficits Psychiatric A+Ox3, euthymic affect Discharge Data Allergies Allergy/AdvReac Type Severity Reaction Status Date / Time bee venom protein (honey bee) Allergy Severe SHORTNESS Verified 06/03/18 00:18 OF BREATH shellfish derived Allergy Severe SWELLING/RED Verified 06/03/18 00:18 SKIN ondansetron Allergy Intermediate HIVES - Verified 06/03/18 00:18 RASH Fish Containing Products Allergy Unknown SEAFOOD Verified 06/03/18 00:18 morphine AdvReac Intermediate vomiting Verified 06/03/18 00:18 EXOTIC FRUITS Allergy Mild HIVES RASH Uncoded 06/03/18 00:18 SWELLING Consultations 06/03/18 02:25 ED Decision to Admit Stat 06/03/18 15:34 Consult Urology Routine Procedures Performed Operation Date: 06/04/18 13:35 Actual Procedures p Cystoscopy, Left Retrograde Pyelogram, Left Ureteral Stent Placement, Ureteroscopy, Laser Lithotripsy(Left) - Maximo Davis MD Ordered Studies 06/02/18 23:15 US renal/blad retro comp Stat 06/03/18 05:41 CT abd pelvis wo con Routine US pelvic complete Routine 06/04/18 14:00 FL retrograde includes kub Routine KUB Hospital Course (1) Left flank pain: Ms. Woodward is a 38-year-old female with a history of migraines and depression who presents to the emergency department due to intractable left- sided flank pain. -Renal ultrasound showed small echogenic foci in the kidneys which may represent nonobstructive calculi. No hydronephrosis noted. -Patient's worsening left flank pain does not correlate with renal ultrasound - CT abdomen/pelvis showed distal left ureter 3 mm stone, no hydro -Afebrile, normal white cell count, UA without evidence of infection. UA does show 3+ blood, however patient is currently on menstrual cycle She was treated with cystoscopy, laser treatment and stone removal with left ureteral double J stent placement -[facility] contuned home norco (325/5) for pain control Menorrhagia/Dysmenorrhea -concerning in setting of heterogeneous endometrium on U/S and polyp vs fibroid seen on US -strong FH of endometrial CA--> has appt with MIDDLE SCHOOL DIRECTOR in the next 1-2 weeks Anemia -hemoglobin of 9 -microcytic, likely iron deficiency anemia in setting of menorrhagia -start iron supplementation on discharge FeSO4 325mg po bid Hx of migraines -not on prophylactic medication Depression -continue home lexapro Snoring Was noted to have snoring and short periods of apnea in PACU by report from RN. -does have large neck circumference - reports snoring as well -should have sleep study as outpatient to look for NICOLE-discussed with patient (2) Menorrhagia: With resulting iron deficiency anemia. Configuration Management Specialist f/u after discharge. Urine test negative. (3) Anemia: (4) Abnormal ultrasound of uterus: 3cm uterine mass - fibroid vs polyp vs other (ie - cancer). Has strong family history of uterine cancer. Has scheduled follow-up with Dr. Jones in early June. (5) Hx of migraines: (6) Depression: Total Time Total Time Spent Total Time Spent (In Minutes): >30 min Total Time Includes: Examination of the Patient, Discharge Planning and Medication Reconciliation Discharge Plan Discharge Items Patient Disposition: Home - Self-Care Reason For Visit: LEFT SIDED FLANK PAIN, RENAL COLIC Discharge Diagnosis: Left sided ureterolithiasis Condition: Good Discharge Goals: Decrease discomfort, Diagnostic testing, Improve disease control, Learn about illness and Therapeutic intervention Activity: As commented below Lifting: Gradually increase as tolerated Bathing: No limitations Exercise/Sports: Gradually increase as tolerated Non-emergency contact: Primary Care Provider and Urologist Call non-emergency contact if: you have any medication questions, your symptoms worsen, your pain is not controlled, your pain is worsening, your pain is unusual for you, your pain is concerning for you, you have a fever and your temperature is above 101 Follow-up/Referrals: Maximo Davis MD [Physician] - (Please, follow up at [facility] Urology Office with Dr. Davis. *This office is located at [address] in [place]. If you have any questions, call the office at [phone].) Monserrat Murray MD [Primary Care Provider] - 06/07/18 1:50 pm (Please, follow up at Dr. Murray's office with her associate, Dr. Pisano, on MondayJune 07 at 1:50 pm. *If you need to change/cancel this appointment, call the office at [phone]. ) Diet: Regular Addtl Provider Instructions: You were admitted with a kidney stone lodged in your ureter (the tube that connects your kidney to your bladder). You had a stent placed and the stone removed. Please follow up with Urology as scheduled. You can continue the hydrocodone as needed for pain and follow up with your PCP as scheduled as well. It is normal to have some blood in the urine after this procedure, but if you develop a lot of bleeding or severe pain, fever over 101 degrees, please call your doctor right away. You have a growth in your uterus-please keep your scheduled visit with the Instructor Tap Dancing. You should take iron tablets twice a day for your anemia. Prescriptions: New ferrous sulfate 325 mg (65 mg iron) Tablet,Delayed Release (Dr/Ec) 325 mg PO BID Qty: 60 RF: 0 escitalopram oxalate 20 mg Tablet 20 mg PO QAM Qty: 30 RF: 0 Continue hydrocodone-acetaminophen [[place]] 5-325 mg Tablet 1 tab PO Q6H PRN (Reason: Pain) RF: 0 albuterol sulfate [ProAir HFA] 90 mcg/actuation HFA aerosol inhaler 2 puff Inhalation Q6H PRN (Reason: Shortness Of Breath) RF: 0 Stand-Alone Forms: [facility] Orders: Discharge Order (Routine); Ordered 06/04/18 Ordered By: Starr Godwin Admission Data Admit Date/Time: 06/03/18 03:15 Attending Provider: Starr Godwin Admit Provider: Amelia Tian Primary Care Provider: Monserrat Murray Other Providers: Antonio Araujo David Service: Medical Other Pending Studies at Discharge: No
[2018-06-11 10:13] LABS: Component 2 DNR; Source Ureter
== END 2018-06-04 19:30 | disposition home or self-care (01) ==
LOC: 3N 22:32 → ED 22:32 → SUATTDRO 06-03 03:15 → 3N 06-03 04:04

== ENCOUNTER 2018-08-06 06:59 | Observation (INO) ==
--- NOTE | 2018-07-30 08:56 | PAT Medication Instructions ---
Medication Instructions Date of Service July 30, 2018 Home Medications Medication Instructions Recorded escitalopram oxalate 20 mg PO QAM #30 tab 06/04/18 ferrous sulfate 325 mg PO BID #60 tab 06/04/18 hydrocodone-acetaminophen [[place]] 1 tab PO Q6H PRN escitalopram oxalate 20 mg PO QAM ferrous sulfate 325 mg PO BID acetaminophen 500 mg PO Q6H PRN DO NOT take the morning of surgery ferrous sulfate 325 mg PO BID Take morning of surgery With a small sip of water, OTHERWISE NOTHING TO EAT OR DRINK AFTER MIDNIGHT: hydrocodone-acetaminophen [[place]] 1 tab PO Q6H PRN (if needed, may be taken up to four hours before surgery) escitalopram oxalate 20 mg PO QAM acetaminophen 500 mg PO Q6H PRN (if needed, may be taken up to four hours before surgery) Take evening before surgery hydrocodone-acetaminophen [[place]] 1 tab PO Q6H PRN (if needed) ferrous sulfate 325 mg PO BID acetaminophen 500 mg PO Q6H PRN (if needed) Other Notes If you have any questions please call us at [phone] or [phone] or [phone] or [phone]
--- NOTE | 2018-07-30 11:55 | Anesthesiology Consultation ---
Date of Service July 30, 2018 Assessment & Plan (1) Encounter for pre-operative examination: TEST AM DOS Chart Review Chart Review: Acceptable Risk for Surgery and Patient seen in Pre Admission Testing Teaching & Discussion Instructed NPO after midnight before surgery, except medications with 15 cc of water. Medication instructions provided according to the PAT guidelines. History Surgery Operation Date: 08/06/18 08:30 Proposed Procedures p Robotic Total Laparoscopic Hysterectomy - Yajaira Waggoner MD Height/Weight Height: 5 ft 2 in Weight: 87.8 kg Allergies Allergy/AdvReac Type Severity Reaction Status Date / Time bee venom protein (honey bee) Allergy Severe SHORTNESS Verified 07/23/18 13:47 OF BREATH Fish Containing Products Allergy Severe SWELLING Verified 07/23/18 13:47 AND REDNESS shellfish derived Allergy Severe SWELLING/RED Verified 07/23/18 13:47 SKIN ondansetron Allergy Intermediate HIVES - Verified 07/23/18 13:47 RASH morphine AdvReac Intermediate vomiting Verified 07/23/18 13:47 EXOTIC FRUITS Allergy Mild HIVES RASH Uncoded 07/23/18 13:47 SWELLING Medications Home Medications Medication Instructions Recorded Confirmed Last Taken hydrocodone-acetaminophen [[place]] 1 tab PO Q6H PRN 05/13/18 07/23/18 Unknown escitalopram oxalate 20 mg PO QAM #30 tab 06/04/18 07/23/18 Unknown ferrous sulfate 325 mg PO BID #60 tab 06/04/18 07/23/18 07/05/18 08:15 acetaminophen 500 mg PO Q6H PRN 07/23/18 07/23/18 Unknown Past Medical History Medical History Dysmenorrhea (Acute) Abnormal ultrasound of uterus Iron deficiency anemia 2/2 menorrhagia Nephrolithiasis Depression PER RECORDS Anxiety Diet-controlled diabetes mellitus Menorrhagia Migraine Obesity Uterine fibroid Past Family History Family History Grandfather (Maternal) Family history of diabetes mellitus Past Surgical History Surgical History H/O bone graft Iliac bone graft with lumbar fusion Fusion of lumbar spine BONE GRAFT FROM PELVIS H/O left wrist surgery History of appendectomy History of bilateral tubal ligation History of cholecystectomy History of cystoscopy STONE REMOVAL History of facial surgery RECONSTRUCTION - D/T DEGLOVING History of lithotripsy History of tonsillectomy History of tooth extraction Hx of arthroscopic knee surgery LEFT Hx of dilation and curettage Past Anesthesia History No Family Hx of Anesthesia Complications and Other "Slow to wake" and "low O2 sats" with prior anesthesia emergence per patient. 07/06/18= D+C/HYSTEROSCOPY, LMA #4. POST OP O2 SATS 92-98% per anesthesia progress note (not noted if on room air or oxygen when vitals taken) History of PONV No Motion Sickness Screening History of Motion Sickness: No Social History Smoking Status: Current every day smoker tobacco type: cigarettes Smoking cigarettes per day: 1/2 PACK Do You Dip or Chew Tobacco: No Hx Alcohol Use: No Hx Substance Use: No substance use type: does not use Exercise / Class Metabolic Activity II 4-5 Yardwork/Stairs/Walk up hill (Denies CP or SOB with 1 FOS) Review of Systems Pt denies any recent chest pain, shortness of breath, palpitations, cough, fever or URI. Physical Exam Vital Signs BP: 111/76 P: 87bpm SPO2: 95% RA T: 98.2 F R: 16 ENMT Mouth: no dental restorations, no chipped teeth and no loose teeth Thyromental Distance: > or= 3.5 Finger Breadths (3.5) Mallampati Class: II Neck normal visual inspection and + thick neck; neck extension not limited Respiratory normal respiratory effort Auscultation: lungs clear to auscultation bilaterally Cardiovascular Rate/Rhythm: regular rate and regular rhythm Heart Sounds: no murmur Extremities: no edema Testing Electrocardiogram Date: 06/04/18 Findings: + SB @ (59) Low voltage QRS, no significant change from 12/06/16. Laboratory Results 07/30/18 12:14 Blood Type A Positive 07/30/18 12:14 Antibody Screen NEGATIVE 07/30/18 12:14 06/06/18 SODIUM: 139 POTASSIUM: 3.9 CHLORIDE: 108 CO2: 23 BUN: 15 CREATININE: 0.69 GLUCOSE: 94
[2018-07-30 14:11] LABS: Basophils # (auto) 0.01 K/uL (0-0.2); Basophils % (auto) 0.2 %; Eosinophils # (auto) 0.29 K/uL (0-0.5); Eosinophils % (auto) 4.4 %; Hematocrit (blood only) 35.1 % (37-47); Hemoglobin 11.1 g/dL (12.0-16.0); Immature Granulocytes # (auto) 0.02 K/uL (0.00-0.02); Immature Granulocytes % (auto) 0.3 %; Lymphocytes # (auto) 1.54 K/uL (1.2-3.4); Lymphocytes % (auto) 23.5 %; Mean Corpuscular Hgb Conc 31.6 g/dL (32-36); Mean Corpuscular Volume 77.3 fL (80-100); Mean Platelet Volume 8.5 fL (7.4-10.4); Monocytes # (auto) 0.38 K/uL (0.11-0.59); Monocytes % (auto) 5.8 %; Neutrophils % (auto) 65.8 %; Platelet Count 438 K/uL (130-400); RDW Coefficient of Variation 16.3 % (11.5-14.5); RDW Standard Deviation 46.2 fL (36.4-46.3); Red Blood Count 4.54 M/uL (4.2-5.4); White Blood Count 6.54 K/uL (4.8-10.8)
[~2018-08-06 06:59] MED LIST changes: +CEFAZOLIN 2000MG 2,000 MG/15 ML SYR IV SCH; -CYCL5TAB PO; -HYDR-5688 PO; +LACTATED RINGER'S 1,000 ML IV SCH; +LR 15ML/HR IV SCH; -NORT10CA2 PO; -NRN600 PO; -PROM25TA9 PO; -PROP10TA7 PO
--- NOTE | 2018-08-06 07:11 | History & Physical Bridge Note ---
Date of Service August 06, 2018 History & Physical Bridge Note I have examined the patient, reviewed the History & Physical and in the interval since the performance of the History & Physical I have noted the following changes of clinical significance: no changes noted
[2018-08-06] MEDS ORDERED: IBUPROFEN 600 MG TAB PO PRN (07:57)
[2018-08-06] MEDS ORDERED: PROMETHAZINE HCL 12.5 MG in SODIUM CHLORIDE 0.9% 50 ML IV PRN ×2 (07:57→09:22)
[2018-08-06] MEDS ORDERED: MEPERIDINE HCL 25 MG/ML CARP IV PRN (07:57)
[2018-08-06] MEDS ORDERED: OXYCODONE/ACETAMINOPHEN 5mg/325mg TAB PO PRN (07:57)
[2018-08-06] MEDS ORDERED: MEPERIDINE HCL 50 MG/ML CARP IV PRN (07:57)
[2018-08-06] MEDS ORDERED: ACETAMINOPHEN 325 MG TAB PO PRN (07:57)
[2018-08-06] MEDS ORDERED: ZOLPIDEM TARTRATE 5 MG TAB PO PRN (07:57)
[2018-08-06] MEDS ORDERED: SIMETHICONE 80 MG CHEW PO PRN (07:57)
[2018-08-06] MEDS ORDERED: MAGNESIUM HYDROXIDE SUSP 30 ML UDC PO PRN (07:57)
[2018-08-06] MEDS ORDERED: LACTATED RINGER'S 1,000 ML IV SCH (08:00)
[2018-08-06] MEDS ORDERED: METHYLENE BLUE 0.5% 10 ML VIAL ONE (08:29)
[2018-08-06] MEDS ORDERED: MIDAZOLAM HCL 1 MG/ML 2ML VIAL ONE (08:31)
[2018-08-06] MEDS ORDERED: fentaNYL citrate 100 MCG/2 ML VIAL ONE ×2 (08:31→09:47)
[2018-08-06] MEDS ORDERED: PROPOFOL IV EMULSION 10 MG/ML 20 ML VIAL IV ONE ×2 (08:31→10:06)
[2018-08-06] MEDS ORDERED: LIDOCAINE HCL 2% 2 ML VIAL/AMP(20MG/ML) INFIL ONE (08:31)
[2018-08-06] MEDS ORDERED: ATROPINE SULFATE 0.1 MG/ML 10ML SYR IV PRN (09:22)
[2018-08-06] MEDS ORDERED: ePHEDrine sulfate 50 MG/ML AMP IV PRN (09:22)
[2018-08-06] MEDS ORDERED: GLYCOPYRROLATE 0.2 MG/ML VIAL ONE (10:06)
[2018-08-06] MEDS ORDERED: NEOSTIGMINE METHYLSULFATE 5 MG/5 ML SYR ONE (10:06)
[2018-08-06] MEDS ORDERED: ROCURONIUM BROMIDE 10 MG/ML 5 ML VIAL ONE (10:06)
[2018-08-06] MEDS ORDERED: DEXAMETHASONE SOD INJ 4 MG/ML VIAL ONE (10:07)
[2018-08-06] MEDS ORDERED: KETOROLAC 30 MG/ML VIAL ONE (10:07)
[2018-08-06] MEDS ORDERED: METOCLOPRAMIDE HCL INJ 5 MG/ML 2 ML VIAL ONE (10:07)
--- NOTE | 2018-08-06 10:12 | Operative Report ---
Post Operative Report Pre & Post Diagnosis Operation Date: 08/06/18 08:30 Pre-Op Diagnosis: Endometrial mass, Fibroid uterus, Menorrhagia Post-Op Diagnosis: Endometrial mass, Fibroid uterus, Menorrhagia Procedure Operation Date: 08/06/18 08:30 Actual Procedures p Robotic Total Laparoscopic Hysterectomy with bilateral salpingectomy, cystoscopy(Not Applicable) - Yajaira Waggoner MD Surgeon Yajaira Waggoner MD 3D Specialist Geneva Suh MD Estimated Blood Loss 15 Findings Consistent with Post-Op Diagnosis Specimens Uterus, Fallopian Tubes, Cervix Anesthesia Type General Complications none Disposition Accompanied Patient To Recovery: Yes Disposition: Recovery Room Description of Procedure The patient was brought to the operating room and placed on the table in dorsal lithotomy position with yellofin stirrups, prepped and draped in standard sterile fashion, and a hard time out was taken prior to proceeding. The bladder was emptied via placement of woodard catheter. A [employer] uterine manipulator was placed in the usual manner. Attention was then turned to the abdomen where optical entry was made at the umbilicus without complication. The abdomen was insufflated and the patient was placed in steep Trendelenburg. Under direct visualization, right and left lower quadrant ports were placed without complication. Survey of the abdomen revealed Normal ovaries bilaterally, prior tubal ligation, mildly enlarged and misshapen uterus. The robot was then docked and surgery proceeded with the surgeon at the console. The ureter was identified on each side and traced along its course into the pelvis. Each fallopian tube in turn was elevated, dissected off the mesosalpinx and left attached to the uterine cornu. Each utero-ovarian ligament was ligated and then divided. Each round ligament was ligated and then divided. The anterior leaflets of the broad ligament were dissected to create a bladder flap which was gently mobilized downward below the colpotomy cup ridge. Each uterine artery was skeletonized, ligated, and then divided. Circumferential colpotomy was then completed following the colpotomy cup guide. The cervix, uterus and bilateral tubes were then retrieved en bloc via the vagina. The vaginal cuff was then closed using V-Madhavi suture in the typical running non-locked fashion. The needle was retrieved through a trocar, and suction/irrigation was then used to remove any debris and ensure good hemostasis at all working sites. After administration of IV Methylene Blue dye, cystoscopy was then utilized to examine the bladder dome which was free of suture or injury. The ureteral orifices were observed until a good strong jet of blue stained urine was seen from each. The bladder was then drained. The robot was then undocked, and abdominal trocar sites were closed using a UR6 at the umbilical fascia and 4-0 monocryl at each of the skin incisions. A dermabond dressing was applied to each site. A final vaginal exam ensured no materials were present in the vagina and the cuff was i ntact. The patient was then transferred in stable condition to the recovery room. I attest to the content of the Intraoperative Record and any orders documented therein. Any exceptions are noted below.
[2018-08-06] MEDS: fentaNYL citrate 100 MCG/2 ML VIAL IV PRN ×2 (10:47→10:52)
[2018-08-06] MEDS: HYDROmorphone INJ 1 MG/ML SYRINGE IV PRN ×6 (10:57→11:22)
--- NOTE | 2018-08-06 11:31 | Anesthesiology Progress Note ---
Date of Service August 06, 2018 Anesthesia Post Procedure Vital Signs Vital Signs: Temp Pulse Pulse Resp BP Pulse Ox 08/06/18 10:33 36.8 C 111 H 16 129/66 95 08/06/18 07:41 36.8 C 88 18 107/76 95 Pain Intensity Abdomen: Pain Intensity: 7 Back: Pain Intensity: 7 Notes Mental Status: alert / awake / arousable and participated in evaluation Patient Amnestic to Procedure: Yes Nausea / Vomiting: adequately controlled Pain: improving with treatment Airway Patency, RR, SpO2: stable & adequate BP & HR: stable & adequate Hydration State: stable & adequate Anesthetic Complications: no major complications apparent and Pt Satisfied with anesthetic care
[2018-08-06] MEDS: PROMETHAZINE HCL 25 MG in SODIUM CHLORIDE 0.9% 50 ML IV PRN ×2 (13:31→23:04)
[2018-08-06 14:41] LABS: Hematocrit (blood only) 32.2 % (37-47); Hemoglobin 10.4 g/dL (12.0-16.0)
[2018-08-06] MEDS: OXYCODONE/ACETAMINOPHEN 5mg/325mg TAB PO PRN (19:53)
[2018-08-06] MEDS: DOCUSATE SODIUM 100 MG CAP PO SCH (20:03)
--- OUTSIDE RECORDS SUMMARY | 2018-08-06 22:49 | External Medical Summary | Continuity of Care Document ---
:1980 Author Name Tammy Spence, Provider Address Unavailable Unavailable , Care Team Providers Name Role Phone Rosaline Spence, [email or web address] Trevor Spence, [email or web address] MURRAY M.D., [place] Unavailable Unavailable Jeannine RODRIGUEZ Unavailable Unavailable CHANELL, Angie Unavailable Unavailable BADER, A Unavailable Unavailable Unavailable Unavailable Unavailable Problems Endometrial mass (625.8) (N94.89) Restrictive lung disease (518.89) (J98.4) Abnormal breast finding (796.4) (N64.59) Vitamin D deficiency (268.9) (E55.9) Dysmenorrhea (625.3) (N94.6) Carpal tunnel syndrome (354.0) (G56.00) Arthralgia of multiple sites (719.49) (M25.50) Nausea (787.02) (R11.0) Joint pain in fingers of right hand (719.44) (M25.541) Knee pain (719.46) (M25.569) Pain, foot (729.5) (M79.673) Right flank pain (789.09) (R10.9) Vision problems (V41.0) (H54.7) Depression (311) (F32.9) Endometrial polyp (621.0) (N84.0) Submucous leiomyoma of uterus (218.0) (D25.0) Menorrhagia (626.2) (N92.0) Anemia (285.9) (D64.9) Nephrolithiasis (592.0) (N20.0) Apnea (786.03) (R06.81) Snoring (786.09) (R06.83) 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 migraine 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) (G43.109) Lumbar back pain with radiculopathy affe cting right lower extremity (724.4) (M54.16) Chronic bronchitis (491.9) (J42) Anxiety (300.00) (F41.9) Obesity (278.00) (E66.9) Diabetes mellitus, type 2 (250.00) (E11.9) Back pain, chronic (724.5) (M54.9) Current smoker (305.1) (F17.200) Allergies and Adverse Reactions Morphine Derivatives (Adverse Event) [place] ction: Vomiting Zofran SOLN (Allergy) Reaction: Hives, R fredo Medications LORazepam 0.5 MG Oral Tablet; TAKE ONE-H [facility] TO ONE TABLET BY MOUTH EVERY 8 HOURS NEEDED FOR ANXIETY Bebe Murray Start: 06-Aug-2015 Quantity: 30 Refills: 0 Escitalopram Oxalate 20 MG Oral Tablet; Take 1 tablet daily Bebe Murray Start: 12-Sep-2017 Quantity: 30 Refills: 5 HYDROcodone-Acetaminophen 5-325 MG Oral Tablet; TAKE 1 TABLET EVERY 6 HOURS NEEDED FOR PAIN. Bebe Murray Start: 15-Jun-2017 Quantity: 30 Refills: 0 Procedures X-ray 1 view Abdomen (KUB) Date: 12-Jun-2018 History of Tonsillectomy Status: Complet ed History of Appendectomy Status: Complete d History of Cholecystectomy Status: Compl eted History of Renal Lithotripsy Status: Com pleted History of Tubal Ligation Status: Comple candida History of Facial Surgery Status: Comple candida History of Breast Surgery Status: Comple candida History of Wrist Surgery Status: Complet ed History of section Status: Comp leted History of knee surgery Status: Complete d History of hand surgery Status: Complete d History of lumbar vertebral fusion Statu s: Completed History of Laparoscopy With Total Hysterectomy Status: Completed Immunizations Immunizations not documented Family History Mother Family history of Anxiety (300.00) (F41.9) Status: Active Family history of depression (V17.0) (Z81.8) Status: Active Family history of diabetes mellitus (V18.0) (Z83.3) Status: Active Family history of kidney stones (V18.69) (Z84.1) Status: Act osman Family history of malignant neoplasm of uterus (V16.49) (Z80 .49) Status: Active aunt Family history of malignant neoplasm of breast (V16.3) (Z80. 3) Status: Active Family history of diabetes mellitus (V18.0) (Z83.3) Status: Active Grandmother Family history of myocardial infarction (V17.3) (Z82.49) Sta tus: Active Sister Family history of kidney stones (V18.69) (Z84.1) Status: Act osman Family history of malignant neoplasm of uterus (V16.49) (Z80 .49) Status: Active aunt Family history of ovarian cancer (V16.41) (Z80.41) Status: A ctive Family history of multiple sclerosis (V17.2) (Z82.0) Status: Active Family history of malignant neoplasm of cervix (V16.49) (Z80 .49) Status: Active Family history of malignant neoplasm of uterus (V16.49) (Z80 .49) Status: Active Grandfather Family history of multiple sclerosis (V17.2) (Z82.0) Status: Active Grandmother Family history of malignant neoplasm of uterus (V16.49) (Z80 .49) Status: Active Social History - Smoking Status Smoker. current status unknown Plan of Treatment Planned Encounters Appointment; Yajaira Waggoner M.D. Start: 22-Aug-2018 9:30 R equest Planned Observations Planned Goals not documented Results CBC With DIFF (Pending) Laboratory: [facility] [address] [facility] [address] tel: 30-Jul-2018 12:14 WBC 6.54 K/uL Range: 4.8-10.8 K/u L RBC 4.54 {M/uL} Range: 4.2-5.4 M/uL HEMOGLOBIN 11.1 g/dL (below low Range: 12.0-16.0 g/dL threshold) HEMATOCRIT 35.1 % (below low Range: 37- 47 % threshold) MCV 77.3 fL (below low threshold) Range: 80-100 fL MCH 24.4 pg (below low threshold) Range: 25-34 pg MEAN CORPUSCULAR HGB CONC 31.6 g/dL Rang e: 32-36 g/dL (below low threshold) RED CELL DISTRIBUTION WIDTH SD 46.2 Rang e: 36.4-46.3 fL fL RED CELL DISTRIBUTION WIDTH CV 16.3 Rang e: 11.5-14.5 % % (above high threshold) PLATELET COUNT 438 K/uL (above high Rang e: 130-400 K/uL threshold) MEAN PLATELET VOLUME 8.5 fL Range: 7.4- 10.4 fL NEUT % 65.8 % Range: % LYMPH % 23.5 % Range: % MONO % 5.8 % Range: % EOS % 4.4 % Range: % BASO % 0.2 % Range: % IG% 0.3 % Range: % Comments: IG paramet er reflects the combination of Metas, Myelos andPromyelocytes. Neutrophils (Auto) 4.30 K/uL Range: 1. 4-6.5 K/uL LYMPH ABS # 1.54 K/uL Range: 1.2-3.4 K/ uL MONO ABS # 0.38 K/uL Range: 0.11-0.59 K /uL EOS ABS # 0.29 K/uL Range: 0-0.5 K/uL BASO ABS # 0.01 K/uL Range: 0-0.2 K/uL IG# 0.02 K/uL Range: 0.00-0.02 K/ uL BLOOD BANK HOLD TUBE Laboratory: [facility] Laboratory [address] [facility] [address] tel: 06-Aug-2018 7:28 BLOOD BANK HOLD TUBE Run: 08/06/18 0748 [facility] Pathology Report Name: MARICARMEN MEHTA Age/Sex: 38/F [id number] Unit: [id number] Status: REG [facility] Room/Bed:Re08/06/18 Disch: Att Dr: Yajaira Waggoner MD Spec: [id number] Collected: 08/06/18Received: 08/06/[address]: Yajaira Waggoner, [facility] To: Monserrat Murray MDOrd Prods: (NO ORDERED PRODUCTS)Ord Tests: (NO REPORTABLE TESTS) Test Result Flag Reference Site <No reportable results> Tests : Date Time Order Change Action User08/05/18 1411 Blood Bank Hold 1 NEW 12526 END OF REPORT , Urine - Point Laboratory: [facility] [address] (Pending) [place] [address] tel: 06-Aug-2018 8:11 , Urine (Point of Care) Range: NEG NEG Vital Signs 30-Jul-2018 10:31 Systolic 122 mm[Hg] Diastolic 78 mm[Hg] Height 62 in BSA Calculated 1.89 m2 BMI Calculated 35.52 kg/m2 Weight 194.2 lb Encounters Appointment; Yajaira Waggoner M.D. 06-Aug-2018 10:30 Encounter Diagnosis: Problem not documented Appointment; Yajaira Waggoner M.D. 30-Jul-2018 10:30 Encounter Diagnosis: Problem not documented Appointment; Love Busch M.D. 06-Jul-2018 7:00 Encounter Diagnosis: Problem not documented Appointment; Love Busch M.D. 14-Jun-2018 15:20 Encounter Diagnosis: Problem not documented Appointment; OBGYN SC2, Ultrasound 14-Jun-2018 15:15 Encounter Diagnosis: Problem not documented Appointment; Yusef Sandoval M.D. 12-Jun-2018 9:40 Encounter Diagnosis: Problem not documented Appointment; Urology, Room 8 12-Jun-2018 9:40 Encounter Diagnosis: Problem not documented Appointment; Silvano Taveras PA-C 30-Nov-2017 10:30 Encounter Diagnosis: Problem not documented Appointment; Monserrat Murray M.D. 21-Nov-2017 17:00 Encounter Diagnosis: Problem not documented Appointment; Monserrat Murray M.D. 12-Sep-2017 15:00 Encounter Diagnosis: Problem not documented Appointment; Monserrat Murray M.D. 14-Jul-2017 15:00 Encounter Diagnosis: Problem not documented Appointment; Wellness, Nurse 14-Jul-2017 15:00 Encounter Diagnosis: Problem not documented Appointment; Barby Duong PA-C 15-Jun-2017 14:00 Encounter Diagnosis: Problem not documented Appointment; Love Busch M.D. 17-Apr-2017 13:40 Encounter Diagnosis: Problem not documented Appointment; Tono Villaseñor M.D. 02-Feb-2017 12:30 Encounter Diagnosis: Problem not documented Appointment; Alex Littlejohn M.D. 27-Jan-2017 9:00 Encounter Diagnosis: Problem not documented Appointment; Silvano Taveras PA-C 12-Jan-2017 15:15 Encounter Diagnosis: Problem not documented Appointment; Silvano Taveras PA-C 21-Dec-2016 10:45 Encounter Diagnosis: Problem not documented Appointment; Pamela Royal PA-C 17-Nov-2016 15:00 Encounter Diagnosis: Problem not documented Appointment; Monserrat Murray M.D. 15-Nov-2016 13:30 Encounter Diagnosis: Problem not documented Appointment; Pulmonary, Funct Testing 09-Nov-2016 13:00 Encounter Diagnosis: Problem not documented Appointment; Monserrat Murray M.D. 25-Oct-2016 16:30 Encounter Diagnosis: Problem not documented Appointment; Yajaira Baker PA-C 18-Oct-2016 9:45 Encounter Diagnosis: Problem not documented Appointment; Pulmonary, Funct Testing 10-Oct-2016 13:00 Encounter Diagnosis: Problem not documented Appointment; Na Mathis PA-C 30-Sep-2016 10:30 Encounter Diagnosis: Problem not documented Appointment; Tremaine Lee M.D. 09-Aug-2016 15:40 Encounter Diagnosis: Problem not documented Appointment; Yajaira Waggoner M.D. 22-Aug-2018 9:30 Encounter Diagnosis: Problem not documented
[2018-08-06] MEDS ORDERED: HYDROmorphone INJ 2 MG/ML SYR/VIAL IV STA (22:50)
[2018-08-06] MEDS ORDERED: KETOROLAC 30 MG/ML VIAL IV ONE (22:51)
[2018-08-06] MEDS ORDERED: HYDROmorphone INJ 1 MG/ML SYRINGE ONE (22:54)
[2018-08-06] MEDS: KETOROLAC 30 MG/ML VIAL IV PRN (22:56)
[2018-08-07] MEDS: OXYCODONE/ACETAMINOPHEN 5mg/325mg TAB PO PRN ×2 (03:30→08:02)
[2018-08-07] MEDS: KETOROLAC 30 MG/ML VIAL IV PRN (05:46)
--- NOTE | 2018-08-07 07:23 | Obstetrical Progress Note ---
Date of Service August 07, 2018 Assessment & Plan (1) Menorrhagia: Patient underwent uncomplicated hysterectomy on 08/06. Doing well POD#0 but patient preferred to stay in house overnight due to fear that her large pet dogs would jump on her belly at home and worsen her pain. Has met all criteria for discharge. Pain Rx plan discussed and pt in agreement. Present on Admission?: Yes Subjective Patient ambulating, voiding, tolerating regular diet, using PO pain medication. For discharge today. Note: Patient also seen and examined last night, I was at bedside from 5p to 5:30pm. and daughter also present at that time. Patient doing well then, was receiving dinner and felt ready to eat. Lengthy discussion at that time about pain medication for post op which would include the usual 20 tabs percocet, and I agreed to rx flexeril for exacerbation of back pain due to surgical bed and positioning. Physical Exam Physical Exam: Gen: NAD, seated semi-krishnan Cor: RRR Lungs: No respiratory distress, normal rate Abd: C/D/I x3 sites, soft, NT Ext: SCD in place Results & Data Vital Signs (Past 12 Hours) Vital Signs Temp Pulse Pulse Resp BP Pulse Ox 08/07/18 03:36 36.9 C 84 22 94/60 L 93 08/06/18 23:35 37 C 81 81 20 84/47 L 93 08/06/18 19:50 36.9 C 90 18 85/54 L 93 (1) Menorrhagia Menorrahagia type: with irregular cycle Qualified Code(s): N92.1 - Excessive and frequent menstruation with irregular cycle
[2018-08-07] MEDS ORDERED: CYCLOBENZAPRINE HCL 10 MG TAB PO STA (07:33)
[2018-08-07] MEDS: DOCUSATE SODIUM 100 MG CAP PO SCH (08:01)
--- NOTE | 2018-08-07 08:58 | Anesthesiology Progress Note ---
Date of Service August 07, 2018 Anesthesia Post Procedure Vital Signs Vital Signs: Temp Pulse Pulse Pulse Pulse Resp BP 08/07/18 08:21 36.9 C 79 81 16 08/07/18 07:30 36.9 C 79 16 08/07/18 03:36 36.9 C 84 22 08/06/18 23:35 37 C 81 81 20 08/06/18 19:50 36.9 C 90 18 08/06/18 15:00 37 C 94 H 16 08/06/18 14:01 08/06/18 14:00 36.8 C 79 16 08/06/18 13:00 36.6 C 88 16 08/06/18 12:30 36.5 C 77 15 08/06/18 12:00 36.7 C 86 16 08/06/18 11:51 74 23 98/65 L 08/06/18 11:46 72 20 107/70 08/06/18 11:45 71 20 08/06/18 11:41 76 22 118/70 08/06/18 11:40 82 17 08/06/18 11:36 73 22 102/68 08/06/18 11:31 92 H 18 87/53 L 08/06/18 11:30 79 13 08/06/18 11:29 73 18 92/57 L 08/06/18 11:25 80 20 08/06/18 11:21 82 15 104/58 L 08/06/18 11:16 87 18 90/53 L 08/06/18 11:15 82 17 08/06/18 11:11 81 25 H 98/57 L 08/06/18 11:10 80 25 H 08/06/18 11:06 86 22 100/59 L 08/06/18 11:01 77 21 105/64 08/06/18 11:00 79 21 08/06/18 10:56 95 H 16 96/71 L 08/06/18 10:51 82 20 112/64 08/06/18 10:50 87 24 08/06/18 10:46 95 H 24 100/76 08/06/18 10:45 95 H 24 08/06/18 10:41 104 H 20 122/74 08/06/18 10:36 105 H 20 107/73 08/06/18 10:35 108 H 20 08/06/18 10:34 109 H 19 08/06/18 10:33 36.8 C 111 H 111 H 22 129/66 BP Pulse Ox 08/07/18 08:21 88/51 L 93 08/07/18 07:30 88/51 L 93 08/07/18 03:36 94/60 L 93 08/06/18 23:35 84/47 L 93 08/06/18 19:50 85/54 L 93 08/06/18 15:00 95/57 L 95 08/06/18 14:01 96 08/06/18 14:00 96/65 L 90 08/06/18 13:00 98/64 L 93 08/06/18 12:30 97/63 L 94 08/06/18 12:00 96/62 L 95 08/06/18 11:51 94 08/06/18 11:46 94 08/06/18 11:45 95 08/06/18 11:41 94 08/06/18 11:40 95 08/06/18 11:36 94 08/06/18 11:31 95 08/06/18 11:30 95 08/06/18 11:29 93 08/06/18 11:25 95 08/06/18 11:21 95 08/06/18 11:16 94 08/06/18 11:15 92 08/06/18 11:11 94 08/06/18 11:10 91 08/06/18 11:06 94 08/06/18 11:01 95 08/06/18 11:00 93 08/06/18 10:56 94 08/06/18 10:51 92 08/06/18 10:50 93 08/06/18 10:46 95 08/06/18 10:45 95 08/06/18 10:41 95 08/06/18 10:36 98 08/06/18 10:35 97 08/06/18 10:34 93 08/06/18 10:33 129/66 95 Pain Intensity Abdomen: Pain Intensity: 5 Back: Pain Intensity: 5 Notes Mental Status: alert / awake / arousable and participated in evaluation Patient Amnestic to Procedure: Yes Nausea / Vomiting: adequately controlled Pain: adequately controlled Airway Patency, RR, SpO2: stable & adequate BP & HR: stable & adequate Hydration State: stable & adequate Anesthetic Complications: no major complications apparent and Pt Satisfied with anesthetic care
--- NOTE | 2018-08-08 16:54 | Discharge Summary ---
Date of Service August 08, 2018 Admission HPI Per Admitting Provider Menorrhagia, fibroid uterus, desires definitive treatment. Discharge Data Procedures Performed Operation Date: 08/06/18 08:30 Actual Procedures p Robotic Total Laparoscopic Hysterectomy with bilateral salpingectomy, (Not Applicable) - Yajaira Waggoner MD s Cystoscopy(Not Applicable) - Yajaira Waggoner MD Hospital Course (1) Menorrhagia: Patient underwent uncomplicated hysterectomy on 08/06. Did well POD#0 but patient preferred to stay in house overnight due to fear that her large pet dogs would jump on her belly at home and worsen her pain. Met all criteria for discharge and was sent home on morning of POD#1. Pain Rx plan discussed and pt in agreement; also discussed via task with PCP Dr. Murray so she is aware of new narcotic Rx. Sent home with percocet #20 for surgical pain, Flexeril 10mg tablets for muscle spasms in existing trouble area in the lower back and R hip, and patient also to continue use of baseline norco Rx through PCP.
== END 2018-08-07 09:40 | disposition home or self-care (01) ==
LOC: 4N 06:59 → ASU 06:59

== ENCOUNTER 2021-11-07 17:46 | Inpatient (IN) ==
[2021-11-07] MEDS ORDERED: SODIUM CHLORIDE 0.9% 1000ML 1,000 ML IV ONE (17:56)
[2021-11-07] MEDS ORDERED: PROMETHAZINE 12.5 MG/50.5 ML BAG IV STA (18:03)
[2021-11-07] MEDS ORDERED: ACETAMINOPHEN 1000 MG/100 ML IV IV STA (18:03)
[2021-11-07] MEDS ORDERED: HYDROmorphone INJ 1 MG/ML SYRINGE IV STA (18:03)
--- NOTE | 2021-11-07 18:08 | Emergency Department Note ---
Impression & Plan Acute right flank pain, Renal colic ED Provider Note NAME: MARICARMEN MEHTA AGE: 41 SEX: F : 1980 ARRIVES VIA: Walk-In INFORMANT: [Patient] ED PROVIDER(S): [Umair Mcbride MD] CHIEF COMPLAINT: Kidney stone HISTORY OF PRESENT ILLNESS: Patient is a 41-year-old female who presents with right flank discomfort. The pain has been severe for 2 hours. She is tearful. She has had some nausea. No fever. No urinary burning but she has occasionally noticed urgency and frequency. The patient was in our ED on the of this month, she was diagnosed with a 3 mm right fairly proximal ureteral stone. She states that she has been straining her urine and there has been no stone passage. She is frustrated that she is still having discomfort from the same small stone. The patient was on Keflex for potential UTI, her culture though did return negative. She was using Flomax to help stone passage. She states that she took some ibuprofen before coming in, this has not helped. She was prescribed oxycodone at her last ED visit to help with the pain. The patient is asking to be hospitalized for potential stone extraction. She sees Dr. Davis of urology. REVIEW OF SYSTEMS: See HPI for pertinent positives and negatives. A total of ten systems were reviewed and were otherwise negative. PMHx/PSHx: See Below SOCIAL HISTORY: See Below. PHYSICAL EXAM: GENERAL: Patient is in moderate distress from pain. Tearful. HEENT: No acute trauma, normocephalic atraumatic, mucous membranes moist, no nasal congestion, no scleral icterus. NECK: No stridor, no adenopathy, no meningismus, trachea is midline. LUNGS: Clear to auscultation bilaterally, no wheeze, no rhonchi, breath sounds equal. HEART: Without murmurs gallops or rubs, regular rate and rhythm. ABDOMEN: Soft, nontender, bowel sounds positive, no peritonitis. EXTREMITIES: No cyanosis or edema, full range of motion of all the joints without pain or difficulty, no signs for acute trauma. NEUROLOGIC: Oriented x 3, no acute motor or sensory deficits, no focal weakness. SKIN: No rash, no jaundice, no diaphoresis. Back: Right flank discomfort to percussion. DIFFERENTIAL DIAGNOSIS: Renal colic, UTI, appendicitis, diverticulitis, mesenteric ischemia, aortic pathology, infections, inflammatory bowel disease, PUD, biliary pathology, failed outpatient management, as well as other pathologies. EMERGENCY DEPARTMENT COURSE/PROCEDURES: MEDICAL DECISION MAKING: There is no leukocytosis or concerning anemia. There is a normal platelet count. There is no significant electrolyte abnormality, no renal failure. testing was negative. Urinalysis did show some hematuria and some contamination, no obvious infection. COVID test returned negative. Renal ultrasound showed some mild hydronephrosis on the right. They could not visualize any ureteral stone by ultrasound. The patient was quite uncomfortable. She has been dealing with a ureteral stone on the right now for weeks. She is failing outpatient treatment. The patient received IV saline, IV Phenergan, IV Tylenol. She received IV Dilaudid. I did speak to the patient about her findings, I spoke with case management. I spoke with the on-call hospitalist. Patient does seem more comfortable since treatment here in the ED. Past Med/Surg History Medical History Anxiety and depression NO MEDS Diet-controlled diabetes mellitus History of uterine fibroid Lumbar degenerative disc disease Migraine Rheumatoid arthritis Surgical History Fusion of lumbar spine BONE GRAFT FROM PELVIS H/O bone graft Iliac bone graft with lumbar fusion H/O left wrist surgery H/O shoulder surgery RT History of appendectomy History of bilateral breast reduction surgery History of bilateral tubal ligation History of cholecystectomy History of cystoscopy STONE REMOVAL History of facial surgery RECONSTRUCTION - D/T DEGLOVING History of hand surgery Rt x 2 FINGER I & D History of hysterectomy History of lithotripsy History of tonsillectomy History of tooth extraction Hx of arthroscopic knee surgery LEFT X 2 Hx of dilation and curettage Slow to wake up after anesthesia Family History Grandfather (Maternal) Family history of diabetes mellitus Mother Diabetes Depression Kidney stones Uterine malignant neoplasm Aunt Ovarian cancer maternal Diabetes Breast cancer Sister Kidney stones Uterine malignant neoplasm Grandmother Myocardial infarction Uterine malignant neoplasm Other Adopted Denies family history of Colorectal cancer Social History Smoking Status: Current every day smoker Tobacco Type: Cigarettes Age Started Using Tobacco: 14; packs per day: 0.5; Cigarettes Per Day: 1/2 ppd; Second Hand Exposure: No; Hx Alcohol Use: No Hx Substance Use: No Preferred Language: [place] Communication Ability: Effective Visual Impairment: No Limitations Hearing Ability: Normal Enterostomal Nurse Required: No Beliefs That Will Affect Care: None marital status: Current Living Situation: Spouse current occupational status: disabled Feels Safe at Home: Yes Childhood Exposure to Second-Hand Smoke: No during the past year weight has: remained stable Dental Care, Regularly: No Physical Activity Frequency: Other Assistive Devices: Contacts Allergies Allergies Allergy/AdvReac Type Severity Reaction Status Date / Time bee venom protein (honey bee) Allergy Severe SHORTNESS Verified 10/25/21 23:24 OF BREATH Fish Containing Products Allergy Severe SWELLING Verified 10/25/21 23:24 AND REDNESS shellfish derived Allergy Severe SWELLING/RED Verified 10/25/21 23:24 SKIN ondansetron Allergy Intermediate HIVES - Verified 10/25/21 23:24 RASH morphine AdvReac Intermediate projective Verified 10/25/21 23:24 vomitting EXOTIC FRUITS Allergy Intermediate HIVES RASH Uncoded 10/25/21 23:24 SWELLING Home Meds Home Medications Medication Instructions Recorded Confirmed acetaminophen 500 mg tablet 1,000 mg PO Q6H PRN Pain 10/25/21 11/07/21 (Tylenol Extra Strength) ibuprofen 800 mg tablet 800 mg PO Q8 PRN Pain 10/25/21 11/07/21 oxycodone 5 mg tablet 5 mg PO Q6H PRN Pain, Severe 11/07/21 11/07/21 Results & Data (ED) Vital Signs Vital Signs - 24 hr 11/07/21 17:48 11/07/21 18:49 11/07/21 18:50 Temperature 36.9 C Temperature Source Oral Pulse Rate 88 Pulse Rate from SpO2 Sensor 76 Respiratory Rate 20 Blood Pressure 123/83 126/88 Blood Pressure Mean 96 100 Pulse Oximetry 98 98 Oxygen Delivery Method Room Air Sepsis Recent Fever Within 48 Hours No Sepsis New/Unexplained Change in Mental Status No Sepsis Action Taken by Nursing No Action Required 11/07/21 19:56 11/07/21 19:56 11/07/21 20:00 Temperature Temperature Source Pulse Rate Pulse Rate from SpO2 Sensor 69 Respiratory Rate Blood Pressure 90/57 L 87/59 L Blood Pressure Mean 68 68 Pulse Oximetry 94 Oxygen Delivery Method Sepsis Recent Fever Within 48 Hours Sepsis New/Unexplained Change in Mental Status Sepsis Action Taken by Nursing 11/07/21 20:00 11/07/21 20:19 11/07/21 20:19 Temperature Temperature Source Pulse Rate Pulse Rate from SpO2 Sensor 60 59 L Respiratory Rate Blood Pressure 114/47 L Blood Pressure Mean 69 Pulse Oximetry 92 98 Oxygen Delivery Method Sepsis Recent Fever Within 48 Hours Sepsis New/Unexplained Change in Mental Status Sepsis Action Taken by Retirement Medications Current Medication List: was personally reviewed by me Laboratory Data Attestation: I reviewed the patient's lab results. Result diagrams: 11/07/21 17:59 11/07/21 17:59 Lab Results 11/07/21 11/07/21 11/07/21 Range/Units 17:59 17:59 17:59 WBC 10.48 (4.8-10.8) K/ul RBC 5.34 H (3.93-5.22) M/uL Hgb 16.3 H (12.0-16.0) g/dl Hct 47.2 H (34.1-44.9) % MCV 88.4 (80.0-100.0) fL MCH 30.5 (25.0-34.0) pg MCHC 34.5 (32.0-36.0) g/dL RDW Std Deviation 40.4 (36.4-46.3) fL RDW Coeff of Cecilio 12.6 (11.5-14.5) % Plt Count 370 (130-400) K/uL MPV 8.2 L (9.4-12.3) fL Immature Gran % (Auto) 0.4 % Neut % (Auto) 65.8 % Lymph % (Auto) 24.0 % Bell % (Auto) 5.9 % Eos % (Auto) 3.4 % Baso % (Auto) 0.5 % Neut # (Auto) 6.89 H (1.4-6.5) K/uL Lymph # (Auto) 2.52 (1.2-3.4) K/uL Bell # (Auto) 0.62 (0.24-0.82) K/uL Eos # (Auto) 0.36 (0-0.50) K/uL Baso # (Auto) 0.05 (0-0.2) K/uL Immature Gran # (Auto) 0.04 H (0.00-0.02) K/uL Sodium 135 L (136-145) mmol/L Potassium 4.0 (3.5-5.1) mmol/L Chloride 103 (98-107) mmol/L Carbon Dioxide 23 (21-32) mmol/L Anion Gap 9 (3-11) BUN 13 (6-23) mg/dl Creatinine 0.66 (0.6-1.2) mg/dl Est Cr Clr Drug Dosing 115.9 ml/min Est GFR ( Amer) 127.2 ml/min Est GFR (Non-Af Amer) 109.7 ml/min BUN/Creatinine Ratio 19.7 (10-20) Glucose 88 (70-99(Fasting)) mg/dl Calcium 10.2 H (8.5-10.1) mg/dl HCG, Qual Negative (Negative) Urine Color Urine Appearance (Clear) Urine pH (4.5-7.5) Ur Specific [place] (1.000-1.030) Urine Protein (Negative) Urine Glucose (UA) (Negative) Urine Ketones (Negative) Urine Blood (Negative) Urine Nitrite (Negative) Urine Bilirubin (Negative) Urine Urobilinogen (Negative) Ur Leukocyte Esterase (Negative) Urine WBC (Auto) (0-5) /hpf Urine RBC (Auto) (0-4) /hpf U Hyaline Cast (Auto) (0-5) /lpf U Epithel Cells (Auto) (0-5) /lpf Urine Bacteria (Auto) (Negative) Urine Yeast (None Prsent) 11/07/21 Range/Units 18:45 WBC (4.8-10.8) K/ul RBC (3.93-5.22) M/uL Hgb (12.0-16.0) g/dl Hct (34.1-44.9) % MCV (80.0-100.0) fL MCH (25.0-34.0) pg MCHC (32.0-36.0) g/dL RDW Std Deviation (36.4-46.3) fL RDW Coeff of Cecilio (11.5-14.5) % Plt Count (130-400) K/uL MPV (9.4-12.3) fL Immature Gran % (Auto) % Neut % (Auto) % Lymph % (Auto) % Bell % (Auto) % Eos % (Auto) % Baso % (Auto) % Neut # (Auto) (1.4-6.5) K/uL Lymph # (Auto) (1.2-3.4) K/uL Bell # (Auto) (0.24-0.82) K/uL Eos # (Auto) (0-0.50) K/uL Baso # (Auto) (0-0.2) K/uL Immature Gran # (Auto) (0.00-0.02) K/uL Sodium (136-145) mmol/L Potassium (3.5-5.1) mmol/L Chloride (98-107) mmol/L Carbon Dioxide (21-32) mmol/L Anion Gap (3-11) BUN (6-23) mg/dl Creatinine (0.6-1.2) mg/dl Est Cr Clr Drug Dosing ml/min Est GFR ( Amer) ml/min Est GFR (Non-Af Amer) ml/min BUN/Creatinine Ratio (10-20) Glucose (70-99(Fasting)) mg/dl Calcium (8.5-10.1) mg/dl HCG, Qual (Negative) Urine Color Dark Yellow Urine Appearance Cloudy A (Clear) Urine pH 5.0 (4.5-7.5) Ur Specific [place] 1.026 (1.000-1.030) Urine Protein Trace H (Negative) Urine Glucose (UA) Negative (Negative) Urine Ketones Trace H (Negative) Urine Blood Trace H (Negative) Urine Nitrite Negative (Negative) Urine Bilirubin Negative (Negative) Urine Urobilinogen Negative (Negative) Ur Leukocyte Esterase Negative (Negative) Urine WBC (Auto) 10-30 H (0-5) /hpf Urine RBC (Auto) 10-30 H (0-4) /hpf U Hyaline Cast (Auto) 5-10 H (0-5) /lpf U Epithel Cells (Auto) >30 H (0-5) /lpf Urine Bacteria (Auto) 1+ H (Negative) Urine Yeast Present A (None Prsent) Administered Medications Discontinued Medications Acetaminophen (Acetaminophen 1000 Mg/100 Ml Iv) 1,000 mg IV NOW STA Stop: 11/07/21 18:04 Last Admin: 11/07/21 18:36 Dose: 1,000 mg Documented By: ASHLIE Hydromorphone HCl (Hydromorphone Inj 1 Mg/Ml Syringe) 1 mg IV NOW STA Stop: 11/07/21 18:04 Last Admin: 11/07/21 18:35 Dose: 1 mg Documented By: ASHLIE Sodium Chloride (Nss 1000ml) 1,000 mls @ 999 mls/hr IV .Q1H1M ONE Stop: 11/07/21 18:56 Last Infusion: 11/07/21 19:58 Dose: 0 mls/hr Documented By: RDChetan Admin: 11/07/21 18:36 Dose: 999 mls/hr Documented By: ASHLIE Promethazine HCl (Phenergan) 12.5 mg in 50.5 mls @ 202 mls/hr IV NOW STA Stop: 11/07/21 18:17 Last Infusion: 11/07/21 19:57 Dose: 0 mls/hr Documented By: Admin: 11/07/21 18:36 Dose: 202 mls/hr Documented By: ASHLIE Imaging Data Radiologist's Impression: Renal Ultrasound 11/07/21 17:56 RENAL ULTRASOUND CLINICAL HISTORY: Kidney stone. COMPARISON STUDY: CT of the abdomen and pelvis October 25, 2021. Renal ultrasound August 26, 2021. TECHNIQUE: Sonography of the kidneys and the urinary bladder was performed. FINDINGS: Right kidney measures 10.3 cm in maximal dimension and the left measures 10.4 cm. Mild right hydronephrosis is noted. There is no left hydronephrosis. No ureteral calculi are identified although these may be occult by sonography. Renal calculi on prior CT are not visualized on this exam and likely occult by sonography. Both ureteral jets were identified. IMPRESSION: 1. Mild right hydronephrosis. 2. No urinary calculi identified although these may be occult by sonography. ACT 112: Negative or not required by law. Electronically signed by: Anand Murray M.D. 11/07/2021 7:23 PM Discharge Plan Visit Data Chief Complaint: Kidney Stone Stated Complaint: R side flank pain, here 2 wks ago same reason ED Provider: Umair Mcbride Discharge Problem: Acute right flank pain, Renal colic Patient Disposition: Admitted As Inpatient Condition: Good Discharge Instructions Interventions: ED Discharge Assessment Last Done: 11/07/21 22:19
[2021-11-07 18:41] LABS: Basophils # (auto) 0.05 K/uL (0-0.2); Basophils % (auto) 0.5 %; Eosinophils # (auto) 0.36 K/uL (0-0.50); Eosinophils % (auto) 3.4 %; Hematocrit (blood only) 47.2 % (34.1-44.9); Hemoglobin 16.3 g/dl (12.0-16.0); Immature Granulocytes # (auto) 0.04 K/uL (0.00-0.02); Immature Granulocytes % (auto) 0.4 %; Lymphocytes # (auto) 2.52 K/uL (1.2-3.4); Mean Corpuscular Hemoglobin 30.5 pg (25.0-34.0); Mean Corpuscular Hgb Conc 34.5 g/dL (32.0-36.0); Mean Corpuscular Volume 88.4 fL (80.0-100.0); Mean Platelet Volume 8.2 fL (9.4-12.3); Monocytes # (auto) 0.62 K/uL (0.24-0.82); Monocytes % (auto) 5.9 %; Neutrophils # (auto) 6.89 K/uL (1.4-6.5); Neutrophils % (auto) 65.8 %; Platelet Count 370 K/uL (130-400); RDW Coefficient of Variation 12.6 % (11.5-14.5); RDW Standard Deviation 40.4 fL (36.4-46.3); Red Blood Count 5.34 M/uL (3.93-5.22); White Blood Count 10.48 K/ul (4.8-10.8)
[2021-11-07 18:55] LABS: Pregnancy Test, Serum Negative (Negative)
[2021-11-07 19:03] LABS: BUN Creatinine Ratio 19.7 (10-20); Calcium 10.2 mg/dl (8.5-10.1); Creatinine Clr Calc Pharmacy 115.9 ml/min; Est GFR (African American) 127.2 ml/min; Est GFR (Non-African American) 109.7 ml/min
[2021-11-07 19:17] LABS: Appearance Urine Cloudy (Clear); Bacteria Urine Automated 1+ (Negative); Bilirubin Urine Negative (Negative); Blood Urine Trace (Negative); Color Urine Dark Yellow; Epithelial Cell Urine Auto >30 /lpf (0-5); Glucose Urine UA Negative (Negative); Ketones Urine Trace (Negative); Leukocyte Esterase Urine Negative (Negative); Nitrite Urine Negative (Negative); Protein Urine Trace (Negative); Specific Gravity Urine 1.026 (1.000-1.030); Urobilinogen Urine Negative (Negative)
--- NOTE | 2021-11-07 19:24 | Ultrasound Report ---
RENAL ULTRASOUND CLINICAL HISTORY: Kidney stone. COMPARISON STUDY: CT of the abdomen and pelvis October 25, 2021. Renal ultrasound August 26, 2021. TECHNIQUE: Sonography of the kidneys and the urinary bladder was performed. FINDINGS: Right kidney measures 10.3 cm in maximal dimension and the left measures 10.4 cm. Mild righ t hydronephrosis is noted. There is no left hydronephrosis. No ureteral calculi are identified althou gh these may be occult by sonography. Renal calculi on prior CT are not visualized on this exam and l ikely occult by sonography. Both ureteral jets were identified. IMPRESSION: 1. Mild right hydronephrosis. 2. No urinary calculi identified although these may be occult by sonography. ACT 112: Negative or not required by law. Electronically signed by: Anand Murray M.D. 11/07/2021 7:23 PM
--- NOTE | 2021-11-07 20:29 | History & Physical Report ---
Date of Service November 07, 2021 Assessment & Plan (1) Kidney stone: Plan: 41yo female presents with two weeks of persistent right flank pain, acutely worsening day of admission. Afebrile, HD stable, NAD but in significant discomfort at right flank. CT scan from ER visit on 10/25/21 revealed a 3mm right renal stone. US today does not reveal stone but hydronephrosis present. UA with bacteria present. -Admit to medical -Follow urine culture -Pain control with Dilaudid PRN -Phenergan PRN nausea -Toradol PRN pain -Tylenol PRN -NSS at 125mL/hr x 1 liter -Strain urine -Urology consultation appreciated -NPO after midnight (2) Anxiety: Plan: Patient presently not on any medications (3) Diet-controlled diabetes mellitus: Plan: CC diet as tolerated -Monitor blood sugars F/E/N - NSS at 125mL/hr x 1 liter, electrolytes WNL, NPO after midnight Ppx - low risk for DVT Code - Full Dispo - Admit to medical History of Present Illness Chief Complaint: Right Flank Pain Primary Care Provider: Monserrat Murray MD Beth Woodward is a 41yo female with history of diet controlled DM, RA and recurrent nephrolithiasis presenting with persistent right flank pain x 2 weeks. Patient presented to [facility] ER on 10/25/21 with complaint of right flank pain and nausea. She was found to have a 3mm stone in the right ureter at the pelvic inlet without hydronephrosis as well as additional stones present in the bilateral kidneys. Renal function intact. Patient was discharged home with prescriptions for Flomax, Percocet and Keflex and instructed to followup with Urology in 3-5 days. Patient had been taking her medications as prescribed and her symptoms have been manageable. She has not passed the stone to her knowledge. She developed acute right flank pain this afternoon around 12:00 which prompted her to come to the ER. Also with nausea but no vomiting. Denies fever, chills, chest pain, cough, SOB. Denies dysuria, hematuria. She is able to pass urine without difficulty. Reports she has been staying hydrated with water. She has had similar pain in the past - this being the 4th episode of renal colic since Spring 2021. Patient developed her first renal stone in 2014. She had laser lithotripsy with stent placement performed by Dr. Han. She required hospital readmission following her stent placement for UTI and pain control. She was admitted to [facility] 06/03/18 - 06/04/18 with intractable left flank pain found to have a 4mm non-obstructing stone. She had cystoscopy, mary lou lithotripsy and stone removal with left ureteral double J stent placement. Stone composition calcium oxalate 95%, carbonate apatite 5% ER Course: Tylenol, Dilaudid, Phenergan Allergies Allergy/AdvReac Type Severity Reaction Status Date / Time bee venom protein (honey bee) Allergy Severe SHORTNESS Verified 10/25/21 23:24 OF BREATH Fish Containing Products Allergy Severe SWELLING Verified 10/25/21 23:24 AND REDNESS shellfish derived Allergy Severe SWELLING/RED Verified 10/25/21 23:24 SKIN ondansetron Allergy Intermediate HIVES - Verified 10/25/21 23:24 RASH morphine AdvReac Intermediate projective Verified 10/25/21 23:24 vomitting EXOTIC FRUITS Allergy Intermediate HIVES RASH Uncoded 10/25/21 23:24 SWELLING Home Medications Medication Instructions Recorded Confirmed Type acetaminophen 500 mg tablet 1,000 mg PO Q6H PRN Pain 10/25/21 11/07/21 History (Tylenol Extra Strength) ibuprofen 800 mg tablet 800 mg PO Q8 PRN Pain 10/25/21 11/07/21 History oxycodone 5 mg tablet 5 mg PO Q6H PRN Pain, Severe 11/07/21 11/07/21 History Past Med/Surg History Medical History Anxiety and depression NO MEDS Diet-controlled diabetes mellitus History of uterine fibroid Lumbar degenerative disc disease Migraine Rheumatoid arthritis Surgical History Fusion of lumbar spine BONE GRAFT FROM PELVIS H/O bone graft Iliac bone graft with lumbar fusion H/O left wrist surgery H/O shoulder surgery RT History of appendectomy History of bilateral breast reduction surgery History of bilateral tubal ligation History of cholecystectomy History of cystoscopy STONE REMOVAL History of facial surgery RECONSTRUCTION - D/T DEGLOVING History of hand surgery Rt x 2 FINGER I & D History of hysterectomy History of lithotripsy History of tonsillectomy History of tooth extraction Hx of arthroscopic knee surgery LEFT X 2 Hx of dilation and curettage Slow to wake up after anesthesia Family History Grandfather (Maternal) Family history of diabetes mellitus Mother Diabetes Depression Kidney stones Uterine malignant neoplasm Aunt Ovarian cancer maternal Diabetes Breast cancer Sister Kidney stones Uterine malignant neoplasm Grandmother Myocardial infarction Uterine malignant neoplasm Other Adopted Denies family history of Colorectal cancer Social History Smoking Status: Current every day smoker Tobacco Type: Cigarettes Age Started Using Tobacco: 14; packs per day: 0.5; Cigarettes Per Day: 1/2 pack; Second Hand Exposure: No; Do You Dip or Chew Tobacco: No; Tobacco Cessation Education Requested by Patient: No Hx Alcohol Use: No Hx Substance Use: No Preferred Language: Kinyarwanda Communication Ability: Effective Visual Impairment: No Limitations Hearing Ability: Normal Adjunct Faculty Required: No Beliefs That Will Affect Care: None marital status: Current Living Situation: Spouse current occupational status: disabled Other Information That Helps Us Care for You: No Feels Safe at Home: Yes Safety Concerns: Feels Safe At This Time Childhood Exposure to Second-Hand Smoke: No during the past year weight has: remained stable Dental Care, Regularly: No Physical Activity Frequency: Other Assistive Devices: Contacts Review of Systems Review of Systems: All systems reviewed & are unremarkable except as noted in HPI & below Physical Exam Physical Exam: General: patient resting comfortably, NAD, non-toxic in appearance, AA&O x 4 Skin: warm, dry, intact, no rashes or lesions HEENT: NC/AT, PERRL, EOMI, anicteric sclera, conjunctiva without injection, external ear normal to inspection and nontender, nares patent, moist mucus membranes, dentition intact, no oropharyngeal lesions, neck supple, trachea midline, no LAD, no thyromegaly, no JVD Heart: +S1/S2, regular, no m/r/g Lungs: equal air entry bilaterally, no rales/rhonchi/wheezes Abd: +BS, soft, ND, right sided tenderness, right flank tenderness, no masses/organomegaly/ascites Ext: warm, 2+ pulses in UE/LE bilaterally, no clubbing/cyanosis or edema Neuro: nonfocal, patient AA&O x 4, speech intact, no facial droop, moving all extremities on command with equal strength 5/5 Results & Data Results & Data ([facility]) Vital Signs (Past 12 Hours) Vital Signs Temp Pulse Resp BP Pulse Ox O2 Del Method 11/07/21 20:00 92 11/07/21 20:00 87/59 L 11/07/21 19:56 94 11/07/21 19:56 90/57 L 11/07/21 18:50 98 11/07/21 18:49 126/88 11/07/21 17:48 36.9 C 88 20 123/83 98 Room Air Laboratory Results Laboratory Results WBC 10.48 K/ul (4.8-10.8) 11/07/21 17:59 RBC 5.34 M/uL (3.93-5.22) H 11/07/21 17:59 Hgb 16.3 g/dl (12.0-16.0) H 11/07/21 17:59 Hct 47.2 % (34.1-44.9) H 11/07/21 17:59 MCV 88.4 fL (80.0-100.0) 11/07/21 17:59 MCH 30.5 pg (25.0-34.0) 11/07/21 17:59 MCHC 34.5 g/dL (32.0-36.0) 11/07/21 17:59 RDW Std Deviation 40.4 fL (36.4-46.3) 11/07/21 17:59 RDW Coeff of Cecilio 12.6 % (11.5-14.5) 11/07/21 17:59 Plt Count 370 K/uL (130-400) 11/07/21 17:59 MPV 8.2 fL (9.4-12.3) L 11/07/21 17:59 Immature Gran % (Auto) 0.4 % 11/07/21 17:59 Neut % (Auto) 65.8 % 11/07/21 17:59 Lymph % (Auto) 24.0 % 11/07/21 17:59 [place] % (Auto) 5.9 % 11/07/21 17:59 Eos % (Auto) 3.4 % 11/07/21 17:59 Baso % (Auto) 0.5 % 11/07/21 17:59 Neut # (Auto) 6.89 K/uL (1.4-6.5) H 11/07/21 17:59 Lymph # (Auto) 2.52 K/uL (1.2-3.4) 11/07/21 17:59 [place] # (Auto) 0.62 K/uL (0.24-0.82) 11/07/21 17:59 Eos # (Auto) 0.36 K/uL (0-0.50) 11/07/21 17:59 Baso # (Auto) 0.05 K/uL (0-0.2) 11/07/21 17:59 Immature Gran # (Auto) 0.04 K/uL (0.00-0.02) H 11/07/21 17:59 Sodium 135 mmol/L (136-145) L 11/07/21 17:59 Potassium 4.0 mmol/L (3.5-5.1) 11/07/21 17:59 Chloride 103 mmol/L (98-107) 11/07/21 17:59 Carbon Dioxide 23 mmol/L (21-32) 11/07/21 17:59 Anion Gap 9 (3-11) 11/07/21 17:59 BUN 13 mg/dl (6-23) 11/07/21 17:59 Creatinine 0.66 mg/dl (0.6-1.2) 11/07/21 17:59 Est Cr Clr Drug Dosing 115.9 ml/min 11/07/21 17:59 Est GFR ( Amer) 127.2 ml/min 11/07/21 17:59 Est GFR (Non-Af Amer) 109.7 ml/min 11/07/21 17:59 BUN/Creatinine Ratio 19.7 (10-20) 11/07/21 17:59 Glucose 88 mg/dl (70-99(Fasting)) 11/07/21 17:59 Calcium 10.2 mg/dl (8.5-10.1) H 11/07/21 17:59 HCG, Qual Negative (Negative) 11/07/21 17:59 Urine Color Dark Yellow 11/07/21 18:45 Urine Appearance Cloudy (Clear) A 11/07/21 18:45 Urine pH 5.0 (4.5-7.5) 11/07/21 18:45 Ur Specific [place] 1.026 (1.000-1.030) 11/07/21 18:45 Urine Protein Trace (Negative) H 11/07/21 18:45 Urine Glucose (UA) Negative (Negative) 11/07/21 18:45 Urine Ketones Trace (Negative) H 11/07/21 18:45 Urine Blood Trace (Negative) H 11/07/21 18:45 Urine Nitrite Negative (Negative) 11/07/21 18:45 Urine Bilirubin Negative (Negative) 11/07/21 18:45 Urine Urobilinogen Negative (Negative) 11/07/21 18:45 Ur Leukocyte Esterase Negative (Negative) 11/07/21 18:45 Urine WBC (Auto) 10-30 /hpf (0-5) H 11/07/21 18:45 Urine RBC (Auto) 10-30 /hpf (0-4) H 11/07/21 18:45 U Hyaline Cast (Auto) 5-10 /lpf (0-5) H 11/07/21 18:45 U Epithel Cells (Auto) >30 /lpf (0-5) H 11/07/21 18:45 Urine Bacteria (Auto) 1+ (Negative) H 11/07/21 18:45 Urine Yeast Present (None Prsent) A 11/07/21 18:45 SARS-CoV-2, RNA, NAAT NEGATIVE (NEGATIVE) 11/07/21 20:50 Impressions Renal Ultrasound 11/07/21 17:56 RENAL ULTRASOUND CLINICAL HISTORY: Kidney stone. COMPARISON STUDY: CT of the abdomen and pelvis October 25, 2021. Renal ultrasound August 26, 2021. TECHNIQUE: Sonography of the kidneys and the urinary bladder was performed. FINDINGS: Right kidney measures 10.3 cm in maximal dimension and the left measures 10.4 cm. Mild right hydronephrosis is noted. There is no left hydronephrosis. No ureteral calculi are identified although these may be occult by sonography. Renal calculi on prior CT are not visualized on this exam and li hilda occult by sonography. Both ureteral jets were identified. IMPRESSION: 1. Mild right hydronephrosis. 2. No urinary calculi identified although these may be occult by sonography. ACT 112: Negative or not required by law. Electronically signed by: Anand Murray M.D. 11/07/2021 7:23 PM PG Care Time/CCT Total # of Minutes Spent Total Time Spent with Patient: Total time spent is greater than 50% in coordination of care (as documented) at patient's floor/unit and/or counseling patient: Coding Level of Care Code 83689 Initial Inpt Care Lvl 2 Diagnoses Kidney stone N20.0 Anxiety F41.9 Diet-controlled diabetes mellitus E11.9
[2021-11-07] MEDS ORDERED: SODIUM CHLORIDE 0.9% 1000ML 1,000 ML IV SCH (22:37)
[2021-11-07] MEDS ORDERED: DOCUSATE SODIUM 100 MG CAP PO PRN (22:37)
[2021-11-07] MEDS ORDERED: MoRPHine SULFATE 2 MG/ML CARP IV PRN (22:37)
[2021-11-07] MEDS ORDERED: ACETAMINOPHEN 325 MG TAB PO PRN (22:37)
[2021-11-07] MEDS ORDERED: MoRPHine SULFATE 4 MG/ML 1 ML CARP\\VIAL IV PRN (22:37)
[2021-11-07] MEDS ORDERED: HYDROmorphone INJ 0.5 MG/0.5 ML SYR ONE (23:38)
[2021-11-07] MEDS: cefTRIAXone SODIUM 2,000 MG in DEXTROSE 5% 50 ML IV SCH (23:45)
[2021-11-08] MEDS: KETOROLAC TROMETHAMINE 15 MG/ML VIAL IV PRN ×2 (03:02→22:55)
[2021-11-08] MEDS: PROMETHAZINE HCL 6.25 MG in SODIUM CHLORIDE 0.9% 50 ML IV PRN ×2 (03:02→22:55)
[2021-11-08] MEDS: HYDROmorphone INJ 0.5 MG/0.5 ML SYR IV PRN ×5 (04:22→21:07)
[2021-11-08 06:53] LABS: Basophils # (auto) 0.03 K/uL (0-0.2); Basophils % (auto) 0.4 %; Eosinophils # (auto) 0.33 K/uL (0-0.50); Eosinophils % (auto) 4.1 %; Hematocrit (blood only) 38.8 % (34.1-44.9); Hemoglobin 13.5 g/dl (12.0-16.0); Immature Granulocytes # (auto) 0.04 K/uL (0.00-0.02); Immature Granulocytes % (auto) 0.5 %; Lymphocytes # (auto) 2.51 K/uL (1.2-3.4); Lymphocytes % (auto) 31.2 %; Mean Corpuscular Hgb Conc 34.8 g/dL (32.0-36.0); Mean Platelet Volume 8.4 fL (9.4-12.3); Monocytes # (auto) 0.45 K/uL (0.24-0.82); Monocytes % (auto) 5.6 %; Neutrophils # (auto) 4.68 K/uL (1.4-6.5); Neutrophils % (auto) 58.2 %; Platelet Count 275 K/uL (130-400); RDW Coefficient of Variation 12.6 % (11.5-14.5); RDW Standard Deviation 41.3 fL (36.4-46.3); Red Blood Count 4.36 M/uL (3.93-5.22); White Blood Count 8.04 K/ul (4.8-10.8)
[2021-11-08 07:27] LABS: BUN Creatinine Ratio 20.7 (10-20); Calcium 8.4 mg/dl (8.5-10.1); Creatinine Clr Calc Pharmacy 94.4 ml/min; Est GFR (Non-African American) 88.9 ml/min; Potassium 3.9 mmol/L (3.5-5.1)
--- NOTE | 2021-11-08 09:29 | Urology Consultation ---
Date of Consultation November 08, 2021 Assessment & Plan (1) Kidney stone: (2) Hydronephrosis, right: (3) Acute right flank pain: Plan 41yo F admitted with intractable right flank pain. CT scan from ER visit on 10/25/21 revealed a 3mm right ureteral stone. Renal US this admission does not reveal a stone but right sided hydronephrosis present. UA with bacteria present. - Afebrile, hemodynamically stable, non-toxic appearing. - Labs reviewed - No leukocytosis, renal function stable. - Urine culture pending, on IV Ceftriaxone. - Discussed acute stone management with cystoscopy and stent placement. Ureteral stents were discussed as well as postoperative issues and pain management. Discussed that she will need an additional procedure for stone treatment in the future. Risks/benefits discussed. Pt agreeable to proceeding with stent placement. All questions were answered. - Plan to proceed to OR today for cystoscopy, right retrograde pyelogram, right ureteral stent placement. - Risks and benefits to be reviewed with patient by Dr. Almeida. OR notified. Covid test negative. Covered with scheduled IV Ceftriaxone. - Keep NPO and strain all urine. - Continue supportive care, antibiotics, and pain management. - Urology will follow. Attending note: Independently assessed, examined, interviewed, and evaluated. Agree with note as above. Patient has obstructing stone. Has previously had stones in 2019. Had been treated by Dr. Davis at that time. Patient has right-sided stones. Continues to have considerable pain discomfort. Has been considering different options for intervention. Have been completing conservative measures with hydration and monitoring. Has attempted expulsion therapy. Has been dealing with ongoing issues for the last few months with recurrent episodes of discomfort. Had history of stones in the past. Risks and benefits discussed at length for procedure. These include bleeding, infection, injury to surrounding tissues or organs, and risks associated with anesthesia. Patient states understanding and agrees to proceed. Will sign consent and proceed. Plan for cystoscopy with possible right stent placement. History of Present Illness Reason for Consultation: Right flank pain, nephrolithiasis Attending Physician: Bita Barahona MD History of Present Illness 41yo female with history of diet controlled DM, RA and recurrent nephrolithiasis who presented to the ED with persistent right flank pain x2 weeks. She initially presented to [facility] ER on 10/25/2021 with complaints of right flank pain and nausea. CT imaging was notable for a 3 mm stone in the right ureter without hydronephrosis as well as additional stones present in bilateral kidneys. She was discharged home at that time with Flomax, Percocet, Keflex and instructed to follow-up with urology. Symptoms were manageable up until yesterday when she developed worsening right flank pain which prompted her to come to the ED. On arrival, she was afebrile and hemodynamically stable. No leukocytosis and normal renal function. Urinalysis with 1+ bacteria, yeast present, 1030 WBC, 1030 RBC, negative LE, negative nitrite. She denied any known stone passage. She was admitted to medicine for pain management. Patient examined at bedside this AM. Awake, resting in bed on arrival. No acute distress. Still with right flank/RLQ abd pain, managing with IV pain medication. Denies any stone passage. Has been NPO. No fevers or chills. Some nausea, no vomiting. Voiding without issue. She has had similar pain in the past - this being the 4th episode of renal colic since Spring 2021. Hx of stones. Prior stone composition calcium oxalate 95%, carbonate apatite 5%. She had laser lithotripsy with stent placement performed by Dr. Han. She required hospital readmission following her stent placement for UTI and pain control. Family history of stones is unknown. Imaging - Renal Ultrasound 11/07/21- 1. Mild right hydronephrosis. 2. No urinary calculi identified although these may be occult by sonography. CT abdomen pelvis 10/25/21- 1. 3 mm mid right ureteral calculus producing very mild hydroureter and no significant hydronephrosis. 2. Additional bilateral nonobstructing renal calculi are present. 3. No other evidence for acute intra-abdominal or pelvic abnormality on these limited noncontrast images. Allergies Allergy/AdvReac Type Severity Reaction Status Date / Time bee venom protein (honey bee) Allergy Severe SHORTNESS Verified 10/25/21 23:24 OF BREATH Fish Containing Products Allergy Severe SWELLING Verified 10/25/21 23:24 AND REDNESS shellfish derived Allergy Severe SWELLING/RED Verified 10/25/21 23:24 SKIN ondansetron Allergy Intermediate HIVES - Verified 10/25/21 23:24 RASH morphine AdvReac Intermediate projective Verified 10/25/21 23:24 vomitting EXOTIC FRUITS Allergy Intermediate HIVES RASH Uncoded 10/25/21 23:24 SWELLING Home Medications Medication Instructions Recorded Confirmed Type acetaminophen 500 mg tablet 1,000 mg PO Q6H PRN Pain 10/25/21 11/07/21 History (Tylenol Extra Strength) ibuprofen 800 mg tablet 800 mg PO Q8 PRN Pain 10/25/21 11/07/21 History oxycodone 5 mg tablet 5 mg PO Q6H PRN Pain, Severe 11/07/21 11/07/21 History Patient History Medical History Anxiety and depression NO MEDS Diet-controlled diabetes mellitus History of uterine fibroid Lumbar degenerative disc disease Migraine Rheumatoid arthritis Surgical History Fusion of lumbar spine BONE GRAFT FROM PELVIS H/O bone graft Iliac bone graft with lumbar fusion H/O left wrist surgery H/O shoulder surgery RT History of appendectomy History of bilateral breast reduction surgery History of bilateral tubal ligation History of cholecystectomy History of cystoscopy STONE REMOVAL History of facial surgery RECONSTRUCTION - D/T DEGLOVING History of hand surgery Rt x 2 FINGER I & D History of hysterectomy History of lithotripsy History of tonsillectomy History of tooth extraction Hx of arthroscopic knee surgery LEFT X 2 Hx of dilation and curettage Slow to wake up after anesthesia Family History Grandfather (Maternal) Family history of diabetes mellitus Mother Diabetes Depression Kidney stones Uterine malignant neoplasm Aunt Ovarian cancer maternal Diabetes Breast cancer Sister Kidney stones Uterine malignant neoplasm Grandmother Myocardial infarction Uterine malignant neoplasm Other Adopted Denies family history of Colorectal cancer Social History Smoking Status: Current every day smoker Tobacco Type: Cigarettes Age Started Using Tobacco: 14; packs per day: 0.5; Cigarettes Per Day: 1/2 pack; Second Hand Exposure: No; Do You Dip or Chew Tobacco: No; Tobacco Cessation Education Requested by Patient: No Hx Alcohol Use: No Hx Substance Use: No Preferred Language: Telugu Communication Ability: Effective Visual Impairment: No Limitations Hearing Ability: Normal [place]ail [place] Required: No Beliefs That Will Affect Care: None marital status: Current Living Situation: Spouse current occupational status: disabled Other Information That Helps Us Care for You: No Feels Safe at Home: Yes Safety Concerns: Feels Safe At This Time Childhood Exposure to Second-Hand Smoke: No during the past year weight has: remained stable Dental Care, Regularly: No Physical Activity Frequency: Other Assistive Devices: Contacts Review of Systems Review of Systems: All systems reviewed & are unremarkable except as noted in HPI & below Physical Exam Constitutional: well developed and well nourished; no acute distress Neck: normal visual inspection Respiratory: normal respiratory effort and able to speak in complete sentences; no respiratory distress and no labored breathing Gastrointestinal (Abdomen): Inspection/Auscultation: abdomen normal to inspection Percussion/Palpation: + abdomen tender (RLQ) and abdomen soft; no guarding Musculoskeletal: Head/Neck/Chest: normocephalic Skin: No visible rashes or lesions to exposed skin areas Neurologic: moves all extremities and awake Psychiatric: Orientation: alert, oriented x 3 and cooperative Genitourinary: + CVA tenderness (Right side) Results & Data ([facility]) Vital Signs (Past 12 Hours) Vital Signs Temp Pulse Resp BP BP Pulse Ox O2 Del Method 11/08/21 09:22 36.5 C 66 18 114/79 94 Room Air 11/08/21 07:39 Room Air 11/07/21 22:20 Room Air 11/07/21 22:20 36.4 C L 72 16 132/82 98 Room Air 11/07/21 22:19 Room Air 11/07/21 22:00 101/68 11/07/21 21:31 116/61 PG Care Time/CCT Total # of Minutes Spent Total Time Spent with Patient: Total time spent is greater than 50% in coordination of care (as documented) at patient's floor/unit and/or counseling patient: Coding Level of Care Code 89759 Office/OBS Consult Lvl 4 Diagnoses Kidney stone N20.0 Hydronephrosis, right N13.30 Acute right flank pain R10.9
[2021-11-08] MEDS: SODIUM CHLORIDE 0.9% 1000ML 1,000 ML IV SCH ×2 (11:07→19:23)
--- NOTE | 2021-11-08 12:41 | Anesthesiology Consultation ---
Date of Service November 08, 2021 Assessment & Plan (1) Encounter for pre-operative examination: Chart Review Chart Review: Acceptable Risk for Surgery and Patient NOT seen in Pre Admission Testing Consults Requested none History Surgery Operation Date: 11/08/21 10:40 Proposed Procedures p Cystoscopy, Right Retrograde Pyelogram, Right Stent Placement - Asael Almeida, Height/Weight Height: 5 ft 2 in Weight: 90.4 kg Allergies Allergy/AdvReac Type Severity Reaction Status Date / Time bee venom protein (honey bee) Allergy Severe SHORTNESS Verified 10/25/21 23:24 OF BREATH Fish Containing Products Allergy Severe SWELLING Verified 10/25/21 23:24 AND REDNESS shellfish derived Allergy Severe SWELLING/RED Verified 10/25/21 23:24 SKIN ondansetron Allergy Intermediate HIVES - Verified 10/25/21 23:24 RASH morphine AdvReac Intermediate projective Verified 10/25/21 23:24 vomitting EXOTIC FRUITS Allergy Intermediate HIVES RASH Uncoded 10/25/21 23:24 SWELLING Medications Home Medications Medication Instructions Recorded Confirmed Last Taken acetaminophen 500 mg tablet 1,000 mg PO Q6H PRN Pain 10/25/21 11/07/21 11/05/21 (Tylenol Extra Strength) ibuprofen 800 mg tablet 800 mg PO Q8 PRN Pain 10/25/21 11/07/21 11/07/21 11:00 oxycodone 5 mg tablet 5 mg PO Q6H PRN Pain, Severe 11/07/21 11/07/21 Unknown Active Medications Generic Name Dose Route Start Last Admin Trade Name Freq PRN Reason Stop Dose Admin Hydromorphone HCl 0.5 mg 11/07/21 23:35 11/08/21 11:12 Hydromorphone Inj 0.5 Mg/0.5 Ml Syr IV 11/21/21 23:34 0.5 mg Q3H PRN Administration Severe Pain Ceftriaxone Sodium 2,000 mg/ 70 mls @ 100 mls/hr 11/07/21 23:00 11/08/21 00:38 Dextrose IV 11/12/21 22:59 Infused Q24H LAMINE Infusion Protocol Promethazine HCl 6.25 mg/ 50.25 mls @ 201 mls/hr 11/07/21 22:37 11/08/21 03:19 Sodium Chloride IV 12/07/21 22:36 Infused Q6H PRN Infusion Nausea And Vomiting Sodium Chloride 1,000 mls @ 125 mls/hr 11/08/21 10:15 11/08/21 11:07 Nss 1000ml IV 12/08/21 10:14 125 mls/hr .Q8H LAMINE Administration Ketorolac Tromethamine 15 mg 11/07/21 22:37 11/08/21 03:02 Ketorolac Tromethamine 15 Mg/Ml Vial IV 11/12/21 22:36 15 mg Q6H PRN Administration Moderate Pain Past Medical History Medical History Anxiety and depression NO MEDS Diet-controlled diabetes mellitus History of uterine fibroid Lumbar degenerative disc disease Migraine Rheumatoid arthritis Past Family History Family History Grandfather (Maternal) Family history of diabetes mellitus Mother Diabetes Depression Kidney stones Uterine malignant neoplasm Aunt Ovarian cancer maternal Diabetes Breast cancer Sister Kidney stones Uterine malignant neoplasm Grandmother Myocardial infarction Uterine malignant neoplasm Other Adopted Denies family history of Colorectal cancer Past Surgical History Surgical History Fusion of lumbar spine BONE GRAFT FROM PELVIS H/O bone graft Iliac bone graft with lumbar fusion H/O left wrist surgery H/O shoulder surgery RT History of appendectomy History of bilateral breast reduction surgery History of bilateral tubal ligation History of cholecystectomy History of cystoscopy STONE REMOVAL History of facial surgery RECONSTRUCTION - D/T DEGLOVING History of hand surgery Rt x 2 FINGER I & D History of hysterectomy History of lithotripsy History of tonsillectomy History of tooth extraction Hx of arthroscopic knee surgery LEFT X 2 Hx of dilation and curettage Slow to wake up after anesthesia Social History Smoking Status: Current every day smoker tobacco type: cigarettes Smoking cigarettes per day: 1/2 pack Do You Dip or Chew Tobacco: No Hx Alcohol Use: No Hx Substance Use: No substance use type: does not use Physical Exam Vital Signs Last Vital Signs Temp 97.7 F 11/08/21 09:22 Pulse 66 11/08/21 09:22 Resp 18 11/08/21 09:22 BP 114/79 11/08/21 09:22 Pulse Ox 94 11/08/21 09:22 O2 Del Method 11/08/21 09:22 Testing Laboratory Results 11/08/21 06:43 11/08/21 06:43 Urine Color Dark Yellow 11/07/21 18:45 Urine Appearance Cloudy (Clear) A 11/07/21 18:45 Urine pH 5.0 (4.5-7.5) 11/07/21 18:45 Ur Specific [place] 1.026 (1.000-1.030) 11/07/21 18:45 Urine Protein Trace (Negative) H 11/07/21 18:45 Urine Glucose (UA) Negative (Negative) 11/07/21 18:45 Urine Ketones Trace (Negative) H 11/07/21 18:45 Urine Nitrite Negative (Negative) 11/07/21 18:45 Ur Leukocyte Esterase Negative (Negative) 11/07/21 18:45 Urine WBC (Auto) 10-30 /hpf (0-5) H 11/07/21 18:45 Urine RBC (Auto) 10-30 /hpf (0-4) H 11/07/21 18:45 U Hyaline Cast (Auto) 5-10 /lpf (0-5) H 11/07/21 18:45 U Epithel Cells (Auto) >30 /lpf (0-5) H 11/07/21 18:45 Urine Bacteria (Auto) 1+ (Negative) H 11/07/21 18:45 11/07/21 18:45 Urine Culture - Preliminary Urine,Clean Catch Pin-point growth present, reincubating.
[2021-11-08] MEDS ORDERED: ONDANSETRON INJ 2 MG/ML 2 ML VIAL IV PRN (14:02)
[2021-11-08] MEDS ORDERED: ePHEDrine sulfate 50 MG/ML AMP IV PRN (14:02)
[2021-11-08] MEDS ORDERED: ATROPINE SULFATE 0.1 MG/ML 10ML SYR IV PRN (14:02)
[2021-11-08] MEDS ORDERED: fentaNYL citrate 100 MCG/2 ML VIAL ONE (14:23)
[2021-11-08] MEDS ORDERED: MIDAZOLAM HCL 1 MG/ML 2ML VIAL ONE (14:23)
[2021-11-08] MEDS ORDERED: PROPOFOL IV EMULSION 10 MG/ML 20 ML VIAL IV ONE (14:24)
[2021-11-08] MEDS ORDERED: DEXAMETHASONE SOD INJ 4 MG/ML VIAL ONE (14:24)
[2021-11-08] MEDS ORDERED: ONDANSETRON INJ 2 MG/ML 2 ML VIAL ONE (14:24)
[2021-11-08] MEDS ORDERED: LIDOCAINE 2% MPF LOCAL 5 ML VIAL INFIL ONE (14:24)
--- NOTE | 2021-11-08 14:53 | Operative Report ---
PG Post Operative Report Pre & Post Diagnosis Operation Date: 11/08/21 10:40 Pre-Op Diagnosis: R FLANK PAIN Post-Op Diagnosis: R FLANK PAIN I identified the patient and participated in the time-out.: Yes Procedure Cystoscopy with right renal aspiration, retrograde pyelogram, and stent insertion. Operation Date: 11/08/21 10:40 <No data on this case meets the specified criteria> Surgeon Asael Almeida, II, DO Molding Press Operator None Estimated Blood Loss 1 Findings Consistent with Post-Op Diagnosis Stent placed in good position. Specimens Urine Right Kidney Drains 6 Fr Multilength Anesthesia Type MAC Complications none Disposition Disposition: Recovery Room Indications Patient with obstruction. Risks and benefits discussed at length. Description of Procedure Patient was consented and brought back to the operating room. Patient was placed under anesthesia in the supine position and moved to the dorsal lithotomy posi tion. Patient was prepped and draped in the regular sterile fashion. A time out was completed. A 30degree Cystoscope was placed into the bladder and the entire bladder was examined. The UO's were identified. The UO was cannulized with a catheter and urine was aspirated for culture from the renal pelvis. At this point, a retrograde pyelogram was completed. A wire was then placed. With the wire in place, a 6 Fr Double J stent was placed. It was confirmed with fluoroscopy. With the stent in place, the bladder was emptied. The scope was removed. The patient was cleaned, aroused from ane sthesia, and transferred to the pacu in stable condition having tolerated the procedure well with no complications. I was present and participated in all aspects of the procedure. The patient will be monitored in the PACU until transferred. Plan to set patient up for stone treatment in next few weeks. Plan to monitor post operatively for control of discomfort. I attest to the content of the Intraoperative Record and any orders documented therein. Any exceptions are noted below.
[2021-11-08] MEDS ORDERED: OPTIRAY 300 IV ONE (14:56)
--- NOTE | 2021-11-08 15:08 | Anesthesiology Progress Note ---
Date of Service November 08, 2021 Anesthesia Post Procedure Vital Signs Vital Signs: Temp Pulse Pulse Pulse Resp BP BP 11/08/21 15:05 97.5 F L 74 21 92/73 L 11/08/21 14:56 97.5 F L 74 21 105/74 11/08/21 13:55 98.2 F 84 20 124/84 11/08/21 09:22 97.7 F 66 18 114/79 11/08/21 07:39 11/07/21 22:20 11/07/21 22:20 97.5 F L 72 16 132/82 11/07/21 22:19 11/07/21 22:00 101/68 11/07/21 21:31 116/61 11/07/21 21:17 11/07/21 21:00 11/07/21 21:00 88/56 L 11/07/21 20:30 11/07/21 20:30 91/64 L 11/07/21 20:19 114/47 L 11/07/21 20:19 11/07/21 20:00 11/07/21 20:00 87/59 L 11/07/21 19:56 11/07/21 19:56 90/57 L 11/07/21 18:50 11/07/21 18:49 126/88 11/07/21 17:48 98.4 F 88 20 123/83 Pulse Ox O2 Del Method O2 Flow Rate 11/08/21 15:05 93 Nasal Cannula 3 11/08/21 14:56 93 Oxymask 5 11/08/21 13:55 96 Room Air 11/08/21 09:22 94 Room Air 11/08/21 07:39 Room Air 11/07/21 22:20 Room Air 11/07/21 22:20 98 Room Air 11/07/21 22:19 Room Air 11/07/21 22:00 11/07/21 21:31 11/07/21 21:17 97 11/07/21 21:00 95 11/07/21 21:00 11/07/21 20:30 95 11/07/21 20:30 11/07/21 20:19 11/07/21 20:19 98 11/07/21 20:00 92 11/07/21 20:00 11/07/21 19:56 94 11/07/21 19:56 07/31/22 18:50 98 11/07/21 18:49 11/07/21 17:48 98 Room Air Pain Intensity Flank: Pain Intensity: 5 Right Flank: Pain Intensity: 8 Transfer of Care Handoff Completed per policy Notes Mental Status: alert / awake / arousable and participated in evaluation Patient Amnestic to Procedure: Yes Nausea / Vomiting: adequately controlled Pain: adequately controlled Airway Patency, RR, SpO2: stable & adequate BP & HR: stable & adequate Hydration State: stable & adequate Anesthetic Complications: no major complications apparent and Pt Satisfied with anesthetic care
[2021-11-08] MEDS: fentaNYL citrate 100 MCG/2 ML VIAL IV PRN ×2 (15:30→15:40)
--- NOTE | 2021-11-08 15:31 | Fluoroscopy Report ---
FL retrograde includes kub HISTORY: 41 years-old Female RT right-sided cystourethrogram COMPARISON: CT abdomen pelvis 10/25/2021 TECHNIQUE: 2 spot fluoroscopic images of the abdomen and pelvis were obtained utilizing 3.7 seconds f luoroscopy time FINDINGS: Mild right-sided hydronephrosis. Satisfactory positioning of the right ureteral stent. IMPRESSION: Fluoroscopic assistance as above. ACT 112: Negative or not required by law. The above report was generated using voice recognition software. It may contain grammatical, syntax o r spelling errors. Electronically signed by: Flaco Mendez M.D. 11/08/2021 3:30 PM
--- NOTE | 2021-11-08 16:33 | Hospitalist Progress Note ---
Date of Service November 08, 2021 Assessment & Plan (1) Kidney stone: Plan: Right ureteric colic; urology intervention today (2) Anxiety: Plan: Patient presently not on any medications (3) Diet-controlled diabetes mellitus: Plan: -Monitor blood sugars (4) UTI (urinary tract infection): Plan: Possible, not confirmed but did have significant flank tenderness; await cultures, continue Rocephin for now Admission and Anticipated Discharge Date Admission Date: November 07, 2021 Subjective Follow-up of right flank paincontinued complaint when seen in a.m. Physical Exam Physical Exam: Constitutional and general: No acute distress, looks biologic age Head and face: No puffiness, atraumatic Eyes: No scleral icterus, extraocular movements normal Neck: Supple, no JVD Musculoskeletal: No acute joint swelling, no bony abnormalities Skin/dermatologic/integument: No rash, no purpura Hematologic and lymphatic: pallor none, no petechia Gastrointestinal/abdomen: Right flank and lumbar tenderness Neurologic: Cranial nerves intact, nonfocal Psychiatry: Awake, alert, pleasant, communicative Cardiovascular: Heart rhythm regular, no rub, no murmur, no gallop Respiratory: Chest movements equal, no use of accessory muscles, no adventitious sounds Extremities: No edema, no cyanosis Results & Data Results & Data ([facility]) Vital Signs (Past 12 Hours) Vital Signs Temp Pulse Pulse Resp BP Pulse Ox O2 Del Method 11/08/21 16:07 37 C 77 18 110/75 95 Nasal Cannula 11/08/21 15:55 66 18 126/63 96 Nasal Cannula 11/08/21 15:45 60 20 108/75 98 Nasal Cannula 11/08/21 15:35 56 L 18 101/72 95 Nasal Cannula 11/08/21 15:25 36.4 C L 62 20 103/74 93 Nasal Cannula 11/08/21 15:15 71 22 105/67 93 Nasal Cannula 11/08/21 15:05 36.4 C L 74 21 92/73 L 93 Nasal Cannula 11/08/21 14:56 36.4 C L 74 21 105/74 93 Oxymask 11/08/21 13:55 36.8 C 84 20 124/84 96 Room Air 11/08/21 09:22 36.5 C 66 18 114/79 94 Room Air 11/08/21 07:39 Room Air O2 Flow Rate 11/08/21 16:07 2 11/08/21 15:55 2 11/08/21 15:45 2 11/08/21 15:35 3 11/08/21 15:25 3 11/08/21 15:15 3 11/08/21 15:05 3 11/08/21 14:56 5 11/08/21 13:55 11/08/21 09:22 11/08/21 07:39 Laboratory Results Laboratory Results - last 24 hr 11/07/21 11/07/21 11/07/21 17:59 17:59 17:59 WBC 10.48 RBC 5.34 H Hgb 16.3 H Hct 47.2 H MCV 88.4 MCH 30.5 MCHC 34.5 RDW Std Deviation 40.4 RDW Coeff of Cecilio 12.6 Plt Count 370 MPV 8.2 L Immature Gran % (Auto) 0.4 Neut % (Auto) 65.8 Lymph % (Auto) 24.0 Allen % (Auto) 5.9 Eos % (Auto) 3.4 Baso % (Auto) 0.5 Neut # (Auto) 6.89 H Lymph # (Auto) 2.52 Allen # (Auto) 0.62 Eos # (Auto) 0.36 Baso # (Auto) 0.05 Immature Gran # (Auto) 0.04 H Sodium 135 L Potassium 4.0 Chloride 103 Carbon Dioxide 23 Anion Gap 9 BUN 13 Creatinine 0.66 Est Cr Clr Drug Dosing 115.9 Est GFR ( Amer) 127.2 Est GFR (Non-Af Amer) 109.7 BUN/Creatinine Ratio 19.7 Glucose 88 Calcium 10.2 H HCG, Qual Negative Urine Color Urine Appearance Urine pH Ur Specific [place] Urine Protein Urine Glucose (UA) Urine Ketones Urine Blood Urine Nitrite Urine Bilirubin Urine Urobilinogen Ur Leukocyte Esterase Urine WBC (Auto) Urine RBC (Auto) U Hyaline Cast (Auto) U Epithel Cells (Auto) Urine Bacteria (Auto) Urine Yeast SARS-CoV-2, RNA, NAAT 11/07/21 11/07/21 11/08/21 18:45 20:50 06:43 WBC 8.04 RBC 4.36 Hgb 13.5 Hct 38.8 MCV 89.0 MCH 31.0 MCHC 34.8 RDW Std Deviation 41.3 RDW Coeff of Cecilio 12.6 Plt Count 275 MPV 8.4 L Immature Gran % (Auto) 0.5 Neut % (Auto) 58.2 Lymph % (Auto) 31.2 Allen % (Auto) 5.6 Eos % (Auto) 4.1 Baso % (Auto) 0.4 Neut # (Auto) 4.68 Lymph # (Auto) 2.51 Allen # (Auto) 0.45 Eos # (Auto) 0.33 Baso # (Auto) 0.03 Immature Gran # (Auto) 0.04 H Sodium Potassium Chloride Carbon Dioxide Anion Gap BUN Creatinine Est Cr Clr Drug Dosing Est GFR ( Amer) Est GFR (Non-Af Amer) BUN/Creatinine Ratio Glucose Calcium HCG, Qual Urine Color Dark Yellow Urine Appearance Cloudy A Urine pH 5.0 Ur Specific [place] 1.026 Urine Protein Trace H Urine Glucose (UA) Negative Urine Ketones Trace H Urine Blood Trace H Urine Nitrite Negative Urine Bilirubin Negative Urine Urobilinogen Negative Ur Leukocyte Esterase Negative Urine WBC (Auto) 10-30 H Urine RBC (Auto) 10-30 H U Hyaline Cast (Auto) 5-10 H U Epithel Cells (Auto) >30 H Urine Bacteria (Auto) 1+ H Urine Yeast Present A SARS-CoV-2, RNA, NAAT NEGATIVE 11/08/21 06:43 WBC RBC Hgb Hct MCV MCH MCHC RDW Std Deviation RDW Coeff of Cecilio Plt Count MPV Immature Gran % (Auto) Neut % (Auto) Lymph % (Auto) Allen % (Auto) Eos % (Auto) Baso % (Auto) Neut # (Auto) Lymph # (Auto) Allen # (Auto) Eos # (Auto) Baso # (Auto) Immature Gran # (Auto) Sodium 137 Potassium 3.9 Chloride 108 H Carbon Dioxide 22 Anion Gap 7 BUN 17 Creatinine 0.82 Est Cr Clr Drug Dosing 94.4 Est GFR ( Amer) 103.0 Est GFR (Non-Af Amer) 88.9 BUN/Creatinine Ratio 20.7 H Glucose 127 H Calcium 8.4 L HCG, Qual Urine Color Urine Appearance Urine pH Ur Specific [place] Urine Protein Urine Glucose (UA) Urine Ketones Urine Blood Urine Nitrite Urine Bilirubin Urine Urobilinogen Ur Leukocyte Esterase Urine WBC (Auto) Urine RBC (Auto) U Hyaline Cast (Auto) U Epithel Cells (Auto) Urine Bacteria (Auto) Urine Yeast SARS-CoV-2, RNA, NAAT PG Care Time/CCT Total # of Minutes Spent Total Time Spent with Patient: Total time spent is greater than 50% in coordination of care (as documented) at patient's floor/unit and/or counseling patient: Coding Level of Care Code 76811 Subseq Hosp Care Lvl 2 Diagnoses Kidney stone N20.0 Anxiety F41.9 Diet-controlled diabetes mellitus E11.9 UTI (urinary tract infection) N39.0
[2021-11-08] MEDS: cefTRIAXone SODIUM 2,000 MG in DEXTROSE 5% 50 ML IV SCH (19:25)
[2021-11-09] MEDS: HYDROmorphone INJ 0.5 MG/0.5 ML SYR IV PRN ×2 (00:17→03:29)
[2021-11-09] MEDS: SODIUM CHLORIDE 0.9% 1000ML 1,000 ML IV SCH ×3 (03:29→17:54)
[2021-11-09] MEDS ORDERED: SODIUM CHLORIDE 0.9% 1000ML 1,000 ML IV ONE (03:57)
--- NOTE | 2021-11-09 04:35 | Communication Note ---
Date of Service: November 09, 2021 Night resident note 03:55- RN notified me that patient was hypotensive to 86/45, bradycardic to 48, and patient noted she "doesn't feel quite right" and reported worsening right flank pain in addition to left-sided chest discomfort. SpO2 92% on room air. Patient underwent cystoscopy with right renal aspiration, retrograde pyelogram, and stent insertion about 12 hours prior (11/08 at 15:00). Symptoms concerning for stent migration vs perforation vs other. EKG: sinus bradycardia without overt ischemic change. Blood cultures ordered and pending. Stat CT abdomen/pelvis ordered. 05:00- patient back from CT, vitals slightly improved - BP 98/63, HR 53, RR 16, afebrile, SpO2 96% on 2L NC. Symptoms unchanged. Blood cultures ordered. Patient already on ceftriaxone - added zosyn. Patient being transferred to PCU. I notified patient's per patient request. CT abdomen/pelvis, per my read, did not demonstrate stent migration nor perforation. Reviewed imaging with Dr. Galicia who agreed with my imaging read. 06:45- messaged patient's daytime attending to notify him of patient's overnight events. Lyle Vann MD, PGY-3 Resident Activity Tracking Resident Involvement: Resident Care Provided and Digital Marketing Analyst Coverage Note Care Provided: Adult Hospital Medicine
[2021-11-09] MEDS ORDERED: PIPERACILLIN/TAZOBACTAM 3.375 GM in DEXTROSE 5% 100 ML IV SCH (05:30)
[2021-11-09 07:27] LABS: Basophils # (auto) 0.01 K/uL (0-0.2); Basophils % (auto) 0.1 %; Eosinophils # (auto) 0.01 K/uL (0-0.50); Eosinophils % (auto) 0.1 %; Hematocrit (blood only) 36.6 % (34.1-44.9); Hemoglobin 12.4 g/dl (12.0-16.0); Immature Granulocytes # (auto) 0.04 K/uL (0.00-0.02); Immature Granulocytes % (auto) 0.4 %; Lymphocytes # (auto) 1.08 K/uL (1.2-3.4); Lymphocytes % (auto) 11.3 %; Mean Corpuscular Hemoglobin 30.8 pg (25.0-34.0); Mean Corpuscular Hgb Conc 33.9 g/dL (32.0-36.0); Mean Platelet Volume 8.7 fL (9.4-12.3); Monocytes % (auto) 4.2 %; Neutrophils # (auto) 8.03 K/uL (1.4-6.5); Neutrophils % (auto) 83.9 %; Platelet Count 267 K/uL (130-400); RDW Coefficient of Variation 12.5 % (11.5-14.5); RDW Standard Deviation 41.3 fL (36.4-46.3); Red Blood Count 4.02 M/uL (3.93-5.22); White Blood Count 9.57 K/ul (4.8-10.8)
[2021-11-09 07:48] LABS: Calcium 8.2 mg/dl (8.5-10.1); Creatinine Clr Calc Pharmacy 122.8 ml/min; Est GFR (African American) 129.1 ml/min; Est GFR (Non-African American) 111.4 ml/min; Potassium 4.1 mmol/L (3.5-5.1)
[2021-11-09] MEDS ORDERED: KETOROLAC TROMETHAMINE 15 MG/ML VIAL IV PRN (07:56)
[2021-11-09] MEDS: HYDROmorphone INJ 1 MG/ML SYRINGE IV PRN ×4 (08:00→22:48)
--- NOTE | 2021-11-09 08:20 | CT Scan Report ---
ABDOMEN AND PELVIS CT WITHOUT CONTRAST CT DOSE: 1067.06 mGycm HISTORY: hypotension bradycardia TECHNIQUE: Multiaxial CT images of the abdomen and pelvis were performed without contrast. A dose lo wering technique was utilized adhering to the principles of ALARA. COMPARISON STUDY: Abdomen and pelvis CT 10/25/2021. FINDINGS: Bibasilar patchy groundglass and linear densities are noted. This favors atelectasis. A pne umonia could also have a similar appearance in the appropriate clinical setting. No pneumoperitoneum. No pneumatosis. L5-S1 posterior decompression and fusion with pedicle screws and rods. The hardware appears intact. No fractures within the visualized osseous structures. There is a small fat-containin g right lateral/lower quadrant abdominal wall hernia. The abdominal wall defect is best seen on image 308 and measures 3 cm. This remains unchanged. Prior cholecystectomy. The liver, adrenal glands, and pancreas are unremarkable. There are few punctate calcified granulomas within the spleen. There are few small bilateral renal calculi measuring up to 4 mm. There is mild right perinephric and periurete ral fat stranding/edema. A right ureteral stent appears in good position. There is a 3 mm stone withi n the distal right ureter on image 369. This has passed a few centimeters distal compared to the prio r CT examination. There is no hydronephrosis. Trace gas within the bladder. Mild right urothelial thi ckening could be reactive to the recent intervention or represent a superimposed pyelitis. Recommend correlation with urinalysis. Prior hysterectomy. No pelvic free fluid. Suboptimal evaluation for venancio l pathology due to the lack of intravenous and oral contrast. However, there is no definite bowel wal l thickening or obstruction. Moderate well-formed stool within the proximal colon. No retroperitoneal lymphadenopathy. Normal caliber abdominal aorta. IMPRESSION: 1. A right ureteral stent appears in good position. No hydronephrosis. 2. There is a residual 3 mm stone within the distal right ureter. 3. Mild right urothelial thickening and perinephric/periureteral edema. This is likely due to the rec ent intervention. A superimposed infection could also have a similar appearance. Recommend correlatio n with urinalysis. 4. Bilateral nephrolithiasis. 5. No bowel wall thickening or obstruction. 6. Trace gas within the bladder lumen is nonspecific but likely due to the recent ureteral stent inse rtion. 7. Bibasilar densities favor atelectasis. A pneumonia is considered less likely but not entirely excl uded. ACT 112: Negative or not required by law. Electronically signed by: Shay Palomares M.D. 11/09/2021 8:18 AM
[2021-11-09] MEDS: ERTAPENEM SODIUM 1,000 MG in SYRINGE 0 ML IV SCH (09:34)
[2021-11-09 10:49] LABS: Estimated Average Glucose 123 mg/dl; Hemoglobin A1C 5.9 % (4.5-5.6)
--- NOTE | 2021-11-09 11:52 | Electrocardiogram Report ---
Test Reason : Blood Pressure : / mmHG Vent. Rate : 045 BPM Atrial Rate : 045 BPM P-R Int : 116 ms QRS Dur : 084 ms QT Int : 476 ms P-R-T Axes : 003 046 043 degrees QTc Int : 411 ms Sinus bradycardia Otherwise normal ECG When compared with ECG of 04-JUN-2018 08:45, No significant change was found Confirmed by Sunday Neves ([id number]) on 11/09/2021 11:52:02 AM Referred By: REFERRED SELF Confirmed By:Rashard Neves
[2021-11-09] MEDS: PROMETHAZINE HCL 6.25 MG in SODIUM CHLORIDE 0.9% 50 ML IV PRN (14:05)
--- NOTE | 2021-11-09 14:41 | Hospitalist Progress Note ---
Date of Service November 09, 2021 Assessment & Plan (1) Kidney stone: Plan: Right ureteric colic; status post stent; repeat CT scan obtained overnight, stent in good position per urology; they recommended switch to ertapenem and follow; they felt course is expected (2) Anxiety: Plan: Patient presently not on any medications (3) Diet-controlled diabetes mellitus: Plan: -Monitor blood sugars Refuses diabetic diet (4) UTI (urinary tract infection): Plan: Possible, not confirmedertapenem as above Plan CT scan notedincentive spirometry added ; refuses to wear monitor At 1 point was about to go AGAINST MEDICAL ADVICE but then decided to stay. Admission and Anticipated Discharge Date Admission Date: November 07, 2021 Subjective Follow-up of right flank painstatus post stent, overnight bradycardia and low blood pressure (she says her blood pressure is always low); continuing pain and discomfort and hematuria Physical Exam Physical Exam: Constitutional and general: Anxious, looks biologic age Head and face: No puffiness, atraumatic Eyes: No scleral icterus, extraocular movements normal Neck: Supple, no JVD Musculoskeletal: No acute joint swelling, no bony abnormalities Skin/dermatologic/integument: No rash, no purpura Hematologic and lymphatic: pallor none, no petechia Gastrointestinal/abdomen: Right flank tenderness Neurologic: Cranial nerves intact, nonfocal Cardiovascular: Heart rhythm regular, no rub, no murmur, no gallop Respiratory: Chest movements equal, no use of accessory muscles, no adventitious sounds Extremities: No edema, no cyanosis Results & Data Results & Data ([facility]) Vital Signs (Past 12 Hours) Vital Signs Temp Pulse Pulse Pulse Resp BP Pulse Ox 11/09/21 10:27 48 L 11/09/21 08:16 36.4 C L 47 L 18 110/77 97 11/09/21 05:45 11/09/21 06:39 52 L 11/09/21 05:50 36.4 C L 52 L 18 106/64 97 11/09/21 05:13 53 L 16 98/63 L 96 11/09/21 04:19 46 L 20 96/65 L 93 11/09/21 03:55 36.8 C 48 L 16 86/45 L 92 O2 Del Method O2 Flow Rate 11/09/21 10:27 11/09/21 08:16 Room Air 11/09/21 05:45 Nasal Cannula 2 11/09/21 06:39 11/09/21 05:50 Nasal Cannula 2 11/09/21 05:13 Nasal Cannula 2 11/09/21 04:19 Room Air 11/09/21 03:55 Room Air Laboratory Results Laboratory Results - last 24 hr 11/09/21 11/09/21 11/09/21 03:57 06:56 06:56 WBC 9.57 RBC 4.02 Hgb 12.4 Hct 36.6 MCV 91.0 MCH 30.8 MCHC 33.9 RDW Std Deviation 41.3 RDW Coeff of Cecilio 12.5 Plt Count 267 MPV 8.7 L Immature Gran % (Auto) 0.4 Neut % (Auto) 83.9 Lymph % (Auto) 11.3 [place] % (Auto) 4.2 Eos % (Auto) 0.1 Baso % (Auto) 0.1 Neut # (Auto) 8.03 H Lymph # (Auto) 1.08 L [place] # (Auto) 0.40 Eos # (Auto) 0.01 Baso # (Auto) 0.01 Immature Gran # (Auto) 0.04 H Sodium 135 L Potassium 4.1 Chloride 109 H Carbon Dioxide 21 Anion Gap 5 BUN 17 Creatinine 0.63 Est Cr Clr Drug Dosing 122.8 Est GFR ( Amer) 129.1 Est GFR (Non-Af Amer) 111.4 BUN/Creatinine Ratio 27.0 H Glucose 152 H POC Glucose 147 H Estimat Average Glucose Hemoglobin A1c Calcium 8.2 L 11/09/21 11/09/21 11/09/21 06:56 07:42 12:21 WBC RBC Hgb Hct MCV MCH MCHC RDW Std Deviation RDW Coeff of Cecilio Plt Count MPV Immature Gran % (Auto) Neut % (Auto) Lymph % (Auto) [place] % (Auto) Eos % (Auto) Baso % (Auto) Neut # (Auto) Lymph # (Auto) [place] # (Auto) Eos # (Auto) Baso # (Auto) Immature Gran # (Auto) Sodium Potassium Chloride Carbon Dioxide Anion Gap BUN Creatinine Est Cr Clr Drug Dosing Est GFR ( Amer) Est GFR (Non-Af Amer) BUN/Creatinine Ratio Glucose POC Glucose 144 H 118 H Estimat Average Glucose 123 Hemoglobin A1c 5.9 H Calcium PG Care Time/CCT Total # of Minutes Spent Total Time Spent with Patient: Total time spent is greater than 50% in coordination of care (as documented) at patient's floor/unit and/or counseling patient: Coding Level of Care Code 45132 Subseq Hosp Care Lvl 2 Diagnoses Kidney stone N20.0 Anxiety F41.9 Diet-controlled diabetes mellitus E11.9 UTI (urinary tract infection) N39.0
--- NOTE | 2021-11-09 16:07 | Urology Progress Note ---
Date of Service November 09, 2021 Assessment & Plan (1) Kidney stone: (2) Hydronephrosis, right: (3) Acute right flank pain: Plan 41yo F admitted with intractable right flank pain. CT scan from ER visit on 10/25/21 revealed a 3mm right ureteral stone. Renal US this admission did not reveal a stone but right sided hydronephrosis present. - POD #1 s/p Cystoscopy with right renal aspiration, retrograde pyelogram, and stent insertion. - Pt hypotensive and bradycardic overnight, transferred to PCU. - CTAP obtained and showing stent in appropriate position, no hydronephrosis, and some perinephric stranding as expected post procedure. - She is currently afebrile and hemodynamically stable. - Labs reviewed - No leukocytosis, renal function stable. - UCx 11/07 negative; UCx from R kidney prelim no growth; Blood cultures pending. - Changed to IV Ertapenem, follow cultures. - No further urological intervention warranted at this time. - Continue supportive care, antibiotics, and pain management. - Can consider addition of Flomax, Pyridium, oxybutynin as needed for stent management. - Urology will follow. Admission and Anticipated Discharge Date Admission Date: November 07, 2021 Subjective Patient examined at bedside this afternoon. Awake, sitting up in bed eating lunch on arrival. at bedside. No acute distress. Still with right flank pain. Some hematuria and dysuria. No fevers or chills. No nausea or vomiting. Tolerating diet. Per chart review, she was hypotensive, bradycardic overnight. Reported worsening right flank pain in addition to left-sided chest discomfort. Transferred to PCU per hospital team. EKG was obtained showing sinus bradycardia without overt ischemic change. Blood cultures obtained. Stat CT abdomen pelvis obtained and showing stent in good position. Review of Systems Constitutional: as per Subjective / HPI Gastrointestinal: as per Subjective / HPI Genitourinary: as per Subjective / HPI Physical Exam Constitutional: no acute distress Respiratory: no respiratory distress and no labored breathing Neurologic: awake Psychiatric: Orientation: alert, oriented x 3 and cooperative Results & Data ([facility]) Vital Signs (Past 12 Hours) Vital Signs Temp Pulse Pulse Pulse Resp BP Pulse Ox 11/09/21 10:27 48 L 11/09/21 08:16 36.4 C L 47 L 18 110/77 97 11/09/21 05:45 11/09/21 06:39 52 L 11/09/21 05:50 36.4 C L 52 L 18 106/64 97 11/09/21 05:13 53 L 16 98/63 L 96 11/09/21 04:19 46 L 20 96/65 L 93 11/09/21 03:55 36.8 C 48 L 16 86/45 L 92 O2 Del Method O2 Flow Rate 11/09/21 10:27 11/09/21 08:16 Room Air 11/09/21 05:45 Nasal Cannula 2 11/09/21 06:39 11/09/21 05:50 Nasal Cannula 2 11/09/21 05:13 Nasal Cannula 2 11/09/21 04:19 Room Air 11/09/21 03:55 Room Air PG Care Time/CCT Total # of Minutes Spent Total Time Spent with Patient: Total time spent is greater than 50% in coordination of care (as documented) at patient's floor/unit and/or counseling patient: Coding Level of Care Code 70554 Subseq Hosp Care Lvl 2 Diagnoses Kidney stone N20.0 Hydronephrosis, right N13.30 Acute right flank pain R10.9
[2021-11-09] MEDS: TAMSULOSIN HCL 0.4 MG CAP PO SCH (21:37)
[2021-11-09] MEDS: KETOROLAC 30 MG/ML VIAL IV PRN (21:43)
[2021-11-09] MEDS: OXYBUTYNIN CHLORIDE 5 MG TAB PO PRN (23:02)
[2021-11-10] MEDS: HYDROmorphone INJ 1 MG/ML SYRINGE IV PRN ×5 (01:47→20:15)
[2021-11-10] MEDS: SODIUM CHLORIDE 0.9% 1000ML 1,000 ML IV SCH (03:56)
[2021-11-10] MEDS: KETOROLAC 30 MG/ML VIAL IV PRN ×2 (03:56→22:54)
[2021-11-10] MEDS: OXYBUTYNIN CHLORIDE 5 MG TAB PO PRN ×2 (05:00→20:15)
[2021-11-10 07:50] LABS: Basophils # (auto) 0.02 K/uL (0-0.2); Basophils % (auto) 0.2 %; Eosinophils # (auto) 0.28 K/uL (0-0.50); Eosinophils % (auto) 2.8 %; Hemoglobin 11.8 g/dl (12.0-16.0); Immature Granulocytes # (auto) 0.03 K/uL (0.00-0.02); Immature Granulocytes % (auto) 0.3 %; Lymphocytes # (auto) 3.52 K/uL (1.2-3.4); Lymphocytes % (auto) 35.5 %; Mean Corpuscular Hemoglobin 30.3 pg (25.0-34.0); Mean Corpuscular Hgb Conc 32.8 g/dL (32.0-36.0); Mean Corpuscular Volume 92.5 fL (80.0-100.0); Mean Platelet Volume 10.3 fL (9.4-12.3); Monocytes # (auto) 0.55 K/uL (0.24-0.82); Monocytes % (auto) 5.5 %; Neutrophils # (auto) 5.51 K/uL (1.4-6.5); Neutrophils % (auto) 55.7 %; Platelet Count 217 K/uL (130-400); RDW Coefficient of Variation 12.8 % (11.5-14.5); RDW Standard Deviation 43.3 fL (36.4-46.3); Red Blood Count 3.89 M/uL (3.93-5.22); White Blood Count 9.91 K/ul (4.8-10.8)
[2021-11-10 08:16] LABS: BUN Creatinine Ratio 31.9 (10-20); Calcium 8.3 mg/dl (8.5-10.1); Creatinine Clr Calc Pharmacy 112.2 ml/min; Est GFR (African American) 125.3 ml/min; Est GFR (Non-African American) 108.1 ml/min; Potassium 4.1 mmol/L (3.5-5.1)
[2021-11-10] MEDS: ERTAPENEM SODIUM 1,000 MG in SYRINGE 0 ML IV SCH (08:22)
--- NOTE | 2021-11-10 17:16 | Hospitalist Progress Note ---
Date of Service November 10, 2021 Assessment & Plan (1) Kidney stone: Plan: Right ureteric colic; status post stent; she has questions about residual stone; communicated with urology and awaiting to hear back; the concern of not removing stone was related to possible infection but cultures negative; ertapenem continued for now -awaiting discussion with urology (initiated per their recommendation); patient asking for discussion with urology (2) Anxiety: Plan: Patient presently not on any medications (3) Diet-controlled diabetes mellitus: Plan: -Monitor blood sugars Refuses diabetic diet (4) UTI (urinary tract infection): Plan: Cultures negativeas above Plan . Admission and Anticipated Discharge Date Admission Date: November 07, 2021 Subjective Follow-up of right flank painbetter but ongoing pain; using pain meds [id number] Physical Exam Physical Exam: Constitutional and general: Anxious, looks biologic age Head and face: No puffiness, atraumatic Eyes: No scleral icterus, extraocular movements normal Neck: Supple, no JVD Musculoskeletal: No acute joint swelling, no bony abnormalities Skin/dermatologic/integument: No rash, no purpura Hematologic and lymphatic: pallor none, no petechia Gastrointestinal/abdomen: Right flank tenderness better Neurologic: Cranial nerves intact, nonfocal Cardiovascular: Heart rhythm regular, no rub, no murmur, no gallop Respiratory: Chest movements equal, no use of accessory muscles, no adventitious sounds Extremities: No edema, no cyanosis Results & Data Results & Data ([facility]) Vital Signs (Past 12 Hours) Vital Signs Temp Pulse Resp BP Pulse Ox O2 Del Method 11/10/21 15:46 36.6 C 68 18 135/87 95 Room Air 11/10/21 10:55 36.5 C 59 L 126/98 98 11/10/21 07:34 36.5 C 51 L 18 144/84 H 98 Room Air Laboratory Results Laboratory Results - last 24 hr 11/09/21 11/10/21 11/10/21 20:38 06:49 06:49 WBC 9.91 RBC 3.89 L Hgb 11.8 L Hct 36.0 MCV 92.5 MCH 30.3 MCHC 32.8 RDW Std Deviation 43.3 RDW Coeff of Cecilio 12.8 Plt Count 217 MPV 10.3 Immature Gran % (Auto) 0.3 Neut % (Auto) 55.7 Lymph % (Auto) 35.5 Jerome % (Auto) 5.5 Eos % (Auto) 2.8 Baso % (Auto) 0.2 Neut # (Auto) 5.51 Lymph # (Auto) 3.52 H Jerome # (Auto) 0.55 Eos # (Auto) 0.28 Baso # (Auto) 0.02 Immature Gran # (Auto) 0.03 H Sodium 135 L Potassium 4.1 Chloride 109 H Carbon Dioxide 20 L Anion Gap 6 BUN 22 Creatinine 0.69 Est Cr Clr Drug Dosing 112.2 Est GFR ( Amer) 125.3 Est GFR (Non-Af Amer) 108.1 BUN/Creatinine Ratio 31.9 H Glucose 92 POC Glucose 112 H Calcium 8.3 L 11/10/21 07:39 WBC RBC Hgb Hct MCV MCH MCHC RDW Std Deviation RDW Coeff of Cecilio Plt Count MPV Immature Gran % (Auto) Neut % (Auto) Lymph % (Auto) Jerome % (Auto) Eos % (Auto) Baso % (Auto) Neut # (Auto) Lymph # (Auto) Jerome # (Auto) Eos # (Auto) Baso # (Auto) Immature Gran # (Auto) Sodium Potassium Chloride Carbon Dioxide Anion Gap BUN Creatinine Est Cr Clr Drug Dosing Est GFR ( Amer) Est GFR (Non-Af Amer) BUN/Creatinine Ratio Glucose POC Glucose 103 H Calcium PG Care Time/CCT Total # of Minutes Spent Total Time Spent with Patient: Total time spent is greater than 50% in coordination of care (as documented) at patient's floor/unit and/or counseling patient: Coding Level of Care Code 47492 Subseq Hosp Care Lvl 2 Diagnoses Kidney stone N20.0 Anxiety F41.9 Diet-controlled diabetes mellitus E11.9 UTI (urinary tract infection) N39.0
--- NOTE | 2021-11-10 17:52 | Urology Progress Note ---
Date of Service November 10, 2021 Assessment & Plan (1) Hydronephrosis, right: (2) UTI (urinary tract infection): (3) Renal colic: Plan Musa Pacheco reviewed her nephrolithiasis right kidney is decompressed with the ureteral stent which appears to be in good position. We reviewed the common symptoms 1 may have with the stent in place. I reassured her that I think it is safe for her to go home. I would recommend that she goes on a couple days of empiric antibiotics, even though the urine culture was negative. We discussed general options for stone treatment interleaving shockwave lithotripsy or ureteroscopy with laser lithotripsy. Due to the multiple stones in her kidney, I would recommend that we proceed with laser lithotripsy, which would be done as an outpatient. She expressed understanding. We also discussed general pain control recommendations. I suggested that she alternate Tylenol and ibuprofen, using Pyridium and tamsulosin as well. If this does not control her pain, then I would add in narcotics. I think she is safe for discharge home today. Urology will coordinate follow-up as an outpatient. We will sign off for now. Please call with any questions or concerns. Admission and Anticipated Discharge Date Admission Date: November 07, 2021 Subjective Patient is feeling okay. Still having some flank pain on the right side, but this is gradually subsiding. Not having any fevers or chills. No leukocytosis. Urinalysis from 11/07 suspicious for infection, however urine culture from 11/08 with no formal growth. She is apprehensive of going home, as she has had several bounce backs in the past. Review of Systems Review of Systems: 14 point review of systems negative except for otherwise indicated. Physical Exam Physical Exam: Somewhat uncomfortable appearing, NAD Results & Data ([facility]) Vital Signs (Past 12 Hours) Vital Signs Temp Pulse Resp BP Pulse Ox O2 Del Method 11/10/21 15:46 36.6 C 68 18 135/87 95 Room Air 11/10/21 10:55 36.5 C 59 L 126/98 98 11/10/21 07:34 36.5 C 51 L 18 144/84 H 98 Room Air PG Care Time/CCT Total # of Minutes Spent Total Time Spent with Patient: Total time spent is greater than 50% in coordination of care (as documented) at patient's floor/unit and/or counseling patient: Coding Level of Care Code 02900 Subseq Obs Care Lvl 2 Diagnoses Hydronephrosis, right N13.30 UTI (urinary tract infection) N39.0 Renal colic N23
[2021-11-10] MEDS: TAMSULOSIN HCL 0.4 MG CAP PO SCH (20:15)
[2021-11-11] MEDS: HYDROmorphone INJ 1 MG/ML SYRINGE IV PRN ×5 (00:04→20:35)
[2021-11-11 08:32] LABS: Basophils # (auto) 0.02 K/uL (0-0.2); Basophils % (auto) 0.2 %; Eosinophils # (auto) 0.47 K/uL (0-0.50); Eosinophils % (auto) 5.1 %; Hematocrit (blood only) 35.6 % (34.1-44.9); Hemoglobin 12.1 g/dl (12.0-16.0); Immature Granulocytes # (auto) 0.04 K/uL (0.00-0.02); Immature Granulocytes % (auto) 0.4 %; Lymphocytes # (auto) 2.39 K/uL (1.2-3.4); Lymphocytes % (auto) 26.2 %; Mean Corpuscular Hemoglobin 30.6 pg (25.0-34.0); Mean Corpuscular Volume 89.9 fL (80.0-100.0); Mean Platelet Volume 8.5 fL (9.4-12.3); Monocytes # (auto) 0.51 K/uL (0.24-0.82); Monocytes % (auto) 5.6 %; Neutrophils % (auto) 62.5 %; Platelet Count 252 K/uL (130-400); RDW Coefficient of Variation 12.4 % (11.5-14.5); RDW Standard Deviation 40.9 fL (36.4-46.3); Red Blood Count 3.96 M/uL (3.93-5.22); White Blood Count 9.13 K/ul (4.8-10.8)
--- NOTE | 2021-11-11 08:52 | Urology Progress Note ---
Date of Service November 11, 2021 Assessment & Plan (1) Hydronephrosis, right: (2) Acute right flank pain: (3) Renal colic: Plan Keep NPO. We will plan to proceed to the OR today for cystoscopy, right ureteroscopy, retrograde pyelogram, laser lithotripsy/stone treatment, right ureteral stent exchange depending on findings. Risks and benefits reviewed with patient by Dr. Almeida. OR notified. COVID test negative. Covered with scheduled IV Ertapenem. Continue supportive care and pain management. Patient agreeable to plan, all questions were answered. ATTENDING NOTE: Agree with above. Independently assessed and examined. Risks and benefits discussed at length for procedure. These include bleeding, infection, injury to surrounding tissues or organs, and risks associated with anesthesia. Patient states understanding and agrees to proceed. Will sign consent and proceed with stone treatment on right. Admission and Anticipated Discharge Date Admission Date: November 07, 2021 Subjective Patient examined at bedside this AM. Awake, resting in bed on arrival. No acute distress. Has been n.p.o. Review of Systems Constitutional: as per Subjective / HPI Genitourinary: as per Subjective / HPI Physical Exam Constitutional: no acute distress Respiratory: no respiratory distress and no labored breathing Neurologic: awake Psychiatric: Orientation: alert and oriented x 3 Results & Data ([facility]) Vital Signs (Past 12 Hours) Vital Signs Temp Pulse Pulse Resp BP BP Pulse Ox 11/11/21 07:33 36.7 C 79 14 111/70 95 11/11/21 00:30 36.8 C 59 L 20 109/72 97 O2 Del Method 11/11/21 07:33 Room Air 11/11/21 00:30 Room Air PG Care Time/CCT Total # of Minutes Spent Total Time Spent with Patient: Total time spent is greater than 50% in coordination of care (as documented) at patient's floor/unit and/or counseling patient: Coding Level of Care Code 83060 Subseq Hosp Care Lvl 2 Diagnoses Hydronephrosis, right N13.30 Acute right flank pain R10.9 Renal colic N23
[2021-11-11 09:12] LABS: BUN Creatinine Ratio 31.6 (10-20); Calcium 8.5 mg/dl (8.5-10.1); Creatinine Clr Calc Pharmacy 135.8 ml/min; Est GFR (African American) 133.5 ml/min; Est GFR (Non-African American) 115.1 ml/min
[2021-11-11] MEDS: ERTAPENEM SODIUM 1,000 MG in SYRINGE 0 ML IV SCH (11:37)
[2021-11-11] MEDS ORDERED: ePHEDrine sulfate 50 MG/ML AMP IV PRN (11:45)
[2021-11-11] MEDS ORDERED: HYDROmorphone INJ 1 MG/ML SYRINGE IV PRN (11:45)
[2021-11-11] MEDS ORDERED: ATROPINE SULFATE 0.1 MG/ML 10ML SYR IV PRN (11:45)
[2021-11-11] MEDS ORDERED: MEPERIDINE HCL 25 MG/ML CARP/VIAL IV PRN (11:45)
[2021-11-11] MEDS ORDERED: LABETALOL HCL IV 5 MG/ML 20ML IV PRN (11:45)
[2021-11-11] MEDS ORDERED: PHENYLEPHRINE 100MCG/ML 5ML SYR IV PRN (11:45)
--- NOTE | 2021-11-11 11:49 | Anesthesiology Consultation ---
Date of Service November 11, 2021 Assessment & Plan (1) Encounter for pre-operative examination: Chart Review Chart Review: Acceptable Risk for Surgery and Patient NOT seen in Pre Admission Testing Consults Requested none History Surgery Operation Date: 11/08/21 10:40 Proposed Procedures p Cystoscopy, Right Retrograde Pyelogram, Right Stent Placement - Asael Almeida DO Operation Date: 11/11/21 08:20 Proposed Procedures p Cystoscopy, Right Ureteroscopy, Retrograde Pyelogram, Laser Litho Stone Treatment, Right Stent Exchange - Asael Almeida DO Height/Weight Height: 5 ft 2 in Weight: 90.4 kg Allergies Allergy/AdvReac Type Severity Reaction Status Date / Time bee venom protein (honey bee) Allergy Severe SHORTNESS Verified 10/25/21 23:24 OF BREATH Fish Containing Products Allergy Severe SWELLING Verified 10/25/21 23:24 AND REDNESS morphine Allergy Severe Shakiness Verified 11/08/21 23:55 shellfish derived Allergy Severe SWELLING/RED Verified 10/25/21 23:24 SKIN ondansetron Allergy Intermediate HIVES - Verified 10/25/21 23:24 RASH EXOTIC FRUITS Allergy Intermediate HIVES RASH Uncoded 10/25/21 23:24 SWELLING Medications Home Medications Medication Instructions Recorded Confirmed Last Taken acetaminophen 500 mg tablet 1,000 mg PO Q6H PRN Pain 10/25/21 11/07/21 11/05/21 (Tylenol Extra Strength) ibuprofen 800 mg tablet 800 mg PO Q8 PRN Pain 10/25/21 11/07/21 11/07/21 11:00 oxycodone 5 mg tablet 5 mg PO Q6H PRN Pain, Severe 11/07/21 11/07/21 Unknown Active Medications Generic Name Dose Route Start Last Admin Trade Name Freq PRN Reason Stop Dose Admin Hydromorphone HCl 0.6 mg 11/09/21 08:14 11/11/21 07:55 Hydromorphone Inj 1 Mg/Ml Syringe IV 11/23/21 08:13 0.6 mg Q3H PRN Administration Severe Pain Promethazine HCl 6.25 mg/ 50.25 mls @ 201 mls/hr 11/07/21 22:37 11/09/21 19:18 Sodium Chloride IV 12/07/21 22:36 Infused Q6H PRN Infusion Nausea And Vomiting Ertapenem 1,000 mg/ Syringe 10 mls @ 2 mls/min 11/09/21 09:00 11/11/21 11:37 IV 11/19/21 08:59 2 mls/min DAILY LAMINE Administration Ketorolac Tromethamine 30 mg 11/09/21 08:22 11/10/21 22:54 Ketorolac 30 Mg/Ml Vial IV 11/14/21 08:21 30 mg Q6H PRN Administration Moderate Pain Oxybutynin Chloride 5 mg 11/09/21 20:28 11/10/21 20:15 Oxybutynin Chloride 5 Mg Tab PO 12/09/21 20:59 5 mg TID PRN Administration Bladder pain Tamsulosin HCl 0.4 mg 11/09/21 21:00 11/10/21 20:15 Tamsulosin Hcl 0.4 Mg Cap PO 12/09/21 20:59 0.4 mg HS LAMINE Administration NPO Date Last Intake of Fluids: 11/07/21 Time Last Intake of Fluids: 23:30 Date Last Intake of Solids: 11/07/21 Time Last Intake of Solids: 21:30 Past Medical History Medical History Anxiety and depression NO MEDS Diet-controlled diabetes mellitus History of uterine fibroid Lumbar degenerative disc disease Migraine Obesity Rheumatoid arthritis Past Family History Family History Grandfather (Maternal) Family history of diabetes mellitus Mother Diabetes Depression Kidney stones Uterine malignant neoplasm Aunt Ovarian cancer maternal Diabetes Breast cancer Sister Kidney stones Uterine malignant neoplasm Grandmother Myocardial infarction Uterine malignant neoplasm Other Adopted Denies family history of Colorectal cancer Past Surgical History Surgical History Fusion of lumbar spine BONE GRAFT FROM PELVIS H/O bone graft Iliac bone graft with lumbar fusion H/O left wrist surgery H/O shoulder surgery RT History of appendectomy History of bilateral breast reduction surgery History of bilateral tubal ligation History of cholecystectomy History of cystoscopy STONE REMOVAL History of facial surgery RECONSTRUCTION - D/T DEGLOVING History of hand surgery Rt x 2 FINGER I & D History of hysterectomy History of lithotripsy History of tonsillectomy History of tooth extraction Hx of arthroscopic knee surgery LEFT X 2 Hx of dilation and curettage Slow to wake up after anesthesia Social History Smoking Status: Current every day smoker tobacco type: cigarettes Smoking cigarettes per day: 1/2 pack Do You Dip or Chew Tobacco: No Hx Alcohol Use: No Hx Substance Use: No substance use type: does not use Physical Exam Vital Signs Last Vital Signs Temp 36.7 C 11/11/21 07:33 Pulse 79 11/11/21 07:33 Resp 14 11/11/21 07:33 BP 111/70 11/11/21 07:33 Pulse Ox 95 11/11/21 07:33 O2 Del Method 11/11/21 07:33 O2 Flow Rate 2 11/09/21 05:50 Testing Laboratory Results 11/11/21 08:18 11/11/21 08:18 Hemoglobin A1c 5.9 % (4.5-5.6) H 11/09/21 06:56 Urine Color Dark Yellow 11/07/21 18:45 Urine Appearance Cloudy (Clear) A 11/07/21 18:45 Urine pH 5.0 (4.5-7.5) 11/07/21 18:45 Ur Specific [place] 1.026 (1.000-1.030) 11/07/21 18:45 Urine Protein Trace (Negative) H 11/07/21 18:45 Urine Glucose (UA) Negative (Negative) 11/07/21 18:45 Urine Ketones Trace (Negative) H 11/07/21 18:45 Urine Nitrite Negative (Negative) 11/07/21 18:45 Ur Leukocyte Esterase Negative (Negative) 11/07/21 18:45 Urine WBC (Auto) 10-30 /hpf (0-5) H 11/07/21 18:45 Urine RBC (Auto) 10-30 /hpf (0-4) H 11/07/21 18:45 U Hyaline Cast (Auto) 5-10 /lpf (0-5) H 11/07/21 18:45 U Epithel Cells (Auto) >30 /lpf (0-5) H 11/07/21 18:45 Urine Bacteria (Auto) 1+ (Negative) H 11/07/21 18:45 11/09/21 07:06 Aerobic Blood Culture - Preliminary Blood No growth in Aerobic bottle after 48 hours. Anaerobic Blood Culture - Preliminary No growth in Anaerobic bottle after 48 hours. 11/09/21 06:56 Aerobic Blood Culture - Preliminary Blood No growth in Aerobic bottle after 48 hours. Anaerobic Blood Culture - Preliminary No growth in Anaerobic bottle after 48 hours. 11/08/21 14:46 Urine Culture - Final Urine,Kidney No growth - less than 1,000 colonies/mL. 11/07/21 18:45 Urine Culture - Final Urine,Clean Catch More than three types of organisms present, all [place] mixed probable skin miguel - No further identifications or sensitivities to follow.
[2021-11-11] MEDS ORDERED: LIDOCAINE 2% MPF LOCAL 5 ML VIAL INFIL ONE (12:11)
[2021-11-11] MEDS ORDERED: PROPOFOL IV EMULSION 10 MG/ML 20 ML VIAL IV ONE (12:11)
[2021-11-11] MEDS ORDERED: MIDAZOLAM HCL 1 MG/ML 2ML VIAL ONE (12:11)
[2021-11-11] MEDS ORDERED: fentaNYL citrate 100 MCG/2 ML VIAL ONE (12:11)
[2021-11-11] MEDS ORDERED: KETAMINE 50 MG/5 ML SYRINGE ONE (13:03)
[2021-11-11] MEDS ORDERED: DIATRIZOATE MEGLUMINE 30% 100ML VIAL INSTIL PRN (13:13)
[2021-11-11] MEDS ORDERED: HYDROmorphone INJ 2 MG/ML SYR/VIAL ONE (13:14)
[2021-11-11] MEDS ORDERED: ALBUTEROL HFA INHALER 8.5 GM ONE (13:25)
--- NOTE | 2021-11-11 13:25 | Operative Report ---
PG Post Operative Report Pre & Post Diagnosis Operation Date: 11/11/21 08:20 Pre-Op Diagnosis: Right Hydronephrosis Right Renal Calculi Acute right flank pain Post-Op Diagnosis: Right Hydronephrosis Right Renal Calculi Acute right flank pain I identified the patient and participated in the time-out.: Yes Procedure Operation Date: 11/11/21 08:20 Actual Procedures p Cystoscopy with Right Ureteroscopy, Right Retrograde Pyelogram, Basket Extraction of Stone, and Right Stent Removal(Right) - Asael Almeida DO Surgeon Asael Almeida, II, DO Prop Making Supervisor None Estimated Blood Loss 1 Findings Consistent with Post-Op Diagnosis Stone basketed and fragments removed. Specimens Stone Fragments Drains None Anesthesia Type MAC Complications none Disposition Disposition: Recovery Room Indications Patient with bothersome stones. Risks and benefits discussed at length. Description of Procedure Patient was consented and brought back to the operating room. Patient was placed under anesthesia in the supine position and moved to the dorsal lithotomy position. Patient was prepped and draped in the regular sterile fashion. A time out was completed. A 30degree Cystoscope was placed into the bladder and the entire bladder was examined. The stent was partially grasped. This was removed and a wire placed. The UO's were identified. The UO was cannulized with a catheter and a retrograde pyelogram was completed. A wire was then placed. The Rigid ureteroscope was taken into the ureter. The stone was identified. The stone was grasped and removed and sent for analysis. The entire area was once again examined. No residual large fragments or areas of concern were noted. The scope was slowly removed with the wire left in place. Contrast was placed through the scope for a pyelogram to assist in stent placement. The entire ureter was examined as the scope was slowly removed. No obstructions or other areas of concern were noted. The wire was removed, and the bladder was emptied. The scope was removed. The patient was cleaned, aroused from anesthesia, and transferred to the pacu in stable condition having tolerated the procedure well with no complications. I was present and participated in all aspects of the procedure. The patient will be monitored in the PACU until transferred. Plan to followup in 4-6 weeks with imaging with primary urologist. I attest to the content of the Intraoperative Record and any orders documented therein. Any exceptions are noted below.
--- NOTE | 2021-11-11 13:54 | Fluoroscopy Report ---
FL retrograde includes kub CLINICAL HISTORY: RT CYSTO COMPARISON STUDY: CT of the abdomen and pelvis January 09, 2022. FLUOROSCOPY TIME: 6 seconds. FLUOROSCOPIC IMAGES: 2 FINDINGS: Incidental note is made of postoperative findings within the lumbosacral spine. Fluoroscopy was provided during right retrograde exam with stent removal. Minimal opacification of the right ure ter. IMPRESSION: Fluoroscopy provided during right retrograde exam with stent removal. ACT 112: Negative or not required by law. Electronically signed by: Anand Murray M.D. 11/11/2021 1:52 PM
[2021-11-11] MEDS: fentaNYL citrate 100 MCG/2 ML VIAL IV PRN ×4 (13:55→14:10)
--- NOTE | 2021-11-11 14:08 | Anesthesiology Progress Note ---
Date of Service November 11, 2021 Anesthesia Post Procedure Vital Signs Vital Signs: Temp Pulse Pulse Resp BP BP Pulse Ox 11/11/21 14:00 72 18 128/85 94 11/11/21 13:50 72 20 108/76 93 11/11/21 13:40 77 20 106/72 91 11/11/21 13:30 36.3 C L 89 20 116/87 91 11/11/21 12:01 36.6 C 73 20 113/79 95 11/11/21 07:33 36.7 C 79 14 111/70 95 11/11/21 00:30 36.8 C 59 L 20 109/72 97 11/10/21 19:00 36.8 C 77 16 107/74 94 11/10/21 15:46 36.6 C 68 18 135/87 95 O2 Del Method O2 Flow Rate 11/11/21 14:00 Oxymask 10 11/11/21 13:50 Oxymask 10 11/11/21 13:40 Oxymask 10 11/11/21 13:30 Oxymask 10 11/11/21 12:01 Room Air 11/11/21 07:33 Room Air 11/11/21 00:30 Room Air 11/10/21 19:00 Room Air 11/10/21 15:46 Room Air Pain Intensity Flank: Pain Intensity: 3 Right Flank: Pain Intensity: 3 Right Groin: Pain Intensity: 3 Transfer of Care Handoff Completed per policy Notes Mental Status: alert / awake / arousable Patient Amnestic to Procedure: Yes Nausea / Vomiting: adequately controlled Pain: adequately controlled Airway Patency, RR, SpO2: stable & adequate BP & HR: stable & adequate Hydration State: stable & adequate Anesthetic Complications: no major complications apparent and Pt Satisfied with anesthetic care
[2021-11-11] MEDS: PROMETHAZINE HCL 6.25 MG in SODIUM CHLORIDE 0.9% 50 ML IV PRN (15:26)
[2021-11-11] MEDS ORDERED: PHENAZOPYRIDINE HCL 200 MG TAB PO PRN (16:07)
[2021-11-11] MEDS ORDERED: PROCHLORPERAZINE 10 MG in SYRINGE 8 ML IV PRN (16:10)
[2021-11-11] MEDS ORDERED: ACETAMINOPHEN 1,000 MG/100 ML VIAL IV STA (17:20)
--- NOTE | 2021-11-11 17:48 | Hospitalist Progress Note ---
Date of Service November 11, 2021 Assessment & Plan (1) Kidney stone: Plan: Status post stone removal, complain of severe abdominal pain right side as described under subjectiverepeat CT, pain control; n.p.o. except meds for now; she refused Toradol, refused Pyridium recommended by urologyasked her that she please take recommended treatment (explained coloring of urine with Pyridium) ( (2) Anxiety: Plan: Patient presently not on any medications (3) Diet-controlled diabetes mellitus: Plan: -Monitor blood sugars Refuses diabetic diet (4) UTI (urinary tract infection): Plan: Cultures negative; per urology short course of antibiotics such as Levaquin for 3 days Plan . Admission and Anticipated Discharge Date Admission Date: November 07, 2021 Subjective Follow-up of presentation with right renal colicunderwent stone removal today by urology procedure went smoothly and could be discharged; postprocedure severe right lumbar/upper abdomen pain Physical Exam Physical Exam: Constitutional and general: Anxious, looks biologic age Head and face: No puffiness, atraumatic Eyes: No scleral icterus, extraocular movements normal Neck: Supple, no JVD Musculoskeletal: No acute joint swelling, no bony abnormalities Skin/dermatologic/integument: No rash, no purpura Hematologic and lymphatic: pallor , no petechia Gastrointestinal/abdomen: Tenderness over right lumbar/upper abdomen Neurologic: Cranial nerves intact, nonfocal Cardiovascular: Heart rhythm regular, no rub, no murmur, no gallop Respiratory: Chest movements equal, no use of accessory muscles, no adventitious sounds Extremities: No edema, no cyanosis Results & Data Results & Data ([facility]) Vital Signs (Past 12 Hours) Vital Signs Temp Pulse Resp BP BP Pulse Ox O2 Del Method 11/11/21 16:59 92 Nasal Cannula 11/11/21 16:55 36.5 C 86 20 126/85 87 L Room Air 11/11/21 15:45 36.6 C 84 16 115/78 93 Nasal Cannula 11/11/21 14:45 36.5 C 102 H 18 127/75 91 Nasal Cannula 11/11/21 15:19 36.5 C 88 18 137/83 93 Nasal Cannula 11/11/21 14:20 36.6 C 68 18 109/80 95 Nasal Cannula 11/11/21 14:10 73 18 119/69 94 Nasal Cannula 11/11/21 14:00 72 18 128/85 94 Oxymask 11/11/21 13:50 72 20 108/76 93 Oxymask 11/11/21 13:40 77 20 106/72 91 Oxymask 11/11/21 13:30 36.3 C L 89 20 116/87 91 Oxymask 11/11/21 12:01 36.6 C 73 20 113/79 95 Room Air 11/11/21 07:33 36.7 C 79 14 111/70 95 Room Air O2 Flow Rate 11/11/21 16:59 4 11/11/21 16:55 11/11/21 15:45 4 11/11/21 14:45 4 11/11/21 15:19 4 11/11/21 14:20 4 11/11/21 14:10 4 11/11/21 14:00 10 11/11/21 13:50 10 11/11/21 13:40 10 11/11/21 13:30 10 11/11/21 12:01 11/11/21 07:33 PG Care Time/CCT Total # of Minutes Spent Total Time Spent with Patient: Total time spent is greater than 50% in coordination of care (as documented) at patient's floor/unit and/or counseling patient: Coding Level of Care Code 15586 Subseq Hosp Care Lvl 2 Diagnoses Kidney stone N20.0 Anxiety F41.9 Diet-controlled diabetes mellitus E11.9 UTI (urinary tract infection) N39.0
[2021-11-11] MEDS: KETOROLAC 30 MG/ML VIAL IV PRN (21:33)
[2021-11-11] MEDS: TAMSULOSIN HCL 0.4 MG CAP PO SCH (21:38)
[2021-11-12] MEDS ORDERED: ACETAMINOPHEN 500 MG TAB PO PRN (07:14)
--- NOTE | 2021-11-12 07:31 | Discharge Summary ---
Date of Service November 12, 2021 Admission HPI Per Admitting Provider Beth Woodward is a 41yo female with history of diet controlled DM, RA and recurrent nephrolithiasis presenting with persistent right flank pain x 2 weeks. Patient presented to [facility] ER on 10/25/21 with complaint of right flank pain and nausea. She was found to have a 3mm stone in the right ureter at the pelvic inlet without hydronephrosis as well as additional stones present in the bilateral kidneys. Renal function intact. Patient was discharged home with prescriptions for Flomax, Percocet and Keflex and instructed to followup with Urology in 3-5 days. Patient had been taking her medications as prescribed and her symptoms have been manageable. She has not passed the stone to her knowledge. She developed acute right flank pain this afternoon around 12:00 which prompted her to come to the ER. Also with nausea but no vomiting. Denies fever, chills, chest pain, cough, SOB. Denies dysuria, hematuria. She is able to pass urine without difficulty. Reports she has been staying hydrated with water. She has had similar pain in the past - this being the 4th episode of renal colic since Spring 2021. Patient developed her first renal stone in 2014. She had laser lithotripsy with stent placement performed by Dr. Han. She required hospital readmission following her stent placement for UTI and pain control. She was admitted to [facility] 06/03/18 - 06/04/18 with intractable left flank pain fou nd to have a 4mm non-obstructing stone. She had cystoscopy, mary lou lithotripsy and stone removal with left ureteral double J stent placement. Stone composition calcium oxalate 95%, carbonate apatite 5% ER Course: Tylenol, Dilaudid, Phenergan Principal Diagnosis Right ureteric calculus with right renal colic with mild obstructive uropathy. Discharge Exam Constitutional and general: No acute distress, looks biologic age Head and face: No puffiness, atraumatic Eyes: No scleral icterus, extraocular movements normal Neck: Supple, no JVD Musculoskeletal: No acute joint swelling, no bony abnormalities Skin/dermatologic/integument: No rash, no purpura Hematologic and lymphatic: pallor +, no petechia Gastrointestinal/abdomen: Nondistended, soft, nonacute Neurologic: Cranial nerves intact, nonfocal Psychiatry: Awake, alert, pleasant, communicative Cardiovascular: Heart rhythm regular, no rub, no murmur, no gallop Respiratory: Chest movements equal, no use of accessory muscles, no adventitious sounds Extremities: No edema, no cyanosis Discharge Data Allergies Allergy/AdvReac Type Severity Reaction Status Date / Time bee venom protein (honey bee) Allergy Severe SHORTNESS Verified 10/25/21 23:24 OF BREATH Fish Containing Products Allergy Severe SWELLING Verified 10/25/21 23:24 AND REDNESS morphine Allergy Severe Shakiness Verified 11/08/21 23:55 shellfish derived Allergy Severe SWELLING/RED Verified 10/25/21 23:24 SKIN ondansetron Allergy Intermediate HIVES - Verified 10/25/21 23:24 RASH EXOTIC FRUITS Allergy Intermediate HIVES RASH Uncoded 10/25/21 23:24 SWELLING Consultations 11/07/21 19:51 ED Decision to Admit Stat 11/07/21 22:37 Consult Urology Routine 11/07/21 23:33 Consult Patient Services Routine Procedures Performed Operation Date: 11/08/21 10:40 Actual Procedures p Cystoscopy, Right Retrograde Pyelogram, Right Stent Placement(Right) - Asael Almeida DO Operation Date: 11/11/21 08:20 Actual Procedures p Cystoscopy, Right Ureteroscopy, Right Retrograde Pyelogram, Basket Extraction of Stone, Right Stent Removal(Right) - Asael Almeida DO Ordered Studies 11/07/21 17:56 US renal/blad retro comp Stat 11/08/21 [place] retrograde includes kub Routine 11/09/21 04:30 CT abd pelvis wo con Urgent 11/11/21 [place] retrograde includes kub Routine Hospital Course (1) Kidney stone: Initially had stent placement followed by second procedure of stone removal yesterday; on both occasions post op events (first time pain, low blood pressure, low heart ratework-up negative; second time yesterday pain); this a.m. feels well and keen for discharge; per urologist's clear communication discharge medications about 3 days of levofloxacin (2 more days after discharge), Pyridium as needed and Flomax. They will follow-up. 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 At present (12:42 PM) seen in room, eating and wants to go home. Total Time Total Time Spent Total Time Spent (In Minutes): 32 Discharge Plan Discharge Items Patient Disposition: Home - Self-Care Reason For Visit: R FLANK PAIN Discharge Diagnosis: Right ureteric colic Condition on Discharge: Good Activity: Resume your previous activity Lifting: Gradually increase as tolerated Non-emergency contact: Primary Care Provider and Urologist Call non-emergency contact if: your symptoms worsen Follow-up/Referrals: Lex Lyon DO [Physician] - (Metabolic stone work-up) Monserrat Murray MD [Primary Care Provider] - Asael Almeida DO [Physician] - (1 to 2 weeks, seen in house) Diet: Other - See Diet Comment Diet Comment: Resume prior diet Addtl Attending Provider Instructions: Take extra strength Tylenol as needed for pain 1000 mg 3 times a day; Drink plenty of fluids Pending Studies at Discharge: No Stand-Alone Forms: [employer], Smoking Cessation Medications and DC Order Prescriptions: New phenazopyridine [Pyridium] 200 mg Tablet 200 mg PO TID PRN (Reason: Burning in urine, right flank discomfort) Qty: 9 0RF tamsulosin 0.4 mg Capsule 0.4 mg PO HS Qty: 30 0RF levofloxacin 750 mg Tablet 750 mg PO Q24H Qty: 2 0RF Rx Instructions: Start on November, Continued ibuprofen 800 mg tablet 800 mg PO Q8 PRN (Reason: Pain) acetaminophen [Tylenol Extra Strength] 500 mg Tablet 1,000 mg PO Q6H PRN (Reason: Pain) oxycodone 5 mg Tablet 5 mg PO Q6H PRN (Reason: Pain, Severe) Discharge Orders: Discharge Order (Routine); Ordered 11/12/21 Ordered By: Bita Barahona Admission Data Admit Date/Time: 11/07/21 20:28 Attending Provider: Bita Barahona Admit Provider: Sakina Walden Primary Care Provider: Monserrat Murray Other Providers: Sakina Walden ; Sunday Davis Coding Level of Care Code D/C DAY MANAGEMENT >30 MINS Diagnoses Kidney stone N20.0 Anxiety F41.9 Diet-controlled diabetes mellitus E11.9 UTI (urinary tract infection) N39.0
--- NOTE | 2021-11-12 10:44 | Urology Progress Note ---
Date of Service November 12, 2021 Assessment & Plan (1) Acute right flank pain: Plan - POD #1 s/p Cystoscopy with Right Ureteroscopy, Right Retrograde Pyelogram, Basket Extraction of Stone, and Right Stent Removal. - Remains afebrile and hemodynamically stable. - Urine culture negative, blood cultures no growth x48 hours. - Okay for discharge from perspective. - Recommend d/c with short course of antibiotics, Flomax, prn Pyridium. - We will arrange follow-up with our service. - Urology will sign-off. Please contact us with any further questions, concerns, or changes in patient status. Admission and Anticipated Discharge Date Admission Date: November 07, 2021 Subjective Patient examined at bedside this AM. Awake, sitting up in bed on arrival. No acute distress. Reports some nausea and vomiting yesterday following her procedure. States she is feeling better this morning. Has been ambulating in the hallway. Wants to try some breakfast before being discharged. Still with some right flank pain, but this is significantly improved. Voiding without issue. Review of Systems Constitutional: as per Subjective / HPI Gastrointestinal: as per Subjective / HPI Genitourinary: as per Subjective / HPI Physical Exam Constitutional: no acute distress Respiratory: no respiratory distress and no labored breathing Neurologic: moves all extremities and awake Psychiatric: A+Ox3, euthymic affect Results & Data ([facility]) Vital Signs (Past 12 Hours) Vital Signs Temp Pulse Resp BP BP Pulse Ox O2 Del Method 11/12/21 07:58 36.8 C 47 L 18 143/83 H 97 Room Air 11/12/21 03:46 36.6 C 65 18 133/77 93 Room Air 11/11/21 22:51 36.5 C 50 L 18 119/81 94 Room Air PG Care Time/CCT Total # of Minutes Spent Total Time Spent with Patient: Total time spent is greater than 50% in coordination of care (as documented) at patient's floor/unit and/or counseling patient: Coding Level of Care Code 59387 Subseq Hosp Care Lvl 2 Diagnoses Acute right flank pain R10.9
[2021-11-12] MEDS ORDERED: levoFLOXacin 750 MG TAB PO SCH (11:00)
[2021-11-17 11:12] LABS: Component 2 DNR; Source RIGHT RENAL CALCULI
== END 2021-11-12 14:45 | disposition home or self-care (01) | DRG 661 ==
LOC: ED 17:46 → 3N 20:28 → SUATTDRO 20:28 → 3N 22:19 → 2S 11-09 05:49 → 3W 11-11 00:14

== ENCOUNTER 2022-08-10 21:58 | Inpatient (IN) ==
[2022-08-10] MEDS ORDERED: SODIUM CHLORIDE 0.9% 1000ML 1,000 ML IV ONE (23:12)
[2022-08-10 23:17] LABS: Albumin Globulin Ratio 1.2 (0.9-2); BUN Creatinine Ratio 24.5 (10-20); Bilirubin,Total 0.3 mg/dl (0.2-1.0); Calcium 9.6 mg/dl (8.6-10.3); Est GFR (African American) 135.7 ml/min; Est GFR (Non-African American) 117.1 ml/min; Globulin 3.4 gm/dl (2.5-4.0); Potassium 3.6 mmol/L (3.5-5.1); Total Protein 7.4 gm/dl (6.0-8.3)
[2022-08-10] MEDS ORDERED: metroNIDAZOLE 500 MG/100 ML BAG IV STA (23:24)
[2022-08-10] MEDS ORDERED: VANCOMYCIN HCL 2,250 MG in SODIUM CHLORIDE 0.9% 500 ML IV ONE (23:24)
[2022-08-10] MEDS ORDERED: CEFEPIME 2,000 MG/20 ML VIAL IV STA (23:24)
[2022-08-10] MEDS ORDERED: VANCOMYCIN CONSULT ACTIVE PRN (23:24)
[2022-08-10 23:36] LABS: Basophils # (auto) 0.04 K/uL (0-0.2); Basophils % (auto) 0.2 %; Eosinophils # (auto) 0.07 K/uL (0-0.50); Eosinophils % (auto) 0.4 %; Hematocrit (blood only) 42.2 % (37.0-47.0); Hemoglobin 14.6 g/dl (12.0-16.0); Immature Granulocytes # (auto) 0.09 K/uL (0.01-0.20); Immature Granulocytes % (auto) 0.5 %; Lymphocytes # (auto) 2.89 K/uL (1.2-3.4); Lymphocytes % (auto) 17.4 %; Mean Corpuscular Hemoglobin 30.4 pg (25.0-34.0); Mean Corpuscular Hgb Conc 34.6 g/dL (32.0-36.0); Mean Corpuscular Volume 87.9 fL (80.0-100.0); Mean Platelet Volume 8.6 fL (9.4-12.4); Monocytes # (auto) 0.78 K/uL (0.11-0.59); Monocytes % (auto) 4.7 %; Neutrophils # (auto) 12.76 K/uL (1.40-6.50); Neutrophils % (auto) 76.8 %; Platelet Count 421 K/uL (130-400); RDW Coefficient of Variation 12.3 % (11.5-14.5); RDW Standard Deviation 39.7 fL (36.4-46.3); White Blood Count 16.63 K/ul (4.8-10.8)
--- NOTE | 2022-08-10 23:42 | Emergency Department Note ---
Impression & Plan Mastoiditis, Right facial pain ED Provider Note CHIEF COMPLAINT: "I was sent by my PCP for admission for IV antibiotics and pain management" HISTORY OF PRESENT ILLNESS: This 42-year-old female patient presents to the emergency department via private vehicle for "I was sent by my PCP for admission for IV antibiotics and pain management". The patient states for the past 2 weeks, she has been experiencing right ear pain. She was treated for a right ear infection with Augmentin for 1 week with no improvement. She was subsequently seen and switched to "a different antibiotic" and an antibiotic drop. Chart review appears that the patient was placed on cefdinir and ofloxacin. The patient states she has had persistent pain despite the multiple rounds of antibiotics. She states she has had an intermittent fever, this morning was 102 F. She states she was seen by her PCP today where she had outpatient CT imaging completed which was concerning for "increase in a right mastoid effusion and fluid/soft tissue within the right middle ear since CT of July 27, 2022". CT noted no fluid collection within the neck to suggest abscess and prominent bilateral cervical lymph nodes stable to slightly decreased in size since prior exam, nonspecific but probably reactive. The patient notes that her PCP contacted her and she was referred to the emergency department for IV antibiotics and pain management, as she has failed 3 outpatient antibiotics over the past 2 weeks. She states she continues to have pain and cannot hear out of the right ear. She states she is having difficulty opening and closing the mouth and chewing. She states the pain radiates into the entire right side of the face. REVIEW OF SYSTEMS: A 10 system review of systems was performed with positives and pertinent negatives listed in the history of present illness. All other systems were reviewed and are negative. ALLERGIES: Bee venom, fish, morphine, shellfish, Zofran PHYSICAL EXAM: VITALS: Vitals are noted on the nurse's note and reviewed by myself. Vital signs stable. GENERAL: This is a 42-year-old female, in no acute distress, nondiaphoretic, well-developed well-nourished. SKIN: The skin was without rashes, erythema, edema, or bruising. There is no tenting of the skin. Capillary refill less than 2 seconds. HEAD: Normocephalic atraumatic. FACE: Right sided facial swelling. EARS: External auditory canals clear. Right TM erythematous and bulging with effusion noted. Left tympanic membrane pearly sanchez without erythema or effusion. EYES: Pupils equal round and reactive to light and accommodation. Conjunctivae without injection, sclerae without icterus. Extraocular movements intact. NOSE: Patent, turbinates without inflammation or discharge. No sinus tenderness. MOUTH: Patient is having difficulty fully opening the mouth. Mucous membranes moist. Pharynx unable to be visualized due to patient discomfort and refusal. Uvula midline. Airway patent. Tongue does not deviate. NECK: Supple without nuchal rigidity. Anterior cervical lymphadenopathy. Cervical spine is nontender. No JVD. HEART: Regular rate and rhythm without murmurs gallops or rubs. LUNGS: Clear to auscultation bilaterally without wheezes, rales or rhonchi. No retractions or accessory muscle use. ABDOMEN: Positive bowel sounds x 4. Normal tympanic percussion. Soft, nontender, without masses or organomegaly. Mendes sign negative. No guarding or rebound tenderness. MUSCULOSKELETAL: No muscle atrophy, erythema, or edema noted. Full range of motion without joint tenderness in all extremities. No tenderness to palpation. Normal gait. Strength 5/5 throughout. NEURO: Patient was alert and oriented to person place and time. No focal neurological deficits. RADIOLOGY: Outpatient CT imaging: CT OF THE NECK WITH IV CONTRAST CLINICAL HISTORY: Facial pain. Ear pain. R/O abscess COMPARISON STUDY: Neck CT July 27, 2022. TECHNIQUE: Following IV administration of 86 mL of Optiray, helical axial images of the neck were obtained. Sagittal and coronal reconstructions were vie wed. Automated exposure control was utilized for the study. A dose lowering technique was utilized adhering to the principles of ALARA. CT DOSE: 360.38 mGycm FINDINGS: Right mastoid air cells are now entirely opacified. Fluid/soft tissue within the right middle ear has also increased since CT of July 27, 2022. Left mastoid air cells are clear. Minimal ethmoid sinus mucosal thickening is pre sent. The parotid and submandibular glands are normal. The epiglottis is normal. There is no fluid collection within the neck to suggest an abscess. There is no prevertebral edema. Prominent bilateral cervical lymph nodes are stable to slightly decreased since prior CT. These measure up to 8 mm in short axis diameter. Lung apices are unremarkable. Position of a left subclavian Ibwetd-l-[id number] is unchanged with tip coiled within the left brachiocephalic vein. There is no acute cervical spine fracture. The adenoids are prominent. This is unchanged. IMPRESSION: 1. No fluid collection within the neck to suggest abscess. 2. Increase in a right mastoid effusion and fluid/soft tissue within the right middle ear since CT of July 27, 2022. 3. Prominent bilateral cervical lymph nodes, stable to slightly decreased in size since prior exam. These are nonspecific although probably reactive. ACT 112: Negative or not required by law. Electronically signed by: Anand Murray M.D. 08/10/2022 7:13 PM Dictated:08/10/221903 Transcribed: 08/10/221903 EMERGENCY DEPARTMENT COURSE:The patient was seen and evaluated as above. Her port was accessed. Outside medical records including CT imaging completed earlier today were reviewed. This was concerning for increase in a right mastoid effusion and fluid/soft tissue within the right middle ear since last CT on July 27. Labs were drawn. There is a leukocytosis of 16,000. No anemia or thrombocytopenia. Renal, hepatic function and electrolytes without significant abnormality. COVID-19 testing negative. Patient was started on IV vancomycin, cefepime, Flagyl for mastoiditis. She did request pain medication. Toradol was ordered, and the patient refused this medication. [facility]. Please see hospitalist dictation regarding ongoing management care of this patient. Differential diagnosis includes cellulitis, abscess, otitis media, otitis externa, mastoiditis, tumor, trauma, TM perforation, as well as other pathologies. I attest that I have personally reviewed the patient's current medication list. Patient was found to have normal blood pressure on screening and does not require follow-up. The chart was completed utilizing Skyword voice recognition software. Grammatical errors, random word insertions, pronoun errors, and incomplete sentences are an occasional consequence of this system due to software limitations, ambient noise, and hardware issues. Any formal questions or concerns about the content, text, or information contained within the body of this dictation should be directly addressed to the provider for clarification. Past Med/Surg History Medical History Anxiety and depression No meds Diet-controlled diabetes mellitus Difficult intravenous access Reason for upcoming procedure. RUE restriction > R/t multiple surgeries hand/shoulder that resulted in nerve damage per pt. "Blew 15 IVs"/had to do foot IV which infiltrated during 11/2021 [place] admission per pt- which is a concern as patient is a diabetic. 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 Surgical History Fusion of lumbar spine BONE GRAFT FROM PELVIS H/O bone graft Iliac bone graft with lumbar fusion H/O left wrist surgery H/O shoulder surgery RT History of appendectomy History of bilateral breast reduction surgery History of bilateral tubal ligation History of cholecystectomy History of cystoscopy STONE REMOVAL; Mulitple sx History of facial surgery RECONSTRUCTION - D/T DEGLOVING History of hand surgery Rt x 2 FINGER I & D History of hysterectomy History of lithotripsy History of tonsillectomy History of tooth extraction Hx of arthroscopic knee surgery LEFT X 2 Hx of dilation and curettage Port-A-Cath in place (01/06/22) Insertion Access Port with Fluoroscopy(Left) - Bryce Hernandez, Slow to wake up after anesthesia Family History Grandfather (Maternal) Family history of diabetes mellitus Mother Diabetes Depression Kidney stones Uterine malignant neoplasm Aunt Ovarian cancer maternal Diabetes Breast cancer Sister Kidney stones Uterine malignant neoplasm Grandmother Myocardial infarction Uterine malignant neoplasm Other Adopted Denies family history of Colorectal cancer Social History Smoking Status: Current every day smoker Tobacco Type: Cigarettes Age Started Using Tobacco: 14; packs per day: 0.5; Cigarettes Per Day: 1/2 ppd; Second Hand Exposure: Yes; Do You Dip or Chew Tobacco: No; Tobacco Cessation Education Requested by Patient: No Hx Alcohol Use: No Hx Substance Use: No Preferred Language: Mohawk Communication Ability: Effective Visual Impairment: No Limitations Hearing Ability: Normal 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 Beliefs That Will Affect Care: None marital status: Current Living Situation: Spouse current occupational status: employed and disabled 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 How many Children do You have: 2 Other Information That Helps Us Care for You: No Feels Safe at Home: Yes Safety Concerns: Feels Safe At This Time Childhood Exposure to Second-Hand Smoke: No Diet: diabetic during the past year weight has: remained stable Dental Care, Regularly: No Physical Activity Frequency: Other Assistive Devices: Contacts Allergies Allergies Allergy/AdvReac Type Severity Reaction Status Date / Time bee venom protein (honey bee) Allergy Severe SHORTNESS Verified 08/10/22 16:20 OF BREATH Fish Containing Products Allergy Severe SWELLING Verified 08/10/22 16:20 AND REDNESS morphine Allergy Severe Shakiness Verified 08/10/22 16:20 shellfish derived Allergy Severe SWELLING/RED Verified 08/10/22 16:20 SKIN ondansetron Allergy Intermediate HIVES - Verified 08/10/22 16:20 RASH EXOTIC FRUITS Allergy Intermediate HIVES RASH Uncoded 08/10/22 16:20 SWELLING Home Meds Home Medications Medication Instructions Recorded Confirmed acetaminophen 500 mg tablet 1,000 mg PO Q6H PRN Pain 10/25/21 08/10/22 (Tylenol Extra Strength) Previous Rx's Medication Instructions Recorded cefdinir 300 mg capsule 300 mg PO BID #60 caps 08/03/22 ofloxacin 0.3 % ear drops 10 drp otic (ear) BID 10 days #10 08/03/22 mL acetaminophen 300 mg-codeine 30 mg 1 tab PO Q8H PRN pain #9 tabs 08/09/22 tablet prednisone 20 mg tablet See Rx Instructions .Route 08/09/22 .COMPLEX 5 days #8 tabs hydroxyzine HCl 50 mg tablet See Rx Instructions PO .COMPLEX 08/10/22 PRN insomnia #30 tabs Results & Data (ED) Vital Signs Vital Signs - 24 hr 08/10/22 22:01 08/10/22 22:51 Temperature 36.9 C Temperature Source Temporal Artery Scan Pulse Rate 93 H Respiratory Rate 18 Respiratory Effort / Characteristics Non-Labored Spontaneous Respiratory Depth Normal Blood Pressure 135/85 Blood Pressure Mean 101 Pulse Oximetry 98 Oxygen Delivery Method Room Air Room Air Sepsis Recent Fever Within 48 Hours No Sepsis New/Unexplained Change in Mental Status No Sepsis Action Taken by Nursing No Action Required Laboratory Data 08/10/22 22:46 08/10/22 22:46 Lab Results 08/10/22 08/10/22 08/10/22 Range/Units 22:46 22:46 23:20 WBC 16.63 H (4.8-10.8) K/ul RBC 4.80 (4.20-5.40) M/uL Hgb 14.6 (12.0-16.0) g/dl Hct 42.2 (37.0-47.0) % MCV 87.9 (80.0-100.0) fL MCH 30.4 (25.0-34.0) pg MCHC 34.6 (32.0-36.0) g/dL RDW Std Deviation 39.7 (36.4-46.3) fL RDW Coeff of Cecilio 12.3 (11.5-14.5) % Plt Count 421 H (130-400) K/uL MPV 8.6 L (9.4-12.4) fL Immature Gran % (Auto) 0.5 % Neut % (Auto) 76.8 % Lymph % (Auto) 17.4 % [place] % (Auto) 4.7 % Eos % (Auto) 0.4 % Baso % (Auto) 0.2 % Neut # (Auto) 12.76 H (1.40-6.50) K/uL Lymph # (Auto) 2.89 (1.2-3.4) K/uL [place] # (Auto) 0.78 H (0.11-0.59) K/uL Eos # (Auto) 0.07 (0-0.50) K/uL Baso # (Auto) 0.04 (0-0.2) K/uL Immature Gran # (Auto) 0.09 (0.01-0.20) K/uL Sodium 135 L (136-145) mmol/L Potassium 3.6 (3.5-5.1) mmol/L Chloride 105 (98-107) mmol/L Carbon Dioxide 22 (21-32) mmol/L Anion Gap 8 (3-11) BUN 13 (6-23) mg/dl Creatinine 0.53 L (0.6-1.2) mg/dl Est Cr Clr Drug Dosing 146.0 ml/min Est GFR ( Amer) 135.7 ml/min Est GFR (Non-Af Amer) 117.1 ml/min BUN/Creatinine Ratio 24.5 H (10-20) Glucose 101 H (70-99(Fasting)) mg/dl Calcium 9.6 (8.6-10.3) mg/dl Magnesium 2.0 (1.7-2.4) mg/dl Total Bilirubin 0.3 (0.2-1.0) mg/dl AST 10 L (13-39) U/L ALT 9 (7-52) U/L Alkaline Phosphatase 75 (34-104) U/L Total Protein 7.4 (6.0-8.3) gm/dl Albumin 4.0 (3.4-5.0) gm/dl Globulin 3.4 (2.5-4.0) gm/dl Albumin/Globulin Ratio 1.2 (0.9-2) SARS-CoV-2, RNA, NAAT NEGATIVE (NEGATIVE) Administered Medications Hydromorphone HCl (Hydromorphone Inj 0.5 Mg/0.5 Ml Syr) 0.5 mg IV Q3H PRN PRN Reason: Pain (6,7,8,9,10) Stop: 08/25/22 03:59 Last Admin: 08/11/22 05:27 Dose: 0.5 mg Documented By: MAURA Dexamethasone 4 mg/ Syringe 1 mls @ 1 mls/min IV Q24H [facility] Stop: 09/10/22 03:59 Last Admin: 08/11/22 04:32 Dose: Not Given Documented By: MAURA Lactated Ringer's (Lr) 1,000 mls @ 125 mls/hr IV .Q8H [facility] Stop: 08/11/22 11:59 Last Admin: 08/11/22 04:32 Dose: 125 mls/hr Documented By: MAURA Ibuprofen (Ibuprofen 600 Mg Tab) 600 mg PO Q6 [facility] Stop: 09/10/22 03:59 Last Admin: 08/11/22 04:31 Dose: 600 mg Documented By: MAURA Discontinued Medications Carbamazepine (Carbamazepine 200 Mg Tablet) 200 mg PO NOW ONE Stop: 08/11/22 04:01 Last Admin: 08/11/22 04:31 Dose: 200 mg Documented By: MAURA Hydromorphone HCl (Hydromorphone Inj 0.5 Mg/0.5 Ml Syr) 0.5 mg IV NOW STA Stop: 08/11/22 01:08 Last Admin: 08/11/22 01:17 Dose: 0.5 mg Documented By: LARISA Sodium Chloride (Nss 1000ml) 1,000 mls @ 999 mls/hr IV .Q1H1M ONE Stop: 08/11/22 00:12 Last Infusion: 08/11/22 01:58 Dose: 0 mls/hr Documented By: director of loss prevention: 08/10/22 23:14 Dose: 999 mls/hr Documented By: MED Vancomycin HCl 2,250 mg/ (Sodium Chloride) 545 mls @ 200 mls/hr IV NOW ONE Stop: 08/11/22 02:07 Last Admin: 08/11/22 01:25 Dose: 200 mls/hr Documented By: MED Metronidazole (Flagyl) 500 mg in 100 mls @ 100 mls/hr IV NOW STA Stop: 08/11/22 00:23 Last Infusion: 08/11/22 04:24 Dose: 0 mls/hr Documented By: Admin: 08/11/22 03:23 Dose: 100 mls/hr Documented By: MED Cefepime HCl (Maxipime) 2,000 mg in 20 mls @ 5 mls/min IV NOW STA; Protocol Stop: 08/10/22 23:27 Last Admin: 08/11/22 01:19 Dose: 5 mls/min Documented By: MED Ketorolac Tromethamine (Ketorolac 30 Mg/Ml Vial) 30 mg IV NOW STA Stop: 08/10/22 23:58 Last Admin: 08/11/22 00:03 Dose: Not Given Documented By: MED Discharge Plan Visit Data Chief Complaint: Abnormal Labs/Diagnostic Testing Stated Complaint: REF BY DOC,TO BE ADMIT,ABNORMAL LABS ED Provider: Jolene Garcia ED Midlevel Provider: Kiana Anderson Discharge Problem: Mastoiditis, Right facial pain Patient Disposition: Admitted As Inpatient Discharge Instructions Interventions: ED Discharge Assessment Last Done: 08/11/22 03:29
[2022-08-10] MEDS ORDERED: KETOROLAC 30 MG/ML VIAL IV STA (23:57)
[2022-08-11] MEDS ORDERED: HYDROmorphone INJ 0.5 MG/0.5 ML SYR IV STA (01:07)
--- NOTE | 2022-08-11 01:16 | History & Physical Report ---
Date of Service August 11, 2022 Assessment & Plan (1) Mastoiditis: Plan: 42-year-old female with ongoing right ear pain and effusion. She has completed a course of Augmentin as well as a course of cefdinir and ofloxacin drops. Persistent pain, hearing loss and aural fullness with worsening symptoms involving the neck and face. Patient reports fever today to 1-2.6 prior to arrival. Labs are significant for elevated WBC = 16 (patient had taken steroids as well) as well as elevated platelet = 421 CT results as above Concern for mastoiditis given acute tenderness of patient's mastoid process, persistent effusion Admit to medical Follow cultures Check ESR and CRP Continue vancomycin and cefepime Dexamethasone 4 mg IV daily Tylenol and ibuprofen as needed Dilaudid as needed for pain control Tegretol for presumed shooting nerve pain ENT consultation appreciated (2) Poor intravenous access: Plan: left chest port in place. Has not been functioning properly Flush as needed May need surgical evaluation (3) Diet-controlled diabetes mellitus: Plan: Monitor blood sugars FENLR at 125 mL/h x 1 L, electrolytes within normal limits, heart healthy diet as tolerated Prophylaxislow risk for DVT Codefull Dispositionadmit to medical History of Present Illness Chief Complaint: Right ear pain, facial pain, neck pain ongoing x2 weeks Primary Care Provider: Monserrat Murray MD Maricarmen Mehta is a 42-year-old female with history of diet-controlled diabetes, rheumatoid arthritis, anxiety and depression presenting at the request of her PCP for ongoing right ear pain. Patient was initially seen in the emergency room on 07/28/2019 treated with complaint of right ear pain. She was found to have a right otitis media with effusion. She was given a prescription for Augmentin and subsequently discharged home. Patient completed her prescription for Augmentin with minimal improvement in her symptoms. She was seen by her primary care physician in follow-up on 08/03/2022. At that appointment she reported ongoing discomfort In her right ear. She was given a prescription for cefdinir 300 mg p.o. twice daily as well as ofloxacin otic qian ps. she was seen in the emergency room on 08/09/2022 with ongoing discomfort. She was given a prescription for prednisone taper as well as Tylenol with codeine. She has an appointment with ENT on 08/18/2022 she was seen by her primary care physician on . She had a CT of the neck ordered which showed an increase in the right mastoid effusion and fluid/soft tissue within the right middle ear since CT of July 27, 2022. Also with prominent bilateral cervical lymph nodes. she was called by her PCP and instructed to come to the ER for IV antibiotics and pain control. Patient reports severe excruciating pain involving her right ear, right mastoid process as well as her right lateral neck. She also has episodes of shooting/lancing pain across her face, Fullness of her face and right maxillary sinus region and pain of her right eye. Her pain has been acutely worsening. She reports she has not been able to sleep for 3 days. Hearing loss in the right ear as well as aural fullness. Fever of 102.6 this morning. patient has a left chest port in place which was placed due to poor IV access. She has been having a difficult time having labs drawn from this port. This was evaluated in the past and thought that the lumen of the port was possibly against the vessel wall. ER course: Vancomycin Cefepime Flagyl Toradol Allergies Allergy/AdvReac Type Severity Reaction Status Date / Time bee venom protein (honey bee) Allergy Severe SHORTNESS Verified 08/10/22 16:20 OF BREATH Fish Containing Products Allergy Severe SWELLING Verified 08/10/22 16:20 AND REDNESS morphine Allergy Severe Shakiness Verified 08/10/22 16:20 shellfish derived Allergy Severe SWELLING/RED Verified 08/10/22 16:20 SKIN ondansetron Allergy Intermediate HIVES - Verified 08/10/22 16:20 RASH EXOTIC FRUITS Allergy Intermediate HIVES RASH Uncoded 08/10/22 16:20 SWELLING Home Medications Medication Instructions Recorded Confirmed Type acetaminophen 500 mg tablet 1,000 mg PO Q6H PRN Pain 10/25/21 08/10/22 History (Tylenol Extra Strength) cefdinir 300 mg capsule 300 mg PO BID #60 caps 08/03/22 08/10/22 Rx ofloxacin 0.3 % ear drops 10 drp otic (ear) BID 10 days #10 08/03/22 08/10/22 Rx mL acetaminophen 300 mg-codeine 30 mg 1 tab PO Q8H PRN pain #9 tabs 08/09/22 08/10/22 Rx tablet prednisone 20 mg tablet See Rx Instructions .Route 08/09/22 08/10/22 Rx .COMPLEX 5 days #8 tabs hydroxyzine HCl 50 mg tablet See Rx Instructions PO .COMPLEX 08/10/22 08/10/22 Rx PRN insomnia #30 tabs Past Med/Surg History Medical History Anxiety and depression No meds Diet-controlled diabetes mellitus Difficult intravenous access Reason for upcoming procedure. RUE restriction > R/t multiple surgeries hand/shoulder that resulted in nerve damage per pt. "Blew 15 IVs"/had to do foot IV which infiltrated during 11/2021 [facility] admission per pt- which is a concern as patient is a diabetic. 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 Surgical History Fusion of lumbar spine BONE GRAFT FROM PELVIS H/O bone graft Iliac bone graft with lumbar fusion H/O left wrist surgery H/O shoulder surgery RT History of appendectomy History of bilateral breast reduction surgery History of bilateral tubal ligation History of cholecystectomy History of cystoscopy STONE REMOVAL; Mulitple sx History of facial surgery RECONSTRUCTION - D/T DEGLOVING History of hand surgery Rt x 2 FINGER I & D History of hysterectomy History of lithotripsy History of tonsillectomy History of tooth extraction Hx of arthroscopic knee surgery LEFT X 2 Hx of dilation and curettage Port-A-Cath in place (01/06/22) Insertion Access Port with Fluoroscopy(Left) - Bryce Hernandez, Slow to wake up after anesthesia Family History Grandfather (Maternal) Family history of diabetes mellitus Mother Diabetes Depression Kidney stones Uterine malignant neoplasm Aunt Ovarian cancer maternal Diabetes Breast cancer Sister Kidney stones Uterine malignant neoplasm Grandmother Myocardial infarction Uterine malignant neoplasm Other Adopted Denies family history of Colorectal cancer Social History Smoking Status: Current every day smoker Tobacco Type: Cigarettes Age Started Using Tobacco: 14; packs per day: 0.5; Cigarettes Per Day: 1/2 ppd; Second Hand Exposure: Yes; Do You Dip or Chew Tobacco: No; Tobacco Cessation Education Requested by Patient: No Hx Alcohol Use: No Hx Substance Use: No Preferred Language: Turkmen Communication Ability: Effective Visual Impairment: No Limitations Hearing Ability: Normal Railroader Required: No Beliefs That Will Affect Care: None marital status: Current Living Situation: Spouse current occupational status: employed and disabled 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 How many Children do You have: 2 Other Information That Helps Us Care for You: No Feels Safe at Home: Yes Safety Concerns: Feels Safe At This Time Childhood Exposure to Second-Hand Smoke: No Diet: diabetic during the past year weight has: remained stable Dental Care, Regularly: No Physical Activity Frequency: Other Assistive Devices: Contacts Review of Systems Review of Systems: All systems reviewed & are unremarkable except as noted in HPI & below Physical Exam Physical Exam: General: patient uncomfortable, tearful and anxious and appears Skin: warm, dry, intact, no rashes or lesions HEENT: NC/AT, PERRL, EOMI, anicteric sclera, conjunctiva without injection, mild swelling of external right ear with tenderness to palpation, tenderness with palpation of right mastoid process, no discoloration, tenderness with palpation of right maxillary sinus, right anterior neck with cervical lymphadenopathy, moist mucous membranes, no oropharyngeal lesions, trachea midline,, no thyromegaly, no JVD Heart: +S1/S2, regular, no m/r/g Lungs: equal air entry bilaterally, no rales/rhonchi/wheezes Abd: +BS, soft, NT/ND, no masses/organomegaly/ascites Ext: warm, 2+ pulses in UE/LE bilaterally, no clubbing/cyanosis or edema Neuro: nonfocal, patient AA&O x 4, speech intact, no facial droop, moving all extremities on command with equal strength 5/5 Results & Data Results & Data Vital Signs (Past 12 Hours) Vital Signs Temp Pulse Resp BP Pulse Ox O2 Del Method 08/10/22 22:51 Room Air 08/10/22 22:01 36.9 C 93 H 18 135/85 98 Room Air Laboratory Results Laboratory Results WBC 16.63 K/ul (4.8-10.8) H 08/10/22 22:46 RBC 4.80 M/uL (4.20-5.40) 08/10/22 22:46 Hgb 14.6 g/dl (12.0-16.0) 08/10/22 22:46 Hct 42.2 % (37.0-47.0) 08/10/22 22:46 MCV 87.9 fL (80.0-100.0) 08/10/22 22:46 MCH 30.4 pg (25.0-34.0) 08/10/22 22:46 MCHC 34.6 g/dL (32.0-36.0) 08/10/22 22:46 RDW Std Deviation 39.7 fL (36.4-46.3) 08/10/22 22:46 RDW Coeff of Cecilio 12.3 % (11.5-14.5) 08/10/22 22:46 Plt Count 421 K/uL (130-400) H 08/10/22 22:46 MPV 8.6 fL (9.4-12.4) L 08/10/22 22:46 Immature Gran % (Auto) 0.5 % 08/10/22 22:46 Neut % (Auto) 76.8 % 08/10/22 22:46 Lymph % (Auto) 17.4 % 08/10/22 22:46 Gillespie % (Auto) 4.7 % 08/10/22 22:46 Eos % (Auto) 0.4 % 08/10/22 22:46 Baso % (Auto) 0.2 % 08/10/22 22:46 Neut # (Auto) 12.76 K/uL (1.40-6.50) H 08/10/22 22:46 Lymph # (Auto) 2.89 K/uL (1.2-3.4) 08/10/22 22:46 Gillespie # (Auto) 0.78 K/uL (0.11-0.59) H 08/10/22 22:46 Eos # (Auto) 0.07 K/uL (0-0.50) 08/10/22 22:46 Baso # (Auto) 0.04 K/uL (0-0.2) 08/10/22 22:46 Immature Gran # (Auto) 0.09 K/uL (0.01-0.20) 08/10/22 22:46 Sodium 135 mmol/L (136-145) L 08/10/22 22:46 Potassium 3.6 mmol/L (3.5-5.1) 08/10/22 22:46 Chloride 105 mmol/L (98-107) 08/10/22 22:46 Carbon Dioxide 22 mmol/L (21-32) 08/10/22 22:46 Anion Gap 8 (3-11) 08/10/22 22:46 BUN 13 mg/dl (6-23) 08/10/22 22:46 Creatinine 0.53 mg/dl (0.6-1.2) L 08/10/22 22:46 Est Cr Clr Drug Dosing 146.0 ml/min 08/10/22 22:46 Est GFR ( Amer) 135.7 ml/min 08/10/22 22:46 Est GFR (Non-Af Amer) 117.1 ml/min 08/10/22 22:46 BUN/Creatinine Ratio 24.5 (10-20) H 08/10/22 22:46 Glucose 101 mg/dl (70-99(Fasting)) H 08/10/22 22:46 Calcium 9.6 mg/dl (8.6-10.3) 08/10/22 22:46 Magnesium 2.0 mg/dl (1.7-2.4) 08/10/22 22:46 Total Bilirubin 0.3 mg/dl (0.2-1.0) 08/10/22 22:46 AST 10 U/L (13-39) L 08/10/22 22:46 ALT 9 U/L (7-52) 08/10/22 22:46 Alkaline Phosphatase 75 U/L (34-104) 08/10/22 22:46 Total Protein 7.4 gm/dl (6.0-8.3) 08/10/22 22:46 Albumin 4.0 gm/dl (3.4-5.0) 08/10/22 22:46 Globulin 3.4 gm/dl (2.5-4.0) 08/10/22 22:46 Albumin/Globulin Ratio 1.2 (0.9-2) 08/10/22 22:46 SARS-CoV-2, RNA, NAAT NEGATIVE (NEGATIVE) 08/10/22 23:20 Diagnostic Findings [facility] [place], [place] [phone] CT Scan Report Patient:MARICARMEN MEHTA Admit Date:08/10/22 MR#:[id number] Address1:[address] Acct ID:[id number] Address2: Date:1980 [facility] Zip:[place] [address] Age:42 Location:CT Sex:F Room/Bed: Att Phy:Oscar Andrade PA-C Diagnosis:R/O abscess Blank Phy:Monserrat Murray MD Service Date:08/10/22 [facility] Phy: Interpreting Phy:Anand Murray MDAdmit Phy: Ordering Phy:Oscar Andrade PA-C cc: ~ CT OF THE NECK WITH IV CONTRAST CLINICAL HISTORY: Facial pain. Ear pain. R/O abscess COMPARISON STUDY: Neck CT July 27, 2022. TECHNIQUE: Following IV administration of 86 mL of Optiray, helical axial images of the neck were obtained. Sagittal and coronal reconstructions were viewed. Automated exposure control was utilized for the study. A dose lowering technique was utilized adhering to the principles of ALARA. CT DOSE: 360.38 mGycm FINDINGS: Right mastoid air cells are now entirely opacified. Fluid/soft tissue within the right middle ear has also increased since CT of July 27, 2022. Left mastoid air cells are clear. Minimal ethmoid sinus mucosal thickening is present. The parotid and submandibular glands are normal. The epiglottis is normal. There is no fluid collection within the neck to suggest an abscess. There is no prevertebral edema. Prominent bilateral cervical lymph nodes are st able to slightly decreased since prior CT. These measure up to 8 mm in short axis diameter. Lung apices are unremarkable. Position of a left subclavian [id number] is unchanged with tip coiled within the left brachiocephalic vein. There is no acute cervical spine fracture. The adenoids are prominent. This is unchanged. IMPRESSION: 1. No fluid collection within the neck to suggest abscess. 2. Increase in a right mastoid effusion and fluid/soft tissue within the right middle ear since CT of July 27, 2022. 3. Prominent bilateral cervical lymph nodes, stable to slightly decreased in size since prior exam. These are nonspecific although probably reactive. ACT 112: Negative or not required by law. Electronically signed by: Anand Murray M.D. 08/10/2022 7:13 PM Dictated:08/10/221903 Transcribed: 08/10/221903 PG Care Time/CCT Total # of Minutes Spent Total Time Spent with Patient: Total time spent is greater than 50% in coordination of care (as documented) at patient's floor/unit and/or counseling patient: Coding Level of Care Code 79866 INT INP/OBS CARE 2/55MIN Diagnoses Mastoiditis H70.90 Poor intravenous access Z78.9 Diet-controlled diabetes mellitus E11.9
[2022-08-11] MEDS ORDERED: carBAMazepine 200 MG TABLET PO ONE (04:00)
[2022-08-11] MEDS ORDERED: VANCOMYCIN CONSULT ACTIVE PRN (04:00)
[2022-08-11] MEDS ORDERED: HYDROmorphone INJ 0.5 MG/0.5 ML SYR IV PRN (04:00)
[2022-08-11] MEDS ORDERED: LACTATED RINGER'S 1,000 ML IV SCH (04:00)
[2022-08-11] MEDS: IBUPROFEN 600 MG TAB PO SCH ×4 (04:31→23:48)
[2022-08-11] MEDS: dexAMETHasone 4 MG in SYRINGE 0 ML IV SCH (04:32)
[2022-08-11] MEDS: HYDROmorphone INJ 0.5 MG/0.5 ML SYR IV PRN ×5 (05:27→22:29)
[2022-08-11] MEDS: CEFEPIME 2,000 MG in SYRINGE 0 ML IV SCH ×3 (07:54→23:48)
[2022-08-11] MEDS ORDERED: VANCOMYCIN HCL 1,250 MG in SODIUM CHLORIDE 0.9% 250 ML IV SCH (08:00)
[2022-08-11] MEDS: ACETAMINOPHEN 500 MG TAB PO SCH ×3 (08:02→20:55)
[2022-08-11] MEDS: metroNIDAZOLE 500 MG/100 ML BAG IV SCH ×2 (10:18→17:36)
--- NOTE | 2022-08-11 11:31 | Pharmacy Report ---
Pharmacy PK ABX Note - Date of Service August 11, 2022 - Assessment and Plan Assessment 42 year old F who presented with ongoing right ear pain, hearing loss and aural fullness with worsening symptoms involving the neck and face. Patient reports fever prior to arrival. Leukocytosis. She recently completed an outpatient course of Augmentin, cefdinir and ofloxacin drops. Empiric antibiotic coverage with vancomycin, cefepime and metronidazole IV has been started. Concern for mastoiditis. Waiting for ENT consultation. Plan Vancomycin * Loading dose: 2250 mg IV x 1 * Maintenance dose: received one dose of 1250 mg, then increased to 1500 mg IV q12h * Regimen is predicted to achieve target AUC/BARRON of 400-600 mg/L.hr * predicted AUC at steady state: 558 * predicted trough at steady state: 17 mcg/mL * Vanco level ordered for 08/13 with am labs Cefepime 2000 mg IV q8h Metronidazole 500 mg IV q8h Pharmacy will continue to follow and will adjust dose/frequency as necessary. Thank you. Pharmacy has transitioned to AUC monitoring for vancomycin. AUC/BARRON is the preferred PK/PD target and is associated with decreased risk of nephrotoxicity compared to traditional trough targets.
[2022-08-11] MEDS: HEPARIN 100 UNIT/ML 5ML FLUSH FLUSH PRN ×4 (15:07→23:49)
--- NOTE | 2022-08-11 15:53 | Surgery Consultation ---
Date of Consultation August 11, 2022 Assessment & Plan (1) Poor intravenous access: This is a 42y F who presents to the [facility] ED on 08/09/22 for treatment of worsening mastoiditis infection. We have been consulted today as patient's port has been able to flush and administer meds but cannot draw back for blood. The port was placed on 01/06/22 for history poor venous access. She states since it was placed blood was only able to be returned from it 2x and last was 2 weeks ago. There are wishes for blood draws for cultures more labs, etc to be performed, however she is refusing further peripheral blood draws due to difficulty with phleb getting access related to blown veins and pain. A port study has been ordered for further evaluation. Thankfully the port is able to function with infusions and she is able to receive the abx therapy that she needs to tx infection and IV pain meds if needed. Port initially placed to be able to be used for infusions as needed which is working fine. We will await results of port study prior to making further recommendations. Will see patient again tomorrow and f/u. (2) Port-A-Cath in place: History of Present Illness Attending Physician: Luke Orta MD History of Present Illness This is a 42y F who presents to the [facility] ED on 08/09/22 for treatment of worsening mastoiditis infection. Patient states it has been present over the last 2 weeks and shes been developing worsening pain/swelling and hearing loss on the R side. This is associated with fevers/chills and difficulty eating. We have been consulted today as patient's port has been able to flush and administer meds but cannot draw back for blood. The port was placed on 01/06/22 for history poor venous access. Patient states her R arm is restricted due to multiple ortho surgeries with nerve damage and just overall has a history of poor access. She states she gets multiple kidney stones a year which is one reason her pcp recommended she obtain a port for. She states since it was placed blood was only able to be returned from it 2x and last was 2 weeks ago. It was access 4x this admission without success with drawing back. There are wishes for blood draws for cultures more labs, etc to be performed. She had routine labs done yesterday but patient says they used a butterfly needle and it took multiple attempts and blew her veins. So now she refuses any further attempts, especially if a bigger needle is needed for obtaining blood cultures. Allergies Allergy/AdvReac Type Severity Reaction Status Date / Time bee venom protein (honey bee) Allergy Severe SHORTNESS Verified 08/10/22 16:20 OF BREATH Fish Containing Products Allergy Severe SWELLING Verified 08/10/22 16:20 AND REDNESS morphine Allergy Severe Shakiness Verified 08/10/22 16:20 shellfish derived Allergy Severe SWELLING/RED Verified 08/10/22 16:20 SKIN ondansetron Allergy Intermediate HIVES - Verified 08/10/22 16:20 RASH EXOTIC FRUITS Allergy Intermediate HIVES RASH Uncoded 08/10/22 16:20 SWELLING Home Medications Medication Instructions Recorded Confirmed Type acetaminophen 500 mg tablet 1,000 mg PO Q6H PRN Pain 10/25/21 08/10/22 History (Tylenol Extra Strength) cefdinir 300 mg capsule 300 mg PO BID #60 caps 08/03/22 08/10/22 Rx ofloxacin 0.3 % ear drops 10 drp otic (ear) BID 10 days #10 08/03/22 08/10/22 Rx mL acetaminophen 300 mg-codeine 30 mg 1 tab PO Q8H PRN pain #9 tabs 08/09/22 08/10/22 Rx tablet prednisone 20 mg tablet See Rx Instructions .Route 08/09/22 08/10/22 Rx .COMPLEX 5 days #8 tabs hydroxyzine HCl 50 mg tablet See Rx Instructions PO .COMPLEX 08/10/22 08/10/22 Rx PRN insomnia #30 tabs Patient History Medical History Anxiety and depression No meds Diet-controlled diabetes mellitus Difficult intravenous access Reason for upcoming procedure. RUE restriction > R/t multiple surgeries hand/shoulder that resulted in nerve damage per pt. "Blew 15 IVs"/had to do foot IV which infiltrated during 11/2021 [place] admission per pt- which is a concern as patient is a diabetic. 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 Surgical History Fusion of lumbar spine BONE GRAFT FROM PELVIS H/O bone graft Iliac bone graft with lumbar fusion H/O left wrist surgery H/O shoulder surgery RT History of appendectomy History of bilateral breast reduction surgery History of bilateral tubal ligation History of cholecystectomy History of cystoscopy STONE REMOVAL; Mulitple sx History of facial surgery RECONSTRUCTION - D/T DEGLOVING History of hand surgery Rt x 2 FINGER I & D History of hysterectomy History of lithotripsy History of tonsillectomy History of tooth extraction Hx of arthroscopic knee surgery LEFT X 2 Hx of dilation and curettage Port-A-Cath in place (01/06/22) Insertion Access Port with Fluoroscopy(Left) - Bryce Hernandez, DO Slow to wake up after anesthesia Family History Grandfather (Maternal) Family history of diabetes mellitus Mother Diabetes Depression Kidney stones Uterine malignant neoplasm Aunt Ovarian cancer maternal Diabetes Breast cancer Sister Kidney stones Uterine malignant neoplasm Grandmother Myocardial infarction Uterine malignant neoplasm Other Adopted Denies family history of Colorectal cancer Social History Smoking Status: Current every day smoker Tobacco Type: Cigarettes Age Started Using Tobacco: 14; packs per day: 0.5; Cigarettes Per Day: 1/2 ppd; Second Hand Exposure: Yes; Do You Dip or Chew Tobacco: No; Tobacco Cessation Education Requested by Patient: No Hx Alcohol Use: No Hx Substance Use: No Preferred Language: Australian Communication Ability: Effective Visual Impairment: No Limitations Hearing Ability: Normal Precision Agriculture Specialist Required: No Beliefs That Will Affect Care: None marital status: Current Living Situation: Spouse current occupational status: employed and disabled 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 How many Children do You have: 2 Other Information That Helps Us Care for You: No Feels Safe at Home: Yes Safety Concerns: Feels Safe At This Time Childhood Exposure to Second-Hand Smoke: No Diet: diabetic during the past year weight has: remained stable Dental Care, Regularly: No Physical Activity Frequency: Other Assistive Devices: Contacts Review of Systems Constitutional: + fever, + chills and + problem reported (port able to flush but not draw back for blood return) Ear, Nose, Mouth, Throat: + hearing loss (R hearing loss), + facial pain (R side) and + sinus pain/pressure Physical Exam Physical Exam: awake/alert, no distress Respiratory: normal respiratory effort Cardiovascular: Rate/Rhythm: regular rate and regular rhythm Chest (Breasts): Additional Comments: L port in place without signs of infection. currently receiving med infusion Results & Data Vital Signs (Past 12 Hours) Vital Signs Temp Pulse Resp BP Pulse Ox O2 Del Method 08/11/22 13:57 36.9 C 85 17 109/74 96 Room Air 08/11/22 07:52 36.7 C 76 17 110/70 98 Room Air PG Care Time/CCT Total # of Minutes Spent Total Time Spent with Patient: Total time spent is greater than 50% in coordination of care (as documented) at patient's floor/unit and/or counseling patient: Coding Level of Care Code 39160 IN/OBS CONSULT LVL 3,45M Diagnoses Poor intravenous access Z78.9 Port-A-Cath in place Z95.828
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
[2022-08-11] MEDS: VANCOMYCIN HCL 1,500 MG in SODIUM CHLORIDE 0.9% 500 ML IV SCH (20:51)
[2022-08-11] MEDS: MELATONIN 3 MG TAB PO PRN (23:00)
[2022-08-12] MEDS: metroNIDAZOLE 500 MG/100 ML BAG IV SCH ×3 (02:21→17:58)
[2022-08-12] MEDS: HYDROmorphone INJ 0.5 MG/0.5 ML SYR IV PRN ×7 (02:47→22:39)
[2022-08-12] MEDS: IBUPROFEN 600 MG TAB PO SCH ×3 (05:34→17:55)
[2022-08-12] MEDS: dexAMETHasone 4 MG in SYRINGE 0 ML IV SCH (05:34)
[2022-08-12] MEDS: CEFEPIME 2,000 MG in SYRINGE 0 ML IV SCH ×2 (08:18→15:51)
--- NOTE | 2022-08-12 08:36 | Surgery Progress Note ---
Date of Service August 12, 2022 Assessment & Plan (1) Port-A-Cath in place: Plan: We will do a port study today. If there is a clot or fibrin sheath we can try some clot buster. Otherwise I would not recommend any sort of intervention simply because of difficult blood withdrawals. There is nothing I can do to prevent this from happening again and it infuses nicely which was its main purpose for being placed. We will follow-up with the results of the port study however I would not be recommending any surgical correction of the catheter. Admission and Anticipated Discharge Date Admission Date: August 11, 2022 Subjective Patient seen regarding her left subclavian access port that she uses for IV hydration. It is easily accessible and infuses nicely they just have trouble with drawing blood. Physical Exam Constitutional: WD/WN, vitals as above no acute distress and not ill appearing Eyes: PERRL, conjunctivae normal, anicteric sclerae EOM intact bilaterally ENMT: external ear and nose normal, oropharynx normal Ears: no hearing impairment Neck: trachea midline, no thyromegaly Respiratory: normal respiratory effort; no respiratory distress and does not use accessory muscles Cardiovascular: Rate/Rhythm: regular rate and regular rhythm Gastrointestinal (Abdomen): normal bowel sounds, soft, nontender, no hepatosplenomegaly Skin: no rashes, warm and dry Psychiatric: Orientation: alert, oriented x 3 and cooperative Results & Data Vital Signs (Past 12 Hours) Vital Signs Temp Pulse Resp BP Pulse Ox O2 Del Method 08/12/22 07:51 36.5 C 63 18 110/77 98 Room Air 08/11/22 22:21 37 C 75 20 128/80 98 Room Air PG Care Time/CCT Total # of Minutes Spent Total Time Spent with Patient: Total time spent is greater than 50% in coordination of care (as documented) at patient's floor/unit and/or counseling patient: Coding Level of Care Code 44346 SUB INP/OBS CARE 2/35MIN Diagnoses Port-A-Cath in place Z95.828
[2022-08-12] MEDS: ACETAMINOPHEN 500 MG TAB PO SCH ×3 (08:43→19:31)
[2022-08-12] MEDS: VANCOMYCIN HCL 1,500 MG in SODIUM CHLORIDE 0.9% 500 ML IV SCH ×2 (09:07→19:30)
--- NOTE | 2022-08-12 12:25 | Fluoroscopy Report ---
FL a-port check CLINICAL HISTORY: unable to draw, innominate COMPARISON STUDY: CT neck 08/10/2022. FLUOROSCOPY TIME: 0.3 minutes. FLUOROSCOPY IMAGES: 35 images including a cine loop. Ka,r: 9.35 mGy FINDINGS: Outpatient Facility Physical Therapist image demonstrates a left subclavian Port-A-Cath with the distal tubing/tip curled wi thin the left brachiocephalic/subclavian vein. A total of 10 cc of Optiray 320 was injected into the indwelling port. Contrast is seen within the left subclavian/brachiocephalic vein. Contrast also exte nds into the left external jugular vein. No evidence for fibrin sheath/thrombus. IMPRESSION: 1. Redemonstration of the left subclavian Port-A-Cath with the distal tubing/tip curled within the le ft brachiocephalic/subclavian vein. 2. Contrast is seen within the left subclavian/brachiocephalic vein and extending into the left exter nal jugular vein. 3. No evidence for fibrin sheath/thrombus. ACT 112: Negative or not required by law. Electronically signed by: Shay Palomares M.D. 08/12/2022 12:24 PM
--- NOTE | 2022-08-12 15:16 | CT Scan Report ---
CT temporal bones wo con CT DOSE: 818.86 mGy.cm CLINICAL HISTORY: fluid right middle ear, pain TECHNIQUE: Multiaxial CT images of the temporal bones were performed without intravenous contrast and reformatted in the sagittal and coronal plane. A dose lowering technique was utilized adhering to t he principles of ALARA. COMPARISON STUDY: CT neck 08/10/2022. FINDINGS: On the right: The external auditory canal is patent. There is complete opacification of the right mid dle air cavity and right mastoid air cells. This is similar to the prior study and favors fluid opaci fication. The ossicles appear intact. No erosive changes to suggest a coalescing mastoiditis or under lying cholesteatoma. The scutum is maintained. No evidence for inner ear dysplasia. The 7th cranial n erve describes a normal course. On the left: The external auditory canal is patent. The left middle ear cavity is clear. The ossicles are intact. The mastoid air cells are clear. No evidence for inner ear dysplasia. The 7th cranial ne rve describes a normal course. The scutum is maintained. No erosive changes identified. The visualized brain parenchyma and orbits are unremarkable. There is prominence of the adenoid tonsi ls. No fractures within the temporal bones. IMPRESSION: 1. Persistent complete opacification of the right middle ear cavity and right mastoid air cells. This is similar to the prior study and favors fluid opacification. 2. No erosive changes to suggest a coalescing mastoiditis or underlying cholesteatoma. 3. Normal left temporal bone. 4. Prominence of the adenoid tonsils, unchanged. ACT 112: Negative or not required by law. Electronically signed by: Shay Palomares M.D. 08/12/2022 3:14 PM
[2022-08-12] MEDS: HEPARIN 100 UNIT/ML 5ML FLUSH FLUSH PRN ×2 (19:31→22:39)
--- NOTE | 2022-08-12 21:02 | Electrocardiogram Report ---
Test Reason : Blood Pressure : / mmHG Vent. Rate : 073 BPM Atrial Rate : 073 BPM P-R Int : 140 ms QRS Dur : 082 ms QT Int : 398 ms P-R-T Axes : 050 023 026 degrees QTc Int : 438 ms Normal sinus rhythm Normal ECG When compared with ECG of 27-JUN-2022 03:46, Nonspecific T wave abnormality no longer evident in Anterolateral leads Confirmed by Kody Ford ([id number]) on 08/12/2022 9:02:06 PM Referred By: Monserrat Murray Confirmed By:Kody Ford
--- NOTE | 2022-08-12 22:10 | Hospitalist Progress Note ---
Date of Service August 12, 2022 Assessment & Plan (1) Mastoiditis: Plan: 42-year-old female with ongoing right ear pain and effusion. She has completed a course of Augmentin as well as a course of cefdinir and ofloxacin drops. Persistent pain, hearing loss and aural fullness with worsening symptoms involving the neck and face. Patient reports fever today to 1-2.6 prior to arrival. Labs are significant for elevated WBC = 16 (patient had taken steroids as well) as well as elevated platelet = [address] soft tissue neck 08/10/2022:1. No fluid collection within the neck to suggest abscess. 2. Increase in a right mastoid effusion and fluid/soft tissue within the right middle ear since CT of July 27, 2022. 3. Prominent bilateral cervical lymph nodes, stable to slightly decreased in size since prior exam. These are nonspecific although probably reactive. Leukocytosis of 16.6 Patient initially with pain of 8+/10, she reports that this is improving and is significantly better than on admission now 5/10 or less Continue cefepime/vancomycin. Flagyl added for anaerobic coverage Slight uptrend in leukocytosis, afebrile at time of assessment and clinically is improving. We will continue antibiotics at this time ENT is consulted, pending additional recommendations _Initial consult was for Dr. Howell, but he is not working. Consulted ENT and discussed case with provider english as a second language teacher on 08/12 Continue dexamethasone daily Continue Tylenol/ibuprofen for pain control with Dilaudid for breakthrough Blood cultures limited by poor access, pending for evaluation as noted (2) Poor intravenous access: Plan: left chest port in place. This was placed by Dr. Hernandez 12/29/2021 due to extremely poor access, difficulty with swelling at attempted venipuncture sites, and recurrent inability to draw labs and give IV medications Unfortunately prior x-ray shows tip likely coiled in the innominate vein Surgery consulted, port study ordered per their request No signs of overlying infection _Appears Surgery will not replace line as patient's line works for infusions. HOwever, it appears the purpose of the line was to obtain IV access for blood draws as patient is an extremely difficult stick as stated above. (3) Diet-controlled diabetes mellitus: Plan: Monitor blood sugars BG control adequate today Diet: Tolerating DM diet, Disposition: Medical surgical CODE STATUS: Full code Admission and Anticipated Discharge Date Admission Date: August 11, 2022 Subjective Patient continues to complain of symptoms of her right side of her head. She does not want to increase her pain medicine. She is concerned about her IV line as it was placed to help obtain testing. Review of Systems Review of Systems: All systems reviewed & are unremarkable except as noted in HPI & below Physical Exam Physical Exam: General: A&Ox3. NAD. Cooperative. HEENT: Scar running from forehead down past lateral right eye well-healed without overlying erythema/tenderness. Neck is with mild tenderness at the right mastoid, minimal and improved tenderness along the mandible and no tenderness in the upper/mid back at time of assessment. Thorax: Left port is in place, no overlying warmth/tenderness/erythema Pulm: CTAB A&P. -wheezes, -rales, -rhonchi. Symmetrical chest rise. No increased work of breathing. No respiratory distress. Cardiac: RRR, -mrg. Radial pulses intact and symmetrical. Abdominal: Nontender, nondistended, soft. BS present. Results & Data Results & Data Vital Signs (Past 12 Hours) Vital Signs Temp Pulse Resp BP Pulse Ox O2 Del Method 08/12/22 19:30 Room Air 08/12/22 19:46 36.3 C L 70 16 113/70 95 Room Air 08/12/22 16:02 36.6 C 57 L 18 113/75 98 Room Air PG Care Time/CCT Total # of Minutes Spent Total Time Spent with Patient: Total time spent is greater than 50% in coordination of care (as documented) at patient's floor/unit and/or counseling patient: Coding Level of Care Code 54048 SUB INP/OBS CARE 3/50MIN Diagnoses Mastoiditis H70.90 Poor intravenous access Z78.9 Diet-controlled diabetes mellitus E11.9
[2022-08-12] MEDS: MELATONIN 3 MG TAB PO PRN (22:48)
[2022-08-13] MEDS: IBUPROFEN 600 MG TAB PO SCH ×4 (00:06→17:27)
[2022-08-13] MEDS: CEFEPIME 2,000 MG in SYRINGE 0 ML IV SCH ×3 (00:06→16:33)
[2022-08-13] MEDS: HEPARIN 100 UNIT/ML 5ML FLUSH FLUSH PRN ×7 (00:07→23:15)
[2022-08-13] MEDS: HYDROmorphone INJ 0.5 MG/0.5 ML SYR IV PRN ×7 (01:41→22:42)
[2022-08-13] MEDS: metroNIDAZOLE 500 MG/100 ML BAG IV SCH ×2 (01:41→09:43)
[2022-08-13] MEDS: dexAMETHasone 4 MG in SYRINGE 0 ML IV SCH (05:39)
[2022-08-13 05:50] LABS: Basophils # (auto) 0.05 K/uL (0-0.2); Basophils % (auto) 0.8 %; Eosinophils # (auto) 0.43 K/uL (0-0.50); Eosinophils % (auto) 6.6 %; Hematocrit (blood only) 37.8 % (37.0-47.0); Immature Granulocytes # (auto) 0.03 K/uL (0.01-0.20); Immature Granulocytes % (auto) 0.5 %; Lymphocytes # (auto) 2.49 K/uL (1.2-3.4); Lymphocytes % (auto) 38.2 %; Mean Corpuscular Hemoglobin 30.4 pg (25.0-34.0); Mean Corpuscular Hgb Conc 34.4 g/dL (32.0-36.0); Mean Corpuscular Volume 88.5 fL (80.0-100.0); Mean Platelet Volume 8.3 fL (9.4-12.4); Monocytes # (auto) 0.32 K/uL (0.11-0.59); Monocytes % (auto) 4.9 %; Platelet Count 318 K/uL (130-400); RDW Coefficient of Variation 12.3 % (11.5-14.5); RDW Standard Deviation 39.7 fL (36.4-46.3); Red Blood Count 4.27 M/uL (4.20-5.40); White Blood Count 6.52 K/ul (4.8-10.8)
[2022-08-13 06:01] LABS: BUN Creatinine Ratio 18.3 (10-20); C Reactive Protein 0.89 mg/dl (0-0.5); Calcium 8.8 mg/dl (8.6-10.3); Creatinine Clr Calc Pharmacy 127.4 ml/min; Est GFR (African American) 130.3 ml/min; Est GFR (Non-African American) 112.4 ml/min; Potassium 4.1 mmol/L (3.5-5.1)
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
[2022-08-13] MEDS ORDERED: VANCOMYCIN LEVEL ONE (07:30)
[2022-08-13] MEDS: ACETAMINOPHEN 500 MG TAB PO SCH ×3 (09:26→21:52)
[2022-08-13] MEDS: VANCOMYCIN HCL 1,500 MG in SODIUM CHLORIDE 0.9% 500 ML IV SCH ×2 (09:42→19:36)
--- NOTE | 2022-08-13 11:33 | Pharmacy Report ---
Pharmacy PK ABX Note - Date of Service August 13, 2022 - Assessment and Plan Assessment 08/13: * Day #3 of antimicrobial therapy for mastoiditis. Leukocytosis resolved. Renal fxn stable. Afebrile. ENT consulted and ordered a temporal bone CT. Plan to reach out to oral maxillofacial surgery. One blood culture ordered today. ESR normal, CRP slightly elevated. Given mastoiditis is most commonly caused by staph/strep species, recommended discontinuation of anaerobic coverage to the primary team who agreed. Flagyl was discontinued. * Random level from this AM was therapeutic. 08/11: * 42 year old F who presented with ongoing right ear pain, hearing loss and aural fullness with worsening symptoms involving the neck and face. Patient reports fever prior to arrival. Leukocytosis. She recently completed an outpatient course of Augmentin, cefdinir and ofloxacin drops. Empiric antibiotic coverage with vancomycin, cefepime and metronidazole IV has been started. Concern for mastoiditis. * Waiting for ENT consultation. Plan Vancomycin * Current regimen: 1500 mg IV every 12 hours * Random level obtained 08/13/22 resulted as 12.7 mcg/mL. This is predicted to achieve target AUC/BARRON of 400-600 mg/L.hr * Predicted AUC at steady state: 444 mg/L.hr * Continue 1500 mg IV every 12 hours * Repeat random level ordered for: 08/16/31 Cefepime 2000 mg IV q8h Pharmacy will continue to follow and will adjust dose/frequency as necessary. Thank you. Pharmacy has transitioned to AUC monitoring for vancomycin. AUC/BARRON is the preferred PK/PD target and is associated with decreased risk of nephrotoxicity compared to traditional trough targets.
--- NOTE | 2022-08-13 14:43 | Oral/Maxillofacial Progress Nt ---
Date of Service August 13, 2022 Assessment & Plan (1) Right acute suppurative otitis media: (2) Mastoiditis: (3) Otalgia of right ear: (4) Hearing loss: Admission and Anticipated Discharge Date Admission Date: August 11, 2022 Subjective Oral Maxillofacial Surgery Exam Present Complaint: I was asked by ENT Dr. Ariel Moer regarding r/o dental pathology for recent hearing loss and acute right side pain. CC: I has right ear pain, no hearing (or diminished hearing) Acute pain, pressure, right ear came on over a few hour period about 2 weeks ago. Treated with oral antibiotics -- w/o resolution CT scan x 3 all show effusion right middle ear- looks to be getting worse, also Prominence of the adenoid tonsils looks to be obstruction of right side est. tubes causing drainage issues Oral Exam: Finding--No active dental infection, no swelling, no redness. There are a few dental carious lesion but no really acute dental pain These symptoms going on for months. Tooth # 4 and 5 have carious lesion # 2 cervical decay. Imaging: CT temporal bones wo con I discussed the case with Radiologist Shay Palomares MD CLINICAL HISTORY: fluid right middle ear, pain COMPARISON STUDY: CT neck 08/10/2022. FINDINGS: On the right: The external auditory canal is patent. There is complete opacification of the right middle air cavity and right mastoid air cells. This is similar to the prior study and favors fluid opacification. The ossicles appear intact. No erosive changes to suggest a coalescing mastoiditis or underlying cholesteatoma. The scutum is maintained. No evidence for inner ear dysplasia. The 7th cranial nerve describes a normal course. On the left: The external auditory canal is patent. The left middle ear cavity is clear. The ossicles are intact. The mastoid air cells are clear. No evidence for inner ear dysplasia. The 7th cranial nerve describes a normal course. The scutum is maintained. No erosive changes identified. The visualized brain parenchyma and orbits are unremarkable. There is prominence of the adenoid tonsils. No fractures within the temporal bones. IMPRESSION: 1. Persistent complete opacification of the right middle ear cavity and right mastoid air cells. This is similar to the prior study and favors fluid opacification. 2. No erosive changes to suggest a coalescing mastoiditis or underlying cholesteatoma. 3. Normal left temporal bone. 4. Prominence of the adenoid tonsils, unchanged. Soft tissue: floor of the mouth, tongue, hard/soft palate, posterior pharyngeal area all with in normal limits, no pathology or abnormal findings noted on clinical oral exam. There is tenderness preauricular area and postauricular area right side. Also right side of face- any pressure on side of the face, opening her mouth will increase the pain Oral Care: Overall oral care is fair Occlusion: Class I TMJ exam: not able to evaluate secondary to pain upon function Head/Neck exam: Neck is supple, tenderness in the cervical nodes, side of her face,SCM muscle tender when extend and flex neck no masses, no abnormalities, no airway issues, Treatment Plan: I feel that the middle ear fluid should be drained TANI by ENT. I offered extractions of teeth # 4 and 5 but Beth wants to hold off on extraction and see if teeth can be saved. I agree that w/o evidence of swelling or dental apex pathology that getting established with regular dental care would be the preferred management. I reviewed the treatment plan with Beth and hopefully ENT can drain the right middle ear and manage. Dental care in future Understanding was expressed. Time was given for questions regarding the my suggestions. Results & Data Vital Signs (Past 12 Hours) Vital Signs Temp Pulse Resp BP Pulse Ox O2 Del Method 08/13/22 10:00 Room Air 08/13/22 07:49 36.5 C 63 18 123/79 98 Room Air PG Care Time/CCT Total # of Minutes Spent Total Time Spent with Patient: Total time spent is greater than 50% in coordination of care (as documented) at patient's floor/unit and/or counseling patient: Coding Level of Care Code 42437 SUB INP/OBS CARE 2/35MIN Diagnoses Right acute suppurative otitis media H66.001 Mastoiditis H70.90 Otalgia of right ear H92.01 Hearing loss H91.91 Hearing loss type: unspecified Laterality: right (4) Hearing loss Hearing loss type: unspecified Laterality: right Qualified Code(s): H91.91 - Unspecified hearing loss, right ear
[2022-08-13] MEDS ORDERED: LORazepam 2 MG/1 ML VIAL IV STA (16:25)
--- NOTE | 2022-08-13 17:16 | Magnetic Resonance Report ---
MR venography head wo con HISTORY: Right mastoid pain/ check for sigmoid sinus thrombosis TECHNIQUE: MRV of the brain was performed without contrast according to standard departmental protoco l. COMPARISON STUDY: CT temporal bone 08/12/2022 FINDINGS: The visualized internal jugular veins, sigmoid sinuses, transverse sinuses, straight sinus, internal cerebral veins, and superior sagittal sinus appear patent. The vein of Tin is not well vi sualized but unlikely to be thrombosed. A right mastoid effusion is again noted. IMPRESSION: 1. No evidence for dural venous sinus thrombosis. 2. Right mastoid effusion again noted. ACT 112: Negative or not required by law. Electronically signed by: Shay Palomares M.D. 08/13/2022 5:15 PM
--- NOTE | 2022-08-13 17:55 | Ears,Nose,Throat Progress Note ---
Date of Service August 13, 2022 Assessment & Plan (1) Right acute suppurative otitis media: (2) Dental infection: Plan Will arrange a tympanostomy tomorrow under general anesthesia to get fluid for microbiology. At the same time Dr Martin will do a dental extraction Admission and Anticipated Discharge Date Admission Date: August 11, 2022 Subjective ear pain right Results & Data Vital Signs (Past 12 Hours) Vital Signs Temp Pulse Resp BP Pulse Ox O2 Del Method 08/13/22 14:50 36.8 C 75 18 119/81 97 Room Air 08/13/22 10:00 Room Air 08/13/22 07:49 36.5 C 63 18 123/79 98 Room Air Diagnostic Findings MRV and CT temporal bone show no evidence of venous thrombosis. PG Care Time/CCT Total # of Minutes Spent Total Time Spent with Patient: Total time spent is greater than 50% in coordination of care (as documented) at patient's floor/unit and/or counseling patient: Coding [place] [address] SUB INP/OBS CARE 1/25MIN Patient Type Established Diagnoses Right acute suppurative otitis media H66.001 Dental infection K04.7
[2022-08-13] MEDS ORDERED: KETOROLAC TROMETHAMINE 15 MG/ML VIAL IV ONE (22:22)
[2022-08-13] MEDS: MELATONIN 3 MG TAB PO PRN (22:41)
--- NOTE | 2022-08-13 23:03 | Hospitalist Progress Note ---
Date of Service August 13, 2022 Assessment & Plan (1) Mastoiditis: Plan: 42-year-old female with ongoing right ear pain and effusion. She has completed a course of Augmentin as well as a course of cefdinir and ofloxacin drops. Persistent pain, hearing loss and aural fullness with worsening symptoms involving the neck and face. Patient reports fever today to 1-2.6 prior to arrival. Labs are significant for elevated WBC = 16 (patient had taken steroids as well) as well as elevated platelet = [address] soft tissue neck 08/10/2022:1. No fluid collection within the neck to suggest abscess. 2. Increase in a right mastoid effusion and fluid/soft tissue within the right middle ear since CT of July 27, 2022. 3. Prominent bilateral cervical lymph nodes, stable to slightly decreased in size since prior exam. These are nonspecific although probably reactive. Leukocytosis of 16.6 Patient initially with pain of 8+/10, she reports that this is improving and is significantly better than on admission now 5/10 or less Continue cefepime/vancomycin. Flagyl added for anaerobic coverage Slight uptrend in leukocytosis, afebrile at time of assessment and clinically is improving. We will continue antibiotics at this time ENT is consulted, pending additional recommendations _Initial consult was for Dr. Howell, but he is not working. Consulted ENT and discussed case with provider technician support association on 08/12 Continue dexamethasone daily Continue Tylenol/ibuprofen for pain control with Dilaudid for breakthrough Blood cultures limited by poor access, pending for evaluation as noted will do further imagng today to rule out thrombosis. If negative, ENT will likely drain fluid. Gave benzo for MRV. Patient required more frequent pain medicine (2) Poor intravenous access: Plan: left chest port in place. This was placed by Dr. Hernandez 12/29/2021 due to extremely poor access, difficulty with swelling at attempted venipuncture sites, and recurrent inability to draw labs and give IV medications Unfortunately prior x-ray shows tip likely coiled in the innominate vein Surgery consulted, port study ordered per their request No signs of overlying infection _Appears Surgery will not replace line as patient's line works for infusions. HOwever, it appears the purpose of the line was to obtain IV access for blood draws as patient is an extremely difficult stick as stated above. Gen surgery on weekend call will defer to week day Surgeon. (3) Diet-controlled diabetes mellitus: Plan: Monitor blood sugars BG control adequate today Diet: Tolerating DM diet, Disposition: Medical surgical CODE STATUS: Full code Admission and Anticipated Discharge Date Admission Date: August 11, 2022 Subjective PATIENT reports worsening pain today. Review of Systems Review of Systems: All systems reviewed & are unremarkable except as noted in HPI & below Physical Exam Physical Exam: General: A&Ox3. NAD. Cooperative. HEENT: Scar running from forehead down past lateral right eye well-healed without overlying erythema/tenderness. Neck is with mild tenderness at the right mastoid, minimal and improved tenderness along the mandible and no tenderness in the upper/mid back at time of assessment. Thorax: Left port is in place, no overlying warmth/tenderness/erythema Pulm: CTAB A&P. -wheezes, -rales, -rhonchi. Symmetrical chest rise. No increased work of breathing. No respiratory distress. Cardiac: RRR, -mrg. Radial pulses intact and symmetrical. Abdominal: Nontender, nondistended, soft. BS present. Results & Data Results & Data Vital Signs (Past 12 Hours) Vital Signs Temp Pulse Resp BP Pulse Ox O2 Del Method 08/13/22 19:35 Room Air 08/13/22 19:46 36.6 C 68 18 109/67 95 Room Air 08/13/22 14:50 36.8 C 75 18 119/81 97 Room Air PG Care Time/CCT Total # of Minutes Spent Total Time Spent with Patient: Total time spent is greater than 50% in coordination of care (as documented) at patient's floor/unit and/or counseling patient: Coding Level of Care Code 34268 SUB INP/OBS CARE 3/50MIN Diagnoses Mastoiditis H70.90 Poor intravenous access Z78.9 Diet-controlled diabetes mellitus E11.9 Time Spent (min) 50
[2022-08-14] MEDS: CEFEPIME 2,000 MG in SYRINGE 0 ML IV SCH ×4 (00:04→23:44)
[2022-08-14] MEDS: HEPARIN 100 UNIT/ML 5ML FLUSH FLUSH PRN ×4 (00:04→15:21)
[2022-08-14] MEDS: IBUPROFEN 600 MG TAB PO SCH ×5 (00:05→23:43)
[2022-08-14] MEDS: HYDROmorphone INJ 0.5 MG/0.5 ML SYR IV PRN ×4 (02:25→15:21)
[2022-08-14] MEDS: dexAMETHasone 4 MG in SYRINGE 0 ML IV SCH (05:28)
--- NOTE | 2022-08-14 07:50 | Anesthesiology Consultation ---
Date of Service August 14, 2022 Assessment & Plan Chart Review Chart Review: Acceptable Risk for Surgery and Patient NOT seen in Pre Admission Testing Consults Requested none ASA ASA3 Proposed Anesthesia Anesthesia Type: General History Surgery Operation Date: 08/14/22 11:00 Proposed Procedures p Tympanostomy Fluid removal - Ariel More MD s dental injection tooth removal - Robert Martin DMD Height/Weight Height: 5 ft 2 in Weight: 90 kg Allergies Allergy/AdvReac Type Severity Reaction Status Date / Time bee venom protein (honey bee) Allergy Severe SHORTNESS Verified 08/10/22 16:20 OF BREATH Fish Containing Products Allergy Severe SWELLING Verified 08/10/22 16:20 AND REDNESS morphine Allergy Severe Shakiness Verified 08/10/22 16:20 shellfish derived Allergy Severe SWELLING/RED Verified 08/10/22 16:20 SKIN ondansetron Allergy Intermediate HIVES - Verified 08/10/22 16:20 RASH EXOTIC FRUITS Allergy Intermediate HIVES RASH Uncoded 08/10/22 16:20 SWELLING Medications Home Medications Medication Instructions Recorded Confirmed Last Taken acetaminophen 500 mg tablet 1,000 mg PO Q6H PRN Pain 10/25/21 08/10/22 01/03/22 (Tylenol Extra Strength) cefdinir 300 mg capsule 300 mg PO BID #60 caps 08/03/22 08/10/22 Unknown ofloxacin 0.3 % ear drops 10 drp otic (ear) BID 10 days #10 08/03/22 08/10/22 Unknown mL acetaminophen 300 mg-codeine 30 mg 1 tab PO Q8H PRN pain #9 tabs 08/09/22 08/10/22 Unknown tablet prednisone 20 mg tablet See Rx Instructions .Route 08/09/22 08/10/22 Unknown .COMPLEX 5 days #8 tabs hydroxyzine HCl 50 mg tablet See Rx Instructions PO .COMPLEX 08/10/22 08/10/22 Unknown PRN insomnia #30 tabs Active Medications Generic Name Dose Route Start Last Admin Trade Name Freq PRN Reason Stop Dose Admin Acetaminophen 1,000 mg 08/11/22 09:00 08/13/22 21:52 Acetaminophen 500 Mg Tab PO 09/10/22 08:59 1,000 mg TID LAMINE Administration Heparin Sodium (Porcine) 5 ml 08/11/22 06:37 08/14/22 05:27 Heparin 100 Unit/Ml 5ml Flush FLUSH 09/10/22 06:36 5 ml PRN PRN Administration Flush Hydromorphone HCl 0.5 mg 08/11/22 04:00 08/14/22 05:28 Hydromorphone Inj 0.5 Mg/0.5 Ml Syr IV 08/25/22 03:59 0.5 mg Q3H PRN Administration Pain (6,7,8,9,10) Hydromorphone HCl 0.25 mg 08/11/22 04:00 08/13/22 10:41 Hydromorphone Inj 0.5 Mg/0.5 Ml Syr IV 08/25/22 03:59 0.25 mg Q3H PRN Administration Pain (1,2,3,4,5) & Pre PT Cefepime HCl 2,000 mg/ Syringe 20 mls @ 5 mls/min 08/11/22 08:00 08/14/22 00:04 IV 08/21/22 07:59 5 mls/min Q8H LAMINE Administration Protocol Dexamethasone 4 mg/ Syringe 1 mls @ 1 mls/min 08/11/22 04:00 08/14/22 05:28 IV 09/10/22 03:59 Not Given Q24H LAMINE Vancomycin HCl 1,500 mg/ 530 mls @ 200 mls/hr 08/11/22 20:00 08/13/22 22:33 Sodium Chloride IV 08/21/22 07:59 Infused Q12H LAMINE Infusion Protocol Ibuprofen 600 mg 08/11/22 04:00 08/14/22 05:28 Ibuprofen 600 Mg Tab PO 09/10/22 03:59 Not Given Q6 LAMINE Melatonin 3 mg 08/11/22 22:45 08/13/22 22:41 Melatonin 3 Mg Tab PO 09/10/22 22:44 3 mg HS PRN Administration Sleep Past Medical History Medical History Anxiety and depression No meds Diet-controlled diabetes mellitus Difficult intravenous access Reason for upcoming procedure. RUE restriction > R/t multiple surgeries hand/shoulder that resulted in nerve damage per pt. "Blew 15 IVs"/had to do foot IV which infiltrated during 11/2021 [place] admission per pt- which is a concern as patient is a diabetic. 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 Exercise / Class Metabolic Activity II 4-5 Yardwork/Stairs/Walk up hill Past Family History Family History Grandfather (Maternal) Family history of diabetes mellitus Mother Diabetes Depression Kidney stones Uterine malignant neoplasm Aunt Ovarian cancer maternal Diabetes Breast cancer Sister Kidney stones Uterine malignant neoplasm Grandmother Myocardial infarction Uterine malignant neoplasm Other Adopted Denies family history of Colorectal cancer Past Surgical History Surgical History Fusion of lumbar spine BONE GRAFT FROM PELVIS H/O bone graft Iliac bone graft with lumbar fusion H/O left wrist surgery H/O shoulder surgery RT History of appendectomy History of bilateral breast reduction surgery History of bilateral tubal ligation History of cholecystectomy History of cystoscopy STONE REMOVAL; Mulitple sx History of facial surgery RECONSTRUCTION - D/T DEGLOVING History of hand surgery Rt x 2 FINGER I & D History of hysterectomy History of lithotripsy History of tonsillectomy History of tooth extraction Hx of arthroscopic knee surgery LEFT X 2 Hx of dilation and curettage Port-A-Cath in place (01/06/22) Insertion Access Port with Fluoroscopy(Left) - Bryce Hernandez, DO Slow to wake up after anesthesia Past Anesthesia History No Hx of Anesthesia Complications and No Family Hx of Anesthesia Complications History of PONV No Hx of PONV and No Hx of Motion Sickness Social History Smoking Status: Current every day smoker tobacco type: cigarettes Smoking cigarettes per day: 1/2 ppd Do You Dip or Chew Tobacco: No Hx Alcohol Use: No Hx Substance Use: No substance use type: does not use Physical Exam Vital Signs Last Vital Signs Temp 36.6 C 08/14/22 07:23 Pulse 71 08/14/22 07:23 Resp 16 08/14/22 07:23 BP 114/72 08/14/22 07:23 Pulse Ox 95 08/14/22 07:23 O2 Del Method Room Air 08/14/22 07:23 Testing Laboratory Results 08/13/22 05:22 08/13/22 05:22 08/13/22 05:30 Aerobic Blood Culture - Preliminary Blood No growth in Aerobic bottle after 24 hours. Anaerobic Blood Culture - Preliminary No growth in Anaerobic bottle after 24 hours. Electrocardiogram Date: 08/11/22 Findings: + BILLR @ (@ 04)
[2022-08-14] MEDS: ACETAMINOPHEN 500 MG TAB PO SCH ×2 (07:52→08:01)
[2022-08-14] MEDS: VANCOMYCIN HCL 1,500 MG in SODIUM CHLORIDE 0.9% 500 ML IV SCH ×2 (08:02→22:35)
[2022-08-14] MEDS ORDERED: LIDOCAINE 2% 2 ML VIAL/AMP(20MG/ML) INFIL ONE (08:28)
[2022-08-14] MEDS ORDERED: fentaNYL citrate PF 100 MCG/2 ML VIAL ONE ×2 (08:28→09:10)
[2022-08-14] MEDS ORDERED: ONDANSETRON INJ 2 MG/ML 2 ML VIAL ONE (08:28)
[2022-08-14] MEDS ORDERED: DEXAMETHASONE SOD INJ 4 MG/ML VIAL ONE (08:28)
[2022-08-14] MEDS ORDERED: MIDAZOLAM HCL 1 MG/ML 2ML VIAL ONE (08:28)
[2022-08-14] MEDS ORDERED: PROPOFOL IV EMULSION 10 MG/ML 20 ML VIAL IV ONE (08:28)
--- NOTE | 2022-08-14 08:43 | History & Physical Bridge Note ---
Date of Service August 14, 2022 History & Physical Bridge Note I have examined the patient, reviewed the History & Physical and in the interval since the performance of the History & Physical I have noted the following changes of clinical significance: no changes noted
[2022-08-14] MEDS ORDERED: SUCCINYLCHOLINE 100MG/5ML SYR IV ONE (08:50)
[2022-08-14] MEDS ORDERED: OXYMETAZOLINE 0.05% 30 ML BTL ONE (09:14)
--- NOTE | 2022-08-14 09:43 | Operative Report ---
PG Post Operative Report Pre & Post Diagnosis Preoperative diagnosis: Right middle ear effusion Postoperative diagnosis: Right middle ear effusion and lesion nasopharynx right side Operation Date: 08/14/22 11:00 <No data on this case meets the specified criteria> I identified the patient and participated in the time-out.: Yes Procedure Under general anesthesia with the patient intubated the patient was prepped and draped in usual manner. Using the microscope a speculum was placed in the right ear. An incision was made anterior inferior. Fluid was suctioned and the fluid is collected for culture and sensitivity. A tympanostomy tube was placed. Anesthesia said that there was some swelling in the throat so I elected to do an examination of the nose and nasopharynx on the right side. I used oxymetazoline to decongest the nose. I then inserted the nasal endoscope and examine the nasopharynx. There was a mass in the nasopharynx on the right side which occupied much of the right side. I elected to do biopsies. 2 biopsies were done. There was some bleeding. I controlled the bleeding with suction cautery. Less than 1 mL estimate blood loss. Patient tolerated procedure well and was extubated and transferred to the recovery room in excellent condition. Operation Date: 08/14/22 11:00 <No data on this case meets the specified criteria> Surgeon Ariel More MD Electrical Line Mechanic None Estimated Blood Loss 1 Findings Consistent with Post-Op Diagnosis Lesion nasopharynx right side and right middle ear effusion Specimens Biopsy nasopharynx right side. Middle ear effusion fluid sent for microbiology Complications None Description of Procedure Right tympanostomy and nasal endoscopy biopsy nasopharynx I attest to the content of the Intraoperative Record and any orders documented therein. Any exceptions are noted below.
[2022-08-14] MEDS ORDERED: ALBUTEROL HFA 8 GM INHALER INH ONE (09:44)
[2022-08-14] MEDS ORDERED: PROMETHAZINE HCL 12.5 MG in SODIUM CHLORIDE 0.9% 50 ML IV PRN (09:49)
[2022-08-14] MEDS ORDERED: NALOXONE HCL 0.4 MG/1 ML VIAL/CARP IV PRN (09:49)
[2022-08-14] MEDS ORDERED: ATROPINE SULFATE 0.1 MG/ML 10ML SYR IV PRN (09:49)
[2022-08-14] MEDS ORDERED: ePHEDrine sulfate 50 MG/ML AMP IV PRN (09:49)
[2022-08-14] MEDS ORDERED: FLUMAZENIL 0.1 MG/1 ML 10 ML VIAL IV PRN (09:49)
[2022-08-14] MEDS ORDERED: PHENYLEPHRINE HCL 10 MG/ML VIAL ONE (10:00)
[2022-08-14] MEDS ORDERED: OXYMETAZOLINE 0.05% 30 ML BTL NAE ONE (10:01)
[2022-08-14] MEDS: fentaNYL citrate PF 100 MCG/2 ML VIAL IV PRN ×2 (10:02→10:09)
--- NOTE | 2022-08-14 10:34 | Anesthesiology Progress Note ---
Date of Service August 14, 2022 Anesthesia Post Procedure Vital Signs Vital Signs: Temp Pulse Pulse Resp BP Pulse Ox O2 Del Method 08/14/22 10:30 36.7 C 88 15 114/77 94 Nasal Cannula 08/14/22 10:20 83 19 109/71 95 Oxymask 08/14/22 10:10 85 20 108/84 95 Oxymask 08/14/22 10:00 86 20 110/69 92 Oxymask 08/14/22 09:54 37.0 C 88 14 108/78 89 L Oxymask 08/14/22 07:23 36.6 C 71 16 114/72 95 Room Air 08/13/22 19:35 Room Air 08/13/22 19:46 36.6 C 68 18 109/67 95 Room Air 08/13/22 14:50 36.8 C 75 18 119/81 97 Room Air O2 Flow Rate 08/14/22 10:30 3 08/14/22 10:20 5 08/14/22 10:10 9 08/14/22 10:00 9 08/14/22 09:54 9 08/14/22 07:23 08/13/22 19:35 08/13/22 19:46 08/13/22 14:50 Pain Intensity Right Ear: Pain Intensity: 4 Transfer of Care Handoff Completed per policy Notes Mental Status: alert / awake / arousable Patient Amnestic to Procedure: Yes Nausea / Vomiting: adequately controlled Pain: adequately controlled Airway Patency, RR, SpO2: stable & adequate BP & HR: stable & adequate Hydration State: stable & adequate Anesthetic Complications: no major complications apparent
[2022-08-14] MEDS ORDERED: ACETAMINOPHEN 500 MG TAB PO PRN (10:45)
[2022-08-14] MEDS ORDERED: ACETAMINOPHEN W/CODEINE #3 1 TAB PO PRN (10:45)
[2022-08-14] MEDS ORDERED: hydrOXYzine HCl 25 MG TAB PO PRN (10:45)
[2022-08-14] MEDS ORDERED: oxyCODONE HCL IR 5 MG TAB (IMMEDIATE RELEASE) PO STA (16:44)
[2022-08-14] MEDS: ACETAMINOPHEN 325 MG TAB PO SCH ×2 (17:07→22:37)
[2022-08-14] MEDS ORDERED: OPTIRAY 320 500ml IV ONE (17:51)
--- NOTE | 2022-08-14 18:07 | CT Scan Report ---
CT ANGIOGRAPHY OF THE CHEST, PULMONARY EMBOLUS PROTOCOL CLINICAL HISTORY: Shortness of breath. COMPARISON STUDY: Chest CT and chest radiograph June 27, 2022. TECHNIQUE: Following IV administration of 112 mL of Optiray, helical axial images of the chest were o btained utilizing the pulmonary embolus protocol. Maximal intensity projections and sagittal and cor onal reformats were viewed on an independent 3D workstation. IV contrast was administered without co mplication. Automated exposure control was utilized for the study. A dose lowering technique was ut ilized adhering to the principles of ALARA. CT DOSE: 820.65 mGy.cm FINDINGS: No pulmonary emboli are identified although the segmental and subsegmental pulmonary arter ies are suboptimally assessed due to respiratory motion. Size of the heart is normal. No thoracic aor tic dissection is present. There is no thoracic lymphadenopathy. Calcified left hilar lymph nodes are noted. There are calcified granulomas within the left lung. No pneumothorax is present. Trace left p leural effusion. Moderate multifocal enhancing airspace opacities are noted. These are predominantly within the lower lobes and subpleural in distribution. In addition, there are groundglass opacities w ithin the lungs. There is no cavitation. Central airways are patent. No acute fractures within the vi sualized bony thorax. The gallbladder is surgically absent. Calcified granulomas within the spleen ar e noted. IMPRESSION: 1. No pulmonary emboli identified although segmental and subsegmental pulmonary arteries suboptimally assessed due to respiratory motion. 2. Multifocal enhancing airspace opacities within lungs, with lower lobe and peripheral predominance. Atelectasis is favored however pneumonia could appear similar. ACT 112: Negative or not required by law. Electronically signed by: Anand Murray M.D. 08/14/2022 6:05 PM
[2022-08-14] MEDS: ENOXAPARIN INJ 40 MG/0.4 ML SYR SQ SCH (18:35)
[2022-08-14] MEDS ORDERED: PROCHLORPERAZINE 5 MG in SYRINGE 4 ML IV PRN (18:50)
--- NOTE | 2022-08-14 20:17 | Hospitalist Progress Note ---
Date of Service August 14, 2022 Assessment & Plan (1) Mastoiditis: Plan: 42-year-old female with ongoing right ear pain and effusion. She has completed a course of Augmentin as well as a course of cefdinir and ofloxacin drops. Persistent pain, hearing loss and aural fullness with worsening symptoms involving the neck and face. Patient reports fever today to 1-2.6 prior to arrival. Labs are significant for elevated WBC = 16 (patient had taken steroids as well) as well as elevated platelet = [address] soft tissue neck 08/10/2022:1. No fluid collection within the neck to suggest abscess. 2. Increase in a right mastoid effusion and fluid/soft tissue within the right middle ear since CT of July 27, 2022. 3. Prominent bilateral cervical lymph nodes, stable to slightly decreased in size since prior exam. These are nonspecific although probably reactive. Leukocytosis of 16.6 now improved Patient initially with pain of 8+/10, she reports that this is improving and is significantly better than on admission now 5/10 or less Continue cefepime/vancomycin ENT is consulted, _Initial consult was for Dr. Howell, but he is not working. Consulted ENT and discussed case with provider television presenter on 08/12 -S/P Right tympanostomy and nasal endoscopy biopsy nasopharynx/ biopsy of mass of nasopharynx Continue dexamethasone daily Continue Tylenol/ibuprofen now scheduled for pain control -Patient has required about 3.5 mg of IV dailuadid in a 24 hour period, -this equates to about 45 mg of oxycodone/ alyssa place on 15 mg of oxycontin ER BID and oxycodone IR for breakthrough pain. Dr. LIANG recommends she follows up with a dentist, as he feels she may have dental pain. He states removing teeth may be too aggressive. (2) Poor intravenous access: Plan: left chest port in place. This was placed by Dr. 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 HOwever, it appears the purpose of the line was to obtain IV access for blood draws as patient is an extremely difficult stick as stated above. Gen surgery on weekend call will defer to week day Surgeon. (3) Hypoxia: Plan: placed on dvt prophylaxis, ordered ct p/e protocol, this was negative. will order incentive spirometry currently on 2 liters (4) Diet-controlled diabetes mellitus: Plan: Monitor blood sugars BG control adequate today Diet: Tolerating DM diet, Disposition: Medical surgical CODE STATUS: Full code Admission and Anticipated Discharge Date Admission Date: August 11, 2022 Subjective Patient reports having pain in her right side of her face. Patient is requesting more frequent pain medicine. Review of Systems Review of Systems: All systems reviewed & are unremarkable except as noted in HPI & below Physical Exam Physical Exam: General: A&Ox3. NAD. Cooperative. HEENT: Scar running from forehead down past lateral right eye well-healed without overlying erythema/tenderness. Neck is with mild tenderness at the right mastoid, minimal and improved tenderness along the mandible and no tenderness in the upper/mid back at time of assessment. Thorax: Left port is in place, no overlying warmth/tenderness/erythema Pulm: CTAB A&P. -wheezes, -rales, -rhonchi. Symmetrical chest rise. No increased work of breathing. No respiratory distress. Cardiac: RRR, -mrg. Radial pulses intact and symmetrical. Abdominal: Nontender, nondistended, soft. BS present. Results & Data Results & Data Vital Signs (Past 12 Hours) Vital Signs Temp Pulse Pulse Resp BP Pulse Ox O2 Del Method 08/14/22 19:09 36.6 C 87 16 119/71 92 Nasal Cannula 08/14/22 14:28 36.4 C L 90 18 122/78 94 Nasal Cannula 08/14/22 08:30 Room Air 08/14/22 12:44 36.8 C 78 16 127/80 94 Room Air 08/14/22 11:46 37 C 79 18 121/82 95 Room Air 08/14/22 11:13 37.1 C 81 18 111/78 94 Nasal Cannula 08/14/22 10:45 36.7 C 80 16 111/76 94 Nasal Cannula 08/14/22 10:30 36.7 C 88 15 114/77 94 Nasal Cannula 08/14/22 10:20 83 19 109/71 95 Oxymask 08/14/22 10:10 85 20 108/84 95 Oxymask 08/14/22 10:00 86 20 110/69 92 Oxymask 08/14/22 09:54 37.0 C 88 14 108/78 89 L Oxymask O2 Flow Rate 08/14/22 19:09 2.0 08/14/22 14:28 3 08/14/22 08:30 08/14/22 12:44 08/14/22 11:46 08/14/22 11:13 2 08/14/22 10:45 3 08/14/22 10:30 3 08/14/22 10:20 5 08/14/22 10:10 9 08/14/22 10:00 9 08/14/22 09:54 9 PG Care Time/CCT Total # of Minutes Spent Total Time Spent with Patient: Total time spent is greater than 50% in coordination of care (as documented) at patient's floor/unit and/or counseling patient: Coding Level of Care Code 61751 SUB INP/OBS CARE 3/50MIN Diagnoses Mastoiditis H70.90 Poor intravenous access Z78.9 Hypoxia R09.02 Diet-controlled diabetes mellitus E11.9
[2022-08-14] MEDS: OFLOXACIN 0.3% 75 DROPS/5 ML BTL OP SCH (22:37)
[2022-08-14] MEDS: oxyCODONE HCL 15 MG TABCR (OxyCONTIN) PO SCH (22:39)
[2022-08-14] MEDS: oxyCODONE HCL IR 5 MG TAB (IMMEDIATE RELEASE) PO PRN (23:42)
[2022-08-15] MEDS: HYDROmorphone INJ 0.5 MG/0.5 ML SYR IV PRN ×3 (01:36→18:27)
[2022-08-15] MEDS: HEPARIN 100 UNIT/ML 5ML FLUSH FLUSH PRN (01:36)
[2022-08-15] MEDS: dexAMETHasone 4 MG in SYRINGE 0 ML IV SCH (05:53)
[2022-08-15] MEDS: IBUPROFEN 600 MG TAB PO SCH ×3 (06:07→18:26)
[2022-08-15] MEDS: oxyCODONE HCL 15 MG TABCR (OxyCONTIN) PO SCH ×2 (06:07→21:02)
[2022-08-15 07:27] LABS: Creatinine Clr Calc Pharmacy 152.9 ml/min; Est GFR (African American) 138.4 ml/min; Est GFR (Non-African American) 119.4 ml/min
--- NOTE | 2022-08-15 07:41 | XRay Report ---
XR chest 1V portable CLINICAL HISTORY: sob TECHNIQUE: Single frontal radiograph of the chest was obtained. Comparison: Comparison is made to chest radiograph 06/27/2022 FINDINGS: Left portacatheter is seen. The cardiomediastinal silhouette is normal. Lungs are underinflated and t here are linear appearing bibasilar airspace opacities. No evidence of pleural effusion or pneumothor ax. IMPRESSION: Bibasilar airspace opacities likely represent atelectasis. ACT 112: Negative or not required by law. Electronically signed by: Abhijit Zimmerman M.D. 08/15/2022 7:39 AM
[2022-08-15] MEDS: CEFEPIME 2,000 MG in SYRINGE 0 ML IV SCH ×2 (08:06→17:04)
[2022-08-15] MEDS: ACETAMINOPHEN 325 MG TAB PO SCH ×4 (08:06→21:02)
[2022-08-15] MEDS: VANCOMYCIN HCL 1,500 MG in SODIUM CHLORIDE 0.9% 500 ML IV SCH ×3 (08:07→21:03)
--- NOTE | 2022-08-15 08:55 | Pharmacy Report ---
Pharmacy Vanc AUC Short Note - Date of Service August 15, 2022 - Assessment & Plan Assessment 42 year old F receiving vancomycin for treatment of EENT. Pertinent microbiologic data includes: blood culture growing NGTD. Day # 6 of antimicrobial therapy. Plan Vancomycin * AUC/BARRON is the preferred PK/PD target for vancomycin * AUC guided dosing is effective and associated with decreased risk of nephrotoxicity compared to traditional trough targets * Trough level of 12.7 mcg/mL is predicted to achieve LESS THAN target AUC/BARRON of 400-600 mg/L.hr and may be associated with a 6 % risk of nephrotoxicity * Change to 1500 mg IV every 8 hours * Trough to be ordered if dose continued > 48 hours Pharmacy will continue to follow and will adjust dose/frequency as necessary. Thank you.
[2022-08-15] MEDS: oxyCODONE HCL IR 5 MG TAB (IMMEDIATE RELEASE) PO PRN ×2 (09:59→14:17)
--- NOTE | 2022-08-15 11:40 | Surgery Progress Note ---
Date of Service August 15, 2022 Assessment & Plan (1) Mastoiditis: (2) Port-A-Cath in place: Plan: Discussed with patient again no plans for port exchange while here It was placed for infusions for frequent kidney stones, which it it working in that aspect A port study was performed that showed the distal tip is curled within the left brachiocephalic/subclavian without evidence of fibrin sheath/thrombus Again, no plans for port exchange, especially in the setting of active infection Will need to figure an alternative way to get blood draws if needed Admission and Anticipated Discharge Date Admission Date: August 11, 2022 Subjective Patient is fairly frustrated upon my visit. Upset her infected teeth were not removed in addition to her current pain regimen. Also upset that her port is not drawing back. Physical Exam Physical Exam: awake/alert, upset with care Chest (Breasts): Additional Comments: port infusion, no signs of infection Results & Data Vital Signs (Past 12 Hours) Vital Signs Temp Pulse Resp BP Pulse Ox O2 Del Method O2 Flow Rate 08/15/22 07:22 36.7 C 68 18 107/69 93 Nasal Cannula 5 08/15/22 02:56 36.7 C 79 20 122/75 91 Nasal Cannula 5.0 08/15/22 02:32 Nasal Cannula 3 PG Care Time/CCT Total # of Minutes Spent Total Time Spent with Patient: Total time spent is greater than 50% in coordination of care (as documented) at patient's floor/unit and/or counseling patient: Coding Level of Care Code 52853 SUB INP/OBS CARE 1/25MIN Diagnoses Mastoiditis H70.90 Port-A-Cath in place Z95.828
[2022-08-15] MEDS ORDERED: FUROSEMIDE 20 MG TAB PO ONE (11:53)
--- NOTE | 2022-08-15 12:09 | Hospitalist Progress Note ---
Date of Service August 15, 2022 Assessment & Plan (1) Right acute suppurative otitis media: Plan: This is a 42-year-old female with ongoing right ear pain and effusion. She completed a course of Augmentin and cefdinir with ofloxacin drops prior to admission without improvement. Presented with persistent pain, hearing loss and aural fullness with worsening symptoms involving the neck and face as well as with fever to 102.6 Labs are significant for elevated WBC = 16 (patient had taken steroids as well) as well as elevated platelet = 421 on arrival With right mastoid effusion and middle ear fluid/otitis media CT soft tissue neck 08/10/2022:1. No fluid collection within the neck to suggest abscess. 2. Increase in a right mastoid effusion and fluid/soft tissue within the right middle ear since CT of July 27, 2022. 3. Prominent bilateral cervical lymph nodes, stable to slightly decreased in size since prior exam. These are nonspecific although probably reactive. -MRV brain negative Leukocytosis of 16.6 now improved ENTconsulted-S/P Right tympanostomy with ear tube placement and nasal endoscopy biopsy nasopharynx/ biopsy of mass of nasopharynx on 08/14 -Culture from ear fluid still pending, blood cultures-no growth to date -Continue empiric cefepime/vancomycin for additional Pseudomonas and MRSA coverage given failure of Augmentin and cefdinir prior to admission-await fluid culture-if negative, would still send home with coverage for Pseudomonas such as miguel quinolone and doxycycline versus Bactrim for MRSA coverage -Patient is declining steroids as they have significant side effects- discontinued -Continues to complain of severe pain, requesting IV Dilaudid. She has a history of opioid tolerance in the past and has been prescribed hydrocodone multiple times in the past for chronic back pain. -Was started on OxyContin 15 Mg p.o. twice daily on 08/14-continue this, increase p.o. oxycodone to 10 mg p.o. every 4 hours as needed breakthrough pain, and will add IV Dilaudid 0.25 Mg IV as needed severe breakthrough pain after taking p.o. oxycodone. She reports she most likely will not need it but feels better knowing that it is there in case she needs it. -Discontinue Phenergan as this causes excessive sedation on top of opioids and lead to atelectasis and hypoxia -Follow-up pathology from nasal mass when available -Will need follow-up with ENT after discharge (2) Hypoxia: Plan: Was requiring up to 5-6 L nasal cannula overnight starting on 08/14 Begin after surgery-possibly has underlying untreated NICOLE, compounded by general anesthesia, opioid use and Phenergan use CT angiogram chest negative for PE but does show atelectasis versus pneumonia. No fevers, no leukocytosis, no cough-doubt pneumonia Likely atelectasis related Improving now with incentive spirometry and ambulation -Continue to wean off supplemental O2 as able to keep pulse ox greater than 90% -Overnight pulse oximetry test to assess for need for home O2 -Recommend formal sleep study as an outpatient -Cautioned patient not to use excessive opioids-avoid use if possible (3) Dental infection: Plan: Plan for dental extraction now on 08/16 Appreciate OMFS consultation -N.p.o. after midnight -Continue antibiotics (4) Poor intravenous access: Plan: left chest port in place. This was placed by Dr. 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 -Also would not recommend port replacement Will ongoing infection in the ENT area -Follow-up as an outpatient with general surgery (5) Diet-controlled diabetes mellitus: Plan: Monitor blood sugars BG control adequate today Plan DVT prophylaxis-Lovenox Disposition-continued stay, possible discharged home tomorrow after dental extraction if oxygen levels acceptable. May need nocturnal oxygen after results of overnight pulse oximetry return Admission and Anticipated Discharge Date Admission Date: August 11, 2022 Subjective Patient very upset that her dental extraction did not get done at the same time as her ear surgery yesterday. She was under the impression that this would be done simultaneously. She is continuing to have pain in the upper right molars. She became hypoxic overnight and was having burning chest pain with deep breaths. She was on 6 L nasal cannula at 1 point and was sent for chest x-ray, head and ECG. She had had a CT angiogram the chest earlier in the night. She is also complaining of severe pain in the ear and the right side of the face not controlled with oral pain medication. She is angry that the IV Dilaudid was discontinued and 2 doses were ordered overnight by the overnight resident. While I was talking to her, I took her off her oxygen and she remained at 90% on room air Overall, I spent 60 minutes in the care of this patient, 45 minutes of which was spent in direct discussion with her. I also discussed her care with the oral surgeon. Physical Exam Constitutional: WD/WN, vitals as above Eyes: + anicteric sclerae ENMT: Right upper gums with mild edema and erythema next to molars, no purulent drainage Respiratory: normal respiratory effort and + tachypneic (With ambulation); no cough Auscultation: + diminished lung sounds (At bases bilaterally); no crack les, no rhonchi and no wheezes Cardiovascular: Rate/Rhythm: regular rate and regular rhythm Heart Sounds: no murmur Extremities: no edema (Except mild chronic right ankle edema nonpitting) Psychiatric: Orientation: alert, oriented x 3 and cooperative Results & Data Results & Data Vital Signs (Past 12 Hours) Vital Signs Temp Pulse Resp BP Pulse Ox O2 Del Method O2 Flow Rate 08/15/22 07:22 36.7 C 68 18 107/69 93 Nasal Cannula 5 08/15/22 02:56 36.7 C 79 20 122/75 91 Nasal Cannula 5.0 08/15/22 02:32 Nasal Cannula 3 Laboratory Results Creatinine reviewed PG Care Time/CCT Total # of Minutes Spent Total Time Spent with Patient: Total time spent is greater than 50% in coordination of care (as documented) at patient's floor/unit and/or counseling patient: Coding Level of Care Code 15715 SUB INP/OBS CARE 3/50MIN Diagnoses Right acute suppurative otitis media H66.001 Hypoxia R09.02 Dental infection K04.7 Poor intravenous access Z78.9 Diet-controlled diabetes mellitus E11.9
[2022-08-15] MEDS ORDERED: ALBUTEROL 0.083% NEBU SOLN 3 ML VIAL NEB STA (12:25)
[2022-08-15] MEDS: OFLOXACIN 0.3% 75 DROPS/5 ML BTL OP SCH ×2 (14:03→20:52)
--- NOTE | 2022-08-15 14:59 | XCELERA ---
[id number] \\[id number]
[2022-08-15] MEDS: ENOXAPARIN INJ 40 MG/0.4 ML SYR SQ SCH (17:04)
[2022-08-16] MEDS: CEFEPIME 2,000 MG in SYRINGE 0 ML IV SCH ×2 (00:20→10:35)
[2022-08-16] MEDS: HEPARIN 100 UNIT/ML 5ML FLUSH FLUSH PRN (00:20)
[2022-08-16] MEDS: IBUPROFEN 600 MG TAB PO SCH ×3 (00:20→11:55)
[2022-08-16] MEDS: VANCOMYCIN HCL 1,500 MG in SODIUM CHLORIDE 0.9% 500 ML IV SCH (06:30)
--- NOTE | 2022-08-16 07:05 | History & Physical Bridge Note ---
Date of Service August 16, 2022 History & Physical Bridge Note I have examined the patient, reviewed the History & Physical and in the interval since the performance of the History & Physical I have noted the following changes of clinical significance: no changes noted We will plan the extraction and I&D vestibular space infection upper right side teeth # 4 and 5. OK for D/C after recovery today as per hospital medicine.
[2022-08-16] MEDS ORDERED: fentaNYL citrate PF 100 MCG/2 ML VIAL ONE (07:43)
[2022-08-16] MEDS ORDERED: PROPOFOL IV EMULSION 10 MG/ML 20 ML VIAL IV ONE (07:43)
[2022-08-16] MEDS ORDERED: LIDOCAINE 2% 2 ML VIAL/AMP(20MG/ML) INFIL ONE (07:43)
[2022-08-16] MEDS ORDERED: MIDAZOLAM HCL 1 MG/ML 2ML VIAL ONE (07:43)
[2022-08-16] MEDS ORDERED: SUGAMMADEX SODIUM 200 MG/2 ML VIAL IV ONE ×2 (07:47→07:54)
[2022-08-16] MEDS ORDERED: MoRPHine SULFATE 2 MG/ML CARP IV PRN (07:55)
[2022-08-16] MEDS ORDERED: oxyCODONE/ACETAMINOPHEN 5mg/325mg TAB PO PRN (07:55)
--- NOTE | 2022-08-16 08:01 | Operative Report ---
PG Post Operative Report Pre & Post Diagnosis Operation Date: 08/16/22 08:40 Pre-Op Diagnosis: Infected teeth #4 and #5 facial abscess upper right Post-Op Diagnosis: Infected teeth #4 and #5 facil/dental abscess upper right I identified the patient and participated in the time-out.: Yes Procedure Operation Date: 08/16/22 08:40 Actual Procedures p Incision and Drainage of Mouth, Extraction of Teeth 4 and 5(Not Applicable) - Robert Martin DMD K02.53 D7140 for simple extraction # 4 and 5 K12.2 CPT 56240 I and D vestibular fold upper right Surgeon Robert Martin DMD [place] Placer None Estimated Blood Loss 2 Findings Consistent with Post-Op Diagnosis Specimens none Drains none Anesthesia Type General Complications none Indications infected # 4 and 5 with associated vestibular swelling Description of Procedure Pre-op= infected # 4 and 5 with drainage and swelling vestibular space upper right Actual Procedures p Incision and Drainage of Mouth, Extraction of Teeth 4 and 5(Not Applicable) - Robert Martin DMD K02.53 D7140 For simple extraction # 4 and 5 K12.2 CPT 00009 I and D vestibular fold upper right Once cleared for surgery general anesthesia was achieved, the eyes were protected by the anesthesia dept criteria.. A time out was take for patient ID, antibiotics, equipment and position verification once all agreed the procedure began. Local anesthesia was given into each area using Marcaine with a vasoconstrictor ( 1.8 ml per site). A throat pack was placed after the oral cavity was irrigated with saline. Once a surgical level of anesthesia was obtained and the local anesthesia was given time for the blocks the surgery was started. I turned my attention to the upper wisdom teeth first. Incision and Drainage K12.2 CPT 84396 I and D vestibular fold upper right Using a 15 blade an incision was made over around the gingival tissue of # 3-6 . The full thickness flap was reflected, Once the incision was made a lot of pus extruded from the site. A curved hemostat was carefully placed into the infected space along the medial side of the upper jaw and some further drainage was now allowed to escape. I palpated the cheek and gingival area and no further drainage was expressed. The area was irrigated with at least 100 ml of NS solution. I now turned my attention to remove the carious teeth. Upper teeth 4 and 5 K02.53 D7140 for simple extraction # 4 and 5 The bone was removed with a rongeur, the tooth was visualized, it was close to the sinus and removed with an 81 elevator and dental forceps. Bony margins were trimmed, smoothed and sutured closed with a 2-0 chromic x 4 . There was no sinus involvement. When I&D and the 2 teeth were removed I inspected the sites to insure all bleeding was controlled. I removed the throat pack and suctioned the throat. A gauze pressure dressings were placed. All instrument and sponge count was correct. the patient was allowed to awake from the anesthesia. Once full awake the anesthesia tube was removed and the patient was taken to the recovery room with all vital sign stable. The patient tolerated the surgery very well. I will follow the patient in my office, Rx and instructions will be given upon discharge. She may be discharged once she is fully removed and returned back to room 323 I attest to the content of the Intraoperative Record and any orders documented therein. Any exceptions are noted below.
[2022-08-16] MEDS ORDERED: CHLORHEXIDINE GLUCONATE 0.12% 480 ML MT ONE (08:05)
[2022-08-16] MEDS ORDERED: BUPIVACAINE/EPINEPHRINE 0.5% 1:200,000 1.8 ML CARP ONE (08:05)
[2022-08-16] MEDS ORDERED: ePHEDrine sulfate 50 MG/ML AMP IV PRN (08:25)
[2022-08-16] MEDS ORDERED: ATROPINE SULFATE 0.1 MG/ML 10ML SYR IV PRN (08:25)
[2022-08-16] MEDS ORDERED: fentaNYL citrate PF 100 MCG/2 ML VIAL IV PRN (08:25)
[2022-08-16] MEDS ORDERED: ONDANSETRON INJ 2 MG/ML 2 ML VIAL IV PRN (08:25)
[2022-08-16] MEDS ORDERED: PROMETHAZINE HCL 12.5 MG in SODIUM CHLORIDE 0.9% 50 ML IV PRN (08:25)
[2022-08-16] MEDS ORDERED: HYDROmorphone INJ 2 MG/ML SYR/VIAL IV PRN (08:25)
[2022-08-16] MEDS ORDERED: DEXAMETHASONE SOD INJ 4 MG/ML VIAL ONE (08:56)
[2022-08-16] MEDS ORDERED: ONDANSETRON INJ 2 MG/ML 2 ML VIAL ONE (08:56)
[2022-08-16] MEDS ORDERED: ROCURONIUM BROMIDE 10 MG/ML 5 ML VIAL IV ONE (09:12)
[2022-08-16] MEDS: HYDROmorphone INJ 0.5 MG/0.5 ML SYR IV PRN (09:25)
--- NOTE | 2022-08-16 10:11 | Anesthesiology Progress Note ---
Date of Service August 16, 2022 Anesthesia Post Procedure Vital Signs Vital Signs: Temp Pulse Pulse Resp BP Pulse Ox O2 Del Method 08/16/22 10:10 80 16 137/83 94 Room Air 08/16/22 09:27 75 16 125/83 94 Room Air 08/16/22 08:57 37.1 C 82 16 115/77 93 Oxymask 08/16/22 08:40 36.4 C L 85 23 118/85 92 Oxymask 08/16/22 08:20 78 26 H 124/87 93 Oxymask 08/16/22 08:30 85 21 122/79 93 Oxymask 08/16/22 08:10 91 H 28 H 123/86 92 Oxymask 08/16/22 08:03 36.4 C L 98 H 24 140/90 93 Oxymask 08/16/22 06:49 36.8 C 67 16 119/73 93 Room Air 08/15/22 21:10 Room Air 08/15/22 20:25 37.0 C 72 18 114/70 94 Room Air 08/15/22 14:57 36.6 C 80 18 130/81 92 Room Air 08/15/22 13:48 82 18 91 Room Air O2 Flow Rate 08/16/22 10:10 08/16/22 09:27 08/16/22 08:57 4 08/16/22 08:40 2 08/16/22 08:20 6 08/16/22 08:30 2 08/16/22 08:10 6 08/16/22 08:03 6 08/16/22 06:49 08/15/22 21:10 08/15/22 20:25 08/15/22 14:57 08/15/22 13:48 Pain Intensity Right Ear: Pain Intensity: 7 Right Upper Teeth: Pain Intensity: 6 Transfer of Care Handoff Completed per policy Notes Mental Status: alert / awake / arousable and participated in evaluation Patient Amnestic to Procedure: Yes Nausea / Vomiting: adequately controlled Pain: adequately controlled Airway Patency, RR, SpO2: stable & adequate BP & HR: stable & adequate Hydration State: stable & adequate Anesthetic Complications: no major complications apparent
[2022-08-16] MEDS: oxyCODONE HCL 15 MG TABCR (OxyCONTIN) PO SCH (10:22)
[2022-08-16] MEDS: ACETAMINOPHEN 325 MG TAB PO SCH (10:23)
[2022-08-16] MEDS: OFLOXACIN 0.3% 75 DROPS/5 ML BTL OP SCH (10:24)
[2022-08-16] MEDS: oxyCODONE HCL IR 5 MG TAB (IMMEDIATE RELEASE) PO PRN (11:55)
--- NOTE | 2022-08-16 22:37 | Electrocardiogram Report ---
Test Reason : Blood Pressure : / mmHG Vent. Rate : 075 BPM Atrial Rate : 075 BPM P-R Int : 154 ms QRS Dur : 086 ms QT Int : 408 ms P-R-T Axes : 037 006 042 degrees QTc Int : 455 ms Poor data quality, interpretation may be adversely affected Normal sinus rhythm Normal ECG When compared with ECG of 11-AUG-2022 10:28, No significant change was found Confirmed by Trevor An ([id number]) on 08/16/2022 10:37:08 PM Referred By: Monserrat Murray Confirmed By:Trevor An
--- NOTE | 2022-08-17 09:39 | Discharge Summary ---
Date of Service August 16, 2022 Admission HPI Per Admitting Provider Beth Woodward is a 42-year-old female with history of diet-controlled diabetes, rheumatoid arthritis, anxiety and depression presenting at the request of her PCP for ongoing right ear pain. Patient was initially seen in the emergency room on 07/28/2019 treated with complaint of right ear pain. She was found to have a right otitis media with effusion. She was given a prescription for Augmentin and subsequently dis charged home. Patient completed her prescription for Augmentin with minimal improvement in her symptoms. She was seen by her primary care physician in follow-up on 08/03/2022. At that appointment she reported ongoing discomfort In her right ear. She was given a prescription for cefdinir 300 mg p.o. twice daily as well as ofloxacin otic drops. she was seen in the emergency room on 08/09/2022 with ongoing discomfort. She was given a prescription for prednisone taper as well as Tylenol with codeine. She has an appointment with ENT on 08/18/2022 she was seen by her primary care physician on . She had a CT of the neck ordered which showed an increase in the right mastoid effusion and fluid/soft tissue within the right middle ear since CT of July 27, 2022. Also with prominent bilateral cervical lymph nodes. she was called by her PCP and instructed to come to the ER for IV antibiotics and pain control. Patient reports severe excruciating pain involving her right ear, right mastoid process as well as her right lateral neck. She also has episodes of shooting/lancing pain across her face, Fullness of her face and right maxillary sinus region and pain of her right eye. Her pain has been acutely worsening. She reports she has not been able to sleep for 3 days. Hearing loss in the right ear as well as aural fullness. Fever of 102.6 this morning. patient has a left chest port in place which was placed due to poor IV access. She has been having a difficult time having labs drawn from this port. This was evaluated in the past and thought that the lumen of the port was possibly against the vessel wall. ER course: Vancomycin Cefepime Flagyl Toradol Principal Diagnosis problem 1 Discharge Exam General: A&Ox3. NAD. Cooperative. HEENT: Scar running from forehead down past lateral right eye well-healed without overlying erythema/tenderness. Neck is with mild tenderness at the right mastoid, minimal and improved tenderness along the mandible and no tenderness in the upper/mid back at time of assessment. Thorax: Left port is in place, no overlying warmth/tenderness/erythema Pulm: CTAB A&P. -wheezes, -rales, -rhonchi. Symmetrical chest rise. No increased work of breathing. No respiratory distress. Cardiac: RRR, -mrg. Radial pulses intact and symmetrical. Abdominal: Nontender, nondistended, soft. BS present. Discharge Data Allergies Allergy/AdvReac Type Severity Reaction Status Date / Time bee venom protein (honey bee) Allergy Severe SHORTNESS Verified 08/10/22 16:20 OF BREATH Fish Containing Products Allergy Severe SWELLING Verified 08/10/22 16:20 AND REDNESS morphine Allergy Severe Shakiness Verified 08/10/22 16:20 shellfish derived Allergy Severe SWELLING/RED Verified 08/10/22 16:20 SKIN ondansetron Allergy Intermediate HIVES - Verified 08/10/22 16:20 RASH guava Allergy Unknown Hives Verified 08/15/22 15:45 carmelita Allergy Unknown Hives Verified 08/15/22 15:45 papaya Allergy Unknown Hives Verified 08/15/22 15:45 passion fruit Allergy Unknown Hives Verified 08/15/22 15:45 Consultations 08/10/22 23:26 ED Decision to Admit Stat 08/11/22 14:18 Consult General Surgery Routine 08/12/22 09:02 Consult Otolaryngology (Head and Neck) Routine Procedures Performed Operation Date: 08/16/22 08:40 Actual Procedures p Incision and Drainage of Mouth, Extraction of Teeth 4 and 5(Not Applicable) - Robert Martin DMD Ordered Studies 08/12/22 11:30 FL a-port check Routine 08/12/22 14:25 CT temporal bones wo con Urgent 08/13/22 16:14 MR venography head wo con Stat 08/14/22 16:37 CT angio chest PE protocol Urgent Hospital Course (1) Right acute suppurative otitis media: This is a 42-year-old female with ongoing right ear pain and effusion. She completed a course of Augmentin and cefdinir with ofloxacin drops prior to admission without improvement. Presented with persistent pain, hearing loss and aural fullness with worsening symptoms involving the neck and face as well as with fever to 102.6 Labs are significant for elevated WBC = 16 (patient had taken steroids as well) as well as elevated platelet = 421 on arrival With right mastoid effusion and middle ear fluid/otitis media CT soft tissue neck 08/10/2022:1. No fluid collection within the neck to suggest abscess. 2. Increase in a right mastoid effusion and fluid/soft tissue within the right middle ear since CT of July 27, 2022. 3. Prominent bilateral cervical lymph nodes, stable to slightly decreased in size since prior exam. These are nonspecific although probably reactive. -MRV brain negative Leukocytosis of 16.6 now improved ENTconsulted-S/P Right tympanostomy with ear tube placement and nasal endoscopy biopsy nasopharynx/ biopsy of mass of nasopharynx on 08/14 -Culture from ear fluid still pending, blood cultures-no growth to date -Continue empiric cefepime/vancomycin for additional Pseudomonas and MRSA coverage given failure of Augmentin and cefdinir prior to admission- -Patient is declining steroids as they have significant side effects- discontinued -Was started on OxyContin 15 Mg p.o. twice daily on 08/14 continue this with IR oxycodone for breakthrough pain. -will be discharged on tylenol and ibuprofen around the clock -Discontinue Phenergan as this causes excessive sedation on top of opioids and lead to atelectasis and hypoxia -Follow-up pathology from nasal mass when available -Will need follow-up with ENT after discharge will discharge on doxy and cipro to complete treatment couse. (2) Hypoxia: Was requiring up to 5-6 L nasal cannula overnight starting on 08/14 Begin after surgery-possibly has underlying untreated NICOLE, compounded by general anesthesia, opioid use and Phenergan use CT angiogram chest negative for PE but does show atelectasis versus pneumonia. No fevers, no leukocytosis, no cough-doubt pneumonia Likely atelectasis related Improving now with incentive spirometry and ambulation -Continue to wean off supplemental O2 as able to keep pulse ox greater than 90% -Overnight pulse oximetry test: negative. -Recommend formal sleep study as an outpatient -Cautioned patient not to use excessive opioids-avoid use if possible Discharge instructions noted below. (3) Dental infection: Plan for dental extraction now on 08/16 Appreciate OMFS consultation -Continue antibiotics (4) Poor intravenous access: left chest port in place. This was placed by Dr. 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 -Also would not recommend port replacement -Follow-up as an outpatient with general surgery (5) Diet-controlled diabetes mellitus: Monitor blood sugars BG control adequate today Plan DVT prophylaxis-Lovenox Total Time Total Time Spent Total Time Spent (In Minutes): 32 Discharge Plan Discharge Items Patient Disposition: Home - Self-Care Reason For Visit: MASTOIDITIS Discharge Diagnosis: Mastoiditis Activity: Resume your previous activity Non-emergency contact: Primary Care Provider Call non-emergency contact if: you have any medication questions Follow-up/Referrals: Monserrat Murray MD [Primary Care Provider] - 08/19/22 11:00 am Robert Martin DMD [Physician] - 09/01/22 1:30 pm Diet: Regular Diet Texture: Easy to Chew Addtl Attending Provider Instructions: ADDITIONAL ACTIVITY RECOMMENDATIONS: * [place] teeth after every meal. It is very important to keep your mouth clean to prevent infection. * Starting tonight rinse with the Peridex as directed then 2 x a day * it is very important to keep well hydrated, this prevents fever and possible dry socket pain SPECIAL CARE INSTRUCTIONS: *It is not uncommon that between day 2-4 that your swelling will be at its worst this is very normal, do not be alarmed. * Keep ice on the side of your face for the next 24 to 36 hours. This will help keep the swelling down. * Some swelling is common. It should gradually decrease within 4-5 days. * A certain amount of bleeding is to be expected. It is often possible to control mild oozing by placing folded gauze over the area and biting down for 30 minutes. If you are unable to control excessive bleeding, call Dr Martin at [phone] * You may experience some discomfort for a few days. If pain or swelling increases, Call Dr Martin * office address[facility] [address] phone # [phone] Will recommend followup with ENT, ENT will schedule followup FOllowup with PCP in 1-2 weeks. Will prescribe pain medicine, please do not use any heavy machinery such as driving while on oxycodone. Pending Studies at Discharge: No Stand-Alone Forms: [facility], Smoking Cessation Medications and DC Order Prescriptions: New ciprofloxacin HCl 750 mg tablet 750 mg PO BID Qty: 10 0RF doxycycline hyclate 100 mg tablet 100 mg PO BID Qty: 10 0RF oxycodone [OxyContin] 15 mg tablet,oral only,ext.rel.12 hr 15 mg PO BID Qty: 20 0RF oxycodone 5 mg tablet 5 mg PO Q4H PRN (Reason: moderate pain (scale score 5-6)) Qty: 30 0RF acetaminophen 325 mg Tablet 650 mg PO QID 14 Days Qty: 112 0RF ibuprofen 600 mg Tablet 600 mg PO Q6 14 Days Qty: 56 0RF famotidine 20 mg tablet 20 mg PO DAILY Qty: 14 0RF Continued ofloxacin 0.3 % drops 10 drp otic (ear) BID 10 Days Qty: 10 0RF Discontinued hydroxyzine HCl 50 mg tablet See Rx Instructions PO .COMPLEX PRN (Reason: insomnia) Qty: 30 0RF Rx Instructions: 1-2 orally at bedtime PRN; cefdinir 300 mg capsule 300 mg PO BID Qty: 60 0RF acetaminophen [Tylenol Extra Strength] 500 mg Tablet 1,000 mg PO Q6H PRN (Reason: Pain) prednisone 20 mg tablet See Rx Instructions .ROUTE .COMPLEX 5 Days Qty: 8 0RF Rx Instructions: Please take 2 tablets the first day, 2 tablets the second day, 1 tablet the third day, 1 tablet the 4th day, 1/2 tablet the 5th day. acetaminophen-codeine 300-30 mg tablet 1 tab PO Q8H PRN (Reason: pain) Qty: 9 0RF Discharge Orders: Discharge Order (Routine); Ordered 08/16/22 Ordered By: Robert Martin Admission Data Admit Date/Time: 08/11/22 01:15 Attending Provider: Marcus Traore Admit Provider: Sakina Walden Primary Care Provider: Monserrat Murray Other Providers: Bryce Hernandez ; Ariel More ; Robert Martin Other Interventions: Discharge Summary Assessment (RN) Last Done: 08/16/22 15:36 Coding Level of Care Code 22900 INP/OBS DISCH >30 MIN Diagnoses Right acute suppurative otitis media H66.001 Hypoxia R09.02 Dental infection K04.7 Poor intravenous access Z78.9 Diet-controlled diabetes mellitus E11.9
--- NOTE | 2022-08-17 12:57 | ENT Consultation ---
Date of Consultation August 12, 2022 History of Present Illness Attending Physician: Marcus Traore Allergies Allergy/AdvReac Type Severity Reaction Status Date / Time bee venom protein (honey bee) Allergy Severe SHORTNESS Verified 08/10/22 16:20 OF BREATH Fish Containing Products Allergy Severe SWELLING Verified 08/10/22 16:20 AND REDNESS morphine Allergy Severe Shakiness Verified 08/10/22 16:20 shellfish derived Allergy Severe SWELLING/RED Verified 08/10/22 16:20 SKIN ondansetron Allergy Intermediate HIVES - Verified 08/10/22 16:20 RASH guava Allergy Unknown Hives Verified 08/15/22 15:45 carmelita Allergy Unknown Hives Verified 08/15/22 15:45 papaya Allergy Unknown Hives Verified 08/15/22 15:45 passion fruit Allergy Unknown Hives Verified 08/15/22 15:45 Home Medications Medication Instructions Recorded Confirmed Type ofloxacin 0.3 % ear drops 10 drp otic (ear) BID 10 days #10 08/03/22 08/10/22 Rx mL acetaminophen 325 mg tablet 650 mg PO QID 2 weeks #112 tabs 08/16/22 Rx ciprofloxacin HCl 750 mg tablet 750 mg PO BID #10 tabs 08/16/22 Rx doxycycline hyclate 100 mg tablet 100 mg PO BID #10 tabs 08/16/22 Rx famotidine 20 mg tablet 20 mg PO DAILY #14 tabs 08/16/22 Rx ibuprofen 600 mg tablet 600 mg PO Q6 2 weeks #56 tabs 08/16/22 Rx oxycodone 15 mg tablet,crush 15 mg PO BID #20 tabs 08/16/22 Rx resistant,extended release 12 hr (OxyContin) oxycodone 5 mg tablet 5 mg PO Q4H PRN moderate pain 08/16/22 Rx (scale score 5-6) #30 tabs Patient History Medical History (Updated 08/14/22 @ 22:26 by Marcus Traore) Anxiety and depression No meds Diet-controlled diabetes mellitus Difficult intravenous access Reason for upcoming procedure. RUE restriction > R/t multiple surgeries hand/shoulder that resulted in nerve damage per pt. "Blew 15 IVs"/had to do foot IV which infiltrated during 11/2021 [place] admission per pt- which is a concern as patient is a diabetic. 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 Surgical History (Updated 08/16/22 @ 15:29 by Cynthia Jalloh RN) Fusion of lumbar spine BONE GRAFT FROM PELVIS H/O bone graft Iliac bone graft with lumbar fusion H/O left wrist surgery H/O shoulder surgery RT History of appendectomy History of bilateral breast reduction surgery History of bilateral tubal ligation History of cholecystectomy History of cystoscopy STONE REMOVAL; Mulitple sx History of facial surgery RECONSTRUCTION - D/T DEGLOVING History of hand surgery Rt x 2 FINGER I & D History of hysterectomy History of lithotripsy History of tonsillectomy History of tooth extraction Hx of arthroscopic knee surgery LEFT X 2 Hx of dilation and curettage Hx of oral surgery (08/16/22) Incision and Drainage of Mouth, Extraction of Teeth 4 and 5(Not Applicable) - Robert Martin DMD Port-A-Cath in place (01/06/22) Insertion Access Port with Fluoroscopy(Left) - Bryce Hernandez, Slow to wake up after anesthesia Family History Grandfather (Maternal) Family history of diabetes mellitus Mother Diabetes Depression Kidney stones Uterine malignant neoplasm Aunt Ovarian cancer maternal Diabetes Breast cancer Sister Kidney stones Uterine malignant neoplasm Grandmother Myocardial infarction Uterine malignant neoplasm Other Adopted Denies family history of Colorectal cancer Social History Smoking Status: Current every day smoker Tobacco Type: Cigarettes Age Started Using Tobacco: 14; packs per day: 0.5; Cigarettes Per Day: 1/2 ppd; Second Hand Exposure: Yes; Do You Dip or Chew Tobacco: No; Hx Alcohol Use: No Hx Substance Use: No Preferred Language: French Communication Ability: Effective Visual Impairment: No Limitations Hearing Ability: Normal Hospital Sales Representative Required: No Beliefs That Will Affect Care: None marital status: Current Living Situation: Spouse current occupational status: employed and disabled current occupation: [employer] How many Children do You have: 2 Feels Safe at Home: Yes Childhood Exposure to Second-Hand Smoke: No Diet: diabetic during the past year weight has: remained stable Dental Care, Regularly: No Physical Activity Frequency: Other Assistive Devices: Contacts Results & Data Vital Signs (Past 12 Hours) Vital Signs Temp Pulse Resp BP Pulse Ox O2 Del Method 08/12/22 08:10 Room Air 08/12/22 07:51 36.5 C 63 18 110/77 98 Room Air PG Care Time/CCT Total # of Minutes Spent Total Time Spent with Patient: Total time spent is greater than 50% in coordination of care (as documented) at patient's floor/unit and/or counseling patient: Coding Level of Care Code 38650 Inpt Consult Level 1 Diagnoses
--- NOTE | 2022-08-17 12:59 | Operative Report ---
PG Post Operative Report Pre & Post Diagnosis Operation Date: 08/14/22 11:00 <No data on this case meets the specified criteria> I identified the patient and participated in the time-out.: Yes Procedure Operation Date: 08/14/22 11:00 <No data on this case meets the specified criteria> Surgeon Ariel More MD Manager Service Desk none Estimated Blood Loss 1 Findings Consistent with Post-Op Diagnosis Specimens nasophaynx biopsy Description of Procedure right tympanostomy and EUA nasopharynx and biopsy I attest to the content of the Intraoperative Record and any orders documented therein. Any exceptions are noted below.
== END 2022-08-16 16:08 | disposition home or self-care (01) | DRG 144 ==
LOC: ED 21:58 → SUATTDRO 08-11 01:15 → 3E 08-11 01:15

== ENCOUNTER 2024-04-07 20:40 | Inpatient (IN) ==
[2024-04-07 21:46] LABS: Basophils # (auto) 0.04 K/uL (0.00-0.20); Basophils % (auto) 0.3 %; Eosinophils # (auto) 0.04 K/uL (0.00-0.50); Eosinophils % (auto) 0.3 %; Hematocrit (blood only) 40.9 % (37.0-47.0); Hemoglobin 14.4 g/dl (12.0-16.0); Immature Granulocytes # (auto) 0.06 K/uL (0.01-0.20); Immature Granulocytes % (auto) 0.5 %; Lymphocytes # (auto) 3.07 K/uL (1.20-3.40); Lymphocytes % (auto) 23.4 %; Mean Corpuscular Hemoglobin 30.7 pg (25.0-34.0); Mean Corpuscular Hgb Conc 35.2 g/dL (32.0-36.0); Mean Corpuscular Volume 87.2 fL (80.0-100.0); Mean Platelet Volume 8.2 fL (9.4-12.4); Monocytes # (auto) 0.97 K/uL (0.11-0.59); Monocytes % (auto) 7.4 %; Neutrophils # (auto) 8.93 K/uL (1.40-6.50); Neutrophils % (auto) 68.1 %; Platelet Count 351 K/uL (130-400); RDW Coefficient of Variation 12.8 % (11.5-14.5); RDW Standard Deviation 40.1 fL (36.4-46.3); Red Blood Count 4.69 M/uL (4.20-5.40); White Blood Count 13.11 K/ul (4.8-10.8)
[2024-04-07 21:50] LABS: Albumin Globulin Ratio 1.2 (0.9-2); Albumin Level 3.9 gm/dl (3.4-5.0); BUN Creatinine Ratio 25.3 (10-20); Bilirubin,Total 0.2 mg/dl (0.2-1.0); Calcium 9.5 mg/dl (8.6-10.3); Creatinine Clr Calc Pharmacy 91.6 ml/min; Globulin 3.3 gm/dl (2.5-4.0); Potassium 3.6 mmol/L (3.5-5.1); Total Protein 7.2 gm/dl (6.0-8.3)
[2024-04-07 21:56] LABS: Troponin I High Sensitivity 7.1 pg/ml (0-14)
[2024-04-07 22:02] LABS: INR 0.9 (0.9-1.1); Partial Thromboplastin Ratio 0.9; Partial Thromboplastin Time 24 Seconds (21-31); Prothrombin Time 9.4 Seconds (9.0-12.0)
--- NOTE | 2024-04-07 22:18 | Emergency Department Note ---
History of Present Illness General Chief complaint: Chest Pain Stated complaint: CHEST PAIN,HEADACHE,HAS A VIRAL INFECTION Time Seen by Provider: 04/07/24 21:37 History of Present Illness Maximum Pain Intensity: 7 This 44-year-old female presents the ER complaining of worsening left-sided chest pain and is worried that her port has been misplaced. She seen here yesterday diagnosed with bronchitis and rhinovirus. Patient states her breathing is gotten worse. Patient complains of cough, congestion and shortness of breath. CTA was negative for PE yesterday. Home Medications Medication Instructions Recorded Confirmed Type albuterol sulfate 90 mcg/actuation 1 inh inhalation Q6H PRN shortness 04/06/24 04/08/24 Rx aerosol inhaler of breath or wheezing #8.5 grams prednisone 20 mg tablet 20 mg PO BID #15 tabs 04/06/24 04/08/24 Rx Allergies Allergy/AdvReac Type Severity Reaction Status Date / Time bee venom protein (honey bee) Allergy Severe SHORTNESS Verified 03/29/24 09:52 OF BREATH Fish Containing Products Allergy Severe SWELLING Verified 03/29/24 09:52 AND REDNESS guava Allergy Severe Hives Verified 03/29/24 09:52 carmelita Allergy Severe Hives Verified 03/29/24 09:52 morphine Allergy Severe Shakiness Verified 03/29/24 09:52 papaya Allergy Severe Hives Verified 03/29/24 09:52 passion fruit Allergy Severe Hives Verified 03/29/24 09:52 shellfish derived Allergy Severe SWELLING/RED Verified 03/29/24 09:52 SKIN ondansetron Allergy Intermediate HIVES - Verified 03/29/24 09:52 RASH Past Med/Surg History Problem List (Updated 04/08/24 @ 01:35 by Stefani Woodward PA-C) Elevated troponin (Acute) Atypical chest pain (Acute) Acute bronchitis due to Rhinovirus (Acute) Bronchitis (Acute) Viral infection (Acute) Neuropathy (Chronic) mainly the right side 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 with unrestricted hearing of left ear (Chronic) Port-A-Cath in place (Chronic 01/06/22) Insertion Access Port with Fluoroscopy(Left) - Bryce Hernandez DO Poor intravenous access (Chronic) Right foot pain (Chronic) Nerve damage from spinal surgery Lumbar degenerative disc disease (Chronic) Chronic migraine without aura (Chronic) Obesity (Chronic) Diet-controlled diabetes mellitus (Chronic) Medical History (Updated 04/08/24 @ 01:35 by Stefani Woodward PA-C) Trigeminal neuralgia Mastoiditis Vitamin D deficiency Hx of renal calculi History of uterine fibroid Surgical History H/O hand surgery Rt x 2 FINGER I & D Hx of oral surgery (08/16/22) Incision and Drainage of Mouth, Extraction of Teeth 4 and 5(Not Applicable) - Robert Martin, TALYA H/O shoulder surgery right Slow to wake up after anesthesia History of bilateral breast reduction surgery History of hysterectomy H/O left wrist surgery History of facial surgery reconstruction d/t degloving Hx of arthroscopic knee surgery left x2 Hx of dilation and curettage History of bilateral tubal ligation History of lithotripsy multiple History of cystoscopy stone removal; Mulitple sx History of cholecystectomy History of appendectomy History of tooth extraction History of tonsillectomy H/O bone graft Iliac bone graft with lumbar fusion Fusion of lumbar spine bone graft from pelvis Family History Grandfather (Maternal) Family history of diabetes mellitus Mother Diabetes Depression Kidney stones Uterine malignant neoplasm Aunt Ovarian cancer maternal Diabetes Breast cancer Sister Kidney stones Uterine malignant neoplasm Grandmother Myocardial infarction Uterine malignant neoplasm Other Adopted Denies family history of Colorectal cancer Social History (Updated 03/20/24 @ 12:57 by KIMBERLY Chan) Smoking Status: Current every day smoker Tobacco Type: Cigarettes Age Started Using Tobacco: 14; packs per day: 0.5; Cigarettes Per Day: 10; Second Hand Exposure: No; Do You Dip or Chew Tobacco: No; Tobacco Cessation Education Requested by Patient: No Hx Alcohol Use: No Hx Substance Use: No Preferred Language: Georgian Communication Ability: Effective Visual Impairment: No Limitations Hearing Ability: Normal Wood Carver Hand Required: No Beliefs That Will Affect Care: None marital status: Current Living Situation: Spouse current occupational status: employed and disabled 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 How many Children do You have: 2 Other Information That Helps Us Care for You: No Feels Safe at Home: Yes Safety Concerns: Feels Safe At This Time Childhood Exposure to Second-Hand Smoke: No Diet: diabetic during the past year weight has: remained stable Dental Care, Regularly: No Physical Activity Frequency: Other Assistive Devices: Contacts Review of Systems A total of 10 systems reviewed and were otherwise negative Physical Exam Vital Signs Vital Signs - 24 hr 04/08/24 00:00 04/08/24 00:24 04/08/24 00:30 Pulse Rate 84 86 Pulse Rate [Finger] Pulse Rate from SpO2 Sensor 87 Pulse Rhythm [Finger] Pulse Strength [Finger] Respiratory Rate 30 H 31 H Respiratory Effort / Characteristics Respiratory Depth Respiratory Pattern Blood Pressure 115/62 121/79 Blood Pressure [Left Arm] Blood Pressure Mean 86 96 Blood Pressure Mean [Left Arm] Blood Pressure Position [Left Arm] Pulse Oximetry 94 93 Oxygen Delivery Method Room Air 04/08/24 01:03 04/08/24 01:45 04/08/24 01:51 Pulse Rate 83 76 79 Pulse Rate [Finger] Pulse Rate from SpO2 Sensor 82 77 78 Pulse Rhythm [Finger] Pulse Strength [Finger] Respiratory Rate 35 H 19 19 Respiratory Effort / Characteristics Respiratory Depth Respiratory Pattern Blood Pressure 127/83 Blood Pressure [Left Arm] Blood Pressure Mean 97 Blood Pressure Mean [Left Arm] Blood Pressure Position [Left Arm] Pulse Oximetry 93 97 97 Oxygen Delivery Method Room Air Room Air 04/08/24 02:02 04/08/24 02:02 04/08/24 02:12 Pulse Rate 73 Pulse Rate [Finger] 85 Pulse Rate from SpO2 Sensor 78 Pulse Rhythm [Finger] Regular Pulse Strength [Finger] Normal Respiratory Rate 21 21 Respiratory Effort / Characteristics Non-Labored Non-Labored Spontaneous Respiratory Depth Normal Normal Respiratory Pattern Regular Regular Blood Pressure Blood Pressure [Left Arm] 127/83 Blood Pressure Mean Blood Pressure Mean [Left Arm] 97 Blood Pressure Position [Left Arm] Sitting Pulse Oximetry 98 97 Oxygen Delivery Method Room Air Room Air 04/08/24 02:21 04/08/24 02:56 04/08/24 03:03 Pulse Rate 75 77 73 Pulse Rate [Finger] Pulse Rate from SpO2 Sensor 76 74 Pulse Rhythm [Finger] Pulse Strength [Finger] Respiratory Rate 33 H 31 H Respiratory Effort / Characteristics Respiratory Depth Respiratory Pattern Blood Pressure Blood Pressure [Left Arm] Blood Pressure Mean Blood Pressure Mean [Left Arm] Blood Pressure Position [Left Arm] Pulse Oximetry 93 92 Oxygen Delivery Method VITALS: Vitals are noted on the nurse's note and reviewed by myself. Vital signs stable. GENERAL: Pleasant female, in no acute distress, nondiaphoretic, well-developed well-nourished. SKIN: Capillary reflex less than 2 seconds. HEENT: Normocephalic. PERRLA. EOMI. Nares patent. Mucous membranes moist. Neck is supple without nuchal rigidity. HEART: Regular rate and rhythm LUNGS: Diffuse inspiratory and end expiratory wheezes. No retractions or accessory muscle use. ABDOMEN: Positive bowel sounds x 4. Normal tympanic percussion. Soft, nontender, without masses or organomegaly. Mendes sign negative. No guarding or rebound tenderness. no CVA tenderness MUSCULOSKELETAL: No gross musculoskeletal defects. NEURO: Patient was alert and oriented to person place and time. No focal neurological deficits. Course Administered Medications Albuterol (Albut/Ipratrop 3mg/0.5mg Neb 3 Ml Vial) 3 ml NEB Q2H PRN; Protocol PRN Reason: dyspnea Stop: 05/08/24 02:22 Last Admin: 04/08/24 04:50 Dose: 3 ml Documented By: AUDI Aspirin (Aspirin 81 Mg Ectab) 81 mg PO QAM [facility] Stop: 05/08/24 08:59 Last Admin: 04/08/24 08:32 Dose: 81 mg Documented By: ANT Benzonatate (Benzonatate 100 Mg Capsule) 200 mg PO TID PRN PRN Reason: Cough Stop: 05/08/24 08:59 Last Admin: 04/08/24 11:50 Dose: 200 mg Documented By: Admin: 04/08/24 04:50 Dose: 200 mg Documented By: AUDI Guaifenesin (Guaifenesin 600 Mg Tabcr) 600 mg PO Q12 [facility] Stop: 05/08/24 20:59 Last Admin: 04/08/24 20:03 Dose: 600 mg Documented By: ALLAN Hydrocodone Bit/Homatropine Methylb (Hydrocodone/Homatropine Syrup 5mg/1.5mg 5ml Udp) 5 ml PO Q4H PRN PRN Reason: Cough Stop: 04/22/24 02:15 Last Admin: 04/08/24 15:43 Dose: 5 ml Documented By: Admin: 04/08/24 02:32 Dose: 5 ml Documented By: AUDI Methylprednisolone 40 mg/ (Syringe) 0.64 mls @ 1.5 mls/min IV Q8H [facility] Stop: 05/08/24 09:59 Last Admin: 04/08/24 18:12 Dose: 1.5 mls/min Documented By: Admin: 04/08/24 09:06 Dose: 1.5 mls/min Documented By: JOHN Sodium Chloride (Nss) 1,000 mls @ 80 mls/hr IV .[id number] [facility] Stop: 04/09/24 17:29 Last Infusion: 04/08/24 23:32 Dose: 80 mls/hr Documented By: Infusion: 04/08/24 23:00 Dose: 0 mls/hr Documented By: Admin: 04/08/24 20:01 Dose: 80 mls/hr Documented By: ALLAN Insulin Aspart (Insulin Aspart Per Unit Charge) 0 units SC ACHS [facility] Stop: 05/08/24 11:29 Last Admin: 04/08/24 20:00 Dose: 3 units Documented By: ALLAN Co-signed By: MIGUEL Admin: 04/08/24 18:11 Dose: 2 units Documented By: TOR Co-signed By: JACQUES Admin: 04/08/24 10:58 Dose: 5 units Documented By: JOHN Co-signed By: [facility] Discontinued Medications Albuterol (Albut/Ipratrop 3mg/0.5mg Neb 3 Ml Vial) 3 ml NEB NOW STA; Protocol Stop: 04/07/24 22:08 Last Admin: 04/07/24 22:25 Dose: 3 ml Documented By: ZURDO Azithromycin 500 mg/ Sodium (Chloride) 255 mls @ 127.5 mls/hr IV NOW STA Stop: 04/08/24 04:26 Last Infusion: 04/08/24 06:45 Dose: Infused Documented By: Admin: 04/08/24 04:27 Dose: 127.5 mls/hr Documented By: AUDI Magnesium Sulfate/Dextrose (Magnesium Sulfate / D5w) 1 gm in 100 mls @ 50 mls/hr IV ONE ONE Stop: 04/08/24 04:25 Last Infusion: 04/08/24 04:27 Dose: Infused Documented By: Admin: 04/08/24 02:38 Dose: 50 mls/hr Documented By: AUDI Sodium Chloride (Nss) 500 mls @ 999 mls/hr IV .Q31M ONE Stop: 04/08/24 09:07 Last Infusion: 04/08/24 09:41 Dose: Infused Documented By: Admin: 04/08/24 09:06 Dose: 999 mls/hr Documented By: JOHN Insulin Glargine (Lantus Per Unit Charge) 0 units SC QDD [facility]; Protocol Stop: 04/08/24 16:31 Last Admin: 04/08/24 17:58 Dose: Not Given Documented By: TOR Ioversol (Optiray 320 100ml) 100 ml IV ONCE ONE Stop: 04/07/24 22:52 Last Admin: 04/07/24 22:51 Dose: 93 ml Documented By: CRISTAL Ketorolac Tromethamine (Ketorolac Tromethamine 15 Mg/Ml Vial) 10 mg IV NOW STA Stop: 04/07/24 22:08 Last Admin: 04/07/24 22:25 Dose: Not Given Documented By: ZURDO Methylprednisolone (Methylprednisolone 125 Mg/2 Ml Vial) 60 mg IV NOW STA Stop: 04/08/24 02:18 Last Admin: 04/08/24 02:31 Dose: 60 mg Documented By: AUDI Medical Decision Making Medical Records Attestation: I reviewed the patient's medical records. Home Medications Current Medication List: was personally reviewed by me Laboratory Data Attestation: I reviewed the patient's lab results. 04/08/24 08:35 04/08/24 08:35 Lab Results 04/07/24 04/07/24 Range/Units 21:20 23:13 WBC 13.11 H (4.8-10.8) K/ul RBC 4.69 (4.20-5.40) M/uL Hgb 14.4 (12.0-16.0) g/dl Hct 40.9 (37.0-47.0) % MCV 87.2 (80.0-100.0) fL MCH 30.7 (25.0-34.0) pg MCHC 35.2 (32.0-36.0) g/dL RDW Std Deviation 40.1 (36.4-46.3) fL RDW Coeff of Cecilio 12.8 (11.5-14.5) % Plt Count 351 (130-400) K/uL MPV 8.2 L (9.4-12.4) fL Immature Gran % (Auto) 0.5 % Neut % (Auto) 68.1 % Lymph % (Auto) 23.4 % [place] % (Auto) 7.4 % Eos % (Auto) 0.3 % Baso % (Auto) 0.3 % Neut # (Auto) 8.93 H (1.40-6.50) K/uL Lymph # (Auto) 3.07 (1.20-3.40) K/uL [place] # (Auto) 0.97 H (0.11-0.59) K/uL Eos # (Auto) 0.04 (0.00-0.50) K/uL Baso # (Auto) 0.04 (0.00-0.20) K/uL Immature Gran # (Auto) 0.06 (0.01-0.20) K/uL PT 9.4 (9.0-12.0) Seconds INR 0.9 (0.9-1.1) APTT 24 (21-31) Seconds PTT Ratio 0.9 Sodium 138 (136-145) mmol/L Potassium 3.6 (3.5-5.1) mmol/L Chloride 106 (98-107) mmol/L Carbon Dioxide 25 (21-32) mmol/L Anion Gap 7 (3-11) BUN 21 (6-23) mg/dl Creatinine 0.83 (0.6-1.2) mg/dl Est Cr Clr Drug Dosing 91.6 ml/min eGFR 89.09 BUN/Creatinine Ratio 25.3 H (10-20) Glucose 128 H (70-99(Fasting)) mg/dl Calcium 9.5 (8.6-10.3) mg/dl Magnesium 1.9 (1.7-2.4) mg/dl Total Bilirubin 0.2 (0.2-1.0) mg/dl AST 14 (13-39) U/L ALT 32 (7-52) U/L Alkaline Phosphatase 81 (34-104) U/L Total Creatine Kinase 23 L (26-192) U/L Troponin I High Sens 7.1 31.1 H D (0-14) pg/ml Total Protein 7.2 (6.0-8.3) gm/dl Albumin 3.9 (3.4-5.0) gm/dl Globulin 3.3 (2.5-4.0) gm/dl Albumin/Globulin Ratio 1.2 (0.9-2) Imaging Data Attestation: I personally reviewed and interpreted this imaging study as follows: Radiologist's Impression: Chest X-Ray 04/07/24 20:52 Exam(s): XR CXR 1 VIEW EXAM: XR Chest, 1 View CLINICAL HISTORY: Reason for exam: Chest pain, nonspecific. TECHNIQUE: Frontal view of the chest. COMPARISON: 01/09/2024 FINDINGS: Lungs: Unremarkable. No consolidation. Pleural space: Unremarkable. No pneumothorax. Heart: Unremarkable. No cardiomegaly. Mediastinum: Unremarkable. Normal mediastinal contour. Bones/joints: Unremarkable. No acute fracture. IMPRESSION: Normal chest x-ray. Electronically signed by: Edgar Esquivel MD 04/08/24 00:[address] 04/07/24 22:18 Exam(s): CT CHEST With Contrast IV Amt: 93 ml optiray 320 EXAM: CT Chest With Intravenous Contrast CLINICAL HISTORY: Reason for exam: severe pn, pt concerned her port has moved. TECHNIQUE: Axial computed tomography images of the chest with intravenous contrast. CTDI is 28 mGy and DLP is 808.46 mGy-cm. Automated exposure control was utilized for the study. A dose lowering technique was utilized adhering to the principles of ALARA. CONTRAST: Patient received 93 ml optiray 320 of IV contrast COMPARISON: No relevant prior studies available. FINDINGS: Lungs: Calcified granuloma left upper lobe.. No mass. No consolidation. Pleural space: Unremarkable. No pneumothorax. No significant effusion. Heart: Unremarkable. No cardiomegaly. No significant pericardial effusion. No significant coronary artery calcifications. Bones/joints: Unremarkable. No acute fracture. No dislocation. Soft tissues: Unremarkable. Vasculature: Unremarkable. No thoracic aortic aneurysm. Lymph nodes: Calcified left hilar lymph nodes. IMPRESSION: No acute findings in the chest. Electronically signed by: Edgar Esquivel MD 04/08/24 00:37 AM [facility] Narrative Prior records/ancillary studies reviewed. Triage Nursing notes reviewed. Additional history obtained from nursing. The patient's history was concerning for cold symptoms and chest pain. Differential diagnosis: Etiologies such as port problem, cardiac ischemia, aortic dissection, pulmonary embolism, pneumonia, pneumothorax, musculoskeletal, infections, pericarditis, myocarditis, esophageal rupture, gastrointestinal, as well as others were entertained. Physical examination: As above. ER treatment provided: An order was placed for continuous cardiac monitoring. The monitor shows a rate of 60-100 with a sinus rhythm per my interpretation. Toradol nebulizer ordered patient was given steroids already On reassessment the patient felt better. Diagnostic interpretation by me: The electrocardiogram was negative for pathologic change. Ordered for chest pain EKG: Normal sinus, normal intervals, no acute ST-T wave changes. Impression normal sinus rhythm independently interpreted by myself I think arrhythmia is unlikely. EKG shows normal sinus rhythm with no interval abnormalities such as QT prolongation or WPW. There are no findings to suggest Brugada syndrome. Cardiac monitoring in the emergency department reveals no tachycardic or bradycardic dysrhythmia. Hypertrophic cardiomyopathy was considered but there are no clear historical elements pointing toward this. EKG is not suggestive. The QRS voltage is not extremely large and there are no suggestive Q waves. The labs Independently Interpreted by myself revealed mild leukocytosis most likely related to steroid use. Negative troponin x 1 and repeat was elevated Positive rhinovirus from yesterday Imaging studies: Imaging was reviewed and read by radiology as above HEART SCORE: Hx: high/mod/low suspicion: 0 ECG: ST depression/nonspecific changes/normal: 0 Age: Greater than 65/45-64/less than 45: 0 Risk factors: (Hypertension, hyperlipidemia, diabetes, coronary disease, tobacco use, cocaine use): 1 Troponin: Greater than 2 times normal limits/1-2 times normal limits/normal: 0 Total: 1 Consultation: A consultation was placed with the hospitalist. The case was discussed and diagnostics were reviewed. The patient was evaluated in the ER for further treatment. Exam and history seem consistent with bronchitis from rhinovirus with a slightly elevated troponin most likely type II from the infection. No signs of pericarditis on EKG. Patient is agreeable to treatment plan admission. Medicine was consulted and the case is discussed. Patient will be admitted to the medical service. By the evaluation outlined above emergent etiologies such as aortic dissection, pulmonary embolism, pneumonia, pneumothorax, gastrointestinal, as well as others were deemed relatively unlikely. The pt informed about the findings as listed above. All questions were answered and pleased with the treatment. The chart was completed utilizing [employer]an[employer] voice recognition software. Grammatical errors, random word insertions, pronoun errors, and incomplete sentences are an occassional consequence of this system due to software limitations, ambient noise, and hardware issues. Any formal questions or concerns about the content, text, or information contained within the body of this dictation should be directly addressed to the physician curriculum assistant principal for clarification. Impression & Plan Acute bronchitis due to Rhinovirus, Atypical chest pain, Elevated troponin Discharge Plan Visit Data Chief Complaint: Chest Pain Stated Complaint: CHEST PAIN,HEADACHE,HAS A VIRAL INFECTION ED Provider: Vijay Renee ED Midlevel Provider: Stefani Woodward Discharge Problem: Acute bronchitis due to Rhinovirus, Atypical chest pain, Elevated troponin Patient Disposition: Admitted As Inpatient Condition: Good Discharge Instructions Interventions: ED Discharge Assessment Last Done: 04/08/24 04:15
[2024-04-07] MEDS: ALBUT/IPRATROP 3MG/0.5MG NEB 3 ML VIAL NEB STA (22:25)
[2024-04-07] MEDS: KETOROLAC TROMETHAMINE 15 MG/ML VIAL IV STA (22:25)
[2024-04-07 22:30] LABS: Magnesium 1.9 mg/dl (1.7-2.4)
[2024-04-07] MEDS: OPTIRAY 320 100ml IV ONE (22:51)
--- NOTE | 2024-04-08 00:07 | XRay Report ---
Exam(s): XR CXR 1 VIEW EXAM: XR Chest, 1 View CLINICAL HISTORY: Reason for exam: Chest pain, nonspecific. TECHNIQUE: Frontal view of the chest. COMPARISON: 01/09/2024 FINDINGS: Lungs: Unremarkable. No consolidation. Pleural space: Unremarkable. No pneumothorax. Heart: Unremarkable. No cardiomegaly. Mediastinum: Unremarkable. Normal mediastinal contour. Bones/joints: Unremarkable. No acute fracture. IMPRESSION: Normal chest x-ray. Electronically signed by: Edgar Esquivel MD 04/08/24 00:07 AM
--- NOTE | 2024-04-08 00:39 | CT Scan Report ---
Exam(s): CT CHEST With Contrast IV Amt: 93 ml optiray 320 EXAM: CT Chest With Intravenous Contrast CLINICAL HISTORY: Reason for exam: severe pn, pt concerned her port has moved. TECHNIQUE: Axial computed tomography images of the chest with intravenous contrast. CTDI is 28 mGy and DLP is 808.46 mGy-cm. Automated exposure control was utilized for the study. A dose lowering technique was utilized adhering to the principles of ALARA. CONTRAST: Patient received 93 ml optiray 320 of IV contrast COMPARISON: No relevant prior studies available. FINDINGS: Lungs: Calcified granuloma left upper lobe.. No mass. No consolidation. Pleural space: Unremarkable. No pneumothorax. No significant effusion. Heart: Unremarkable. No cardiomegaly. No significant pericardial effusion. No significant coronary artery calcifications. Bones/joints: Unremarkable. No acute fracture. No dislocation. Soft tissues: Unremarkable. Vasculature: Unremarkable. No thoracic aortic aneurysm. Lymph nodes: Calcified left hilar lymph nodes. IMPRESSION: No acute findings in the chest. Electronically signed by: Edgar Esquivel MD 04/08/24 00:37 AM
[2024-04-08] MEDS ORDERED: AZITHROMYCIN 500 MG VIAL IV ONE (02:19)
--- NOTE | 2024-04-08 02:28 | History & Physical Report ---
Date of Service April 08, 2024 Assessment & Plan (1) Acute bronchitis due to Rhinovirus: (2) Elevated troponin: (3) Atypical chest pain: (4) Port-A-Cath in place: Plan The patient is a 44-year-old female with medical history including neuropathy, bilateral high-frequency sensorineural hearing loss, Port-A-Cath in place due to poor IV access, lumbar degenerative disc disease, chronic migraine without aura, obesity, tach, diabetes mellitus. She was initially seen in the emergency department on 04/06 for the symptoms noted above. She was given prednisone and an oral antibiotic, and realized that she had not gotten better in 24 hours, but felt badly enough that she presented to the ED for assessment. She denies any recent travels or sick exposures. #Acute bronchitis due to rhinovirus- Give Solu-Medrol 60 mg IV now, then 40 mg IV every 8 hours Azithromycin 500 mg IV daily x 3 days Hycodan syrup 5 mL p.o. every 4 hours as needed severe cough. Patient has had a harsh cough, which has not allowed her to sleep for the past Tessalon Perles 2 mg p.o. 3 times daily as needed milder cough DuoNebs every [address] scan chest does note calcified left hilar lymph nodes, and granuloma left upper lobe. Order ESR, ZAID and SALAS level Magnesium sulfate 1 g IV, mag 1.9 Atypical chest pain/elevated troponin- Initial troponin 7.1, with follow-up 31.1, without acute EKG changes The patient will be admitted to telemetry for serial cardiac enzymes, serial EKG's, cardiac rhythm monitoring and a 2-D echocardiogram with Dopplers. Symptoms could be consistent with pericarditis, less likely but needs to be ruled out type II supply/demand mismatch IV Solu-Medrol as above #Status post left knee arthroscopic surgery- Surgery was on 03/2024 She reports that she is due to have her sutures removed [address] Middleton She reports the surgery went well, and her knee is doing well with therapy Diet-controlled diabetes mellitus- Patient has been on a brief course of prednisone for 24 hours as noted above Expected glucose may increase while on IV Solu-Medrol. Therefore placed on Accu-Cheks with NovoLog SSI Check hemoglobin A1c History of Present Illness Chief Complaint: The patient presents to the emergency department with complaint of intermittent sharp midsternal left-sided chest pain, radiating to left axilla and left arm, shortness of breath, dyspnea on exertion, chest congestion and worsening generalized fatigue. Primary Care Provider: Monserrat Murray MD The patient is a 44-year-old female with medical history including neuropathy, bilateral high-frequency sensorineural hearing loss, Port-A-Cath in place due to poor IV access, lumbar degenerative disc disease, chronic migraine without aura, obesity, tach, diabetes mellitus. She was initially seen in the emergency department on 04/06 for the symptoms noted above. She was given prednisone and an oral antibiotic, and realized that she had not gotten better in 24 hours, but felt badly enough that she presented to the ED for assessment. She denies any recent travels or sick exposures. Allergies Allergy/AdvReac Type Severity Reaction Status Date / Time bee venom protein (honey bee) Allergy Severe SHORTNESS Verified 03/29/24 09:52 OF BREATH Fish Containing Products Allergy Severe SWELLING Verified 03/29/24 09:52 AND REDNESS guava Allergy Severe Hives Verified 03/29/24 09:52 carmelita Allergy Severe Hives Verified 03/29/24 09:52 morphine Allergy Severe Shakiness Verified 03/29/24 09:52 papaya Allergy Severe Hives Verified 03/29/24 09:52 passion fruit Allergy Severe Hives Verified 03/29/24 09:52 shellfish derived Allergy Severe SWELLING/RED Verified 03/29/24 09:52 SKIN ondansetron Allergy Intermediate HIVES - Verified 03/29/24 09:52 RASH Home Medications Medication Instructions Recorded Confirmed Type albuterol sulfate 90 mcg/actuation 1 inh inhalation Q6H PRN shortness 04/06/24 04/08/24 Rx aerosol inhaler of breath or wheezing #8.5 grams prednisone 20 mg tablet 20 mg PO BID #15 tabs 04/06/24 04/08/24 Rx Past Med/Surg History Problem List (Updated 04/08/24 @ 01:35 by Stefani Woodward PA-C) Elevated troponin (Acute) Atypical chest pain (Acute) Acute bronchitis due to Rhinovirus (Acute) Bronchitis (Acute) Viral infection (Acute) Neuropathy (Chronic) mainly the right side 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 with unrestricted hearing of left ear (Chronic) Port-A-Cath in place (Chronic 01/06/22) Insertion Access Port with Fluoroscopy(Left) - Bryce Hernandez DO Poor intravenous access (Chronic) Right foot pain (Chronic) Nerve damage from spinal surgery Lumbar degenerative disc disease (Chronic) Chronic migraine without aura (Chronic) Obesity (Chronic) Diet-controlled diabetes mellitus (Chronic) Medical History (Updated 04/08/24 @ 01:35 by Stefani Woodward PA-C) Trigeminal neuralgia Mastoiditis Vitamin D deficiency Hx of renal calculi History of uterine fibroid Surgical History H/O hand surgery Rt x 2 FINGER I & D Hx of oral surgery (08/16/22) Incision and Drainage of Mouth, Extraction of Teeth 4 and 5(Not Applicable) - Robert Martin DMD H/O shoulder surgery right Slow to wake up after anesthesia History of bilateral breast reduction surgery History of hysterectomy H/O left wrist surgery History of facial surgery reconstruction d/t degloving Hx of arthroscopic knee surgery left x2 Hx of dilation and curettage History of bilateral tubal ligation History of lithotripsy multiple History of cystoscopy stone removal; Mulitple sx History of cholecystectomy History of appendectomy History of tooth extraction History of tonsillectomy H/O bone graft Iliac bone graft with lumbar fusion Fusion of lumbar spine bone graft from pelvis Family History Grandfather (Maternal) Family history of diabetes mellitus Mother Diabetes Depression Kidney stones Uterine malignant neoplasm Aunt Ovarian cancer maternal Diabetes Breast cancer Sister Kidney stones Uterine malignant neoplasm Grandmother Myocardial infarction Uterine malignant neoplasm Other Adopted Denies family history of Colorectal cancer Social History (Updated 03/20/24 @ 12:57 by KIMBERLY Chan) Smoking Status: Current every day smoker Tobacco Type: Cigarettes Age Started Using Tobacco: 14; packs per day: 0.5; Cigarettes Per Day: 1/2 ppd (advised on policy); Second Hand Exposure: No; Do You Dip or Chew Tobacco: No; Tobacco Cessation Education Requested by Patient: No Hx Alcohol Use: No Hx Substance Use: No Preferred Language: Irish Communication Ability: Effective Visual Impairment: No Limitations Hearing Ability: Normal Academic Department Chair Required: No Beliefs That Will Affect Care: None marital status: Current Living Situation: Spouse current occupational status: employed and disabled 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 [employer] How many Children do You have: 2 Other Information That Helps Us Care for You: No Feels Safe at Home: Yes Safety Concerns: Feels Safe At This Time Childhood Exposure to Second-Hand Smoke: No Diet: diabetic during the past year weight has: remained stable Dental Care, Regularly: No Physical Activity Frequency: Other Assistive Devices: None Review of Systems Review of Systems: The patient denies lower extremity swelling, sore throat, fevers, chills, sweats, nausea, vomiting, diarrhea , constipation, abdominal pain, pelvic pain, blood in urine or stool, dysuria, urinary frequency or urgency, memory loss, loss of consciousness, rash, abnormal bruising or bleeding, imbalance, focal or generalized weakness, numbness or tingling in arms or legs, back or neck pain, or night sweats. The review of systems is otherwise negative other than for that already noted above, and at least 10 systems have been reviewed. Physical Exam Physical Exam: The patient is awake, alert and oriented 3, well developed and well nourished, normocephalic and atraumatic, lying in bed and in no acute distress. HEENT--PERRL, EOMI, mucous membranes and oropharynx mildly dry. Neck--supple. No JVD. No bruits. Thyroid normal, trachea midline, no adenopathy. Heart--normal S1 and S2. No murmurs, rubs or gallops. Lungs--few coarse breath sounds with scattered wheezes. No respiratory distress, no accessory muscle use. Abdomen--normal bowel sounds and soft. Nontender. Nondistended, no hernias or masses, no organomegaly. Extremities--no cyanosis or clubbing. No edema. Dermatologic--normal skin turgor, normal color, no abnormal lymph nodes, no rash. Neurologic--cranial nerves II through XII grossly intact. Rheumatologic--normal range of motion. Psychiatric--normal affect. Results & Data Results & Data Vital Signs (Past 12 Hours) Vital Signs Temp Pulse Pulse Resp BP BP Pulse Ox 04/08/24 02:02 04/08/24 02:02 85 21 127/83 98 04/08/24 01:51 79 19 97 04/08/24 01:45 76 19 127/83 97 04/08/24 01:03 83 35 H 93 04/08/24 00:30 121/79 04/08/24 00:24 86 31 H 93 04/08/24 00:00 84 30 H 115/62 94 04/07/24 23:30 90 21 93 04/07/24 23:00 103 H 14 114/71 96 04/07/24 22:38 88 04/07/24 22:32 86 19 98 04/07/24 22:32 98 04/07/24 22:31 86 20 128/90 98 04/07/24 22:31 98 04/07/24 20:47 37.2 C 104 H 18 142/90 H 97 O2 Del Method 04/08/24 02:02 Room Air 04/08/24 02:02 Room Air 04/08/24 01:51 Room Air 04/08/24 01:45 Room Air 04/08/24 01:03 04/08/24 00:30 04/08/24 00:24 04/08/24 00:00 Room Air 04/07/24 23:30 04/07/24 23:00 Room Air 04/07/24 22:38 04/07/24 22:32 Room Air 04/07/24 22:32 Room Air 04/07/24 22:31 Room Air 04/07/24 22:31 Room Air 04/07/24 20:47 Room Air Laboratory Results Laboratory Results WBC 13.11 K/ul (4.8-10.8) H 04/07/24 21:20 RBC 4.69 M/uL (4.20-5.40) 04/07/24 21:20 Hgb 14.4 g/dl (12.0-16.0) 04/07/24 21:20 Hct 40.9 % (37.0-47.0) 04/07/24 21:20 MCV 87.2 fL (80.0-100.0) 04/07/24 21:20 MCH 30.7 pg (25.0-34.0) 04/07/24 21:20 MCHC 35.2 g/dL (32.0-36.0) 04/07/24 21:20 RDW Std Deviation 40.1 fL (36.4-46.3) 04/07/24 21:20 RDW Coeff of Cecilio 12.8 % (11.5-14.5) 04/07/24 21:20 Plt Count 351 K/uL (130-400) 04/07/24 21:20 MPV 8.2 fL (9.4-12.4) L 04/07/24 21:20 Immature Gran % (Auto) 0.5 % 04/07/24 21:20 Neut % (Auto) 68.1 % 04/07/24 21:20 Lymph % (Auto) 23.4 % 04/07/24 21:20 [place] % (Auto) 7.4 % 04/07/24 21:20 Eos % (Auto) 0.3 % 04/07/24 21:20 Baso % (Auto) 0.3 % 04/07/24 21:20 Neut # (Auto) 8.93 K/uL (1.40-6.50) H 04/07/24 21:20 Lymph # (Auto) 3.07 K/uL (1.20-3.40) 04/07/24 21:20 [place] # (Auto) 0.97 K/uL (0.11-0.59) H 04/07/24 21:20 Eos # (Auto) 0.04 K/uL (0.00-0.50) 04/07/24 21:20 Baso # (Auto) 0.04 K/uL (0.00-0.20) 04/07/24 21:20 Immature Gran # (Auto) 0.06 K/uL (0.01-0.20) 04/07/24 21:20 PT 9.4 Seconds (9.0-12.0) 04/07/24 21:20 INR 0.9 (0.9-1.1) 04/07/24 21:20 APTT 24 Seconds (21-31) 04/07/24 21:20 PTT Ratio 0.9 04/07/24 21:20 Sodium 138 mmol/L (136-145) 04/07/24 21:20 Potassium 3.6 mmol/L (3.5-5.1) 04/07/24 21:20 Chloride 106 mmol/L (98-107) 04/07/24 21:20 Carbon Dioxide 25 mmol/L (21-32) 04/07/24 21:20 Anion Gap 7 (3-11) 04/07/24 21:20 BUN 21 mg/dl (6-23) 04/07/24 21:20 Creatinine 0.83 mg/dl (0.6-1.2) 04/07/24 21:20 Est Cr Clr Drug Dosing 91.6 ml/min 04/07/24 21:20 eGFR 89.09 04/07/24 21:20 BUN/Creatinine Ratio 25.3 (10-20) H 04/07/24 21:20 Glucose 128 mg/dl (70-99(Fasting)) H 04/07/24 21:20 Calcium 9.5 mg/dl (8.6-10.3) 04/07/24 21:20 Magnesium 1.9 mg/dl (1.7-2.4) 04/07/24 21:20 Total Bilirubin 0.2 mg/dl (0.2-1.0) 04/07/24 21:20 AST 14 U/L (13-39) 04/07/24 21:20 ALT 32 U/L (7-52) 04/07/24 21:20 Alkaline Phosphatase 81 U/L (34-104) 04/07/24 21:20 Total Creatine Kinase 23 U/L (26-192) L 04/07/24 21:20 Troponin I High Sens 31.1 pg/ml (0-14) H D 04/07/24 23:13 Total Protein 7.2 gm/dl (6.0-8.3) 04/07/24 21:20 Albumin 3.9 gm/dl (3.4-5.0) 04/07/24 21:20 Globulin 3.3 gm/dl (2.5-4.0) 04/07/24 21:20 Albumin/Globulin Ratio 1.2 (0.9-2) 04/07/24 21:20 Impressions Chest X-Ray 04/07/24 20:52 Exam(s): XR CXR 1 VIEW EXAM: XR Chest, 1 View CLINICAL HISTORY: Reason for exam: Chest pain, nonspecific. TECHNIQUE: Frontal view of the chest. COMPARISON: 01/09/2024 FINDINGS: Lungs: Unremarkable. No consolidation. Pleural space: Unremarkable. No pneumothorax. Heart: Unremarkable. No cardiomegaly. Mediastinum: Unremarkable. Normal mediastinal contour. Bones/joints: Unremarkable. No acute fracture. IMPRESSION: Normal chest x-ray. Electronically signed by: Edgar Esquivel MD 04/08/24 00:[address] 04/07/24 22:18 Exam(s): CT CHEST With Contrast IV Amt: 93 ml optiray 320 EXAM: CT Chest With Intravenous Contrast CLINICAL HISTORY: Reason for exam: severe pn, pt concerned her port has moved. TECHNIQUE: Axial computed tomography images of the chest with intravenous contrast. CTDI is 28 mGy and DLP is 808.46 mGy-cm. Automated exposure control was utilized for the study. A dose lowering technique was utilized adhering to the principles of ALARA. CONTRAST: Patient received 93 ml optiray 320 of IV contrast COMPARISON: No relevant prior studies available. FINDINGS: Lungs: Calcified granuloma left upper lobe.. No mass. No consolidation. Pleural space: Unremarkable. No pneumothorax. No significant effusion. Heart: Unremarkable. No cardiomegaly. No significant pericardial effusion. No significant coronary artery calcifications. Bones/joints: Unremarkable. No acute fracture. No dislocation. Soft tissues: Unremarkable. Vasculature: Unremarkable. No thoracic aortic aneurysm. Lymph nodes: Calcified left hilar lymph nodes. IMPRESSION: No acute findings in the chest. Electronically signed by: Edgar Esquivel MD 04/08/24 00:37 AM Code Status & VTE Plan Code Status Full code PG Care Time/CCT Total # of Minutes Spent Total Time Spent with Patient: Total time spent is greater than 50% in coordination of care (as documented) at patient's floor/unit and/or counseling patient: Coding Level of Care Code 89584 INT INP/OBS CARE 3/75MIN Diagnoses Acute bronchitis due to Rhinovirus J20.6 Elevated troponin R79.89 Atypical chest pain R07.89 Port-A-Cath in place Z95.828
[2024-04-08] MEDS: methylPREDNISolone 125 MG/2 ML VIAL IV STA (02:31)
[2024-04-08] MEDS: HYDROcodone/HOMATROPINE SYRUP 5MG/1.5MG 5ML UDP PO PRN (02:32)
[2024-04-08] MEDS: MAGNESIUM SULFATE / D5W 1 GM/100 ML BAG IV ONE (02:38)
[2024-04-08] MEDS: AZITHROMYCIN 500 MG in SODIUM CHLORIDE 0.9% 250 ML IV STA (04:27)
[2024-04-08] MEDS ORDERED: GLUCOSE 10 TAB/TUBE PO PRN (04:29)
[2024-04-08] MEDS ORDERED: GLUCOSE 40% GEL 15 GM TUBE PO PRN (04:29)
[2024-04-08] MEDS ORDERED: GLUCAGON FOR INJ 1 MG VIAL SQ PRN (04:29)
[2024-04-08] MEDS ORDERED: CARBOHYDRATES FOR HYPOGLYCEMIA PO PRN (04:29)
[2024-04-08] MEDS ORDERED: DEXTROSE 50% 50 ML SYRINGE IV PRN (04:29)
[2024-04-08] MEDS: BENZONATATE 100 MG CAPSULE PO PRN (04:50)
[2024-04-08] MEDS: ALBUT/IPRATROP 3MG/0.5MG NEB 3 ML VIAL NEB PRN (04:50)
[2024-04-08] MEDS: ASPIRIN 81 MG ECTAB PO SCH (08:32)
[2024-04-08] MEDS ORDERED: methylPREDNISolone 10 mg/mL (For Ped Dose < 7mg) IV SCH (09:00)
[2024-04-08 09:02] LABS: Basophils # (auto) 0.01 K/uL (0.00-0.20); Basophils % (auto) 0.1 %; Eosinophils # (auto) 0.01 K/uL (0.00-0.50); Eosinophils % (auto) 0.1 %; Hematocrit (blood only) 40.7 % (37.0-47.0); Hemoglobin 13.9 g/dl (12.0-16.0); Immature Granulocytes # (auto) 0.07 K/uL (0.01-0.20); Immature Granulocytes % (auto) 0.8 %; Lymphocytes # (auto) 0.88 K/uL (1.20-3.40); Lymphocytes % (auto) 9.9 %; Mean Corpuscular Hemoglobin 30.2 pg (25.0-34.0); Mean Corpuscular Hgb Conc 34.2 g/dL (32.0-36.0); Mean Corpuscular Volume 88.5 fL (80.0-100.0); Mean Platelet Volume 8.5 fL (9.4-12.4); Monocytes % (auto) 1.1 %; Neutrophils # (auto) 7.85 K/uL (1.40-6.50); Platelet Count 319 K/uL (130-400); RDW Standard Deviation 42.1 fL (36.4-46.3); White Blood Count 8.92 K/ul (4.8-10.8)
[2024-04-08] MEDS: methylPREDNISolone 40 MG in SYRINGE 0 ML IV SCH (09:06)
[2024-04-08] MEDS: SODIUM CHLORIDE 0.9% 500 ML IV ONE (09:06)
[2024-04-08 09:09] LABS: Albumin Level 3.7 gm/dl (3.4-5.0); BUN Creatinine Ratio 30.2 (10-20); Calcium 8.9 mg/dl (8.6-10.3); Creatinine Clr Calc Pharmacy 120.6 ml/min; Phosphorus 3.2 mg/dl (2.5-4.9); Potassium 4.2 mmol/L (3.5-5.1)
[2024-04-08 09:19] LABS: Estimated Average Glucose 126 mg/dl
--- NOTE | 2024-04-08 09:24 | Electrocardiogram Report ---
Test Reason : Blood Pressure : */* mmHG Vent. Rate : 95 BPM Atrial Rate : 95 BPM P-R Int : 134 ms QRS Dur : 86 ms QT Int : 356 ms P-R-T Axes : 33 -20 26 degrees QTcB Int : 447 ms Normal sinus rhythm Low voltage QRS Borderline ECG When compared with ECG of 06-Apr-2024 12:50, No significant change was found Confirmed by Gabby Nguyen (Cam) on 04/08/2024 9:23:59 AM Referred By: REFERRED SELF Confirmed By: Gabby Nguyen
[2024-04-08] MEDS ORDERED: PHARMACY GLYCEMIC MGMT CONSULT PRN (10:17)
[2024-04-08] MEDS: INSULIN ASPART PER UNIT CHARGE SC SCH (10:58)
--- NOTE | 2024-04-08 14:13 | Pharmacy Report ---
Pharmacy Glycemic Short Note 2 - Date of Service April 08, 2024 - Glycemic Short BSG Results (Last 24 hours): 04/07/24 04/08/24 04/08/24 21:20 08:35 10:01 Glucose 128 H 172 H POC Glucose 231 H OUTPATIENT ANTIDIABETIC REGIMEN: * none (diet controlled) * HbA1c 6.0% (04/08/24) ASSESSMENT: * Beth is a 44 YOF admitted with bronchitis secondary to Rhinovirus. Pharmacy has been consulted to assist with glycemic management while inpatient. * Fasting BSG this AM acceptable, received one time dose of methylprednisone 60mg IV early this morning and was subsequently continued on methlyprednisolone 40mg Q8H IV. BSGs continuing to increase throughout the day, will give a dose of basal insulin (up to 0.3 units/kg) with dinner based on BSG if elevated. * NovoLog initiated at a weight based stress of 2 PLAN FOR INPATIENT GLYCEMIC CONTROL: * Hold outpatient oral diabetes medications * Basal insulin * Lantus 0-20 units SQ QDD x1 * Bolus insulin * NovoLog per scale ACHS or Q6hrs while NPO * Goal Range: Low 110 mg/dL - High 140 mg/dL * Correction Factor: 25 mg/dL/unit * Nutritional / Prandial insulin per carb ratio of 1 unit per 8 grams CHO consumed
--- NOTE | 2024-04-08 14:54 | XCELERA ---
[id number] \\[email or web address]\[id number]}___[id number]
--- NOTE | 2024-04-08 15:20 | Hospitalist Progress Note ---
Date of Service April 08, 2024 - NO BILL Assessment & Plan (1) Acute bronchitis due to Rhinovirus: (2) Elevated troponin: (3) Atypical chest pain: (4) Port-A-Cath in place: Plan The patient is a 44-year-old female with medical history including neuropathy, bilateral high-frequency sensorineural hearing loss, Port-A-Cath in place due to poor IV access, lumbar degenerative disc disease, chronic migraine without aura, obesity, tach, diabetes mellitus. She was initially seen in the emergency department on 04/06 and given prednisone and an oral antibiotic. Realized she had not gotten better in 24 hours, but felt badly enough that she presented to the ED for assessment. #Acute bronchitis due to rhinovirus- Solu-Medrol 40 mg IV every 8 hours Azithromycin 500 mg IV daily x 3 days Hycodan syrup 5 mL p.o. every 4 hours as needed severe cough. Tessalon Perles 2 mg p.o. 3 times daily as needed milder cough DuoNebs every [address] scan chest does note calcified left hilar lymph nodes, and granuloma left upper lobe. SALAS level and ZAID pending. ESR 18 CBC w/o leukocytosis. hgb stable BMP w/ stable renal function and electrolytes #Atypical chest pain/elevated troponin- symptoms could be consistent with pericarditis, treatment as above. patient hypotensive 04/08 AM - s/p 500ml NSS bolus. BP now normotensive Initial troponin 7.1 -> 31.1 --> 5.1 without acute EKG changes Echo 04/08: EF 65-70%, echo unchanged since prior study in 2022. #Status post left knee arthroscopic surgery- Surgery was on 03/29/2024 She reports that she is due to have her sutures removed [address] Middleton reached out to ortho 04/08 - patient to follow up outpatient for suture removal. #Diet-controlled diabetes mellitus- Patient has been on a brief course of prednisone for 24 hours as noted above Expected glucose may increase while on IV Solu-Medrol. Therefore placed on Accu-Cheks with NovoLog [facility] Pharmacy consulted for aide in glycemic management. A1c - 6% Admission and Anticipated Discharge Date Admission Date: April 08, 2024 Subjective Patient seen and examined this afternoon. Patient reports to still be experiencing a significant cough and shortness of breath. she reports SOB is worse w/ lying down. states she typically sleeps on her stomach and has been unable to do that since joann this illness. Patient also reports left sided chest pain. reports that it is not all the time. Physical Exam Constitutional: WD/WN, vitals as above Eyes: PERRL, conjunctivae normal, anicteric sclerae Respiratory: coughing on exam. normal effort. lung sounds CTA Cardiovascular: RRR, no murmur, no edema Psychiatric: A+Ox3, euthymic affect Results & Data Results & Data Vital Signs (Past 12 Hours) Vital Signs Pulse Pulse Resp BP BP Pulse Ox Pulse Ox 04/08/24 09:52 120/70 04/08/24 07:11 79 04/08/24 07:01 79 18 91 04/08/24 07:00 83 12 83/61 L 91 04/08/24 06:32 91 04/08/24 06:30 81 20 88 L 04/08/24 05:32 95 04/08/24 05:30 93 H 25 H 94 04/08/24 05:00 79 20 04/08/24 04:30 80 25 H 111/63 93 04/08/24 04:00 66 26 H 93 O2 Del Method O2 Del Method O2 Flow Rate 04/08/24 09:52 04/08/24 07:11 04/08/24 07:01 04/08/24 07:00 Room Air 04/08/24 06:32 Nasal Cannula 2 04/08/24 06:30 Room Air 04/08/24 05:32 Room Air 04/08/24 05:30 Room Air 04/08/24 05:00 04/08/24 04:30 04/08/24 04:00 Room Air PG Care Time/CCT Total # of Minutes Spent Total Time Spent with Patient: Total time spent is greater than 50% in coordination of care (as documented) at patient's floor/unit and/or counseling patient: Coding Level of Care Code None Diagnoses Acute bronchitis due to Rhinovirus J20.6 Elevated troponin R79.89 Atypical chest pain R07.89 Port-A-Cath in place Z95.828
[2024-04-08] MEDS: LANTUS PER UNIT CHARGE SC SCH (17:58)
[2024-04-08] MEDS: SODIUM CHLORIDE 0.9% 1,000 ML IV SCH (20:01)
[2024-04-08] MEDS: guaiFENesin 600 MG TABCR PO SCH (20:03)
[2024-04-09] MEDS: LANTUS PER UNIT CHARGE SC SCH ×2 (08:17→21:01)
[2024-04-09 09:25] LABS: Albumin Level 3.6 gm/dl (3.4-5.0); BUN Creatinine Ratio 33.3 (10-20); Creatinine Clr Calc Pharmacy 145.4 ml/min; Phosphorus 2.7 mg/dl (2.5-4.9); Potassium 4.2 mmol/L (3.5-5.1)
[2024-04-09 09:33] LABS: Hematocrit (blood only) 40.5 % (37.0-47.0); Hemoglobin 13.6 g/dl (12.0-16.0); Mean Corpuscular Hemoglobin 30.3 pg (25.0-34.0); Mean Corpuscular Hgb Conc 33.6 g/dL (32.0-36.0); Mean Corpuscular Volume 90.2 fL (80.0-100.0); Mean Platelet Volume 8.8 fL (9.4-12.4); Platelet Count 353 K/uL (130-400); RDW Coefficient of Variation 12.7 % (11.5-14.5); RDW Standard Deviation 41.9 fL (36.4-46.3); Red Blood Count 4.49 M/uL (4.20-5.40); White Blood Count 17.11 K/ul (4.8-10.8)
[2024-04-09 10:04] LABS: Basophils # (auto) 0.02 K/uL (0.00-0.20); Basophils % (auto) 0.1 %; Eosinophils # (auto) 0.03 K/uL (0.00-0.50); Eosinophils % (auto) 0.2 %; Hypersegmented Neutrophils 1+; Immature Granulocytes # (auto) 0.18 K/uL (0.01-0.20); Immature Granulocytes % (auto) 1.1 %; Lymphocytes # (auto) 1.22 K/uL (1.20-3.40); Lymphocytes % (auto) 7.1 %; Monocytes # (auto) 0.24 K/uL (0.11-0.59); Monocytes % (auto) 1.4 %; Neutrophils # (auto) 15.42 K/uL (1.40-6.50); Neutrophils % (auto) 90.1 %
[2024-04-09] MEDS: guaiFENesin/DEXTROM SYRUP 100MG/10MG 5ML UDC PO PRN (10:10)
--- NOTE | 2024-04-09 10:14 | Electrocardiogram Report ---
Test Reason : Blood Pressure : */* mmHG Vent. Rate : 57 BPM Atrial Rate : 57 BPM P-R Int : 126 ms QRS Dur : 88 ms QT Int : 452 ms P-R-T Axes : 33 2 26 degrees QTcB Int : 439 ms Sinus bradycardia with sinus arrhythmia Otherwise normal ECG When compared with ECG of 08-Apr-2024 03:12, (unconfirmed) T wave inversion no longer evident in Anterior leads Confirmed by Alex Sweeney ([id number]) on 04/09/2024 10:14:07 AM Referred By: REFERRED SELF Confirmed By: Alex Sweeney
[2024-04-09] MEDS: ALBUT/IPRATROP 3MG/0.5MG NEB 3 ML VIAL NEB SCH (13:29)
[2024-04-09] MEDS: hydrOXYzine HCl 25 MG TAB PO PRN (13:47)
--- NOTE | 2024-04-09 13:53 | Pharmacy Report ---
Pharmacy Glycemic Short Note 2 - Date of Service April 09, 2024 - Glycemic Short BSG Results (Last 24 hours): 04/08/24 04/08/24 04/09/24 17:36 19:49 07:13 Glucose POC Glucose 172 H 213 H 174 H 04/09/24 04/09/24 08:35 11:14 Glucose 258 H POC Glucose 171 H OUTPATIENT ANTIDIABETIC REGIMEN: * none (diet controlled) * HbA1c 6.0% (04/08/24) ASSESSMENT: 04/09 * Glycemic control decent given patient on high dose IV steroids (methylprednisone 40 mg IV q8h) * Fasting BSG of 174 mg/dL. Patient did not meet parameters for basal insulin on 04/08. Will start basal today, dosed per BSG scale. Suspect patient will no longer need basal once IV steroids are discontinued. * Tighten Novolog CF and CR for post prandial BSG > 200. 04/08 * Beth is a 44 YOF admitted with bronchitis secondary to Rhinovirus. Pharmacy has been consulted to assist with glycemic management while inpatient. * Fasting BSG this AM acceptable, received one time dose of methylprednisone 60mg IV early this morning and was subsequently continued on methlyprednisolone 40mg Q8H IV. BSGs continuing to increase throughout the day, will give a dose of basal insulin (up to 0.3 units/kg) with dinner based on BSG if elevated. * NovoLog initiated at a weight based stress of 2 PLAN FOR INPATIENT GLYCEMIC CONTROL: * Hold outpatient oral diabetes medications * Basal insulin * Lantus 0-16 units SQ BID (0 units for BSG < 140, 9 units for 140-200, 16 units for BSG > 200) * Bolus insulin * NovoLog per scale ACHS or Q6hrs while NPO * Goal Range: Low 110 mg/dL - High 140 mg/dL * Correction Factor: 20 mg/dL/unit * Nutritional / Prandial insulin per carb ratio of 1 unit per 7 grams CHO consumed
[2024-04-09 16:27] LABS: Angiotensin Converting Enzyme 43 U/L (9-67); Anti Nuclear Antibody Screen NEGATIVE (NEGATIVE)
--- NOTE | 2024-04-09 17:06 | Hospitalist Progress Note ---
Date of Service April 09, 2024 Assessment & Plan (1) Acute bronchitis due to Rhinovirus: (2) Elevated troponin: (3) Atypical chest pain: (4) Port-A-Cath in place: (5) Diet-controlled diabetes mellitus: Plan The patient is a 44-year-old female with medical history including neuropathy, bilateral high-frequency sensorineural hearing loss, Port-A-Cath in place due to poor IV access, lumbar degenerative disc disease, chronic migraine without aura, obesity, tach, diabetes mellitus. She was initially seen in the emergency department on 04/06 and given prednisone and an oral antibiotic. Realized she had not gotten better in 24 hours, but felt badly enough that she presented to the ED for assessment. #Acute bronchitis due to rhinovirus- CT scan chest does note calcified left hilar lymph nodes, and granuloma left upper lobe. Continue Solu-Medrol 40 mg IV every 8 hours Continue Azithromycin 500 mg x 3 days Cough Medications: Robitussin, Hycodan syrup, Tessalon Perles Scheduled DuoNebs q6. Continue IS, FV SALAS level:43. ZAID negative. ESR 18 Recommend smoking cessation. Wean O2 as able - goal 92% #Atypical chest pain/elevated troponin- symptoms consistent with pericarditis, treatment as above. patient hypotensive 04/08 AM - s/p 500ml NSS bolus. BP now normotensive Initial troponin 7.1 -> 31.1 --> 5.1 without acute EKG changes. Chest pain has improved. Echo 04/08: EF 65-70%, echo unchanged since prior study in 2022. #Status post left knee arthroscopic surgery- 03/29/2024 She reports that she is due to have her sutures removed [address] Middleton reached out to ortho 04/08 - patient to follow up outpatient for suture removal. #Port in Place Placed approx [address] Hernandez, pt reports has not been functioning for the last 1.5 years. Pt refuses to see Dr. Hernandez regarding this Has appointment with Dr. Russell at the end of the month, consider outpatient [facility] general surgery referral at discharge Causing her significant anxiety/stress --> Atarax added Has US guided IV currently #Diet-controlled diabetes mellitus- Pharmacy consulted for aide in glycemic management for increase in BSG while on steroids A1c - 6% Dispo: continued inpatient stay, weaning O2 and treating bronchitis DVT Proh: SCDs Admission and Anticipated Discharge Date Admission Date: April 08, 2024 Supervising Physician Co-Signing Physician Notes Attending Attestation - Chart reviewed, care plan d/w LENNY Chavez. I agree w/ the wiley components of her documentation. Ruddy Steiner MD Subjective patient seen sitting up in bed, states that her breathing feels a little bit better as she does not feel like she is "gurgly". However states that she is having trouble sleeping because she cannot lay flat because her breathing is worse and that is the only way that she is comfortable. Reports a cough but is not coughing up much stuff Is very worried about her port being nonfunctional she would like to have it removed TANI but does not want to see Dr. Emery under any circumstances. Does have a referral for an appointment with Dr. Russell at the end of the month Telemetry sinus rhythm in the 70s Review of Systems Review of Systems: All systems reviewed & are unremarkable except as noted in Subjective Physical Exam Physical Exam: General: NAD, VS as above, appears anxious Resp: increased work of breathing with talking, on 3 L nasal cannula maintaining 95%, coarse lung sounds with expiratory wheezing throughout CV: RRR, no murmur, Abd: normal bowel sounds, non tender, no hepatosplenomegaly Extremities: Moves all extremities, no edema Neuro: A&O x3, Skin: intact, no lesions noted Results & Data Results & Data Vital Signs (Past 12 Hours) Vital Signs Temp Pulse Resp BP BP Pulse Ox O2 Del Method 04/09/24 15:05 97.7 F 63 18 126/74 94 Nasal Cannula 04/09/24 13:29 68 19 94 Nasal Cannula 04/09/24 11:33 98.1 F 73 18 147/81 H 95 Nasal Cannula 04/09/24 07:11 97.9 F 64 18 108/67 92 Room Air O2 Flow Rate 04/09/24 15:05 2 04/09/24 13:29 3 04/09/24 11:33 3 04/09/24 07:11 Laboratory Results CBC chemistry and magnesium reviewed ZAID reviewed SALAS reviewed PG Care Time/CCT Total # of Minutes Spent Total Time Spent with Patient: Total time spent is greater than 50% in coordination of care (as documented) at patient's floor/unit and/or counseling patient: Coding Level of Care Code 88283 SUB INP/OBS CARE 350MIN Diagnoses Acute bronchitis due to Rhinovirus J20.6 Elevated troponin R79.89 Atypical chest pain R07.89 Port-A-Cath in place Z95.828 Diet-controlled diabetes mellitus E11.9
[2024-04-09] MEDS: AZITHROMYCIN 250 MG TAB PO ONE (17:59)
[2024-04-09] MEDS: MELATONIN 3 MG TAB PO PRN (22:21)
[2024-04-10] MEDS: LANTUS PER UNIT CHARGE SC SCH ×2 (08:25→21:24)
[2024-04-10] MEDS: AZITHROMYCIN 250 MG TAB PO SCH (08:28)
[2024-04-10 08:35] LABS: Basophils # (auto) 0.04 K/uL (0.00-0.20); Basophils % (auto) 0.3 %; Eosinophils # (auto) 0.02 K/uL (0.00-0.50); Eosinophils % (auto) 0.1 %; Hematocrit (blood only) 40.8 % (37.0-47.0); Hemoglobin 13.8 g/dl (12.0-16.0); Immature Granulocytes # (auto) 0.22 K/uL (0.01-0.20); Immature Granulocytes % (auto) 1.4 %; Lymphocytes # (auto) 1.48 K/uL (1.20-3.40); Lymphocytes % (auto) 9.3 %; Mean Corpuscular Hemoglobin 30.3 pg (25.0-34.0); Mean Corpuscular Hgb Conc 33.8 g/dL (32.0-36.0); Mean Corpuscular Volume 89.7 fL (80.0-100.0); Mean Platelet Volume 8.9 fL (9.4-12.4); Monocytes # (auto) 0.39 K/uL (0.11-0.59); Monocytes % (auto) 2.4 %; Neutrophils % (auto) 86.5 %; Platelet Count 358 K/uL (130-400); RDW Coefficient of Variation 12.6 % (11.5-14.5); RDW Standard Deviation 41.7 fL (36.4-46.3); Red Blood Count 4.55 M/uL (4.20-5.40); White Blood Count 15.95 K/ul (4.8-10.8)
[2024-04-10 09:09] LABS: Albumin Level 3.7 gm/dl (3.4-5.0); BUN Creatinine Ratio 41.4 (10-20); Calcium 9.3 mg/dl (8.6-10.3); Creatinine Clr Calc Pharmacy 135.5 ml/min; Phosphorus 3.8 mg/dl (2.5-4.9); Potassium 4.3 mmol/L (3.5-5.1)
[2024-04-10] MEDS: SODIUM CHLOR 7% 4 ML NEB NEB SCH (12:50)
[2024-04-10] MEDS: ACETAMINOPHEN 325 MG TAB PO PRN (14:02)
--- NOTE | 2024-04-10 14:04 | Hospitalist Progress Note ---
Date of Service April 10, 2024 Assessment & Plan (1) Acute bronchitis due to Rhinovirus: (2) Elevated troponin: (3) Atypical chest pain: (4) Port-A-Cath in place: (5) Diet-controlled diabetes mellitus: Plan The patient is a 44-year-old female with medical history including neuropathy, bilateral high-frequency sensorineural hearing loss, Port-A-Cath in place due to poor IV access, lumbar degenerative disc disease, chronic migraine without aura, obesity, tach, diabetes mellitus. She was initially seen in the emergency department on 04/06 and given prednisone and an oral antibiotic. Realized she had not gotten better in 24 hours, but felt badly enough that she presented to the ED for assessment. #Acute bronchitis due to rhinovirus- CT scan chest does note calcified left hilar lymph nodes, and granuloma left upper lobe. Continue Solu-Medrol 40 mg IV decreased to daily, hopefully will also allow her to rest Completed 3 day course Azithromycin Cough Medications: Robitussin, Hycodan syrup, Tessalon Perles Scheduled DuoNebs q6. Add 7% saline nebs, Continue IS, FV SALAS level:43. ZAID negative. ESR 18 Recommend smoking cessation. Wean O2 as able - goal 92%. Room air today #Atypical chest pain/elevated troponin- symptoms consistent with pericarditis, treatment as above. patient hypotensive 04/08 AM - s/p 500ml NSS bolus. BP now normotensive Initial troponin 7.1 -> 31.1 --> 5.1 without acute EKG changes. Chest pain has improved. Echo 04/08: EF 65-70%, echo unchanged since prior study in 2022. #Status post left knee arthroscopic surgery- 03/29/2024 She reports that she is due to have her sutures removed [address] Middleton reached out to ortho 04/08 - patient to follow up outpatient for suture removal. #Port in Place Placed approx [address] Hernandez, pt reports has not been functioning for the last 1.5 years. Pt refuses to see Dr. Hernandez regarding this Has appointment with Dr. Russell at the end of the month, agreeable to outpatient [facility] general surgery referral at discharge Causing her significant anxiety/stress --> Atarax added and helpful Has US guided IV currently #Diet-controlled diabetes mellitus- Pharmacy consulted for aide in glycemic management for increase in BSG while on steroids A1c - 6% Dispo: continued inpatient stay, weaning O2 and treating bronchitis DVT Proh: SCDs Admission and Anticipated Discharge Date Admission Date: April 08, 2024 Supervising Physician Co-Signing Physician Notes Attending Attestation - Chart reviewed, care plan d/w LENNY Chavez. I agree w/ the wiley components of her documentation. Ruddy Steiner MD Subjective patient seen lying in bed, states she feels a little bit better than yesterday and was able to get some sleep. Is concerned about going home and bouncing right back. Has been trying to avoid taking deep breaths or coughing because it throws her into a fit that causes pain was able to ambulated to the bathroom and get washed up this morning but reports it felt like she ran a mile [employer] 50-80s Review of Systems Review of Systems: All systems reviewed & are unremarkable except as noted in Subjective Physical Exam Physical Exam: General: NAD, VS as above, appears significantly more calm then yesterday Resp: increased work of breathing with talking, on room air, coarse lung sounds with no wheezing CV: RRR, no murmur, Abd: normal bowel sounds, non tender, no hepatosplenomegaly Extremities: Moves all extremities, no edema Neuro: A&O x3, Skin: intact, no lesions noted Results & Data Results & Data Vital Signs (Past 12 Hours) Vital Signs Temp Pulse Pulse Resp BP Pulse Ox O2 Del Method 04/10/24 12:50 88 22 90 Room Air 04/10/24 12:31 97.9 F 81 17 188/69 H 93 Room Air 04/10/24 09:58 51 L 04/10/24 08:00 Room Air 04/10/24 07:15 52 L 19 92 Nasal Cannula 04/10/24 07:04 98.2 F 56 L 20 143/68 H 92 Nasal Cannula 04/10/24 02:54 97.7 F 68 20 116/74 93 Nasal Cannula O2 Flow Rate 04/10/24 12:50 04/10/24 12:31 04/10/24 09:58 04/10/24 08:00 04/10/24 07:15 2 04/10/24 07:04 2 04/10/24 02:54 2 Laboratory Results CBC and chemistry reviewed PG Care Time/CCT Total # of Minutes Spent Total Time Spent with Patient: Total time spent is greater than 50% in coordination of care (as documented) at patient's floor/unit and/or counseling patient: Coding Level of Care Code 76517 SUB INP/OBS CARE 3/50MIN Diagnoses Acute bronchitis due to Rhinovirus J20.6 Elevated troponin R79.89 Atypical chest pain R07.89 Port-A-Cath in place Z95.828 Diet-controlled diabetes mellitus E11.9
--- NOTE | 2024-04-10 14:32 | Pharmacy Report ---
Pharmacy Glycemic Short Note 2 - Date of Service April 10, 2024 - Glycemic Short BSG Results (Last 24 hours): 04/09/24 04/09/24 04/10/24 16:05 20:56 07:02 Glucose POC Glucose 159 H 130 H 184 H 04/10/24 04/10/24 07:29 11:00 Glucose 171 H POC Glucose 207 H OUTPATIENT ANTIDIABETIC REGIMEN: * none (diet controlled) * HbA1c 6.0% (04/08/24) ASSESSMENT: 04/10: * Beth received 45 units of insulin yesterday, 9 basal + 36 bolus. BSGs were [phone] mg/dL. * Fasting BSG increased to 184 mg/dL this AM. Will significantly increase basal compared to yesterday. Given total daily dose of 45 units yesterday and BSGs still being mostly uncontrolled, plan to give 15 units this AM followed by a scaled dose this evening for hyperglycemia. * No change to Novolog today despite lunchtime BSG increasing to > 200 mg/dL. BSGs trended down throughout the day yesterday with current parameters and steroids have been adjusted from Solumedrol 40 mg IV TID to 40 mg IV daily (of note, patient did receive 2 doses of 40 mg already today). 04/09 * Glycemic control decent given patient on high dose IV steroids (methylprednisone 40 mg IV q8h) * Fasting BSG of 174 mg/dL. Patient did not meet parameters for basal insulin on 04/08. Will start basal today, dosed per BSG scale. Suspect patient will no longer need basal once IV steroids are discontinued. * Tighten Novolog CF and CR for post prandial BSG > 200. 04/08 * Beth is a 44 YOF admitted with bronchitis secondary to Rhinovirus. Pharmacy has been consulted to assist with glycemic management while inpatient. * Fasting BSG this AM acceptable, received one time dose of methylprednisone 60mg IV early this morning and was subsequently continued on methlyprednisolone 40mg Q8H IV. BSGs continuing to increase throughout the day, will give a dose of basal insulin (up to 0.3 units/kg) with dinner based on BSG if elevated. * NovoLog initiated at a weight based stress of 2 PLAN FOR INPATIENT GLYCEMIC CONTROL: * Basal insulin * Lantus 15 units SC daily * Lantus 0-5 units SC at bedtime pending BSG (see eMAR for more details) * Bolus insulin * NovoLog per scale ACHS or Q6hrs while NPO * Goal Range: Low 110 mg/dL - High 140 mg/dL * Correction Factor: 20 mg/dL/unit * Nutritional / Prandial insulin per carb ratio of 1 unit per 7 grams CHO consumed
--- NOTE | 2024-04-10 22:51 | Electrocardiogram Report ---
Test Reason : Blood Pressure : */* mmHG Vent. Rate : 55 BPM Atrial Rate : 55 BPM P-R Int : 120 ms QRS Dur : 102 ms QT Int : 452 ms P-R-T Axes : 18 -10 13 degrees QTcB Int : 432 ms Sinus bradycardia Low voltage QRS T wave abnormality, consider anterior ischemia Abnormal ECG When compared with ECG of 09-Apr-2024 05:58, T wave inversion now evident in Anterior leads Confirmed by Trevor An ([id number] on 04/10/2024 10:50:29 PM Referred By: REFERRED SELF Confirmed By: Trevor An
[2024-04-11 07:47] VITALS: BP 134/80; RESP 22; TEMP 98.4; O2SAT 92
[2024-04-11] MEDS: methylPREDNISolone 40 MG in SYRINGE 0 ML IV SCH (08:16)
--- NOTE | 2024-04-11 10:31 | Discharge Summary ---
Discharge Summary Date of Service April 11, 2024 Principal Dx & Hospital Course #1 = Principal Diagnosis (1) Acute bronchitis due to Rhinovirus: (2) Elevated troponin: (3) Atypical chest pain: (4) Port-A-Cath in place: (5) Diet-controlled diabetes mellitus: Plan The patient is a 44-year-old female with medical history including neuropathy, bilateral high-frequency sensorineural hearing loss, Port-A-Cath in place due to poor IV access, lumbar degenerative disc disease, chronic migraine without aura, obesity, tach, diabetes mellitus. She was initially seen in the emergency department on 04/06 and given prednisone and an oral antibiotic. Realized she had not gotten better in 24 hours, but felt badly enough that she presented to the ED for assessment. #Acute bronchitis due to rhinovirus- CT scan chest does note calcified left hilar lymph nodes, and granuloma left upper lobe. SALAS level:43. ZAID negative. ESR 18 Completed 3 day course Azithromycin. improved with IV steroids and scheduled D uoNebs. Patient did not like his saline nebs because they gave her a headache. Cough is improving, but has not became productive. Discharged with Mucinex, Hycodan syrup, Tessalon Perles and prolonged steroid taper, prn albuterol inhaler. Recommend smoking cessation. Advised to take it easy at home, may take a week or 2 to fully recover from rhinovirus. Continue incentive spirometer flutter valve. Off work note report provided until Saturday 04/15 #Atypical chest pain/elevated troponin- symptoms consistent with pericarditis, treatment as above. She had an episode of hypotension that improved with fluids. Small elevation in troponin without worsening chest pain or EKG changes. Echo 04/08: EF 65-70%, echo unchanged since prior study in 2022. #Status post left knee arthroscopic surgery- 03/29/2024 Sutures removed by myself on 04/11. Patient has a picture of the area to show for Ortho provider at follow-up. No signs of infection at removal. Encourage routine follow-up with Ortho #Port in Place Placed approx [address] Hernandez, pt reports has not been functioning for the last 1.5 years. Pt refuses to see Dr. Hernandez regarding this Has appointment with Dr. Russell at the end of the month, agreeable to outpatient [facility] general surgery referral at discharge Causing her significant anxiety/stress --> Atarax added and helpful. this was continued as a as needed at discharge, encouraged her to discuss with her PCP about starting a daily antianxiety medication. #Diet-controlled diabetes mellitus- A1c - 6%. required some insulin during her stay due to high dose steroids, can continue diet control at discharge dispo: Discharge to home today Notes For Next Care Provider encourage patient to discuss with PCP antianxiety medications Referral placed to [facility] surgery Needs routine follow-up with Ortho Medication Changes From Visit steroid taper As needed added Atarax Tessalon Perles, hycodan syrup, Mucinex, as needed albuterol inhaler Admission HPI Per Admitting Provider The patient is a 44-year-old female with medical history including neuropathy, bilateral high-frequency sensorineural hearing loss, Port-A-Cath in place due to poor IV access, lumbar degenerative disc disease, chronic migraine without aura, obesity, tach, diabetes mellitus. She was initially seen in the emergency department on 04/06 for the symptoms noted above. She was given prednisone and an oral antibiotic, and realized that she had not gotten better in 24 hours, but felt badly enough that she presented to the ED for assessment. She denies any recent travels or sick exposures. Discharge Exam General: NAD, VS as above, appears better than prior days Resp: normal respiratory effort, is no longer becoming conversationally dyspneic. Lungs are clear, no wheezing CV: RRR, no murmur, Abd: normal bowel sounds, non tender, no hepatosplenomegaly Extremities: Moves all extremities, no edema. left knee with 3 mattress sutures without signs of infection, all 3 sutures removed without difficulty, sutures intact. Neuro: A&O x3, Skin: intact, no lesions noted Discharge Plan Discharge Items Patient Disposition: Home - Self-Care Reason For Visit: BRONCHITIS, ELEVATED TROPONIN Discharge Diagnosis: rhinovirus bronchitis Condition on Discharge: Good Activity: As commented below Activity Comment: increase activity as tolerated Weightbearing: Full weightbearing Non-emergency contact: Primary Care Provider Call non-emergency contact if: you have any medication questions, your symptoms worsen and your temperature is above 101 Follow-up/Referrals: Monserrat Murray MD [Primary Care Provider] - 04/18/24 11:00 am (Hospital follow up scheduled Katja 9 at 11:00) Bala Middleton MD [Physician] - (routine follow up s/p surgery ) Karl Doherty MD [Physician] - (new pt - needs port removed, refuses to see [facility] ) Diet: Heart Healthy Addtl Attending Provider Instructions: Ms. Woodward, You were hospitalized after having worsening shortness of breath - this was found to be from rhinovirus. You have completed your course of antibiotics and imrpvoved with IV steroids and nebulizer treatments. Unfortunately, viral infections can take up to 2 weeks for your body to heal, continue activity as tolerated, being careful to not overdue it. Recommendations upon discharge: * Continue to use incentive spriometer and flutter valve at home. * Tessalon and Hycodan can be used as needed for cough * Continue to take Mucinex to help loosen mucus - this was sent in to the pharmacy. It can also be purchased over the counter if your insurance does not cover it - generic brand is okay, dose is 1200mg twice a day. * Steroid taper - follow the instructions on the bottle, next dose is 1/3 * Albuterol inhaler as needed for wheezing Regarding your port - a referral has been made to [facility] general surgery to have this removed and potentially replaced. If you do not hear from them by the beginning of next week, their number is listed above. Regarding anxiety - I have sent in the atarax (hydroxyzine) that can be used as needed. Be cautious driving while taking this as it can make your drowsy. Would highly encourage you to talk to your PCP about starting a daily medication! Regarding your knee - sutures removed 1/, no signs of infection. Continue routine follow up with ortho. Activity: You can do normal everyday activities as your body allows. Take rest breaks if you feel tired. Do not overexert. Stop activity if you have pain, shortness of breath or feel dizzy. Follow-up appointments: Make an appointment with your primary care physician within one week of discharge. A copy of this summary will be sent to them. Every time you see your primary care physician, or any other doctor, bring your medication list, and a list of questions. CONTACT YOUR PRIMARY CARE PROVIDER if you experience any of the following: Shortness of breath or difficulty breathing Fevers or chills Feeling tired with normal activity or experiencing dizziness or fainting Difficulty following your treatment plan, or difficulty taking medications CALL 911 OR GO TO THE EMERGENCY DEPARTMENT if you experience any of the following: Severe abdominal pain or nausea/vomiting Severe chest pain, or chest pain that radiates (moves) to your jaw or arm Sudden, severe shortness of breath or difficulty breathing Thank you for allowing us to participate in your care. Omayra APONTE Pending Studies at Discharge: No Stand-Alone Forms: My [facility], Work/School Release, Smoking Cessation Medications and DC Order Prescriptions: New hydroxyzine HCl 25 mg Tablet 25 mg PO BID PRN (Reason: anxiety) Qty: 30 0RF melatonin 3 mg Tablet 3 mg PO HS PRN (Reason: sleep) Qty: 10 0RF benzonatate 100 mg Capsule 200 mg PO TID PRN (Reason: cough) Qty: 60 0RF hydrocodone-homatropine [Hydromet] 5-1.5 mg/5 mL Syrup 5 ml PO Q4H PRN (Reason: severe cough) Qty: 200 0RF prednisone 10 mg tablet See Taper PO DIRECTED Qty: 36 0RF Taper: Taper, Blank 40 mg DAILY for 3 Days 30 mg DAILY for 4 Days 20 mg DAILY for 4 Days 10 mg DAILY for 4 Days Rx Instructions: see taper instructions guaifenesin [Mucus Relief ER] 1,200 mg tablet extended release 12hr 1,200 mg PO BID Qty: 10 0RF Continued albuterol sulfate 90 mcg/actuation HFA aerosol inhaler 1 inh inhalation Q6H PRN (Reason: shortness of breath or wheezing) Qty: 8.5 0RF Discontinued prednisone 20 mg tablet 20 mg PO BID Qty: 15 0RF Rx Instructions: Please take 1 tablet twice daily on days 1 through 5. Please take 1 tablet daily on days 6 through 10. Discharge Orders: Discharge Order (Routine); Ordered 04/11/24 Ordered By: Omayra Newell/Other Patient Handouts: Managing Type 2 Diabetes, Healthy Meals for Diabetes Admission Data Admit Date/Time: 04/08/24 03:16 Attending Provider: Ruddy Steiner Admit Provider: Antonio Araujo Primary Care Provider: Monserrat Murray Other Providers: Antonio Araujo Hospital Stay Data Consultations 04/08/24 01:05 ED Decision to Admit Stat Diagnostic Imagining Performed Chest X-Ray 04/07/24 20:52 Exam(s): XR CXR 1 VIEW EXAM: XR Chest, 1 View CLINICAL HISTORY: Reason for exam: Chest pain, nonspecific. TECHNIQUE: Frontal view of the chest. COMPARISON: 01/09/2024 FINDINGS: Lungs: Unremarkable. No consolidation. Pleural space: Unremarkable. No pneumothorax. Heart: Unremarkable. No cardiomegaly. Mediastinum: Unremarkable. Normal mediastinal contour. Bones/joints: Unremarkable. No acute fracture. IMPRESSION: Normal chest x-ray. Electronically signed by: Edgar Esquivel MD 04/08/24 00:[address] 04/07/24 22:18 Exam(s): CT CHEST With Contrast IV Amt: 93 ml optiray 320 EXAM: CT Chest With Intravenous Contrast CLINICAL HISTORY: Reason for exam: severe pn, pt concerned her port has moved. TECHNIQUE: Axial computed tomography images of the chest with intravenous contrast. CTDI is 28 mGy and DLP is 808.46 mGy-cm. Automated exposure control was utilized for the study. A dose lowering technique was utilized adhering to the principles of ALARA. CONTRAST: Patient received 93 ml optiray 320 of IV contrast COMPARISON: No relevant prior studies available. FINDINGS: Lungs: Calcified granuloma left upper lobe.. No mass. No consolidation. Pleural space: Unremarkable. No pneumothorax. No significant effusion. Heart: Unremarkable. No cardiomegaly. No significant pericardial effusion. No significant coronary artery calcifications. Bones/joints: Unremarkable. No acute fracture. No dislocation. Soft tissues: Unremarkable. Vasculature: Unremarkable. No thoracic aortic aneurysm. Lymph nodes: Calcified left hilar lymph nodes. IMPRESSION: No acute findings in the chest. Electronically signed by: Edgar Esquivel MD 04/08/24 00:37 AM Pending Results Patient Have Any Pending Studies at Discharge: No Discharge Instructions Given to Patient (Per Discharging Provider) Ms. Woodward, You were hospitalized after having worsening shortness of breath - this was found to be from rhinovirus. You have completed your course of antibiotics and imrpvoved with IV steroids and nebulizer treatments. Unfortunately, viral infections can take up to 2 weeks for your body to heal, continue activity as tolerated, being careful to not overdue it. Recommendations upon discharge: * Continue to use incentive spriometer and flutter valve at home. * Tessalon and Hycodan can be used as needed for cough * Continue to take Mucinex to help loosen mucus - this was sent in to the pharmacy. It can also be purchased over the counter if your insurance does not cover it - generic brand is okay, dose is 1200mg twice a day. * Steroid taper - follow the instructions on the bottle, next dose is 1/3 * Albuterol inhaler as needed for wheezing Regarding your port - a referral has been made to [facility] general surgery to have this removed and potentially replaced. If you do not hear from them by the beginning of next week, their number is listed above. Regarding anxiety - I have sent in the atarax (hydroxyzine) that can be used as needed. Be cautious driving while taking this as it can make your drowsy. Would highly encourage you to talk to your PCP about starting a daily medication! Regarding your knee - sutures removed 04/11, no signs of infection. Continue routine follow up with ortho. Activity: You can do normal everyday activities as your body allows. Take rest breaks if you feel tired. Do not overexert. Stop activity if you have pain, shortness of breath or feel dizzy. Follow-up appointments: Make an appointment with your primary care physician within one week of tonie yang. A copy of this summary will be sent to them. Every time you see your primary care physician, or any other doctor, bring your medication list, and a list of questions. CONTACT YOUR PRIMARY CARE PROVIDER if you experience any of the following: Shortness of breath or difficulty breathing Fevers or chills Feeling tired with normal activity or experiencing dizziness or fainting Difficulty following your treatment plan, or difficulty taking medications CALL 911 OR GO TO THE EMERGENCY DEPARTMENT if you experience any of the fo llowing: Severe abdominal pain or nausea/vomiting Severe chest pain, or chest pain that radiates (moves) to your jaw or arm Sudden, severe shortness of breath or difficulty breathing Thank you for allowing us to participate in your care. Omayra APONTE Total Time Total Time Spent Total Time Spent (In Minutes): Time spent day of discharge 40 minutes including direct patient care, medication reconciliation, documentation, review of labs and images, and coordination of care. Coding Level of Care Code 16947 INP/OBS DISCH >30 MIN Diagnoses Acute bronchitis due to Rhinovirus J20.6 Elevated troponin R79.89 Atypical chest pain R07.89 Port-A-Cath in place Z95.828 Diet-controlled diabetes mellitus E11.9
[2024-04-11 10:46] VITALS: PULSE 55
--- NOTE | 2024-04-11 11:45 | Orthopedic Consultation ---
Date of Consultation April 11, 2024 Assessment & Plan (1) S/P arthroscopy of knee: Patient was in the process of being discharged when I saw her at bedside. Her sutures had already been removed by hospitalist service. As noted above, the distal lateral wound had a very small amount of superficial opening about 1-2 mm of the dermis, but there is no evidence of any deep dehiscence. The remainder of the incisions appear to be healing well without evidence of dehiscence or infection. I reinforced all of her wounds with Steri-Strips and she was given several additional packets to reinforce as needed. These should fall off in 5 to 7 days. She can let water run over these in the shower but avoid submerging. She was given an updated work note with appropriate restrictions to be gentle weightbearing as tolerated, frequent breaks, elevate as needed, avoid squatting or kneeling. She does have physical therapy scheduled here 04/15/24. We will reach out to her to determine rescheduling of her postop appointment. Orthopedic Consult Patient underwent left knee arthroscopy with Dr. Middleton on 03/29/2024. Her post- op/suture removal appointment was scheduled for today however she was admitted at the hospital for an unrelated problem and was unable to attend her outpatient appointment. She states that her left knee feels great, much better than before her surgery. Every now and then she develops some normal aching soreness following surgery but does not have any persistent pain. She has been walking on the knee and leg without difficulty. Has not had any swelling, redness, or warmth about the knee. Denies any problems with her sutures. Denies any drainage. She is hoping to go back to work on a light/restricted basis and is requesting an updated work note. She said her employer is happy to make accomodations for her. Examination of the left lower extremity: Sutures had already been removed at time of evaluation. 3 small surgical wounds are present on the anterior knee. The distal lateral wound is slightly opened 1-2 mm compared to the other 2 wounds, but there is no deep dehiscence. The remainder of the wounds appear to be healing well with no dehiscence. There is no surrounding erythema about any of the wounds. No drainage. Knee without effusion. No tenderness. No pain with passive range of motion of the knee with flexion or extension. Able to move all toes. Left PT pulse 2+
== END 2024-04-11 11:35 | disposition home or self-care (01) | DRG 202 ==
LOC: ED 20:40 → SUATTDRO 04-08 03:16 → EDINP 04-08 03:16 → 2S 04-08 04:15